=== PATIENT | male | born 1950 | race Caucasian/White ===

== ENCOUNTER 2017-02-19 07:27 | Inpatient (IN) | payer OTHER ==
[~2017-02-19] VITALS: Ht 175.3 cm; Wt 53.1 kg
[~2017-02-19 07:27] MED LIST: AMOX1TAB43 PO; ASPI-232 PO; CPR500 PO; NRV5 PO; THM100 PO
--- NOTE | 2017-02-19 07:41 | EMERGENCY ROOM VISIT NOTE ---
ED Visit Note First contact with patient: 07:35 I have seen and examined this patient with Gregory Fitch and generally agree with the treatment plan as discussed. Problem List Medical Problems: (1) HTN (hypertension) Status: Chronic (2) Hypertension Status: Chronic (3) Tobacco use disorder Status: Chronic Surgical Problems: (1) H/O colonoscopy Status: Chronic Current/Historical Medications Scheduled Amlodipine Besylate (Amlodipine Besylate), 5 MG PO DAILY Amoxicillin & Pot Clavulanate (Amoxicillin/Clavulanate P), 875 MG PO BIDM Aspirin (Aspir-81), 81 MG PO DAILY Ciprofloxacin (Ciprofloxacin HCl), 500 MG PO BID Thiamine HCl (Vitamin B-1), 100 MG PO DAILY Allergies Coded Allergies: No Known Allergies (Unverified , 07/26/16) Departure Information Referrals Noah Mayes MD (PCP) Patient Instructions My [facility]
[2017-02-19 08:34] LABS: BASO % 0.1 %; BASO ABS # 0.02 K/uL (0-0.2); COMPLETE YES; HEMATOCRIT 37.8 % (42-52); IG% 0.4 %; LYMPH % 8.6 %; LYMPH ABS # 1.34 K/uL (1.2-3.4); MEAN CELL VOLUME 96.2 fL (80-100); MEAN CORPUSCULAR HEMOGLOBIN 33.1 pg (25-34); MEAN CORPUSCULAR HGB CONC 34.4 g/dl (32-36); MEAN PLATELET VOLUME 9.3 fL (7.4-10.4); MONO % 8.8 %; NEUT % 82.1 %; PLATELET COUNT 202 K/uL (130-400); RED BLOOD COUNT 3.93 M/uL (4.7-6.1); WHITE BLOOD COUNT 15.59 K/uL (4.8-10.8)
[2017-02-19 08:51] LABS: BUN/CREATININE RATIO 24.8 (10-20); CREATININE 1.1 mg/dl (0.60-1.40); MAGNESIUM 2.1 mg/dl (1.8-2.4); POTASSIUM 4.2 mmol/L (3.5-5.1)
[2017-02-19 08:53] LABS: CALCIUM 9.3 mg/dl (8.5-10.1)
[2017-02-19 08:54] LABS: ALB/GLOB RATIO 0.9 (0.9-2)
--- NOTE | 2017-02-19 08:55 | DIAGNOSTIC IMAGING REPORT ---
CT HEAD WITHOUT CONTRAST (CT) CLINICAL HISTORY: Trauma. Patient found unconscious. COMPARISON STUDY: 02/06/2016 TECHNIQUE: Axial CT of the brain is performed from the vertex to the skull base. IV contrast was not administered for this examination. CT DOSE: 1191.40 mGy.cm FINDINGS: No intra or extra-axial mass lesions are visualized. There is no CT evidence of acute cortical infarction. There is no evidence of midline shift. There is no acute hemorrhage. No calvarial fractures are visualized. There are patchy white matter hypodensities likely on a small vessel basis. 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 There is an equivocal old infarct in the region the left pontomedullary junction. There is ventricular dilatation, unchanged the prior study and likely secondary to volume loss. There is a prominent cisterna magna. There is no evidence of acute sinusitis IMPRESSION: No acute intracranial findings Electronically signed by: Rohan Archuleta M.D. 02/19/2017 8:53 AM Dictated Date/Time: 02/19/2017 8:51 AM
--- NOTE | 2017-02-19 08:58 | DIAGNOSTIC IMAGING REPORT ---
CT LUMBAR SPINE WITHOUT CT DOSE: CLINICAL HISTORY: Back pain status post trauma. Patient is incontinent of urine and feces. TECHNIQUE: Helical images were acquired in transverse plane. Reformatted sagittal and coronal images were reviewed. CONTRAST: No contrast was administered COMPARISON STUDY: None. FINDINGS: L1-2 level: There is a minimal circumferential disc bulge. There is no evidence of significant spinal or foraminal stenosis. L2-3 level: There is a mild circumferential disc bulge. There is no significant spinal or foraminal stenosis. L3-4 level: There is a minor circumferential disc bulge. There is no significant spinal or foraminal stenosis. L4-5 level: There is a mild circumferential disc bulge. There is mild spinal stenosis. There is no significant foraminal narrowing L5-S1 level: There is a disc osteophyte complex. There is no significant spinal or foraminal stenosis. No acute fractures or traumatic subluxations are visualized. IMPRESSION: 1. No acute fractures or traumatic subluxations identified 2. Mild multilevel spondylitic change. Mild spinal stenosis at the L4-5 level. Electronically signed by: Rohan Archuleta M.D. 02/19/2017 8:56 AM Dictated Date/Time: 02/19/2017 8:54 AM
--- NOTE | 2017-02-19 09:24 | DIAGNOSTIC IMAGING REPORT ---
CHEST ONE VIEW PORTABLE CLINICAL HISTORY: Unconscious patient. Trauma. COMPARISON STUDY: 04/25/2016 FINDINGS: The cardiac and mediastinal contours are normal. There is no evidence of focal pulmonary consolidation. There is no evidence of failure. No pleural effusions are visualized.[ The patient appears mildly hyperinflated. There is a left midlung zone nodule, likely representing a nipple shadow. This remain similar to the prior study. IMPRESSION: No active disease in the chest. Electronically signed by: Rohan Archuleta M.D. 02/19/2017 9:23 AM Dictated Date/Time: 02/19/2017 9:22 AM
--- NOTE | 2017-02-19 10:00 | EMERGENCY ROOM VISIT NOTE ---
History First contact with patient: 07:35 Chief Complaint: FOOT PAIN Stated Complaint: LEFT FOOT PAIN History of Present Illness The patient is a 66 year old male who presents to the Emergency Room via ambulance with complaints of "left foot pain". The emergency personnel who brought the patient, states that he was found outside in the park, face down on the sidewalk. Police were notified, and EMS were called. The patient was slightly groggy when aroused, and notes that he was consuming alcohol. The patient also was noted to have a large amount of feces within his clothes. It was believed that he was lying on the sidewalk since 9:30 PM yesterday evening. In route his oral temperature was 98.3. Patient is believed to be homeless. He does have a history of trench foot. Upon questioning, the patient states that he did consume 8, 12 ounce beers yesterday. He also notes that his left foot appears to be developing trench foot again. He notes pain in the left foot that he rates as an 9/10, like pins and needles. He also notes that he must have fallen off of the park bench while sleeping, is not sure if he lost consciousness. There is associated chills. He denies any chest pain, shortness of breath, fever, back pain, abdominal pain, head pain. The patient at this time denies any other areas of pain. Review of Systems A complete 10-point Review of Systems was discussed with the patient, with pertinent positives and negatives listed in the History of Present Illness. All remaining Review of Systems questions can be considered negative unless otherwise specified. Past Medical/Surgical History Medical Problems: (1) Ambulatory dysfunction (2) Cellulitis of foot (3) HTN (hypertension) (4) Hypertension (5) Immersion (trench) foot (6) Tobacco use disorder (7) Trench foot Surgical Problems: (1) H/O colonoscopy Family History FH: CAD (coronary artery disease) FATHER ( of [place] age 56 ) Social History Smoking Status: Current Every Day Smoker Alcohol Use: heavy Drug Use: marijuana Marital Status: single Housing Status: other Occupation Status: retired Current/Historical Medications No Active Prescriptions or Reported Meds Allergies Coded Allergies: No Known Allergies (Unverified , 02/19/17) Physical Exam Vital Signs Date Time Temp Pulse Resp B/P Pulse Ox O2 Delivery O2 Flow Rate FiO2 02/19/17 10:03 79 18 154/70 100 Room Air 02/19/17 07:44 36.7 93 18 170/93 99 Room Air Physical Exam VITAL SIGNS - Vital signs and nursing notes were reviewed. GENERAL -66-year-old male appearing his stated age who is in no acute distress. Communicates well with provider and answers questions appropriately. The patient's overall skin, appears to be weathered is dry and red. SKIN - the left foot is erythematous, with a small black nonraised blotches. This is consistent with trench foot. HEAD - NC/AT. EYES - Palpebral conjunctiva pink and moist with no injection noted. PERRLA. EARS - No deformities of external structures noted on gross examination bilaterally. NOSE - Midline and without cyanosis. MOUTH/OROPHARYNX - Without perioral cyanosis. No dentition. NECK - Neck with FROM. Supple to palpation. No evidence of meningitis. LUNGS - Chest wall symmetric without accessory muscle use, intercostals retractions, or central cyanosis. Normal vesicular breath sounds CTA B/L. No wheezes, rales, or rhonchi appreciated. CARDIAC - RRR with S1/S2. No murmur, rubs, or gallops appreciated. ABDOMEN - Abdominal contour without pulsations or visible masses. BS normoactive all four quadrants. No tenderness, palpable masses, hepatosplenomegaly, or ascites noted. EXTREMITIES - No clubbing or peripheral cyanosis. No pretibial edema present. The left lower extremity from the knee down is erythematous, with findings of trench foot. Right foot unremarkable. There is tenderness to palpation overlying the left foot. +5/5 strength noted in UE/LE bilaterally. NEUROLOGIC - Cranial nerves II through XII grossly intact. PSYCH - A&Ox3 and cooperates fully with examiner. Pt is very pleasant and interacts well with examiner. Medical Decision & Procedures ER Provider Diagnostic Interpretation: CHEST ONE VIEW PORTABLE CLINICAL HISTORY: Unconscious patient. Trauma. COMPARISON STUDY: 04/25/2016 FINDINGS: The cardiac and mediastinal contours are normal. There is no evidence of focal pulmonary consolidation. There is no evidence of failure. No pleural effusions are visualized.[ The patient appears mildly hyperinflated. There is a left midlung zone nodule, likely representing a nipple shadow. This remain similar to the prior study. IMPRESSION: No active disease in the chest. Electronically signed by: Rohan Archuleta M.D. 02/19/2017 9:23 AM Dictated Date/Time: 02/19/2017 9:[address] HEAD WITHOUT CONTRAST (CT) CLINICAL HISTORY: Trauma. Patient found unconscious. COMPARISON STUDY: 02/06/2016 TECHNIQUE: Axial CT of the brain is performed from the vertex to the skull base. IV contrast was not administered for this examination. CT DOSE: 1191.40 mGy.cm FINDINGS: No intra or extra-axial mass lesions are visualized. There is no CT evidence of acute cortical infarction. There is no evidence of midline shift. There is no acute hemorrhage. No calvarial fractures are visualized. There are patchy white matter hypodensities likely on a small vessel basis. 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 There is an equivocal old infarct in the region the left pontomedullary junction. There is ventricular dilatation, unchanged the prior study and likely secondary to volume loss. There is a prominent cisterna magna. There is no evidence of acute sinusitis IMPRESSION: No acute intracranial findings Electronically signed by: Rohan Archuleta M.D. 02/19/2017 8:53 AM Dictated Date/Time: 02/19/2017 8:[address] LUMBAR SPINE WITHOUT CT DOSE: CLINICAL HISTORY: Back pain status post trauma. Patient is incontinent of urine and feces. TECHNIQUE: Helical images were acquired in transverse plane. Reformatted sagittal and coronal images were reviewed. CONTRAST: No contrast was administered COMPARISON STUDY: None. FINDINGS: L1-2 level: There is a minimal circumferential disc bulge. There is no evidence of significant spinal or foraminal stenosis. L2-3 level: There is a mild circumferential disc bulge. There is no significant spinal or foraminal stenosis. L3-4 level: There is a minor circumferential disc bulge. There is no significant spinal or foraminal stenosis. L4-5 level: There is a mild circumferential disc bulge. There is mild spinal stenosis. There is no significant foraminal narrowing L5-S1 level: There is a disc osteophyte complex. There is no significant spinal or foraminal stenosis. No acute fractures or traumatic subluxations are visualized. IMPRESSION: 1. No acute fractures or traumatic subluxations identified 2. Mild multilevel spondylitic change. Mild spinal stenosis at the L4-5 level. Electronically signed by: Rohan Archuleta M.D. 02/19/2017 8:56 AM Dictated Date/Time: 02/19/2017 8:54 AM Laboratory Results 02/19/17 08:14 Red Blood Count 3.93, Mean Corpuscular Volume 96.2, Mean Corpuscular Hemoglobin 33.1, Mean Corpuscular Hemoglobin Concent 34.4, Mean Platelet Volume 9.3, Neutrophils (%) (Auto) 82.1, Lymphocytes (%) (Auto) 8.6, Monocytes (%) (Auto) 8.8, Eosinophils (%) (Auto) 0.0, Basophils (%) (Auto) 0.1, Neutrophils # (Auto) 12.79, Lymphocytes # (Auto) 1.34, Monocytes # (Auto) 1.37, Eosinophils # (Auto) 0.00, Basophils # (Auto) 0.02 02/19/17 08:14 Test 02/19/17 08:14 02/19/17 08:33 White Blood Count 15.59 K/uL (4.8-10.8) Red Blood Count 3.93 M/uL (4.7-6.1) Hemoglobin 13.0 g/dL (14.0-18.0) Hematocrit 37.8 % (42-52) Mean Corpuscular Volume 96.2 fL (80-100) Mean Corpuscular Hemoglobin 33.1 pg (25-34) Mean Corpuscular Hemoglobin Concent 34.4 g/dl (32-36) Platelet Count 202 K/uL (130-400) Mean Platelet Volume 9.3 fL (7.4-10.4) Neutrophils (%) (Auto) 82.1 % Lymphocytes (%) (Auto) 8.6 % Monocytes (%) (Auto) 8.8 % Eosinophils (%) (Auto) 0.0 % Basophils (%) (Auto) 0.1 % Neutrophils # (Auto) 12.79 K/uL (1.4-6.5) Lymphocytes # (Auto) 1.34 K/uL (1.2-3.4) Monocytes # (Auto) 1.37 K/uL (0.11-0.59) Eosinophils # (Auto) 0.00 K/uL (0-0.5) Basophils # (Auto) 0.02 K/uL (0-0.2) RDW Standard Deviation 44.6 fL (36.4-46.3) RDW Coefficient of Variation 12.7 % (11.5-14.5) Immature Granulocyte % (Auto) 0.4 % Immature Granulocyte # (Auto) 0.07 K/uL (0.00-0.02) Prothrombin Time 10.0 SECONDS (9.0-12.0) Prothromb Time International Ratio 0.9 (0.9-1.1) Anion Gap 12.0 mmol/L (3-11) Est Creatinine Clear Calc Drug Dose 50.3 ml/min Estimated GFR () 81.2 Estimated GFR (Non- 70.1 BUN/Creatinine Ratio 24.8 (10-20) Calcium Level 9.3 mg/dl (8.5-10.1) Magnesium Level 2.1 mg/dl (1.8-2.4) Total Bilirubin 0.8 mg/dl (0.2-1) Aspartate Amino Transf (AST/SGOT) 39 U/L (15-37) Alanine Aminotransferase (ALT/SGPT) 25 U/L (12-78) Alkaline Phosphatase 79 U/L (45-117) Total Protein 7.5 gm/dl (6.4-8.2) Albumin 3.6 gm/dl (3.4-5.0) Globulin 3.9 gm/dl (2.5-4.0) Albumin/Globulin Ratio 0.9 (0.9-2) Ammonia < 10.0 umol/L (11-32) Ethyl Alcohol mg/dL < 3.0 mg/dl (0-3) Medical Decision Patient was seen and evaluated as above. He presents today via ambulance, as he was [place]. He is believed to be homeless. He has been admitted here numerous times in the past, most notably for trench foot. He does have findings concerning for trenchfoot and cellulitis of his left lower extremity today. He does not wear socks, and appears to have chronically wet feet. The patient denies any other complaints at this time. Before I was able to see the patient, he was taken to the decontamination room and was showered as there were large amounts of feces within his clothes. His clothes were laundered. There is concern for potential loss of consciousness status post fall from a park bench therefore CT of the head was obtained. The patient also stated that he was recently incontinent of urine and stool, which was visibly noted upon his entrance into the emergency department today. CT scan was obtained of the lumbar spine without evidence of acute process and head which revealed old infarcts of which he was educated upon. There is no weakness in the legs, or genital numbness. I do not suspect cauda equina. The patient does have elevated leukocytosis at about 15-1/2, with erythematous findings of the left lower foot, and black small little blotches concerning for decay of skin. The patient's vital signs here are relatively stable, he is not hypothermic. The case was discussed with my attending, and subsequently the hospitalist as I do believe that the patient would benefit from potential inpatient management to aid in slight workup of his feet, as well as for potential further investigation of his incontinence. Please refer to further documentation regarding the patient's stay. In evaluation treatment this patient the following differential diagnoses were entertained: encephalopathy, alcohol withdrawal, homelessness, trench foot, sialitis, sepsis, among others. Impression Primary Impression: Immersion (trench) foot Additional Impressions: Alcohol abuse Anemia Cellulitis of foot Departure Information Prescriptions No Active Prescriptions or Reported Meds Referrals Noah Mayes MD (PCP) Patient Instructions [facility] Problem Qualifiers
[2017-02-19] MEDS ORDERED: POLYETHYLENE (MIRALAX) 17 GM PACK PO PRN (10:15)
[2017-02-19] MEDS ORDERED: ACETAMINOPHEN 325 MG TAB PO PRN (10:15)
[2017-02-19] MEDS ORDERED: ONDANSETRON INJ 2 MG/ML 2 ML VIAL IV PRN (10:15)
[2017-02-19] MEDS ORDERED: HEPARIN SOD 5000 UNIT/0.5 ML CARP SQ SCH (10:15)
--- NOTE | 2017-02-19 10:26 | History and Physical ---
History & Physical Date & Time of Service: February 19, 2017 at 10:17 Chief Complaint: Left Foot Pain Primary Care Physician: Noah Mayes MD History of Present Illness Source: patient HISTORY OF PRESENT ILLNESS: This is a 66-year-old male with past medical history significant for hypertension, trench foot, alcohol ingestion, tobacco disorder, homeless man, bowel and bladder incontinence, comes with trench foot. Emergency personnel who brought the patient, states that he was found outside in the park, face down on the sidewalk. Police was notified, and EMS were called. The patient was slightly groggy when aroused, and notes that he was consuming alcohol. The patient also was noted to have a large amount of feces within his close. It was believed that he was lying on the sidewalk since 9:30 PM yesterday evening. Patient's last admission was in July,April 2016 for trench foot. Since than his living condition has not changed- Unhygienic living conditions +, homeless. He continues to have bladder, bowel incontinence which has been a chronic issue. Today he c/o painful feet, difficulty ambulating due to pain. There is redness in red foot which is new. He states that he did consume 8, 12 ounce beers yesterday. Denies any fever, chills, nausea, vomiting, diarrhea, abdominal pain , diarrhea, cough, SOB, chest pain. On and off does c/o falls. Had work up in ED - CT head, CT cervical spine. He says he does fall on and off when he gets drunk. BP high in 170s. Labs show WBC of 15k. We will admit him for cellulitis of left foot with no signs of sepsis Past Medical/Surgical History Medical Problems: (1) HTN (hypertension) Status: Chronic (2) Hypertension Status: Chronic (3) Tobacco use disorder Status: Chronic Surgical Problems: (1) H/O colonoscopy Status: Chronic Family History FH: CAD (coronary artery disease) FATHER ( of [place] age 56 ) Social History Smoking Status: Current Every Day Smoker Drug Use: marijuana Marital Status: single Occupational Status: retired Immunizations History of Influenza Vaccine: No History of Tetanus Vaccine?: No Multi-Drug Resistant Organisms History of MDRO: No Allergies Coded Allergies: No Known Allergies (Unverified , 02/19/17) Home Medications No Active Prescriptions or Reported Meds Review of Systems Constitutional: No chills, No fever Eyes: No eye pain, No worsening of vision ENT: No hearing loss, No nasal symptoms Respiratory: No cough, No hemoptysis, No shortness of breath, No sputum, No wheezing Cardiovascular: No chest pain, No palpitations Abdomen: No GI bleeding, No constipation, No diarrhea, No nausea, No pain, No vomiting Musculoskeletal: + problem reported (bilateral feet pain) Genitourinary - Male: + urinary incontinence, No hematuria Neurologic: No memory loss, No numbness/tingling, No paralysis, No weakness Psychiatric: + substance abuse (alcohol) Hematologic / Lymphatic: No abnormal bleeding/bruising Integumentary: + problem reported (Redness, pain in bilateral feet.) Physical Exam Vital Signs Date Time Temp Pulse Resp B/P Pulse Ox O2 Delivery O2 Flow Rate FiO2 02/19/17 10:03 79 18 154/70 100 Room Air 02/19/17 07:44 36.7 93 18 170/93 99 Room Air General Appearance: no apparent distress, + pertinent finding (Disheveled) Head: normocephalic, atraumatic Eyes: PERRL ENT: hearing grossly normal Neck: supple, no JVD Respiratory/Chest: chest non-tender, lungs clear, normal breath sounds, no respiratory distress, no accessory muscle use Cardiovascular: regular rate, rhythm, no murmur Abdomen/GI: normal bowel sounds, non tender, soft Back: no CVA tenderness Extremities/Musculoskelatal: no calf tenderness Neurologic/Psych: no motor/sensory deficits, alert, oriented x 3 Skin: + pertinent finding (Left foot- Erythema/Tenderness extending upto 3-4 inches above ankle and involving the foot. Multiple scabs on dorsum of feet. Trench Feet +) Diagnostics Laboratory Results Results Past 24 Hours Test 02/19/17 08:14 02/19/17 08:33 Range/Units White Blood Count 15.59 4.8-10.8 K/uL Red Blood Count 3.93 4.7-6.1 M/uL Hemoglobin 13.0 14.0-18.0 g/dL Hematocrit 37.8 42-52 % Mean Corpuscular Volume 96.2 80-100 fL Mean Corpuscular Hemoglobin 33.1 25-34 pg Mean Corpuscular Hemoglobin Concent 34.4 32-36 g/dl Platelet Count 202 130-400 K/uL Mean Platelet Volume 9.3 7.4-10.4 fL Neutrophils (%) (Auto) 82.1 % Lymphocytes (%) (Auto) 8.6 % Monocytes (%) (Auto) 8.8 % Eosinophils (%) (Auto) 0.0 % Basophils (%) (Auto) 0.1 % Neutrophils # (Auto) 12.79 1.4-6.5 K/uL Lymphocytes # (Auto) 1.34 1.2-3.4 K/uL Monocytes # (Auto) 1.37 0.11-0.59 K/uL Eosinophils # (Auto) 0.00 0-0.5 K/uL Basophils # (Auto) 0.02 0-0.2 K/uL RDW Standard Deviation 44.6 36.4-46.3 fL RDW Coefficient of Variation 12.7 11.5-14.5 % Immature Granulocyte % (Auto) 0.4 % Immature Granulocyte # (Auto) 0.07 0.00-0.02 K/uL Sodium Level 134 136-145 mmol/L Potassium Level 4.2 3.5-5.1 mmol/L Chloride Level 98 98-107 mmol/L Carbon Dioxide Level 24 21-32 mmol/L Anion Gap 12.0 3-11 mmol/L Blood Urea Nitrogen 27 7-18 mg/dl Creatinine 1.10 0.60-1.40 mg/dl Est Creatinine Clear Calc Drug Dose 50.3 ml/min Estimated GFR () 81.2 Estimated GFR (Non- 70.1 BUN/Creatinine Ratio 24.8 10-20 Random Glucose 74 70-99 mg/dl Calcium Level 9.3 8.5-10.1 mg/dl Magnesium Level 2.1 1.8-2.4 mg/dl Total Bilirubin 0.8 0.2-1 mg/dl Aspartate Amino Transf (AST/SGOT) 39 15-37 U/L Alanine Aminotransferase (ALT/SGPT) 25 12-78 U/L Alkaline Phosphatase 79 45-117 U/L Total Protein 7.5 6.4-8.2 gm/dl Albumin 3.6 3.4-5.0 gm/dl Globulin 3.9 2.5-4.0 gm/dl Albumin/Globulin Ratio 0.9 0.9-2 Ammonia < 10.0 11-32 umol/L Ethyl Alcohol mg/dL < 3.0 0-3 mg/dl Diagnostic Radiology CT LUMBAR SPINE IMPRESSION: 1. No acute fractures or traumatic subluxations identified 2. Mild multilevel spondylitic change. Mild spinal stenosis at the L4-5 level. CXR No acute abnormalities CT head No acute abnormalities Impression Assessment and Plan ASSESSMENT AND PLAN : This is a 65 year-old male who presents with the trench foot more on the left side with cellulitis CELLULITIS - LEFT FOOT /BILATERAL TRENCH FEET : Patient has had multiple admissions in past for trench feet due to poor hygienic conditions/poor living conditions- homelessness/chronic bladder/bowel incontinence. This time he comes for similar complaints, but being admitted for cellulitis of left foot due to increasing redness, swelling, pain. -Afebrile, leucocytosis of 15k -Will start him on IV Unasyn -Trench foot care: Keep feet clean, dry, socks . No socks while sleeping at night. -PT ordered HTN- Elevated BP due to non compliance Does not take any medications but supposed to be on amlodipine -Restart amlodipine ALCOHOL/TOBACCO ABUSE DISORDER -Patient did consume 8, 12 ounce beers yesterday. -Nicotine patch -Watch for withdrawal signs DVT PROPHYLAXIS SCDS/Heparin SQ DISPOSITION Admit to med surg SS consult placed FULL CODE per patient Level of Care Med/Surg Resuscitation Status FULL RESUSCITATION VTE Prophylaxis VTE Risk Assessment Done? Y/N: Yes Risk Level: Moderate Given or contraindicated: Unfractionated heparin SQ Social Service Consult Homeless
[2017-02-19] MEDS ORDERED: LORAZEPAM 1 MG TAB PO PRN (11:00)
[2017-02-19 11:32] VITALS: BP 148/80; PULSE 84; TEMP 36.5; O2SAT 99
[2017-02-19 12:20] LABS: INR 0.9 (0.9-1.1)
[2017-02-19 12:24] VITALS: Ht 175.3 cm; Wt 53.1 kg
[2017-02-19 12:55] VITALS: BP 107/64; PULSE 83
[2017-02-19] MEDS: AMLODIPINE BESYLATE 5 MG TAB PO SCH (12:56)
[2017-02-19] MEDS: AMPICILLIN/SULBACTAM SOD INJ 3,000 MG in SODIUM CHLORIDE 0.9% 100ML 100 ML IV SCH ×2 (12:56→18:17)
[2017-02-19] MEDS: HEPARIN SOD 5000 UNIT/0.5 ML CARP SQ SCH ×2 (13:41→21:55)
[2017-02-19 14:40] VITALS: BP 123/72; PULSE 84; TEMP 36.7; O2SAT 98
[2017-02-19 23:10] VITALS: BP 126/70; PULSE 78; TEMP 36.8; O2SAT 97
[2017-02-20] MEDS: AMPICILLIN/SULBACTAM SOD INJ 3,000 MG in SODIUM CHLORIDE 0.9% 100ML 100 ML IV SCH ×5 (00:23→23:34)
[2017-02-20] MEDS: HEPARIN SOD 5000 UNIT/0.5 ML CARP SQ SCH ×3 (06:11→21:33)
[2017-02-20 06:49] VITALS: BP 127/70; PULSE 97; TEMP 36.6; O2SAT 90
[2017-02-20] MEDS: AMLODIPINE BESYLATE 5 MG TAB PO SCH (07:31)
[2017-02-20 08:11] LABS: MEAN CELL VOLUME 97.6 fL (80-100); MEAN CORPUSCULAR HEMOGLOBIN 32.2 pg (25-34); MEAN PLATELET VOLUME 9.3 fL (7.4-10.4); PLATELET COUNT 181 K/uL (130-400); RED BLOOD COUNT 3.79 M/uL (4.7-6.1); WHITE BLOOD COUNT 8.97 K/uL (4.8-10.8)
[2017-02-20 08:37] LABS: BUN/CREATININE RATIO 23.7 (10-20); CREATININE 0.91 mg/dl (0.60-1.40); POTASSIUM 3.6 mmol/L (3.5-5.1)
[2017-02-20 08:50] LABS: CALCIUM 9.5 mg/dl (8.5-10.1)
--- NOTE | 2017-02-20 14:35 | Progress Note ---
Internal Med Progress Note Date of Service: February 20, 2017. Provider Documentation: SUBJECTIVE: The patient was see\n and examined Left foot pain and swelling are better Redness is improved OBJECTIVE: Vital Signs-as noted below Exam: General-No distress at rest Eyes-Normal ENT-normal Neck-supple Lungs-Clear to auscultate bilaterally Heart-Regular,no murmur Abdomen-benign,no masses,bowel sound present Extremities-left foot swollen,with redness and tenderness and multiple wound with black eschar on those A few wounds on the right Neuro-AAOx3 Lab data as noted below. ASSESSMENT & PLAN: CELLULITIS - LEFT FOOT /BILATERAL TRENCH FEET : Patient has had multiple admissions in past for trench feet due to poor hygienic conditions/poor living conditions- homelessness/chronic bladder/bowel incontinence. Admitted with increasing swelling,redness and pain in left foot Afebrile, leucocytosis of 15k Has been started on IV Unasyn Wound care consult HTN- Elevated BP due to non compliance Does not take any medications but supposed to be on amlodipine Amlodipine restarted ALCOHOL And TOBACCO ABUSE DISORDER -Consumes beers -Nicotine patch to prevent craving for cigarettes -Watch for withdrawal signs -Ativan PRN DVT PROPHYLAXIS SCDS/Heparin SQ DISPOSITION SS consult placed PT/OT evaluation Likely discharge tomorrow FULL CODE per patient Vital Signs: Date Time Temp Pulse Resp B/P Pulse Ox O2 Delivery O2 Flow Rate FiO2 02/20/17 08:00 Room Air 02/20/17 06:49 36.6 97 20 127/70 90 Room Air 02/20/17 00:00 Room Air 02/19/17 23:10 36.8 78 18 126/70 97 Room Air 02/19/17 20:00 Room Air 02/19/17 16:00 Room Air 02/19/17 14:40 36.7 84 20 123/72 98 Room Air Lab Results: Results Past 24 Hours Test 02/20/17 07:30 Range/Units White Blood Count 8.97 4.8-10.8 K/uL Red Blood Count 3.79 4.7-6.1 M/uL Hemoglobin 12.2 14.0-18.0 g/dL Hematocrit 37.0 42-52 % Mean Corpuscular Volume 97.6 80-100 fL Mean Corpuscular Hemoglobin 32.2 25-34 pg Mean Corpuscular Hemoglobin Concent 33.0 32-36 g/dl RDW Standard Deviation 46.0 36.4-46.3 fL RDW Coefficient of Variation 12.9 11.5-14.5 % Platelet Count 181 130-400 K/uL Mean Platelet Volume 9.3 7.4-10.4 fL Sodium Level 137 136-145 mmol/L Potassium Level 3.6 3.5-5.1 mmol/L Chloride Level 100 98-107 mmol/L Carbon Dioxide Level 27 21-32 mmol/L Anion Gap 10.0 3-11 mmol/L Blood Urea Nitrogen 22 7-18 mg/dl Creatinine 0.91 0.60-1.40 mg/dl Est Creatinine Clear Calc Drug Dose 60.8 ml/min Estimated GFR () 102.1 Estimated GFR (Non- 88.1 BUN/Creatinine Ratio 23.7 10-20 Random Glucose 84 70-99 mg/dl Calcium Level 9.5 8.5-10.1 mg/dl
[2017-02-20 16:19] VITALS: BP 126/75; PULSE 84; TEMP 36.9; O2SAT 94
[2017-02-20 17:22] LABS: URINE APPEARANCE CLEAR (CLEAR); URINE BILIRUBIN NEG (NEG); URINE COLOR YELLOW; URINE NITRITE NEG (NEG); URINE SPECIFIC GRAVITY 1.025 (1.000-1.030); UROBILINOGEN NEG (NEG); ZZUR CULT IF INDIC CLEAN CATCH NO
[2017-02-20 17:32] LABS: MANUAL MICROSCOPIC REQUIRED? NO; REVIEW REQ? NO
[2017-02-20 18:07] LABS: BENZODIAZEPINE, URINE NEG (NEG); COCAINE,URINE NEG (NEG); PHENCYCLIDINE, URINE NEG (NEG)
[2017-02-21 00:03] VITALS: BP 149/80; PULSE 74; TEMP 36.8; O2SAT 95
[2017-02-21] MEDS: AMPICILLIN/SULBACTAM SOD INJ 3,000 MG in SODIUM CHLORIDE 0.9% 100ML 100 ML IV SCH ×2 (05:44→12:45)
[2017-02-21] MEDS: HEPARIN SOD 5000 UNIT/0.5 ML CARP SQ SCH (06:27)
[2017-02-21 07:27] VITALS: BP 158/81; PULSE 61; TEMP 36.6; O2SAT 97
[2017-02-21] MEDS: AMLODIPINE BESYLATE 5 MG TAB PO SCH (08:34)
--- NOTE | 2017-02-21 13:44 | Progress Note ---
Medicine Progress Note Date & Time of Visit: February 21, 2017 at 13:37. Subjective patient seen resting in bed expressing to the staff that he would like to be discharged as soon as possible on exam, resting comfortably in bed denies leg pain, has usual pain on his feet with minimal touching no fever/chills denies chest pain, dyspnea, dizziness, palpitations no problems with ambulation states he is back to his usual baseline and would like to be discharged today Objective Last 8 Hrs Date Time Temp Pulse Resp B/P Pulse Ox O2 Delivery O2 Flow Rate FiO2 02/21/17 08:00 Room Air 02/21/17 07:27 36.6 61 18 158/81 97 Room Air Physical Exam: General- oriented x 3, not in distress, speaks in sentences with no effort Head- atraumatic Eyes- EOMI, anicteric ENT- oropharynx clear Neck- supple, no JVD, no adenopathy Lungs- clear breath sounds bilaterally, no rales/wheezes Heart- regular rhythm; no murmur, normal rate Abdomen- normal bowel sounds, soft, nontender Extremities- right foot: 2 scabbed small wounds on the dorsal aspect, no erythema/warmth/swelling, tenderness left foot: miultiple small scabbed wounds on the dorsal aspect, highly sensitive to touch, mild erythema, no warmth/swelling no pretibial edema, no calf tenderness; peripheral pulses intact Neuro- alert, oriented x 3; no gross focal deficits Skin- warm & dry Laboratory Results: Last 24 Hours Test 02/20/17 16:45 Urine Color YELLOW Urine Appearance CLEAR Urine pH 7.0 Urine Specific [place] 1.025 Urine Protein NEG Urine Glucose (UA) 1+ Urine Ketones TRACE Urine Occult Blood NEG Urine Nitrite NEG Urine Bilirubin NEG Urine Urobilinogen NEG Urine Leukocyte Esterase NEG Urine Opiates Screen NEG Urine Methadone, Qualitative NEG Urine Barbiturates NEG Urine Phencyclidine (PCP) Level NEG Ur Amphetamine/Methamphetamine NEG MDMA (Ecstasy) Screen NEG Urine Benzodiazepines Screen NEG Urine Cocaine Metabolite NEG Urine Marijuana (THC) POS Assessment & Plan CELLULITIS - LEFT FOOT /BILATERAL TRENCH FEET : Patient has had multiple admissions in past for trench feet due to poor hygienic conditions/poor living conditions- homelessness/chronic bladder/bowel incontinence. Admitted with increasing swelling,redness and pain in left foot Afebrile, leucocytosis of 15k Has been started on IV Unasyn -- clinically improved leukocytosis resolved - discharge plan: Augmentin 875mg BID x 7 days patient advised to continue daily foot care/wound check advised to call PCP or return to ER if with worsening of symptoms, fever, etc. emphasized importance of compliance with medications to avoid Osteomyelitis, Sepsis, etc. Patient verbalized understanding. HYPERTENSION - initially, Elevated BP due to non compliance Amlodipine restarted - Amlodipine improving - continue Amlodipine - PCP ff up ALCOHOL And TOBACCO ABUSE DISORDER - no signs of withdrawal - advised cessation NORMOCYTIC ANEMIA, MILD Hg 12.2 monitor and further work up as outpatient DVT PROPHYLAXIS SCDS/Heparin SQ DISPOSITION d/c today ff up with PCP in 1 week Current Inpatient Medications: Current Inpatient Medications Medications (Trade) Dose Ordered Sig/Arron Route Start Time Stop Time Status Last Admin Dose Admin Acetaminophen (Tylenol Tab) 650 mg Q4H PRN PO 02/19/17 10:15 03/21/17 10:14 Polyethylene (Miralax Powder Packet) 17 gm DAILY PRN PO 02/19/17 10:15 03/21/17 10:14 Ondansetron HCl (Zofran Inj) 4 mg Q6H PRN IV 02/19/17 10:15 03/21/17 10:14 Heparin Sodium (Porcine) 5000 unit 5,000 unit Q8H SQ 02/19/17 14:00 03/21/17 13:59 02/21/17 06:27 5,000 UNIT Ampicillin Sodium/ Sulbactam Sodium/ Sodium Chloride (Unasyn Inj/Nss 100ml) 108 ml @ 200 mls/hr Q6 IV 02/19/17 12:00 03/01/17 11:59 02/21/17 12:45 200 MLS/HR Amlodipine Besylate (Norvasc Tab) 5 mg DAILY PO 02/19/17 10:45 03/21/17 10:44 02/21/17 08:34 5 MG Lorazepam (Ativan Tab) 1 mg Q4H PRN PO 02/19/17 11:00 03/21/17 10:59
[2017-02-21] MEDS ORDERED: NRV5 PO (13:45)
[2017-02-21] MEDS ORDERED: AMOX875T PO (13:45)
--- NOTE | 2017-02-21 13:54 | Discharge Instructions ---
Discharge Instructions Date of Service February 21, 2017. Admission Reason for Admission: Cellulitis Of Foot, Trench Foot Discharge Discharge Diagnosis / Problem: LEFT FOOT CELLULITIS Discharge Goals Goal(s): Diagnostic testing, Therapeutic intervention Activity Recommendations Activity Limitations: as noted below (NO HEAVY EXERTION UNTIL RE-EVALUATED BY PRIMARY CARE PHYSICIAN) . Instructions / Follow-Up Instructions / Follow-Up OBSERVE PROPER CARE OF YOUR FEET DAILY. CALL PRIMARY CARE PHYSICIAN OR RETURN TO ER IMMEDIATELY IF WITH INCREASING SWELLING, REDNESS, PAIN OF YOUR FEET OR LEGS, OR IF YOU HAVE FEVER/CHILLS. FOLLOW UP WITH YOUR PRIMARY CARE PHYSICIAN ADVISED. AVOID ALCOHOL AND SMOKING. FOLLOW UP WITH DR. WILSON (ASSOCIATE OF DR. CARTAGENA) ON FRIDAY FEBRUARY 24, 2017 AT 9 :45 AM. Current Hospital Diet Patient's current hospital diet: Low Sodium Diet (2gm Na) Discharge Diet Recommended Diet: AHA Diet (Heart Healthy) Pending Studies Studies pending at discharge: no Medical Emergencies . Who to Call and When: Medical Emergencies: If at any time you feel your situation is an emergency, please call 911 immediately. . Non-Emergent Contact Non-Emergency issues call your: Primary Care Provider Call Non-Emergent contact if: you have a fever, your pain is not controlled, wound has increased drainage, wound has increased redness, wound has increased pain, you have any medication questions . . "Provider Documentation" section prepared by Chacorta Benson. . VTE Core Measure Inpt VTE Proph given/why not?: Unfractionated heparin SQ
[2017-02-21 13:56] VITALS: BP 158/81; PULSE 61; TEMP 36.6; O2SAT 97
--- NOTE | 2017-02-21 13:57 | Discharge Summary ---
Discharge Summary Date of Service February 21, 2017. Discharge Summary Admission Date: February 19, 2017 at 10:17 Discharge Date: February 21, 2017 Discharge Disposition: Home Principal Diagnosis: CELLULITIS - LEFT FOOT; BILATERAL TRENCH FEET Secondary Diagnoses/Problems: PLEASE REFER TO HOSPITAL COURSE BELOW. Procedures: CT HEAD WITHOUT CONTRAST (CT) CLINICAL HISTORY: Trauma. Patient found unconscious. COMPARISON STUDY: 02/06/2016 TECHNIQUE: Axial CT of the brain is performed from the vertex to the skull base. IV contrast was not administered for this examination. CT DOSE: 1191.40 mGy.cm FINDINGS: No intra or extra-axial mass lesions are visualized. There is no CT evidence of acute cortical infarction. There is no evidence of midline shift. There is no acute hemorrhage. No calvarial fractures are visualized. There are patchy white matter hypodensities likely on a small vessel basis. 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 There is an equivocal old infarct in the region the left pontomedullary junction. There is ventricular dilatation, unchanged the prior study and likely secondary to volume loss. There is a prominent cisterna magna. There is no evidence of acute sinusitis IMPRESSION: No acute intracranial findings CHEST ONE VIEW PORTABLE CLINICAL HISTORY: Unconscious patient. Trauma. COMPARISON STUDY: 04/25/2016 FINDINGS: The cardiac and mediastinal contours are normal. There is no evidence of focal pulmonary consolidation. There is no evidence of failure. No pleural effusions are visualized.[ The patient appears mildly hyperinflated. There is a left midlung zone nodule, likely representing a nipple shadow. This remain similar to the prior study. IMPRESSION: No active disease in the chest. Pending Studies/Follow-Up: PLEASE REFER TO HOSPITAL COURSE BELOW. Medication Reconciliation New Medications: Amoxicillin & Pot Clavulanate (Augmentin 875-125 mg) 1 Tab Tab 875 MG PO BID for 7 Days, #14 TAB Amlodipine Besylate (Amlodipine Besylate) 5 Mg Tab 5 MG PO DAILY for 30 Days, #30 TAB 0 Refills Admission Information HPI (per Admitting provider): HISTORY OF PRESENT ILLNESS: This is a 66-year-old male with past medical history significant for hypertension, trench foot, alcohol ingestion, tobacco disorder, homeless man, bowel and bladder incontinence, comes with trench foot. Emergency personnel who brought the patient, states that he was [place] outside in the park, face down on the sidewalk. Police was notified, and EMS were called. The patient was slightly groggy when aroused, and notes that he was consuming alcohol. The patient also was noted to have a large amount of feces within his close. It was believed that he was lying on the sidewalk since 9:30 PM yesterday evening. Patient's last admission was in July,April 2016 for trench foot. Since than his living condition has not changed- Unhygienic living conditions +, homeless. He continues to have bladder, bowel incontinence which has been a chronic issue. Today he c/o painful feet, difficulty ambulating due to pain. There is redness in red foot which is new. He states that he did consume 8, 12 ounce beers yesterday. Denies any fever, chills, nausea, vomiting, diarrhea, abdominal pain , diarrhea, cough, SOB, chest pain. On and off does c/o falls. Had work up in ED - CT head, CT cervical spine. He says he does fall on and off when he gets drunk. BP high in 170s. Labs show WBC of 15k. We will admit him for cellulitis of left foot with no signs of sepsis Physical Exam (per Admitting): General Appearance: no apparent distress, + pertinent finding (Disheveled) Head: normocephalic, atraumatic Eyes: PERRL ENT: hearing grossly normal Neck: supple, no JVD Respiratory/Chest: chest non-tender, lungs clear, normal breath sounds, no respiratory distress, no accessory muscle use Cardiovascular: regular rate, rhythm, no murmur Abdomen/GI: normal bowel sounds, non tender, soft Back: no CVA tenderness Extremities/Musculoskelatal: no calf tenderness Neurologic/Psych: no motor/sensory deficits, alert, oriented x 3 Skin: + pertinent finding (Left foot- Erythema/Tenderness extending upto 3- 4 inches above ankle and involving the foot. Multiple scabs on dorsum of feet. Trench Feet +) Hospital Course CELLULITIS - LEFT FOOT; BILATERAL TRENCH FEET Patient has had multiple admissions in past for trench feet due to poor hygienic conditions/poor living conditions- homelessness/chronic bladder/bowel incontinence. Admitted with increasing swelling,redness and pain in left foot Afebrile, leucocytosis of 15k -- placed on IV Unasyn x 3 days -- clinically improved leukocytosis resolved - discharge plan: Augmentin 875mg BID x 7 days patient advised to continue daily foot care/wound check advised to call PCP or return to ER if with worsening of symptoms, fever, etc. emphasized importance of compliance with medications to avoid Osteomyelitis, Sepsis, etc. Patient verbalized understanding. HTN - initially, Elevated BP due to non compliance Amlodipine restarted - BP improving - continue Amlodipine 5mg po daily - PCP ff up CHRONIC BASAL GANGLIA INFARCTS - seen on CT head (full report noted above in the Procedures Section) - CT head: " There are old bilateral basal ganglia infarcts. There is an equivocal old infarct in the region the left pontomedullary junction." - patient states he already takes ASA 81mg po daily advised to continue Aspirin daily will also need Statin and further work up as outpatient ALCOHOL And TOBACCO ABUSE DISORDER - no signs of withdrawal - advised cessation NORMOCYTIC ANEMIA, MILD Hg 12.2 monitor and further work up as outpatient DISPOSITION d/c today ff up with PCP in 1 week Total time spent on discharge = 40 minutes This includes examination of the patient, discharge planning, medication reconciliation, and communication with other providers. Discharge Instructions Discharge Instructions Date of Service February 21, 2017. Admission Reason for Admission: Cellulitis Of Foot, Trench Foot Discharge Discharge Diagnosis / Problem: LEFT FOOT CELLULITIS Discharge Goals Goal(s): Diagnostic testing, Therapeutic intervention Activity Recommendations Activity Limitations: as noted below (NO HEAVY EXERTION UNTIL RE-EVALUATED BY PRIMARY CARE PHYSICIAN) . Instructions / Follow-Up Instructions / Follow-Up OBSERVE PROPER CARE OF YOUR FEET DAILY. CALL PRIMARY CARE PHYSICIAN OR RETURN TO ER IMMEDIATELY IF WITH INCREASING SWELLING, REDNESS, PAIN OF YOUR FEET OR LEGS, OR IF YOU HAVE FEVER/CHILLS. FOLLOW UP WITH YOUR PRIMARY CARE PHYSICIAN ADVISED. AVOID ALCOHOL AND SMOKING. FOLLOW UP WITH DR. WILSON (ASSOCIATE OF DR. CARTAGENA) ON FRIDAY FEBRUARY 24, 2017 AT 9 :45 AM. Current Hospital Diet Patient's current hospital diet: Low Sodium Diet (2gm Na) Discharge Diet Recommended Diet: AHA Diet (Heart Healthy) Pending Studies Studies pending at discharge: no Medical Emergencies . Who to Call and When: Medical Emergencies: If at any time you feel your situation is an emergency, please call 911 immediately. . Non-Emergent Contact Non-Emergency issues call your: Primary Care Provider Call Non-Emergent contact if: you have a fever, your pain is not controlled, wound has increased drainage, wound has increased redness, wound has increased pain, you have any medication questions . . "Provider Documentation" section prepared by Chacorta Benson. . VTE Core Measure Inpt VTE Proph given/why not?: Unfractionated heparin SQ
== END 2017-02-21 14:09 | disposition home or self-care (01) | DRG 603 ==
LOC: ENRESERVTM → ENRESERVDT → EDBD 07:27 → C.EDA 07:30 → C.MS4W 10:17
PROVIDERS: ADMIT Internal Medicine; ATTEND Internal Medicine
DX: L03.116 Cellulitis of left lower limb (principal); T69.022A Immersion foot, left foot, initial encounter; T69.021A Immersion foot, right foot, initial encounter; R26.9 Unspecified abnormalities of gait and mobility; I10 Essential (primary) hypertension; D72.829 Elevated white blood cell count, unspecified; D64.9 Anemia, unspecified; F10.10 Alcohol abuse, uncomplicated; F17.210 Nicotine dependence, cigarettes, uncomplicated; Z59.0 Homelessness; Z91.14 Patient's other noncompliance with medication regimen; Z86.73 Personal history of transient ischemic attack (TIA), and cerebral infarction without residual deficits; Y93.E8 Activity, other personal hygiene; X58.XXXA Exposure to other specified factors, initial encounter

== ENCOUNTER 2017-02-24 08:20 | Observation (INO) | payer OTHER ==
[~2017-02-24] VITALS: Ht 175.3 cm; Wt 55.1 kg
[~2017-02-24 08:20] MED LIST changes: -AMOX1TAB43 PO; +AMOX875T PO; -ASPI-232 PO; -CPR500 PO; -THM100 PO
[2017-02-24] MEDS ORDERED: SODIUM CHLORIDE 0.9% 1000ML 1,000 ML IV ONE (09:17)
[2017-02-24] MEDS ORDERED: PIPERACILLIN/TAZOBACTAM 4.5 GM/100ML D5W IV STA (09:17)
[2017-02-24 09:28] LABS: BASO % 0.2 %; BASO ABS # 0.02 K/uL (0-0.2); COMPLETE YES; EOS % 1.1 %; HEMATOCRIT 37.7 % (42-52); IG% 0.5 %; LYMPH % 15.8 %; MEAN CELL VOLUME 95.2 fL (80-100); MEAN CORPUSCULAR HEMOGLOBIN 33.1 pg (25-34); MEAN CORPUSCULAR HGB CONC 34.7 g/dl (32-36); MONO % 11.6 %; NEUT % 70.8 %; PLATELET COUNT 239 K/uL (130-400); RED BLOOD COUNT 3.96 M/uL (4.7-6.1); WHITE BLOOD COUNT 10.15 K/uL (4.8-10.8)
[2017-02-24 09:34] LABS: INR 0.9 (0.9-1.1); PROTHROMBIN TIME (PATIENT) 9.8 SECONDS (9.0-12.0)
[2017-02-24 09:36] LABS: CALCIUM 8.9 mg/dl (8.5-10.1)
[2017-02-24 09:37] LABS: CREATININE 0.62 mg/dl (0.60-1.40); POTASSIUM 3.9 mmol/L (3.5-5.1)
[2017-02-24 09:40] LABS: ALB/GLOB RATIO 0.9 (0.9-2)
--- NOTE | 2017-02-24 10:25 | EMERGENCY ROOM VISIT NOTE ---
History Report prepared by Sukhi: Randolph Benjamin Under the Supervision of: Dr. Ramu Sultana M.D. First contact with patient: 09:14 Chief Complaint: INFECTION Stated Complaint: FOOT/HIP PAIN Nursing Triage Summary: Pain and infection to left foot. Pt was seen 3 weeks ago and admitted for infection in same foot, and it has not gotten better since then. Pt reports severe pain to touch, foot is red and edematous. History of Present Illness The patient is a 66 year old male who presents to the Emergency Room with complaints of a persistent left foot infection since being discharged from the hospital three days ago. The patient came to the ED five days ago with "trench foot." He states that his feet were wet from walking in the rain. He is homeless. He was started on Augmentin which he states he has been compliant with. The infection has not worsened or improved. He denies fevers or chills. The patient has been eating and keeping up with fluids. He denies history of diabetes. He does have previous history of trench foot. Per nursing staff, the patient arrived to the ED covered in his own stool and urine. Source of History: patient, nursing staff Onset: since being discharged from the hospital three days ago Position: foot (left) Quality: other (infection) Timing: other (persistent) Associated Symptoms: No chills, No fevers Review of Systems See HPI for pertinent positives & negatives. A total of 10 systems reviewed and were otherwise negative. Past Medical & Surgical Medical Problems: (1) Ambulatory dysfunction (2) Cellulitis of foot (3) HTN (hypertension) (4) Hypertension (5) Immersion (trench) foot (6) Tobacco use disorder (7) Trench foot Surgical Problems: (1) H/O colonoscopy Family History FH: CAD (coronary artery disease) FATHER ( of [place] age 56 ) Social History Smoking Status: Current Every Day Smoker Alcohol Use: heavy Drug Use: marijuana Marital Status: single Housing Status: other Occupation Status: retired Current/Historical Medications Scheduled Amlodipine Besylate (Amlodipine Besylate), 5 MG PO DAILY Amoxicillin & Pot Clavulanate (Augmentin 875-125 mg), 875 MG PO BID Allergies Coded Allergies: No Known Allergies (Unverified , 02/24/17) Physical Exam Vital Signs Date Time Temp Pulse Resp B/P Pulse Ox O2 Delivery O2 Flow Rate FiO2 02/24/17 11:00 147/72 02/24/17 10:50 86 15 02/24/17 10:35 91 21 02/24/17 10:30 136/87 02/24/17 10:20 90 22 02/24/17 10:00 147/82 02/24/17 09:50 89 24 98 02/24/17 09:44 141/74 02/24/17 09:20 96 Room Air 02/24/17 09:20 89 17 96 02/24/17 09:00 125/70 02/24/17 08:50 85 26 96 02/24/17 08:38 36.4 84 15 118/99 95 Room Air 02/24/17 08:34 96 02/24/17 08:31 118/99 Physical Exam GENERAL: Patient is in no acute distress. HEENT: No acute trauma, normocephalic atraumatic, mucous membranes moist, no nasal congestion, no scleral icterus. NECK: No stridor, no adenopathy, no meningismus, trachea is midline. LUNGS: Clear to auscultation bilaterally, no wheeze, no rhonchi, breath sounds equal. HEART: Without murmurs gallops or rubs, regular rate and rhythm. ABDOMEN: Soft, nontender, bowel sounds positive, no hernias, no peritonitis. EXTREMITIES: Left foot cellulitis tracking up the leg with erythema and warmth, some open lesions noted, edema of the left leg compared to the right. NEUROLOGIC: Oriented x 3, no acute motor or sensory deficits, no focal weakness. SKIN: No jaundice, no diaphoresis. Medical Decision & Procedures Laboratory Results 02/24/17 08:50 Red Blood Count 3.96, Mean Corpuscular Volume 95.2, Mean Corpuscular Hemoglobin 33.1, Mean Corpuscular Hemoglobin Concent 34.7, Mean Platelet Volume 9.0, Neutrophils (%) (Auto) 70.8, Lymphocytes (%) (Auto) 15.8, Monocytes (%) (Auto) 11.6, Eosinophils (%) (Auto) 1.1, Basophils (%) (Auto) 0.2, Neutrophils # (Auto ) 7.19, Lymphocytes # (Auto) 1.60, Monocytes # (Auto) 1.18, Eosinophils # (Auto ) 0.11, Basophils # (Auto) 0.02 02/24/17 08:50 Test 02/24/17 08:50 02/24/17 09:38 White Blood Count 10.15 K/uL (4.8-10.8) Red Blood Count 3.96 M/uL (4.7-6.1) Hemoglobin 13.1 g/dL (14.0-18.0) Hematocrit 37.7 % (42-52) Mean Corpuscular Volume 95.2 fL (80-100) Mean Corpuscular Hemoglobin 33.1 pg (25-34) Mean Corpuscular Hemoglobin Concent 34.7 g/dl (32-36) Platelet Count 239 K/uL (130-400) Mean Platelet Volume 9.0 fL (7.4-10.4) Neutrophils (%) (Auto) 70.8 % Lymphocytes (%) (Auto) 15.8 % Monocytes (%) (Auto) 11.6 % Eosinophils (%) (Auto) 1.1 % Basophils (%) (Auto) 0.2 % Neutrophils # (Auto) 7.19 K/uL (1.4-6.5) Lymphocytes # (Auto) 1.60 K/uL (1.2-3.4) Monocytes # (Auto) 1.18 K/uL (0.11-0.59) Eosinophils # (Auto) 0.11 K/uL (0-0.5) Basophils # (Auto) 0.02 K/uL (0-0.2) RDW Standard Deviation 42.8 fL (36.4-46.3) RDW Coefficient of Variation 12.4 % (11.5-14.5) Immature Granulocyte % (Auto) 0.5 % Immature Granulocyte # (Auto) 0.05 K/uL (0.00-0.02) Prothrombin Time 9.8 SECONDS (9.0-12.0) Prothromb Time International Ratio 0.9 (0.9-1.1) Activated Partial Thromboplast Time 26.7 SECONDS (21.0-31.0) Partial Thromboplastin Ratio 1.0 Anion Gap 9.0 mmol/L (3-11) Est Creatinine Clear Calc Drug Dose 92.6 ml/min Estimated GFR () 120.7 Estimated GFR (Non- 104.1 BUN/Creatinine Ratio 20.0 (10-20) Calcium Level 8.9 mg/dl (8.5-10.1) Total Bilirubin 0.2 mg/dl (0.2-1) Aspartate Amino Transf (AST/SGOT) 34 U/L (15-37) Alanine Aminotransferase (ALT/SGPT) 37 U/L (12-78) Alkaline Phosphatase 128 U/L (45-117) Total Protein 7.3 gm/dl (6.4-8.2) Albumin 3.4 gm/dl (3.4-5.0) Globulin 3.9 gm/dl (2.5-4.0) Albumin/Globulin Ratio 0.9 (0.9-2) Bedside Lactic Acid Venous 1.69 mmol/L (0.90-1.70) Laboratory results reviewed by me. Medications Administered Medications (Trade) Dose Ordered Sig/Arron Route Start Time Stop Time Status Last Admin Dose Admin Piperacillin Sod/ Tazobactam Sod 4.5 gm 4.5 gm NOW STAT IV 02/24/17 09:17 02/24/17 09:20 DC 02/24/17 09:47 4.5 GM Sodium Chloride (Nss 1000ml) 1,000 ml @ 999 mls/hr Q1H1M ONCE IV 02/24/17 09:17 02/24/17 10:17 DC 02/24/17 09:47 999 MLS/HR ED Course 0916: The patient was evaluated in room B5. A complete history and physical exam was performed. 0917: NSS 1000 ml @ 999 mls/hr, Zosyn 4.5 gm IV. 0957: Discussed the case with Sandra Bullock PA-C, [facility] Hospitalist. The patient will be evaluated. Medical Decision Differential diagnosis includes failed outpatient treatment, medication noncompliance, cellulitis, sepsis, dehydration, anemia, electrolyte imbalance. The patient presents with lack of improvement and failed outpatient therapy for a left leg cellulitis that is secondary to trench foot. He is homeless. He was just in the hospital. There is no leukocytosis or concerning anemia. No significant electrolyte abnormality, kidney failure or hepatitis. Lactic acid level is not elevated making sepsis less likely. Blood cultures are pending. The patient received IV saline, IV Zosyn. I do think a stay in the hospital is warranted. I wonder if he truly is taking his Augmentin. The patient is agreeable to a hospital stay. I spoke to case management. The on-call hospitalist was consulted. Consults Time Called: [phone] Consulting Physician: Sandra Bullock PA-C, [facility] Hospitalist. Returned Call: [phone] The patient will be evaluated. Impression Primary Impression: Cellulitis of left foot Additional Impressions: Trench foot Failure of outpatient treatment Scribe Attestation The scribe's documentation has been prepared under my direction and personally reviewed by me in its entirety. I confirm that the note above accurately reflects all work, treatment, procedures, and medical decision making performed by me. Departure Information Dispostion Being Evaluated By Hospitalist Referrals Noah Mayes MD (PCP) Patient Instructions My [facility] Problem Qualifiers Additional Impressions:
[2017-02-24] MEDS ORDERED: ONDANSETRON INJ 2 MG/ML 2 ML VIAL IV PRN (11:15)
[2017-02-24] MEDS ORDERED: ACETAMINOPHEN 325 MG TAB PO PRN (11:15)
--- NOTE | 2017-02-24 11:50 | HISTORY & PHYSICAL EXAMINATION ---
DATE OF ADMISSION: 02/24/2017 PRIMARY CARE PHYSICIAN: Dr. Mayes. CHIEF COMPLAINT: Left foot pain with redness and swelling. HISTORY OF PRESENT COMPLAINT: He is a 66-year-old male, homeless, with a past medical history of hypertension, tobacco use disorder, and also trench feet. Apparently was discharged from the hospital on 02/21/2017 following an attack of cellulitis involving the left foot and leg. His condition improved and he was sent home on Augmentin. He is back in ER today with increasing pain in the left foot and leg and also increasing swelling and redness. No fever, chills or rigors. He denies any other symptoms, specifically no nausea or vomiting, no pain in the chest, no shortness of breath, and no numbness or tingling in the extremities. He continues to have multiple injuries in both feet, more on the left than the right, secondary to ongoing trench feet. PAST MEDICAL HISTORY: Significant for hypertension and tobacco use disorder. PAST SURGICAL HISTORY: Nothing significant except history of colonoscopy. FAMILY HISTORY: Father had CAD and from [place] at the age of 56. SOCIAL HISTORY: He is homeless. He smokes about 1 pack per day or more at times. He used marijuana before. He is single and he is retired. ALLERGIES: NKDA. MEDICATIONS: As an outpatient, he has been on amlodipine 5 mg daily and he was given Augmentin 875 b.i.d. REVIEW OF SYSTEMS: Other systemic review unremarkable except those mentioned in history of present complaint. PHYSICAL EXAMINATION: GENERAL: On examination in the Emergency Room, he was not having any acute distress. VITAL SIGNS: Temperature 36.4, pulse was 85, blood pressure 125/70, saturation 96% on room air. HEENT: Unremarkable. NECK: Supple. No JVD. No bruit. CHEST: Clear to auscultation bilaterally. HEART: S1, S2, regular, no murmur. ABDOMEN: Soft, benign, nontender. No organomegaly. Bowel sounds present. EXTREMITIES: He has bilateral trench feet. Left lower extremity has more redness involving the lower part of the leg and also the foot with some swelling and redness. Locally increased temperature. Few superficial ulcerations noted on the left foot as well. CENTRAL NERVOUS SYSTEM: Alert, awake, oriented x3. LABORATORY DATA: Noted today white count was 10.15, H\T\H 13.1/37.7, platelet 239, neutrophil count was 7.19. Sodium 135, potassium 3.9, chloride 99, carbon dioxide 27, BUN 12, creatinine 0.62, random glucose 91, lactic acid 1.69. Liver function unremarkable. PT/INR unremarkable too. IMPRESSION AND PLAN: 1. Left leg and foot cellulitis. The patient will be started with intravenous Unasyn. He got a dose of Zosyn. He will get a wound care consult. Likely to discharge on Augmentin when the condition improves. 2. Bilateral trench feet. He was advised to take care of the feet. He has been using wet socks most of the time. Social service to continue that. 3. Tobacco use disorder. He was advised to quit smoking, tobacco cessation, and he will be given a nicotine patch. 4. Gastrointestinal prophylaxis, Maalox and Mylanta as needed. 5. Deep vein thrombosis prophylaxis, Lovenox. 6. Code status. He will be full code. In my clinical assessment, the beneficiary meets criteria as per CMS for 2-midnight stay in the hospital. KADEN
[2017-02-24] MEDS ORDERED: IV FLUIDS COMPLETED PRN (12:15)
[2017-02-24 13:45] VITALS: BP 154/77; PULSE 92; TEMP 36.8; O2SAT 96; Ht 175.3 cm; Wt 55.1 kg
[2017-02-24] MEDS: AMPICILLIN/SULBACTAM SOD INJ 3,000 MG in SODIUM CHLORIDE 0.9% 100ML 100 ML IV SCH ×2 (14:33→21:27)
[2017-02-24 15:32] VITALS: BP 170/79; PULSE 91; TEMP 36.7; O2SAT 98
[2017-02-24 16:30] VITALS: O2SAT 98
[2017-02-24] MEDS ORDERED: NURSING DECISION MEDICATION ORDER SCH (16:45)
[2017-02-24] MEDS: ENOXAPARIN 40 MG/0.4 ML SYR SQ SCH (17:24)
[2017-02-24 20:00] VITALS: O2SAT 98
[2017-02-24] MEDS: MICONAZOLE NITRATE POWDER 43 GM EXT SCH (21:47)
[2017-02-24 23:56] VITALS: BP 132/73; PULSE 83; TEMP 37; O2SAT 96
[2017-02-25] VITALS: O2SAT 98
[2017-02-25] MEDS: AMPICILLIN/SULBACTAM SOD INJ 3,000 MG in SODIUM CHLORIDE 0.9% 100ML 100 ML IV SCH ×4 (03:40→21:32)
[2017-02-25 08:03] VITALS: BP 169/84; PULSE 75; TEMP 36.9; O2SAT 93
[2017-02-25] MEDS: MICONAZOLE NITRATE POWDER 43 GM EXT SCH ×2 (08:49→21:33)
[2017-02-25] MEDS: AMLODIPINE BESYLATE 5 MG TAB PO SCH (08:50)
[2017-02-25] MEDS: NICOTINE 14 MG/24 HR TDSY TD SCH (08:52)
[2017-02-25 16:06] VITALS: BP 138/69; PULSE 91; TEMP 36.7; O2SAT 97
[2017-02-25] MEDS: ENOXAPARIN 40 MG/0.4 ML SYR SQ SCH (16:43)
[2017-02-25] MEDS: BOOST PLUS VANILLA PO SCH ×2 (19:00)
--- NOTE | 2017-02-25 21:00 | Progress Note ---
Progress Note Date of Service February 25, 2017. Progress Note checked to see patient not in his room staff thinks he may be taking a walk will check again Chacorta Benson MD
--- NOTE | 2017-02-25 22:08 | Progress Note ---
Medicine Progress Note Date & Time of Visit: February 25, 2017 at 22:03. Subjective seen resting in bed, comfortable states he feels fine except for left foot pain denies fever/chills no chest pain, dyspnea, headache no other symptoms Objective Last 8 Hrs Date Time Temp Pulse Resp B/P Pulse Ox O2 Delivery O2 Flow Rate FiO2 02/25/17 16:06 36.7 91 20 138/69 97 Room Air 02/25/17 16:00 Room Air Physical Exam: General- oriented x 3 not in distress Head- atraumatic Eyes- EOMI, anicteric ENT- oropharynx clear Neck- supple, no JVD, no adenopathy, no thyromegaly no bruits appreciated Lungs- clear to auscultation b/l Heart- regular rhythm; no murmur, no gallop, no rub appreciated Abdomen- normal bowel sounds, soft, nontender Extremities- left foot: (+) scabbed excoriations with mild-mod erythema, very sensitive to touch no pretibial edema, no calf tenderness; peripheral pulses intact Neuro- alert, oriented x 3; no gross focal deficits Skin- warm & dry Assessment & Plan CELLULITIS - LEFT FOOT BILATERAL TRENCH FEET - continue Unasyn IV wound care HTN - stable on Amlodipine CHRONIC BASAL GANGLIA INFARCTS will need aspirin and statin ALCOHOL And TOBACCO ABUSE DISORDER - no signs of withdrawal - advised cessation NORMOCYTIC ANEMIA, MILD monitor Current Inpatient Medications: Current Inpatient Medications Medications (Trade) Dose Ordered Sig/Arron Route Start Time Stop Time Status Last Admin Dose Admin Enoxaparin Sodium (Lovenox Inj) 40 mg Q24H SQ 02/24/17 16:00 03/26/17 15:59 02/24/17 17:24 40 MG Acetaminophen (Tylenol Tab) 650 mg Q4H PRN PO 02/24/17 11:15 03/26/17 11:14 02/24/17 21:48 650 MG Ondansetron HCl (Zofran Inj) 4 mg Q6H PRN IV 02/24/17 11:15 03/26/17 11:14 Amlodipine Besylate 5 mg 5 mg DAILY PO 02/25/17 08:00 03/27/17 08:59 02/25/17 08:50 5 MG Ampicillin Sodium/ Sulbactam Sodium/ Sodium Chloride (Unasyn Inj/Nss 100ml) 108 ml @ 200 mls/hr Q6H IV 02/24/17 14:00 03/06/17 13:59 02/25/17 21:32 200 MLS/HR Nicotine (Nicoderm Cq 14MG Patch) 1 patch QAM TD 02/25/17 08:00 03/27/17 08:59 02/25/17 08:52 1 PATCH Miscellaneous (Iv Fluids Completed) 1 ea PRN PRN N/A 02/24/17 12:15 02/24/18 12:14 Miscellaneous (Remove Nicoderm Patch) 1 ea HS N/A 02/25/17 21:00 03/27/17 20:59 Miconazole Nitrate (Desenex Powder) 1 appln BID EXT 02/24/17 20:00 03/26/17 19:59 02/25/17 21:33 1 APPLN Enteral Nutritional Formula (Boost Plus Vanilla) 1 can QDD PO 02/25/17 19:00 03/27/17 18:59 02/25/17 19:00 1 CAN
[2017-02-26 00:16] VITALS: BP 171/93; PULSE 76; TEMP 36.5; O2SAT 96
[2017-02-26] MEDS: AMPICILLIN/SULBACTAM SOD INJ 3,000 MG in SODIUM CHLORIDE 0.9% 100ML 100 ML IV SCH ×4 (02:05→20:50)
[2017-02-26] MEDS: MICONAZOLE NITRATE POWDER 43 GM EXT SCH ×2 (07:41→20:50)
--- NOTE | 2017-02-26 08:14 | Progress Note ---
Medicine Progress Note Date & Time of Visit: February 26, 2017 at 08:07. Subjective patient seen resting in bed expressing to staff he wants to leave today explained to patient the need to stay for at least another day of IV antibiotics he agreed states left foot pain is decreasing denies fever/chills denies leg pain no chest pain, dyspnea, dizziness no other symptoms Objective Last 8 Hrs Date Time Temp Pulse Resp B/P Pulse Ox O2 Delivery O2 Flow Rate FiO2 02/26/17 00:16 36.5 76 20 171/93 96 Room Air Physical Exam: General- oriented x 3 not in distress Eyes- anicteric Neck- supple, no JVD Lungs- clear breath sounds bilaterally Heart- regular rhythm; no murmur, normal rate Abdomen- normal bowel sounds, soft, nontender Extremities- left foot: (+) scabbed excoriations on the dorsal aspect with mild erythema, less tenderness no pretibial edema, no calf tenderness; peripheral pulses intact Neuro- alert, oriented x 3; no gross focal deficits Skin- warm & dry Assessment & Plan CELLULITIS - LEFT FOOT BILATERAL TRENCH FEET - improving - continue Unasyn IV Day 3 daily wound care HTN on Amlodipine monitor CHRONIC BASAL GANGLIA INFARCTS on Aspirin will need to be on a statin, but due to history of alcoholism and poor adherence to ff up, will nee close monitoring while on statin ALCOHOL And TOBACCO ABUSE DISORDER - no signs of withdrawal nicotine patch - advised cessation NORMOCYTIC ANEMIA, MILD monitor DVT prophylaxis Lovenox Code Status Full code Disposition anticipate d/c on oral antibiotics tomorrow Current Inpatient Medications: Current Inpatient Medications Medications (Trade) Dose Ordered Sig/Arron Route Start Time Stop Time Status Last Admin Dose Admin Enoxaparin Sodium (Lovenox Inj) 40 mg Q24H SQ 02/24/17 16:00 03/26/17 15:59 02/24/17 17:24 40 MG Acetaminophen (Tylenol Tab) 650 mg Q4H PRN PO 02/24/17 11:15 03/26/17 11:14 02/24/17 21:48 650 MG Ondansetron HCl (Zofran Inj) 4 mg Q6H PRN IV 02/24/17 11:15 03/26/17 11:14 Amlodipine Besylate 5 mg 5 mg DAILY PO 02/25/17 08:00 03/27/17 08:59 02/25/17 08:50 5 MG Ampicillin Sodium/ Sulbactam Sodium/ Sodium Chloride (Unasyn Inj/Nss 100ml) 108 ml @ 200 mls/hr Q6H IV 02/24/17 14:00 03/06/17 13:59 02/26/17 07:54 200 MLS/HR Nicotine (Nicoderm Cq 14MG Patch) 1 patch QAM TD 02/25/17 08:00 03/27/17 08:59 02/25/17 08:52 1 PATCH Miscellaneous (Iv Fluids Completed) 1 ea PRN PRN N/A 02/24/17 12:15 02/24/18 12:14 Miscellaneous (Remove Nicoderm Patch) 1 ea HS N/A 02/25/17 21:00 03/27/17 20:59 Miconazole Nitrate (Desenex Powder) 1 appln BID EXT 02/24/17 20:00 03/26/17 19:59 02/26/17 07:41 1 APPLN Enteral Nutritional Formula (Boost Plus Vanilla) 1 can QDD PO 02/25/17 19:00 03/27/17 18:59 02/25/17 19:00 1 CAN
[2017-02-26 08:35] VITALS: BP 160/62; PULSE 74; TEMP 36.6; O2SAT 98
[2017-02-26 08:44] LABS: BASO % 0.6 %; BASO ABS # 0.05 K/uL (0-0.2); COMPLETE YES; EOS % 1.7 %; HEMATOCRIT 36.7 % (42-52); IG% 0.3 %; LYMPH ABS # 1.84 K/uL (1.2-3.4); MEAN CELL VOLUME 97.1 fL (80-100); MEAN CORPUSCULAR HEMOGLOBIN 32.5 pg (25-34); MEAN CORPUSCULAR HGB CONC 33.5 g/dl (32-36); MEAN PLATELET VOLUME 8.7 fL (7.4-10.4); MONO % 12.8 %; NEUT % 63.6 %; PLATELET COUNT 239 K/uL (130-400); RED BLOOD COUNT 3.78 M/uL (4.7-6.1); WHITE BLOOD COUNT 8.78 K/uL (4.8-10.8)
[2017-02-26] MEDS ORDERED: ASPIRIN 81 MG ECTAB PO ONE (08:45)
[2017-02-26] MEDS: AMLODIPINE BESYLATE 5 MG TAB PO SCH (08:53)
[2017-02-26] MEDS: NICOTINE 14 MG/24 HR TDSY TD SCH (08:54)
[2017-02-26 09:14] LABS: CALCIUM 8.8 mg/dl (8.5-10.1)
[2017-02-26 09:16] LABS: ALT/SGPT 29 U/L (12-78); BLOOD UREA NITROGEN 8 mg/dl (7-18); BUN/CREATININE RATIO 11.1 (10-20); CARBON DIOXIDE 31 mmol/L (21-32); CHLORIDE 98 mmol/L (98-107); GLUCOSE 94 mg/dl (70-99); POTASSIUM 3.4 mmol/L (3.5-5.1); SODIUM 135 mmol/L (136-145)
[2017-02-26 09:19] LABS: ALKALINE PHOSPHATASE 92 U/L (45-117); AST/SGOT 29 U/L (15-37)
[2017-02-26 15:06] VITALS: BP 117/68; PULSE 85; TEMP 36.6; O2SAT 96
[2017-02-26] MEDS: ENOXAPARIN 40 MG/0.4 ML SYR SQ SCH (15:31)
[2017-02-26] MEDS: BOOST PLUS VANILLA PO SCH ×2 (17:23)
--- NOTE | 2017-02-26 17:55 | Progress Note ---
Progress Note Date of Service February 26, 2017. Progress Note informed by staff that patient would like to leave AMA assessed patient, comfortable, sitting in bed when inquired why he would like to leave, patient said "i am just sick of this place" explained risks of leaving AMA including worsening of medical condition, sepsis , and patient verbalized understanding he is oriented x 3 advised to complete antibiotics as prescribed, and call PCP office this week for ff up appointment while writing this noted, informed by staff that patient will be staying Chacorta Benson MD
[2017-02-27] MEDS: AMPICILLIN/SULBACTAM SOD INJ 3,000 MG in SODIUM CHLORIDE 0.9% 100ML 100 ML IV SCH ×2 (02:27→08:00)
--- NOTE | 2017-02-27 07:43 | Progress Note ---
Medicine Progress Note Date & Time of Visit: February 27, 2017 at 07:36. Subjective called by RN as patient would like to be discharged as soon as possible patient seen siting up in bed, comfortable smiling states he feels much better overall denies foot pain, leg pain, fever/chills no diarrhea no other symptoms states he is ready and would like to be discharged now Objective Last 8 Hrs Date Time Temp Pulse Resp B/P Pulse Ox O2 Delivery O2 Flow Rate FiO2 02/26/17 23:59 Room Air Physical Exam: General- oriented x 3 not in distress Eyes- anicteric Neck- no JVD Lungs- clear breath sounds bilaterally, no wheeze/rales Heart- regular rhythm; no murmur, normal rate Abdomen- normal bowel sounds, soft, nontender Extremities- left foot: (+) healing excoriations on the dorsal aspect with no erythema, no tenderness no pretibial edema, no calf tenderness; peripheral pulses intact Neuro- alert, oriented x 3; no gross focal deficits Skin- warm & dry Laboratory Results: Last 24 Hours Test 02/26/17 08:30 White Blood Count 8.78 K/uL Red Blood Count 3.78 M/uL Hemoglobin 12.3 g/dL Hematocrit 36.7 % Mean Corpuscular Volume 97.1 fL Mean Corpuscular Hemoglobin 32.5 pg Mean Corpuscular Hemoglobin Concent 33.5 g/dl Platelet Count 239 K/uL Mean Platelet Volume 8.7 fL Neutrophils (%) (Auto) 63.6 % Lymphocytes (%) (Auto) 21.0 % Monocytes (%) (Auto) 12.8 % Eosinophils (%) (Auto) 1.7 % Basophils (%) (Auto) 0.6 % Neutrophils # (Auto) 5.59 K/uL Lymphocytes # (Auto) 1.84 K/uL Monocytes # (Auto) 1.12 K/uL Eosinophils # (Auto) 0.15 K/uL Basophils # (Auto) 0.05 K/uL RDW Standard Deviation 45.5 fL RDW Coefficient of Variation 12.8 % Immature Granulocyte % (Auto) 0.3 % Immature Granulocyte # (Auto) 0.03 K/uL Sodium Level 135 mmol/L Potassium Level 3.4 mmol/L Chloride Level 98 mmol/L Carbon Dioxide Level 31 mmol/L Anion Gap 6.0 mmol/L Blood Urea Nitrogen 8 mg/dl Creatinine 0.70 mg/dl Est Creatinine Clear Calc Drug Dose 82.0 ml/min Estimated GFR () 114.8 Estimated GFR (Non- 99.0 BUN/Creatinine Ratio 11.1 Random Glucose 94 mg/dl Calcium Level 8.8 mg/dl Total Bilirubin 0.3 mg/dl Direct Bilirubin < 0.1 mg/dl Aspartate Amino Transf (AST/SGOT) 29 U/L Alanine Aminotransferase (ALT/SGPT) 29 U/L Alkaline Phosphatase 92 U/L Total Protein 6.9 gm/dl Albumin 3.1 gm/dl Assessment & Plan CELLULITIS - LEFT FOOT BILATERAL TRENCH FEET - clinically much improved - received Unasyn IV x 3 days daily wound care - discharge on Augmentin x 4 more days advised to observe good daily hygiene with attention to his feet ff up with PCP in 1 week - patient verbalized understanding HTN - on Amlodipine advised to take medication daily CHRONIC BASAL GANGLIA INFARCTS on Aspirin will need to be on a statin, but due to history of alcoholism and poor adherence to ff up, will need close monitoring while on statin ALCOHOL And TOBACCO ABUSE DISORDER - no signs of withdrawal nicotine patch given - advised cessation NORMOCYTIC ANEMIA, MILD monitor as outpatient DVT prophylaxis Lovenox Code Status Full code Disposition d/c home today ff up with PCP this week Current Inpatient Medications: Current Inpatient Medications Medications (Trade) Dose Ordered Sig/Arron Route Start Time Stop Time Status Last Admin Dose Admin Enoxaparin Sodium (Lovenox Inj) 40 mg Q24H SQ 02/24/17 16:00 03/26/17 15:59 02/24/17 17:24 40 MG Acetaminophen (Tylenol Tab) 650 mg Q4H PRN PO 02/24/17 11:15 03/26/17 11:14 02/24/17 21:48 650 MG Ondansetron HCl (Zofran Inj) 4 mg Q6H PRN IV 02/24/17 11:15 03/26/17 11:14 Amlodipine Besylate 5 mg 5 mg DAILY PO 02/25/17 08:00 03/27/17 08:59 02/26/17 08:53 5 MG Ampicillin Sodium/ Sulbactam Sodium/ Sodium Chloride (Unasyn Inj/Nss 100ml) 108 ml @ 200 mls/hr Q6H IV 02/24/17 14:00 03/06/17 13:59 02/27/17 02:27 200 MLS/HR Nicotine (Nicoderm Cq 14MG Patch) 1 patch QAM TD 02/25/17 08:00 03/27/17 08:59 02/26/17 08:54 1 PATCH Miscellaneous (Iv Fluids Completed) 1 ea PRN PRN N/A 02/24/17 12:15 02/24/18 12:14 Miscellaneous (Remove Nicoderm Patch) 1 ea HS N/A 02/25/17 21:00 03/27/17 20:59 Miconazole Nitrate (Desenex Powder) 1 appln BID EXT 02/24/17 20:00 03/26/17 19:59 02/26/17 20:50 1 APPLN Enteral Nutritional Formula (Boost Plus Vanilla) 1 can QDD PO 02/25/17 19:00 03/27/17 18:59 02/26/17 17:23 1 CAN Aspirin (Ecotrin Tab) 81 mg QAM PO 02/27/17 08:00 03/29/17 07:59
[2017-02-27] MEDS ORDERED: POTASSIUM CHLORIDE 20 MEQ TABCR PO ONE (07:45)
[2017-02-27 07:46] VITALS: BP 117/68; PULSE 85; TEMP 36.6; O2SAT 96
[2017-02-27] MEDS ORDERED: MCTP EXT (07:49)
[2017-02-27] MEDS ORDERED: ASPEC81 PO (07:49)
[2017-02-27] MEDS ORDERED: AMOX875T PO (07:49)
--- NOTE | 2017-02-27 07:53 | Discharge Instructions ---
Discharge Instructions Date of Service February 27, 2017. Admission Reason for Admission: Cellulitis Of Left Foot, Trench Foot Discharge Discharge Diagnosis / Problem: Left Foot Cellulitis Discharge Goals Goal(s): Diagnostic testing, Therapeutic intervention Activity Recommendations Activity Limitations: as noted below (resume activities gradually, always ambulate with caution) . Instructions / Follow-Up Instructions / Follow-Up OBSERVE PROPER CARE OF YOUR FEET DAILY. EAT POTASSIUM RICH FOODS LIKE BANANAS, ORANGES, TOMATOES. CALL PRIMARY CARE PHYSICIAN OR RETURN TO ER IMMEDIATELY IF WITH INCREASING SWELLING, REDNESS, PAIN OF YOUR FEET OR LEGS, OR IF YOU HAVE FEVER/CHILLS. FOLLOW UP WITH YOUR PRIMARY CARE PHYSICIAN ADVISED. AVOID ALCOHOL AND SMOKING. FOLLOW UP WITH DR. CARTAGENA ON FRIDAY MARCH 03, 2017 11: 05 AM. Current Hospital Diet Patient's current hospital diet: Regular Diet Discharge Diet Recommended Diet: AHA Diet (Heart Healthy) Pending Studies Studies pending at discharge: yes List of pending studies: REPEAT POTASSIUM LEVEL ON FOLLOW UP WITH PRIMARY CARE PHYSICIAN Medical Emergencies . Who to Call and When: Medical Emergencies: If at any time you feel your situation is an emergency, please call 911 immediately. . Non-Emergent Contact Non-Emergency issues call your: Primary Care Provider Call Non-Emergent contact if: you have a fever, your pain is not controlled, your pain is worsening, wound has increased drainage, wound has increased redness, wound has increased pain, you have any medication questions . . "Provider Documentation" section prepared by Chacorta Benson. . VTE Core Measure Inpt VTE Proph given/why not?: Enoxaparin (Lovenox)SQ
--- NOTE | 2017-02-27 07:57 | Discharge Summary ---
Discharge Summary Date of Service February 27, 2017. Discharge Summary Admission Date: February 24, 2017 at 11:04 Discharge Date: February 27, 2017 Discharge Disposition: Home Principal Diagnosis: CELLULITIS - LEFT FOOT BILATERAL TRENCH FEET Secondary Diagnoses/Problems: Please refer to hospital course below. Pending Studies/Follow-Up: Repeat Potassium Level (mild hypo K); Please refer to hospital course below. Medication Reconciliation New Medications: Aspirin (Aspirin EC Low Dose) 81 Mg Ectab 81 MG PO QAM for 30 Days, #30 TAB 1 Refill Miconazole Nitrate (Desenex Shake Powder) 43 Appln/43 Gm Powd 1 APPLN EXT BID for 10 Days, #1 BTL 1 Refill Continued Medications: Amlodipine Besylate (Amlodipine Besylate) 5 Mg Tab 5 MG PO DAILY for 30 Days, #30 TAB 0 Refills Amoxicillin & Pot Clavulanate (Augmentin 875-125 mg) 1 Tab Tab 875 MG PO BID for 4 Days, #8 TAB 0 Refills (This prescription has been renewed) Admission Information HPI (per Admitting provider): per ER Physician: The patient is a 66 year old male who presents to the Emergency Room with complaints of a persistent left foot infection since being discharged from the hospital three days ago. The patient came to the ED five days ago with "trench foot." He states that his feet were wet from walking in the rain. He is homeless. He was started on Augmentin which he states he has been compliant with. The infection has not worsened or improved. He denies fevers or chills. The patient has been eating and keeping up with fluids. He denies history of diabetes. He does have previous history of trench foot. Per nursing staff, the patient arrived to the ED covered in his own stool and urine. Physical Exam (per Admitting): GENERAL: Patient is in no acute distress. HEENT: No acute trauma, normocephalic atraumatic, mucous membranes moist, no nasal congestion, no scleral icterus. NECK: No stridor, no adenopathy, no meningismus, trachea is midline. LUNGS: Clear to auscultation bilaterally, no wheeze, no rhonchi, breath sounds equal. HEART: Without murmurs gallops or rubs, regular rate and rhythm. ABDOMEN: Soft, nontender, bowel sounds positive, no hernias, no peritonitis. EXTREMITIES: Left foot cellulitis tracking up the leg with erythema and warmth, some open lesions noted, edema of the left leg compared to the right. NEUROLOGIC: Oriented x 3, no acute motor or sensory deficits, no focal weakness. SKIN: No jaundice, no diaphoresis. Hospital Course CELLULITIS - LEFT FOOT BILATERAL TRENCH FEET - presented 3 days after being discharged for left foot cellulitis patient states he has been taking Augmentin as prescribed physical exam reveals patient does not observe good hygiene- feet noted to be very dirty - received Unasyn IV x 3 days daily wound care - clinically much improved - discharge on Augmentin x 4 more days advised to observe good daily hygiene with attention to his feet ff up with PCP in 1 week - patient verbalized understanding HTN - on Amlodipine advised to take medication daily CHRONIC BASAL GANGLIA INFARCTS on Aspirin will need to be on a statin, but due to history of alcoholism and poor adherence to ff up, will need close monitoring while on statin ALCOHOL And TOBACCO ABUSE DISORDER - no signs of withdrawal nicotine patch given - advised cessation MILD HYPOKALEMIA 3.4 given oral potassium repeat K as outpatient NORMOCYTIC ANEMIA, MILD monitor as outpatient DVT prophylaxis Lovenox Code Status Full code Disposition d/c home today ff up with PCP this week Total time spent on discharge = 30 minutes This includes examination of the patient, discharge planning, medication reconciliation, and communication with other providers. Discharge Instructions Discharge Instructions Date of Service February 27, 2017. Admission Reason for Admission: Cellulitis Of Left Foot, Trench Foot Discharge Discharge Diagnosis / Problem: Left Foot Cellulitis Discharge Goals Goal(s): Diagnostic testing, Therapeutic intervention Activity Recommendations Activity Limitations: as noted below (resume activities gradually, always ambulate with caution) . Instructions / Follow-Up Instructions / Follow-Up OBSERVE PROPER CARE OF YOUR FEET DAILY. EAT POTASSIUM RICH FOODS LIKE BANANAS, ORANGES, TOMATOES. CALL PRIMARY CARE PHYSICIAN OR RETURN TO ER IMMEDIATELY IF WITH INCREASING SWELLING, REDNESS, PAIN OF YOUR FEET OR LEGS, OR IF YOU HAVE FEVER/CHILLS. FOLLOW UP WITH YOUR PRIMARY CARE PHYSICIAN ADVISED. AVOID ALCOHOL AND SMOKING. FOLLOW UP WITH DR. CARTAGENA ON FRIDAY MARCH 03, 2017 11: 05 AM. Current Hospital Diet Patient's current hospital diet: Regular Diet Discharge Diet Recommended Diet: AHA Diet (Heart Healthy) Pending Studies Studies pending at discharge: yes List of pending studies: REPEAT POTASSIUM LEVEL ON FOLLOW UP WITH PRIMARY CARE PHYSICIAN Medical Emergencies . Who to Call and When: Medical Emergencies: If at any time you feel your situation is an emergency, please call 911 immediately. . Non-Emergent Contact Non-Emergency issues call your: Primary Care Provider Call Non-Emergent contact if: you have a fever, your pain is not controlled, your pain is worsening, wound has increased drainage, wound has increased redness, wound has increased pain, you have any medication questions . . "Provider Documentation" section prepared by Chacorta Benson. . VTE Core Measure Inpt VTE Proph given/why not?: Enoxaparin (Lovenox)SQ
[2017-02-27] MEDS ORDERED: ASPIRIN 81 MG ECTAB PO SCH (08:00)
[2017-02-27] MEDS: MICONAZOLE NITRATE POWDER 43 GM EXT SCH (08:00)
[2017-02-27] MEDS: AMLODIPINE BESYLATE 5 MG TAB PO SCH (08:00)
[2017-02-27] MEDS: NICOTINE 14 MG/24 HR TDSY TD SCH (08:30)
== END 2017-02-27 08:45 | disposition left against medical advice (07) ==
LOC: ENRESERVTM → CANRESERV → ENRESERVDT → EDBD 08:20 → C.EDB 08:22 → C.4E 11:04
PROVIDERS: ADMIT Internal Medicine; ATTEND Internal Medicine
DX: L03.116 Cellulitis of left lower limb (principal); T69.021A Immersion foot, right foot, initial encounter; T69.022A Immersion foot, left foot, initial encounter; Z59.0 Homelessness; I10 Essential (primary) hypertension; F17.200 Nicotine dependence, unspecified, uncomplicated; F12.90 Cannabis use, unspecified, uncomplicated; Z82.49 Family history of ischemic heart disease and other diseases of the circulatory system

== ENCOUNTER 2017-02-27 21:28 | Observation (INO) | payer OTHER ==
[~2017-02-27] VITALS: Ht 175.3 cm; Wt 52.3 kg
[~2017-02-27 21:28] MED LIST changes: +ASPEC81 PO; +MCTP EXT
--- NOTE | 2017-02-27 21:51 | EMERGENCY ROOM VISIT NOTE ---
History Report prepared by Sukhi: Juliano Laws Under the Supervision of: Dr. Urbano Ibanez D.O. First contact with patient: 21:40 Chief Complaint: MENTAL HEALTH EVALUATION Stated Complaint: MENTAL HEATLH History of Present Illness The patient is a 66 year old male who presents to the Emergency Room for a mental health evaluation. The patient was admitted to the hospital on February 24 for cellulitis. He was supposed to be discharged today but left against medical advice before he could be discharged. He has been prescribed antibiotics on an outpatient basis but has not filled his prescription. After leaving the hospital , the patient arrived at [facility] thinking it was a hotel. [facility] staff reported turning him down 3 times today. [facility] staff referred the patient to the Emergency Room today for a mental health evaluation. The patient denies any confusion and reports that he knew [facility] was a care home. He reports being homeless. He admits to having 2 beers today. He denies any suicidal or homicidal ideation. The patient denies fevers, chills, or any other complaints. Source of History: patient Onset: today Position: other (global) Quality: other (mental health evaluation) Associated Symptoms: No chills, No fevers Review of Systems See HPI for pertinent positives and negatives. A total of ten systems were reviewed and were otherwise negative. Past Medical & Surgical Medical Problems: (1) Ambulatory dysfunction (2) Cellulitis of foot (3) HTN (hypertension) (4) Hypertension (5) Immersion (trench) foot (6) Tobacco use disorder (7) Trench foot Surgical Problems: (1) H/O colonoscopy Family History FH: CAD (coronary artery disease) FATHER ( of [place] age 56 ) Social History Smoking Status: Current Every Day Smoker Alcohol Use: heavy Drug Use: marijuana Marital Status: single Housing Status: other Occupation Status: retired Current/Historical Medications Scheduled Amlodipine Besylate (Amlodipine Besylate), 5 MG PO DAILY Amoxicillin & Pot Clavulanate (Augmentin 875-125 mg), 875 MG PO BID Aspirin (Aspirin EC Low Dose), 81 MG PO QAM Miconazole Nitrate (Desenex Shake Powder), 1 APPLN EXT BID Allergies Coded Allergies: No Known Allergies (Unverified , 02/27/17) Physical Exam Vital Signs Date Time Temp Pulse Resp B/P Pulse Ox O2 Delivery O2 Flow Rate FiO2 02/27/17 22:19 84 178/94 96 Room Air 02/27/17 21:45 36.7 18 Room Air Physical Exam GENERAL: Awake, alert, disheveled, in no distress HENT: Normocephalic, atraumatic. Oropharynx unremarkable. EYES: Normal conjunctiva. Sclera non-icteric. NECK: Supple. No nuchal rigidity. FROM. No JVD. RESPIRATORY: Clear to auscultation. CARDIAC: Regular rate, normal rhythm. Extremities warm and well perfused. Pulses equal. ABDOMEN: Soft, non-distended. No tenderness to palpation. No rebound or guarding. No masses. RECTAL: Deferred. MUSCULOSKELETAL: Chest examination reveals no tenderness. The back is symmetrical on inspection without obvious abnormality. There is no CVA tenderness to palpation. No joint edema. LOWER EXTREMITIES: Calves are equal size bilaterally and non-tender. No edema. No discoloration. NEURO: Normal sensorium. No sensory or motor deficits noted. SKIN: No rash or jaundice noted. Has stool on hands. Clearly weeping wound to the left foot dorsum. Medical Decision & Procedures Laboratory Results 02/27/17 22:08 Red Blood Count 3.61, Mean Corpuscular Volume 97.2, Mean Corpuscular Hemoglobin 33.8, Mean Corpuscular Hemoglobin Concent 34.8, Mean Platelet Volume 8.7, Neutrophils (%) (Auto) 68.7, Lymphocytes (%) (Auto) 22.3, Monocytes (%) (Auto) 6.8, Eosinophils (%) (Auto) 1.5, Basophils (%) (Auto) 0.3, Neutrophils # (Auto) 6.26, Lymphocytes # (Auto) 2.04, Monocytes # (Auto) 0.62, Eosinophils # (Auto) 0.14, Basophils # (Auto) 0.03 02/27/17 22:08 Test 02/27/17 22:08 02/27/17 22:16 White Blood Count 9.13 K/uL (4.8-10.8) Red Blood Count 3.61 M/uL (4.7-6.1) Hemoglobin 12.2 g/dL (14.0-18.0) Hematocrit 35.1 % (42-52) Mean Corpuscular Volume 97.2 fL (80-100) Mean Corpuscular Hemoglobin 33.8 pg (25-34) Mean Corpuscular Hemoglobin Concent 34.8 g/dl (32-36) Platelet Count 262 K/uL (130-400) Mean Platelet Volume 8.7 fL (7.4-10.4) Neutrophils (%) (Auto) 68.7 % Lymphocytes (%) (Auto) 22.3 % Monocytes (%) (Auto) 6.8 % Eosinophils (%) (Auto) 1.5 % Basophils (%) (Auto) 0.3 % Neutrophils # (Auto) 6.26 K/uL (1.4-6.5) Lymphocytes # (Auto) 2.04 K/uL (1.2-3.4) Monocytes # (Auto) 0.62 K/uL (0.11-0.59) Eosinophils # (Auto) 0.14 K/uL (0-0.5) Basophils # (Auto) 0.03 K/uL (0-0.2) RDW Standard Deviation 45.9 fL (36.4-46.3) RDW Coefficient of Variation 12.8 % (11.5-14.5) Immature Granulocyte % (Auto) 0.4 % Immature Granulocyte # (Auto) 0.04 K/uL (0.00-0.02) Anion Gap 9.0 mmol/L (3-11) Est Creatinine Clear Calc Drug Dose 66.4 ml/min Estimated GFR () 102.1 Estimated GFR (Non- 88.1 BUN/Creatinine Ratio 14.0 (10-20) Calcium Level 8.9 mg/dl (8.5-10.1) Total Bilirubin 0.3 mg/dl (0.2-1) Direct Bilirubin < 0.1 mg/dl (0-0.2) Aspartate Amino Transf (AST/SGOT) 41 U/L (15-37) Alanine Aminotransferase (ALT/SGPT) 43 U/L (12-78) Alkaline Phosphatase 85 U/L (45-117) Total Protein 7.1 gm/dl (6.4-8.2) Albumin 3.3 gm/dl (3.4-5.0) Thyroid Stimulating Hormone (TSH) 1.240 uIu/ml (0.300-4.500) Ethyl Alcohol mg/dL 13.0 mg/dl (0-3) Bedside Glucose 86 mg/dl (70-99) Laboratory results reviewed by me Medications Administered Medications (Trade) Dose Ordered Sig/Arron Route Start Time Stop Time Status Last Admin Dose Admin Ceftriaxone Sodium (Rocephin Inj) 1 gm NOW STAT IV 02/27/17 23:02 02/27/17 23:04 DC 02/27/17 23:23 1 GM ED Course 2139: The patient was evaluated in room A07. A complete history and physical exam was performed. 2301: Rocephin Inj 1 gm IV 2314: Upon reexamination, the patient was resting comfortably. I discussed the test results and treatment plan with him. I discussed the patient's case with Dr. Castellanos from [facility]. The patient will be evaluated for further management. Medical Decision Differential diagnosis includes but is not limited to homeless, cellulitis, alcohol abuse, social service issues. I spoke with Dr. Castellanos with [facility]. I spoke with the crisis counselor. He will be medically admitted because the 302 will not be upheld. He will be admitted for cellulitis with social contact worker disposition. Consults Time Called: 2314 Consulting Physician: Dr. Castellanos from [facility] Returned Call: [phone] I discussed the patient's case with Dr. Castellanos from [facility]. Impression Primary Impression: Lower extremity cellulitis Additional Impression: Homelessness Scribe Attestation The scribe's documentation has been prepared under my direction and personally reviewed by me in its entirety. I confirm that the note above accurately reflects all work, treatment, procedures, and medical decision making performed by me. Departure Information Dispostion Being Evaluated By Hospitalist Referrals Noah Mayes MD (PCP) Patient Instructions My [facility] Problem Qualifiers
[2017-02-27 22:18] LABS: BASO % 0.3 %; BASO ABS # 0.03 K/uL (0-0.2); COMPLETE YES; EOS % 1.5 %; HEMATOCRIT 35.1 % (42-52); IG% 0.4 %; LYMPH % 22.3 %; LYMPH ABS # 2.04 K/uL (1.2-3.4); MEAN CELL VOLUME 97.2 fL (80-100); MEAN CORPUSCULAR HEMOGLOBIN 33.8 pg (25-34); MEAN CORPUSCULAR HGB CONC 34.8 g/dl (32-36); MEAN PLATELET VOLUME 8.7 fL (7.4-10.4); MONO % 6.8 %; NEUT % 68.7 %; PLATELET COUNT 262 K/uL (130-400); RED BLOOD COUNT 3.61 M/uL (4.7-6.1); WHITE BLOOD COUNT 9.13 K/uL (4.8-10.8)
[2017-02-27] MEDS ORDERED: CEFTRIAXONE SOD INJ 1 GM ADDVIAL IV STA (23:02)
[2017-02-27 23:36] LABS: ALKALINE PHOSPHATASE 85 U/L (45-117); ALT/SGPT 43 U/L (12-78); AST/SGOT 41 U/L (15-37); CALCIUM 8.9 mg/dl (8.5-10.1); CARBON DIOXIDE 25 mmol/L (21-32); CHLORIDE 99 mmol/L (98-107); CREATININE 0.91 mg/dl (0.60-1.40); GLUCOSE 81 mg/dl (70-99); POTASSIUM 4.1 mmol/L (3.5-5.1); SODIUM 133 mmol/L (136-145)
[2017-02-27 23:46] LABS: BLOOD UREA NITROGEN 13 mg/dl (7-18)
[2017-02-28] MEDS ORDERED: MAGNESIUM HYDROXIDE SUSP 30 ML UDC PO PRN
[2017-02-28] MEDS ORDERED: POLYETHYLENE (MIRALAX) 17 GM PACK PO PRN
[2017-02-28] MEDS ORDERED: ALUMINUM/MAGNESIUM/SIMETH (MAALOX MAX) 30 ML UDC PO PRN
[2017-02-28] MEDS ORDERED: ACETAMINOPHEN 325 MG TAB PO PRN
[2017-02-28] MEDS ORDERED: ONDANSETRON INJ 2 MG/ML 2 ML VIAL IV PRN
[2017-02-28] MEDS ORDERED: IV FLUIDS COMPLETED PRN (00:15)
[2017-02-28 00:51] VITALS: BP 185/101; PULSE 77; TEMP 36.5; O2SAT 98; Ht 175.3 cm; Wt 52.3 kg
[2017-02-28] MEDS ORDERED: CLONIDINE HCL 0.1 MG TAB PO PRN (01:30)
[2017-02-28 03:51] VITALS: BP 96/59; PULSE 70
--- NOTE | 2017-02-28 04:26 | HISTORY & PHYSICAL EXAMINATION ---
DATE OF ADMISSION: 02/27/2017 CHIEF COMPLAINT: Trench feet and lower extremity cellulitis. HISTORY OF PRESENT ILLNESS: This is a 66-year-old male with past medical history significant for hypertension, tobacco use disorder, some alcoholism, bilateral trench feet, homeless who was in the hospital for lower extremity cellulitis and trench feet and was on Augmentin, was improving and supposed to get discharged today, but patient signed out AMA and was brought in because he went to [facility] thinking it is a hotel. The patient says he just roams in the streets and is basically homeless and sometimes stays in the hotels and today by mistake he went to [facility] thinking it to be a hotel.Though he was turned down, he went there 3 times and [facility] sent him to the ER for evaluation for his mental status and for placement. Currently, the patient is resting comfortably. He is feeling better. Denies any pain, no shortness of breath, no cough, no chest pain, no fever, no chills, no nausea, no vomiting, no abdominal pain. ALLERGIES: No known drug allergies. PAST MEDICAL HISTORY: As mentioned above. PAST SURGICAL HISTORY: History of colonoscopy. FAMILY HISTORY: Father had CAD and of [place] at age of 56. SOCIAL HISTORY: Homeless, smokes about 1 pack a day and some times more . He used marijuana before. Alcohol sometimes. MEDICATIONS: Currently, the patient is on amlodipine 5 mg p.o. daily, Augmentin 875 mg p.o. b.i.d., aspirin 81 mg p.o. daily REVIEW OF SYMPTOMS: As per HPI. Rest of review of symptoms negative. PHYSICAL EXAMINATION: GENERAL: The patient is alert and oriented, not in distress. VITAL SIGNS: Temperature 36.7, pulse 84, respiratory rate 18, blood pressure 128/94, oxygen 96% room air. HEENT: No pallor, no icterus. Pupils equal, round, and reactive to light. NECK: No JVD, no neck masses, no carotid bruits. CARDIOVASCULAR: S1, S2 heard, regular rate and rhythm, no murmur, no gallop. RESPIRATORY SYSTEM: Clear to auscultation bilaterally. No wheezing, no crackles. ABDOMEN: Soft, bowel sounds present. Nontender. No distention. CENTRAL NERVOUS SYSTEM: Cranial nerves II-XII grossly intact. Nonfocal. EXTREMITIES: Bilateral lower tense feet. The cellulitis of the extremity is improving. LABS: WBC 9, hemoglobin 12.2, hematocrit 35.1, platelets 262. Sodium 133, potassium 4.1, chloride 99, CO2 of 25, BUN 13, creatinine 0.9, serum glucose 86, calcium 8.9, total bilirubin 0.3, direct bilirubin less than 0.1, AST 41, ALT 46, alkaline phosphatase 85. TSH 1.2. Ethyl alcohol 13. ASSESSMENT AND PLAN: This is a 66-year-old male who was in the hospital with trench feet and cellulitis, was supposed to be discharged and signed out AMA,and was brought in because he went to [facility] 3 times, though he was denied the entry, thinking it is a hotel and he was referred by [facility] for mental health evaluation. We are called of observation and also social service to help with the placement. 1. Trench feet and cellulitis, improving on Augmentin, which we will continue to complete 4 more days of course. 2. Mental health evaluation Consult psychiatry of any psychosis or any depression. 3. History of hypertension. Continue his amlodipine. 4. Deep venous thrombosis, SCDs and heparin subQ. 5. Disposition: Social service to help with discharge planning, possible placement. Level 1 full code. MTDD
[2017-02-28 05:55] LABS: BASO % 0.6 %; BASO ABS # 0.05 K/uL (0-0.2); COMPLETE YES; EOS % 3.1 %; HEMATOCRIT 35.9 % (42-52); IG% 0.6 %; LYMPH ABS # 2.16 K/uL (1.2-3.4); MEAN CELL VOLUME 98.1 fL (80-100); MEAN CORPUSCULAR HEMOGLOBIN 32.5 pg (25-34); MEAN CORPUSCULAR HGB CONC 33.1 g/dl (32-36); MEAN PLATELET VOLUME 8.8 fL (7.4-10.4); MONO % 11.3 %; NEUT % 56.4 %; PLATELET COUNT 272 K/uL (130-400); RED BLOOD COUNT 3.66 M/uL (4.7-6.1); WHITE BLOOD COUNT 7.72 K/uL (4.8-10.8)
[2017-02-28 06:35] LABS: BUN/CREATININE RATIO 16.2 (10-20); CALCIUM 8.9 mg/dl (8.5-10.1); CREATININE 0.87 mg/dl (0.60-1.40); MAGNESIUM 2.6 mg/dl (1.8-2.4); POTASSIUM 4.1 mmol/L (3.5-5.1)
[2017-02-28 07:51] VITALS: BP 139/82; PULSE 73; TEMP 37; O2SAT 98
[2017-02-28 08:00] VITALS: O2SAT 98
[2017-02-28] MEDS: HEPARIN SOD 5000 UNIT/0.5 ML CARP SQ SCH ×2 (09:00→21:58)
[2017-02-28] MEDS: ASPIRIN 81 MG ECTAB PO SCH (10:21)
[2017-02-28] MEDS: AMLODIPINE BESYLATE 5 MG TAB PO SCH (10:21)
[2017-02-28] MEDS: AMOXICILLIN/CLAVULANATE TAB 875 MG TAB PO SCH ×2 (10:21→17:02)
[2017-02-28] MEDS: MICONAZOLE NITRATE POWDER 43 GM EXT SCH ×2 (10:21→21:51)
[2017-02-28] MEDS ORDERED: NURSING DECISION MEDICATION ORDER SCH (12:00)
--- NOTE | 2017-02-28 13:37 | Psychiatric Consultation ---
Consultation Date of Consultation February 28, 2017. Identifying Data Jc Goncalves is a 66-year-old male who has no psychiatric history, is homeless, and has had 2 recent admissions for cellulitis of the foot. He was discharged AMA yesterday, and then re-presented with police after he went to [facility], thinking it was a hotel. Psychiatry was consulted for "mental health evaluation." Chief Complaint "I thought it was a hotel". History of Present Illness According to records, the patient has been hospitalized twice this month so far for foot cellulitis, is recently on 02/24/2017. He signed out AGAINST MEDICAL ADVICE yesterday, and then re-presented to the emergency room with a blood alcohol level of 13 after he went to [facility], thinking it was a hotel. In the emergency room, he had slurred speech, and did not know what day or month it is. He stated he had had 2 beers. The wildlife conservation officer had completed a 302 petition, stating it was the third time they had been called to [facility] to remove the patient. Since admission, he's been calm and cooperative. He is alert and oriented, and states that he was confused yesterday and thought that [facility] was a hotel. He denies symptoms of depression, anxiety, psychosis, and samara. He denies thoughts of harming himself or anyone else. He states his mood is "good," and that he is generally an optimistic person. He denies ever having any mental health issues, but admits that he is a drinker, and typically drinks 2 beers a day. He states that he is originally from [place], and came to this area 23 years ago to live with his brother in [place], but his brother 6 years ago, and he has been homeless since. He denies concerns about being homeless, stating he is aware of hearts for the homeless and other local resources, but typically opts to either stay in hotels or sleep outside. He denies having any friends locally, and says he has one friend and [place] whom he has not been in touch with in a while. He notes he has a car which is parked and pleasant, but says he doesn't drive "because I drink". Past Psychiatric History Current OP Treatment: no current treatment Prior OP Treatment: no prior treatment Prior Psych Hospitalizations: none Access to a Gun: No Suicide Attempts: No Past Medication Trials None Additional Notes The patient denies any mental health history. Past Medical/Surgical History (1) Cellulitis of foot (2) Hypertension (3) Tobacco use disorder (4) Alcohol abuse Allergies Allergies: Coded Allergies: No Known Allergies (Unverified , 02/27/17) Home Medications Scheduled Amlodipine Besylate (Amlodipine Besylate), 5 MG PO DAILY Amoxicillin & Pot Clavulanate (Augmentin 875-125 mg), 875 MG PO BID Aspirin (Aspirin EC Low Dose), 81 MG PO QAM Miconazole Nitrate (Desenex Shake Powder), 1 APPLN EXT BID Family History FH: CAD (coronary artery disease) FATHER ( of [place] age 56 ) History of Suicide: No History of Substance Abuse: No Psychiatric History: No Alcohol Use Alcohol Use In Past 12 Months: Yes (drinks 2 beers daily) Smoking Use Smoking Status: Current Every Day Smoker Substance History Denies Personal History Lives in: homeless in [facility] Childhood: Originally from [place]. Relationship History: never Children: denies Spiritual Affiliation: denies Legal History: none Psychological Trauma History: Other (denies) Review of Systems 10 systems reviewed; positive for foot pain; others negative except as stated above Examination Vital Signs Vital Signs Past 12 Hours Date Time Temp Pulse Resp B/P Pulse Ox O2 Delivery O2 Flow Rate FiO2 02/28/17 08:00 98 Room Air 02/28/17 07:51 37.0 73 16 139/82 98 Room Air 02/28/17 03:51 70 96/59 Laboratory Results Last 24 Hours Test 02/27/17 22:08 02/27/17 22:16 02/28/17 05:15 White Blood Count 9.13 K/uL 7.72 K/uL Red Blood Count 3.61 M/uL 3.66 M/uL Hemoglobin 12.2 g/dL 11.9 g/dL Hematocrit 35.1 % 35.9 % Mean Corpuscular Volume 97.2 fL 98.1 fL Mean Corpuscular Hemoglobin 33.8 pg 32.5 pg Mean Corpuscular Hemoglobin Concent 34.8 g/dl 33.1 g/dl Platelet Count 262 K/uL 272 K/uL Mean Platelet Volume 8.7 fL 8.8 fL Neutrophils (%) (Auto) 68.7 % 56.4 % Lymphocytes (%) (Auto) 22.3 % 28.0 % Monocytes (%) (Auto) 6.8 % 11.3 % Eosinophils (%) (Auto) 1.5 % 3.1 % Basophils (%) (Auto) 0.3 % 0.6 % Neutrophils # (Auto) 6.26 K/uL 4.35 K/uL Lymphocytes # (Auto) 2.04 K/uL 2.16 K/uL Monocytes # (Auto) 0.62 K/uL 0.87 K/uL Eosinophils # (Auto) 0.14 K/uL 0.24 K/uL Basophils # (Auto) 0.03 K/uL 0.05 K/uL RDW Standard Deviation 45.9 fL 46.4 fL RDW Coefficient of Variation 12.8 % 12.9 % Immature Granulocyte % (Auto) 0.4 % 0.6 % Immature Granulocyte # (Auto) 0.04 K/uL 0.05 K/uL Sodium Level 133 mmol/L 139 mmol/L Potassium Level 4.1 mmol/L 4.1 mmol/L Chloride Level 99 mmol/L 105 mmol/L Carbon Dioxide Level 25 mmol/L 28 mmol/L Anion Gap 9.0 mmol/L 6.0 mmol/L Blood Urea Nitrogen 13 mg/dl 14 mg/dl Creatinine 0.91 mg/dl 0.87 mg/dl Est Creatinine Clear Calc Drug Dose 66.4 ml/min 62.6 ml/min Estimated GFR () 102.1 105.0 Estimated GFR (Non- 88.1 90.6 BUN/Creatinine Ratio 14.0 16.2 Random Glucose 81 mg/dl 96 mg/dl Calcium Level 8.9 mg/dl 8.9 mg/dl Total Bilirubin 0.3 mg/dl Direct Bilirubin < 0.1 mg/dl Aspartate Amino Transf (AST/SGOT) 41 U/L Alanine Aminotransferase (ALT/SGPT) 43 U/L Alkaline Phosphatase 85 U/L Total Protein 7.1 gm/dl Albumin 3.3 gm/dl Thyroid Stimulating Hormone (TSH) 1.240 uIu/ml Ethyl Alcohol mg/dL 13.0 mg/dl Bedside Glucose 86 mg/dl Magnesium Level 2.6 mg/dl Mental Examination During interview pt is: alert and oriented, cooperative Appearance: appropriately dressed, disheveled, other (appears older than stated age) Eye contact is: good Motor behavior is: no abnormal motor movements Speech: normal in rate, rhythm & volume Affect: mood congruent, euthymic Mood is: other ("good") Thought process: goal directed Thought content: reality based without delusions Suicidal thought are: denied Homicidal thoughts are: denied Hallucinations: denies auditory, denies visual Cognition: memory grossly intact, attention grossly intact, language grossly intact Intelligence estimated to be: average Insight: fair Judgement: fair Impression / Recommendations Impression 66-year-old single white male with a history of alcoholism who was brought in by police after he repeatedly went to [facility], thinking it was a hotel. We were consulted to assess for mental illness. The patient denies any psychiatric history, denies all symptoms of mood, anxiety, and psychotic disorders, is alert and oriented, and does not appear to have a mental illness.
[2017-02-28 15:45] VITALS: BP 97/60; PULSE 80; TEMP 37; O2SAT 96
[2017-02-28 16:13] VITALS: O2SAT 98
[2017-02-28] MEDS ORDERED: EUCERIN CR 120 GM JAR EXT SCH (21:00)
--- NOTE | 2017-02-28 22:27 | Progress Note ---
Medicine Progress Note Date & Time of Visit: February 28, 2017 at 22:25. Subjective seen resting in bed, comfortable states he feels fine overall minimal left foot pain no chest pain, dyspnea, dizziness, nausea, fever/chills oriented x 3 admits to drinking beer after being discharged yesterday Objective Last 8 Hrs Date Time Temp Pulse Resp B/P Pulse Ox O2 Delivery O2 Flow Rate FiO2 02/28/17 16:13 98 Room Air 02/28/17 15:45 37.0 80 16 97/60 96 Room Air Physical Exam: General- oriented x 3 not in distress Eyes- anicteric Neck- no JVD Lungs- clear breath sounds bilaterally Heart- regular rhythm; no murmur, normal rate Abdomen- normal bowel sounds, soft, nontender Extremities- left foot: (+) healed excoriations on the dorsal aspect with no erythema, no tenderness no pretibial edema, no calf tenderness; peripheral pulses intact Neuro- alert, oriented x 3; no gross focal deficits Skin- warm & dry Laboratory Results: Last 24 Hours Test 02/28/17 05:15 White Blood Count 7.72 K/uL Red Blood Count 3.66 M/uL Hemoglobin 11.9 g/dL Hematocrit 35.9 % Mean Corpuscular Volume 98.1 fL Mean Corpuscular Hemoglobin 32.5 pg Mean Corpuscular Hemoglobin Concent 33.1 g/dl Platelet Count 272 K/uL Mean Platelet Volume 8.8 fL Neutrophils (%) (Auto) 56.4 % Lymphocytes (%) (Auto) 28.0 % Monocytes (%) (Auto) 11.3 % Eosinophils (%) (Auto) 3.1 % Basophils (%) (Auto) 0.6 % Neutrophils # (Auto) 4.35 K/uL Lymphocytes # (Auto) 2.16 K/uL Monocytes # (Auto) 0.87 K/uL Eosinophils # (Auto) 0.24 K/uL Basophils # (Auto) 0.05 K/uL RDW Standard Deviation 46.4 fL RDW Coefficient of Variation 12.9 % Immature Granulocyte % (Auto) 0.6 % Immature Granulocyte # (Auto) 0.05 K/uL Sodium Level 139 mmol/L Potassium Level 4.1 mmol/L Chloride Level 105 mmol/L Carbon Dioxide Level 28 mmol/L Anion Gap 6.0 mmol/L Blood Urea Nitrogen 14 mg/dl Creatinine 0.87 mg/dl Est Creatinine Clear Calc Drug Dose 62.6 ml/min Estimated GFR () 105.0 Estimated GFR (Non- 90.6 BUN/Creatinine Ratio 16.2 Random Glucose 96 mg/dl Calcium Level 8.9 mg/dl Magnesium Level 2.6 mg/dl Assessment & Plan ASSESSMENT AND PLAN: This is a 66-year-old male who was in the hospital with trench feet and cellulitis, was supposed to be discharged and signed out AMA,and was brought in because he went to [facility] 3 times, though he was denied the entry, thinking it is a hotel and he was referred by [facility] for mental health evaluation. We are called of observation and also social service to help with the placement. 1. Trench feet and cellulitis - improving continue Augmentin 2. Mental health evaluation - Psych evaluated patient - no underlying Psych disorder noted 3. History of hypertension. stable on Amlodipine 4. Deep venous thrombosis, SCDs and heparin subQ. 5. Disposition: anticipate d/c tomorrow Level 1 full code. Current Inpatient Medications: Current Inpatient Medications Medications (Trade) Dose Ordered Sig/Arron Route Start Time Stop Time Status Last Admin Dose Admin Acetaminophen (Tylenol Tab) 650 mg Q4H PRN PO 02/28/17 00:00 03/30/17 00:00 Al Hydrox/Mg Hydrox/Simethicone (Maalox Max Susp) 15 ml Q4H PRN PO 02/28/17 00:00 03/30/17 00:00 Magnesium Hydroxide (Milk Of Magnesia Susp) 30 ml Q6H PRN PO 02/28/17 00:00 03/30/17 00:00 Polyethylene (Miralax Powder Packet) 17 gm DAILY PRN PO 02/28/17 00:00 03/30/17 00:00 Ondansetron HCl (Zofran Inj) 4 mg Q6H PRN IV 02/28/17 00:00 03/30/17 00:00 Heparin Sodium (Porcine) (Heparin Sq 5000 Unit/0.5ml) 5,000 unit Q12H SQ 02/28/17 09:00 03/30/17 08:59 02/28/17 21:58 5,000 UNIT Amlodipine Besylate (Norvasc Tab) 5 mg DAILY PO 02/28/17 09:00 03/30/17 08:59 5/16/17 10:21 5 MG Amoxicillin/ Clavulanate Potassium (Augmentin Tab) 875 mg BIDM PO 02/28/17 08:00 03/10/17 07:59 02/28/17 17:02 875 MG Aspirin (Ecotrin Tab) 81 mg QAM PO 02/28/17 09:00 03/30/17 08:59 02/28/17 10:21 81 MG Miconazole Nitrate (Desenex Powder) 1 appln BID EXT 02/28/17 09:00 03/30/17 08:59 02/28/17 21:51 1 APPLN Miscellaneous (Iv Fluids Completed) 1 ea PRN PRN N/A 02/28/17 00:15 02/28/18 00:14 Clonidine HCl (Catapres Tab) 0.1 mg Q4 PRN PO 02/28/17 01:30 03/30/17 01:29 02/28/17 01:51 0.1 MG Multi-Ingredient Ointment (Eucerin Unscented Cr) 1 appln BID EXT 02/28/17 21:00 03/30/17 20:59
[2017-03-01 00:36] VITALS: BP 138/81; PULSE 71; TEMP 37.2; O2SAT 96
[2017-03-01 06:50] LABS: BASO % 0.6 %; BASO ABS # 0.05 K/uL (0-0.2); COMPLETE YES; EOS % 2.2 %; HEMATOCRIT 38.8 % (42-52); IG% 0.4 %; LYMPH ABS # 2.57 K/uL (1.2-3.4); MEAN CELL VOLUME 97.7 fL (80-100); MEAN CORPUSCULAR HEMOGLOBIN 32.2 pg (25-34); MONO % 8.8 %; PLATELET COUNT 290 K/uL (130-400); RED BLOOD COUNT 3.97 M/uL (4.7-6.1); WHITE BLOOD COUNT 8.04 K/uL (4.8-10.8)
[2017-03-01 07:27] LABS: BUN/CREATININE RATIO 23.1 (10-20); CALCIUM 8.7 mg/dl (8.5-10.1); CREATININE 0.84 mg/dl (0.60-1.40); MAGNESIUM 2.3 mg/dl (1.8-2.4)
[2017-03-01 08:05] VITALS: BP 163/81; PULSE 71; TEMP 36.8; O2SAT 99
[2017-03-01] MEDS: ASPIRIN 81 MG ECTAB PO SCH (08:27)
[2017-03-01] MEDS: AMOXICILLIN/CLAVULANATE TAB 875 MG TAB PO SCH (08:27)
[2017-03-01] MEDS: MICONAZOLE NITRATE POWDER 43 GM EXT SCH (08:27)
[2017-03-01] MEDS: AMLODIPINE BESYLATE 5 MG TAB PO SCH (08:28)
[2017-03-01] MEDS: HEPARIN SOD 5000 UNIT/0.5 ML CARP SQ SCH (08:30)
[2017-03-01 10:48] VITALS: BP 163/81; PULSE 71; TEMP 36.8; O2SAT 99
[2017-03-01] MEDS ORDERED: AMOX875T PO (11:11)
--- NOTE | 2017-03-01 11:13 | Discharge Instructions ---
Discharge Instructions Date of Service March 01, 2017. Admission Reason for Admission: Lower Extremity Cellulitis, Trench Foot Discharge Discharge Diagnosis / Problem: LOWER EXTREMITY CELLULITIS Discharge Goals Goal(s): Diagnostic testing, Therapeutic intervention Activity Recommendations Activity Limitations: resume your previous activity (GRADUALLY) Lifting Limitations: until after follow-up appointment Exercise/Sports Limitations: until after follow-up appointment . Instructions / Follow-Up Instructions / Follow-Up OBSERVE PROPER CARE OF YOUR FEET DAILY. CALL PRIMARY CARE PHYSICIAN OR RETURN TO ER IMMEDIATELY IF WITH INCREASING SWELLING, REDNESS, PAIN OF YOUR FEET OR LEGS, OR IF YOU HAVE FEVER/CHILLS. FOLLOW UP WITH YOUR PRIMARY CARE PHYSICIAN ADVISED. AVOID ALCOHOL AND SMOKING. FOLLOW UP WITH DR. CARTAGENA ON FRIDAY MARCH 03, 2017 11: 05 AM. Current Hospital Diet Patient's current hospital diet: AHA Diet (Heart Healthy) Discharge Diet Recommended Diet: AHA Diet (Heart Healthy) Pending Studies Studies pending at discharge: no Medical Emergencies . Who to Call and When: Medical Emergencies: If at any time you feel your situation is an emergency, please call 911 immediately. . Non-Emergent Contact Non-Emergency issues call your: Primary Care Provider Call Non-Emergent contact if: you have a fever, your pain is not controlled, your pain is worsening, wound has increased drainage, wound has increased redness, wound has increased pain, you have any medication questions . . "Provider Documentation" section prepared by Chacorta Benson. . VTE Core Measure Inpt VTE Proph given/why not?: Unfractionated heparin SQ
--- NOTE | 2017-03-01 11:14 | Progress Note ---
Medicine Progress Note Date & Time of Visit: March 01, 2017 at 11:10. Subjective patient seen resting in bedside chair comfortable states he feels fine overall oriented x 3 not in distress denies foot pain, fever/chills, headache, nausea, chest pain, dyspnea, abdominal pain denies other symptoms states he is ready and would like to be discharged today Objective Last 8 Hrs Date Time Temp Pulse Resp B/P Pulse Ox O2 Delivery O2 Flow Rate FiO2 03/01/17 10:48 36.8 71 18 99 Room Air 03/01/17 09:51 Room Air 03/01/17 08:05 36.8 71 18 163/81 99 Room Air Physical Exam: General- oriented x 3 not in distress Lungs- clear breath sounds bilaterally, no wheezing Heart- regular rhythm; no murmur, normal rate Abdomen- normal bowel sounds, soft, nontender Extremities- left foot: (+) healed excoriations on the dorsal aspect with no erythema, no tenderness/edema no pretibial edema, no calf tenderness; peripheral pulses intact Neuro- alert, oriented x 3; no gross focal deficits Skin- warm & dry Laboratory Results: Last 24 Hours Test 03/01/17 06:11 White Blood Count 8.04 K/uL Red Blood Count 3.97 M/uL Hemoglobin 12.8 g/dL Hematocrit 38.8 % Mean Corpuscular Volume 97.7 fL Mean Corpuscular Hemoglobin 32.2 pg Mean Corpuscular Hemoglobin Concent 33.0 g/dl Platelet Count 290 K/uL Mean Platelet Volume 9.0 fL Neutrophils (%) (Auto) 56.0 % Lymphocytes (%) (Auto) 32.0 % Monocytes (%) (Auto) 8.8 % Eosinophils (%) (Auto) 2.2 % Basophils (%) (Auto) 0.6 % Neutrophils # (Auto) 4.50 K/uL Lymphocytes # (Auto) 2.57 K/uL Monocytes # (Auto) 0.71 K/uL Eosinophils # (Auto) 0.18 K/uL Basophils # (Auto) 0.05 K/uL RDW Standard Deviation 45.8 fL RDW Coefficient of Variation 12.7 % Immature Granulocyte % (Auto) 0.4 % Immature Granulocyte # (Auto) 0.03 K/uL Sodium Level 137 mmol/L Potassium Level 4.0 mmol/L Chloride Level 103 mmol/L Carbon Dioxide Level 27 mmol/L Anion Gap 7.0 mmol/L Blood Urea Nitrogen 19 mg/dl Creatinine 0.84 mg/dl Est Creatinine Clear Calc Drug Dose 64.9 ml/min Estimated GFR () 106.5 Estimated GFR (Non- 91.9 BUN/Creatinine Ratio 23.1 Random Glucose 87 mg/dl Calcium Level 8.7 mg/dl Magnesium Level 2.3 mg/dl Assessment & Plan ASSESSMENT AND PLAN: This is a 66-year-old male who was in the hospital with trench feet and cellulitis, was supposed to be discharged and signed out AMA,and was brought in because he went to [facility] 3 times, though he was denied the entry, thinking it is a hotel and he was referred by [facility] for mental health evaluation. We are called of observation and also social service to help with the placement. CELLULITIS - LEFT FOOT BILATERAL TRENCH FEET - patient admitted February 19 for trench foot and cellulitis, discharged on PO antibiotics but seems to not observe proper hygiene re admitted February 24 for the same, discharged in the morning of the was brought in again in the evening as patient went to [facility] and was insisting it was a hotel, sent to the ER for mental health eval patient admitted to drinking beer though and alcohol level elevated Psych eval performed, no underlying mental illness - clinically improved advised to finish 3 more days of Augmentin PO, daily wound care and proper hygiene HTN - on Amlodipine advised to take medication daily CHRONIC BASAL GANGLIA INFARCTS on Aspirin will need to be on a statin, but due to history of alcoholism and poor adherence to ff up, will need close monitoring while on statin ALCOHOL And TOBACCO ABUSE DISORDER - no signs of withdrawal nicotine patch given - advised cessation NORMOCYTIC ANEMIA, MILD monitor as outpatient Disposition d/c home ff up with PCP in 1 week Current Inpatient Medications: Current Inpatient Medications Medications (Trade) Dose Ordered Sig/Arron Route Start Time Stop Time Status Last Admin Dose Admin Acetaminophen (Tylenol Tab) 650 mg Q4H PRN PO 02/28/17 00:00 03/30/17 00:00 Al Hydrox/Mg Hydrox/Simethicone (Maalox Max Susp) 15 ml Q4H PRN PO 02/28/17 00:00 03/30/17 00:00 Magnesium Hydroxide (Milk Of Magnesia Susp) 30 ml Q6H PRN PO 02/28/17 00:00 03/30/17 00:00 Polyethylene (Miralax Powder Packet) 17 gm DAILY PRN PO 02/28/17 00:00 03/30/17 00:00 Ondansetron HCl (Zofran Inj) 4 mg Q6H PRN IV 02/28/17 00:00 03/30/17 00:00 Heparin Sodium (Porcine) (Heparin Sq 5000 Unit/0.5ml) 5,000 unit Q12H SQ 02/28/17 09:00 03/30/17 08:59 03/01/17 08:30 5,000 UNIT Amlodipine Besylate (Norvasc Tab) 5 mg DAILY PO 02/28/17 09:00 03/30/17 08:59 03/01/17 08:28 5 MG Amoxicillin/ Clavulanate Potassium (Augmentin Tab) 875 mg BIDM PO 02/28/17 08:00 03/10/17 07:59 03/01/17 08:27 875 MG Aspirin (Ecotrin Tab) 81 mg QAM PO 02/28/17 09:00 03/30/17 08:59 03/01/17 08:27 81 MG Miconazole Nitrate (Desenex Powder) 1 appln BID EXT 02/28/17 09:00 03/30/17 08:59 03/01/17 08:27 1 APPLN Miscellaneous (Iv Fluids Completed) 1 ea PRN PRN N/A 02/28/17 00:15 02/28/18 00:14 Clonidine HCl (Catapres Tab) 0.1 mg Q4 PRN PO 02/28/17 01:30 03/30/17 01:29 02/28/17 01:51 0.1 MG Multi-Ingredient Ointment (Eucerin Unscented Cr) 1 appln BID EXT 02/28/17 21:00 03/30/17 20:59 02/28/17 22:44 1 APPLN
--- NOTE | 2017-03-01 11:27 | Discharge Summary ---
Discharge Summary Date of Service March 01, 2017. Discharge Summary Admission Date: February 27, 2017 at 23:52 Discharge Date: March 01, 2017 Discharge Disposition: Home Principal Diagnosis: CELLULITIS - LEFT FOOT BILATERAL TRENCH FEET Secondary Diagnoses/Problems: Please refer to hospital course below. Consultations: Psychiatry Dr. Villanueva Pending Studies/Follow-Up: Please refer to hospital course below. Medication Reconciliation Continued Medications: Amlodipine Besylate (Amlodipine Besylate) 5 Mg Tab 5 MG PO DAILY for 30 Days, #30 TAB 0 Refills Amoxicillin & Pot Clavulanate (Augmentin 875-125 mg) 1 Tab Tab 875 MG PO BID for 3 Days, 0 Refills (This prescription has been renewed) Aspirin (Aspirin EC Low Dose) 81 Mg Ectab 81 MG PO QAM for 30 Days, #30 TAB 1 Refill Miconazole Nitrate (Desenex Shake Powder) 43 Appln/43 Gm Powd 1 APPLN EXT BID for 10 Days, #1 BTL 1 Refill Admission Information HPI (per Admitting provider): DATE OF ADMISSION: 02/27/2017 CHIEF COMPLAINT: Trench feet and lower extremity cellulitis. HISTORY OF PRESENT ILLNESS: This is a 66-year-old male with past medical history significant for hypertension, tobacco use disorder, some alcoholism, bilateral trench feet, homeless who was in the hospital for lower extremity cellulitis and trench feet and was on Augmentin, was improving and supposed to get discharged today, but patient signed out AMA and was brought in because he went to [facility] thinking it is a hotel. The patient says he just roams in the streets and is basically homeless and sometimes stays in the hotels and today by mistake he went to [facility] thinking it to be a hotel.Though he was turned down, he went there 3 times and [facility] sent him to the ER for evaluation for his mental status and for placement. Currently, the patient is resting comfortably. He is feeling better. Denies any pain, no shortness of breath, no cough, no chest pain, no fever, no chills, no nausea, no vomiting, no abdominal pain. Physical Exam (per Admitting): GENERAL: The patient is alert and oriented, not in distress. VITAL SIGNS: Temperature 36.7, pulse 84, respiratory rate 18, blood pressure 128/94, oxygen 96% room air. HEENT: No pallor, no icterus. Pupils equal, round, and reactive to light. NECK: No JVD, no neck masses, no carotid bruits. CARDIOVASCULAR: S1, S2 heard, regular rate and rhythm, no murmur, no gallop. RESPIRATORY SYSTEM: Clear to auscultation bilaterally. No wheezing, no crackles. ABDOMEN: Soft, bowel sounds present. Nontender. No distention. CENTRAL NERVOUS SYSTEM: Cranial nerves II-XII grossly intact. Nonfocal. EXTREMITIES: Bilateral lower tense feet. The cellulitis of the extremity is improving. Hospital Course ASSESSMENT AND PLAN: This is a 66-year-old male who was in the hospital with trench feet and cellulitis, was supposed to be discharged and signed out AMA,and was brought in because he went to [facility] 3 times, though he was denied the entry, thinking it is a hotel and he was referred by [facility] for mental health evaluation. We are called of observation and also social service to help with the placement. CELLULITIS - LEFT FOOT BILATERAL TRENCH FEET - patient admitted February 19- for trench foot and cellulitis, discharged on PO antibiotics but seems to not observe proper hygiene re admitted February 24 for the same, discharged in the morning of the was brought in again in the evening as patient went to [facility] and was insisting it was a hotel, sent to the ER for mental health eval patient admitted to drinking beer though and alcohol level elevated Psych eval performed, no underlying mental illness - clinically improved advised to finish 3 more days of Augmentin PO, daily wound care and proper hygiene HTN - on Amlodipine advised to take medication daily CHRONIC BASAL GANGLIA INFARCTS on Aspirin will need to be on a statin, but due to history of alcoholism and poor adherence to ff up, will need close monitoring while on statin ALCOHOL And TOBACCO ABUSE DISORDER - no signs of withdrawal nicotine patch given - advised cessation NORMOCYTIC ANEMIA, MILD monitor as outpatient Disposition d/c home ff up with PCP in 1 week Total time spent on discharge = 30 minutes This includes examination of the patient, discharge planning, medication reconciliation, and communication with other providers. Discharge Instructions Discharge Instructions Date of Service March 01, 2017. Admission Reason for Admission: Lower Extremity Cellulitis, Trench Foot Discharge Discharge Diagnosis / Problem: LOWER EXTREMITY CELLULITIS Discharge Goals Goal(s): Diagnostic testing, Therapeutic intervention Activity Recommendations Activity Limitations: resume your previous activity (GRADUALLY) Lifting Limitations: until after follow-up appointment Exercise/Sports Limitations: until after follow-up appointment . Instructions / Follow-Up Instructions / Follow-Up OBSERVE PROPER CARE OF YOUR FEET DAILY. CALL PRIMARY CARE PHYSICIAN OR RETURN TO ER IMMEDIATELY IF WITH INCREASING SWELLING, REDNESS, PAIN OF YOUR FEET OR LEGS, OR IF YOU HAVE FEVER/CHILLS. FOLLOW UP WITH YOUR PRIMARY CARE PHYSICIAN ADVISED. AVOID ALCOHOL AND SMOKING. FOLLOW UP WITH DR. CARTAGENA ON FRIDAY MARCH 03, 2017 11: 05 AM. Current Hospital Diet Patient's current hospital diet: AHA Diet (Heart Healthy) Discharge Diet Recommended Diet: AHA Diet (Heart Healthy) Pending Studies Studies pending at discharge: no Medical Emergencies . Who to Call and When: Medical Emergencies: If at any time you feel your situation is an emergency, please call 911 immediately. . Non-Emergent Contact Non-Emergency issues call your: Primary Care Provider Call Non-Emergent contact if: you have a fever, your pain is not controlled, your pain is worsening, wound has increased drainage, wound has increased redness, wound has increased pain, you have any medication questions . . "Provider Documentation" section prepared by Chacorta Benson. . VTE Core Measure Inpt VTE Proph given/why not?: Unfractionated heparin SQ
--- NOTE | 2017-03-29 13:10 | EDITING REQUIRED CODING QUERY ---
CQSUPPORTING DIAGNOSIS NEEDED A supporting diagnosis is required for the test/procedure performed on this patient in order for us to be reimbursed by the patient's insurance. Please provide a supporting diagnosis for the following test/procedure listed below next to the test name along with your signature. *If there is no additional diagnosis for this patient that would support the following test/procedure please document that below next to the test/procedure. Test(s)/Procedure(s) that require a supporting diagnosis: Please forward this query to ordering Physician Dr. Berger. Thank you. Chacorta Benson MD DOS 02/27/17 BLOOD GLUCOSE TEST Provider Signature: Chacorta Benson MD Date: ___04/13/17____ Thank you Rachel Palmer [facility] Information Management Once completed, please kindly fax back to [phone] For questions please call [phone]
== END 2017-03-01 11:35 | disposition home or self-care (01) ==
LOC: ENRESERVDT → ENRESERVTM → EDBD 21:28 → C.EDA 21:32 → C.MS2W 23:52
PROVIDERS: ADMIT Internal Medicine; ATTEND Internal Medicine
DX: L03.116 Cellulitis of left lower limb (principal); T69.021A Immersion foot, right foot, initial encounter; T69.022A Immersion foot, left foot, initial encounter; D64.9 Anemia, unspecified; I10 Essential (primary) hypertension; Z72.0 Tobacco use; Z82.49 Family history of ischemic heart disease and other diseases of the circulatory system; F17.200 Nicotine dependence, unspecified, uncomplicated; Z79.82 Long term (current) use of aspirin; Z59.0 Homelessness; F12.90 Cannabis use, unspecified, uncomplicated

== ENCOUNTER 2017-03-04 00:33 | Emergency (ER) | payer OTHER ==
[~2017-03-04] VITALS: Ht 175.3 cm; Wt 51.8 kg
[2017-03-04 00:33] VITALS: TEMP 37.2; Ht 175.3 cm; Wt 51.8 kg
--- NOTE | 2017-03-04 00:45 | EMERGENCY ROOM VISIT NOTE ---
History Report prepared by Laytonibdorian: Randolph Benjamin Under the Supervision of: Dr. Urbano Ibanez D.O. First contact with patient: 00:34 Chief Complaint: FOOT PAIN Stated Complaint: DIFFICULTY WALKING/FOOT PAIN History of Present Illness The patient is a 66 year old male who presents to the Emergency Room with complaints of persistent bilateral feet pain for the past several weeks. The patient notes that the left foot pain is worse than the right and is sharp in nature. The patient was in the ED recently with trench foot. He is still having trouble walking secondary to pain. He recently through his sneakers away because they were wet. He is homeless and currently sleeps in a park. Source of History: patient Onset: several weeks ago Position: foot (bilateral) Quality: sharp Timing: other (persistent) Modifying Factors (Worsening): other (walking) Review of Systems See HPI for pertinent positives and negatives. A total of ten systems were reviewed and were otherwise negative. Past Medical & Surgical Medical Problems: (1) Ambulatory dysfunction (2) Cellulitis of foot (3) HTN (hypertension) (4) Hypertension (5) Immersion (trench) foot (6) Tobacco use disorder (7) Trench foot Surgical Problems: (1) H/O colonoscopy Family History FH: CAD (coronary artery disease) FATHER ( of [place] age 56 ) Social History Smoking Status: Current Every Day Smoker Alcohol Use: heavy Drug Use: marijuana Marital Status: single Housing Status: other Occupation Status: retired Current/Historical Medications Scheduled Amlodipine Besylate (Amlodipine Besylate), 5 MG PO DAILY Amoxicillin & Pot Clavulanate (Augmentin 875-125 mg), 875 MG PO BID Aspirin (Aspirin EC Low Dose), 81 MG PO QAM Miconazole Nitrate (Desenex Shake Powder), 1 APPLN EXT BID Allergies Coded Allergies: No Known Allergies (Unverified , 02/27/17) Physical Exam Vital Signs Date Time Temp Pulse Resp B/P Pulse Ox O2 Delivery O2 Flow Rate FiO2 03/04/17 00:33 37.2 84 18 160/85 97 Room Air Physical Exam GENERAL: Awake, alert, disheveled, malodorous. HENT: Normocephalic, atraumatic. Oropharynx unremarkable. EYES: Normal conjunctiva. Sclera non-icteric. NECK: Supple. No nuchal rigidity. FROM. No JVD. RESPIRATORY: Clear to auscultation. CARDIAC: Regular rate, normal rhythm. Extremities warm and well perfused. Pulses equal. ABDOMEN: Soft, non-distended. No tenderness to palpation. No rebound or guarding. No masses. RECTAL: Deferred. MUSCULOSKELETAL: Chest examination reveals no tenderness. The back is symmetrical on inspection without obvious abnormality. There is no CVA tenderness to palpation. No joint edema. LOWER EXTREMITIES: Calves are equal size bilaterally and non-tender. No edema. No discoloration. NEURO: Normal sensorium. No sensory or motor deficits noted. SKIN: Areas of sloughing to the bilateral plantar surfaces of feet. Poor turgor. Medical Decision & Procedures ED Course 0037: The patient was evaluated in room B7. A complete history and physical exam was performed. 0115: I reevaluated the patient. Discussed results and discharge instructions: He verbalized understanding and agreement. The patient is ready for discharge. Medical Decision Differential diagnosis includes trench foot, cellulitis, poor hygiene. Feet cleansed by nursing. Socks were placed on the patient. Advice was given to him to keep his feet dry Impression Primary Impression: Trench foot Scribe Attestation The scribe's documentation has been prepared under my direction and personally reviewed by me in its entirety. I confirm that the note above accurately reflects all work, treatment, procedures, and medical decision making performed by me. Departure Information Dispostion Home / Self-Care Referrals Noah Mayes MD (PCP) Forms HOME CARE DOCUMENTATION FORM, IMPORTANT VISIT INFORMATION Patient Instructions Foot Care , [facility] Problem Qualifiers Primary Impression: Trench foot Encounter type: initial encounter Laterality: unspecified laterality Qualified Codes: T69.029A - Immersion foot, unspecified foot, initial encounter
[2017-03-04 01:45] VITALS: BP 153/84; PULSE 85; O2SAT 96
== END 2017-03-04 01:57 | disposition home or self-care (01) ==
LOC: EDBD 00:33 → C.EDB 00:34
DX: T69.022A Immersion foot, left foot, initial encounter (principal); T69.021A Immersion foot, right foot, initial encounter; X58.XXXA Exposure to other specified factors, initial encounter; I10 Essential (primary) hypertension; F17.200 Nicotine dependence, unspecified, uncomplicated; Z86.19 Personal history of other infectious and parasitic diseases; Z79.82 Long term (current) use of aspirin; Z79.899 Other long term (current) drug therapy; Z82.49 Family history of ischemic heart disease and other diseases of the circulatory system

== ENCOUNTER 2017-03-08 17:09 | Emergency (ER) | payer OTHER ==
[~2017-03-08] VITALS: Ht 175.3 cm; Wt 57.7 kg
[2017-03-08 17:20] VITALS: TEMP 37; Ht 175.3 cm; Wt 57.7 kg
[2017-03-08] MEDS ORDERED: SODIUM CHLORIDE 0.9% 1000ML 1,000 ML IV STA (17:34)
[2017-03-08] MEDS ORDERED: AMLO-110 PO (17:42)
[2017-03-08] MEDS ORDERED: MCTP/85 TOP (17:42)
[2017-03-08] MEDS ORDERED: AMOX875T PO (17:42)
[2017-03-08] MEDS ORDERED: ASPI81TA28 PO (17:42)
[2017-03-08] MEDS ORDERED: AMPICILLIN/SULBACTAM SOD INJ 3,000 MG in SODIUM CHLORIDE 0.9% 100ML 100 ML IV ONE (17:45)
--- NOTE | 2017-03-08 17:45 | EMERGENCY ROOM VISIT NOTE ---
History Report prepared by Sukhi: Arnaud Khan Under the Supervision of: Dr. Ramu Sultana M.D. First contact with patient: 17:22 Chief Complaint: FOOT PAIN Stated Complaint: TRENCH FOOT History of Present Illness The patient is a 66 year old male who presents to the Emergency Room with complaints of constant foot pain for the past couple of weeks. The patient states that he cannot walk due to the pain in his feet, and the left is worse than the right. He states that he also gets sharp pains up both of his legs. He states that he is currently homeless, and he is not in a homeless [place] [facility] facility. The patient additionally states that he has no bowel control. The patient was admitted in mid February for the same symptoms, and he was discharged on Augmentin, and he was also seen four days ago in the ED because he had wet feet again. Source of History: patient Onset: a couple of weeks ago Position: foot (bilateral) Timing: constant Modifying Factors (Worsening): other (walking) Note: Associated symptoms: Leg pain Review of Systems See HPI for pertinent positives & negatives. A total of 10 systems reviewed and were otherwise negative. Past Medical & Surgical Medical Problems: (1) Ambulatory dysfunction (2) Cellulitis of foot (3) HTN (hypertension) (4) Hypertension (5) Immersion (trench) foot (6) Tobacco use disorder (7) Trench foot Surgical Problems: (1) H/O colonoscopy Family History FH: CAD (coronary artery disease) FATHER ( of [place] age 56 ) Social History Smoking Status: Current Every Day Smoker Alcohol Use: heavy Drug Use: marijuana Marital Status: single Housing Status: other Occupation Status: retired Current/Historical Medications Scheduled Amlodipine (Norvasc), 5 MG PO DAILY Amoxicillin & Pot Clavulanate (Augmentin 875-125 mg), 1 TAB PO BID Aspirin (Aspirin Ec), 81 MG PO DAILY Miconazole Nitrate (Desenex Shake Powder), 1 APPLN TOP BID Allergies Coded Allergies: No Known Allergies (Unverified , 03/08/17) Physical Exam Vital Signs Date Time Temp Pulse Resp B/P Pulse Ox O2 Delivery O2 Flow Rate FiO2 03/08/17 19:50 88 20 157/93 100 03/08/17 18:57 99 18 125/77 96 Room Air 03/08/17 17:20 37.0 95 18 167/86 97 Room Air Physical Exam GENERAL: Patient is in no acute distress. HEENT: No acute trauma, normocephalic atraumatic, mucous membranes moist, no nasal congestion, no scleral icterus. NECK: No stridor, no adenopathy, no meningismus, trachea is midline. LUNGS: Clear to auscultation bilaterally, no wheeze, no rhonchi, breath sounds equal. HEART: 2/6 systolic murmur with regular rate and rhythm. ABDOMEN: Soft, nontender, bowel sounds positive, no hernias, no peritonitis. EXTREMITIES: Irritation to both feet slightly worse on the left side. No cellulitis. Right foot appears to be healing from trench foot. No edema. Stool noted on the left leg inside his pants. NEUROLOGIC: Oriented x 3, no acute motor or sensory deficits, no focal weakness. SKIN: No rash, no jaundice, no diaphoresis. Medical Decision & Procedures Laboratory Results 03/08/17 18:48 Red Blood Count 3.85, Mean Corpuscular Volume 95.6, Mean Corpuscular Hemoglobin 32.7, Mean Corpuscular Hemoglobin Concent 34.2, Mean Platelet Volume 8.9, Neutrophils (%) (Auto) 59.9, Lymphocytes (%) (Auto) 29.0, Monocytes (%) (Auto) 8.5, Eosinophils (%) (Auto) 1.7, Basophils (%) (Auto) 0.6, Neutrophils # (Auto) 5.40, Lymphocytes # (Auto) 2.62, Monocytes # (Auto) 0.77, Eosinophils # (Auto) 0.15, Basophils # (Auto) 0.05 03/08/17 18:48 Test 03/08/17 18:48 White Blood Count 9.02 K/uL (4.8-10.8) Red Blood Count 3.85 M/uL (4.7-6.1) Hemoglobin 12.6 g/dL (14.0-18.0) Hematocrit 36.8 % (42-52) Mean Corpuscular Volume 95.6 fL (80-100) Mean Corpuscular Hemoglobin 32.7 pg (25-34) Mean Corpuscular Hemoglobin Concent 34.2 g/dl (32-36) Platelet Count 358 K/uL (130-400) Mean Platelet Volume 8.9 fL (7.4-10.4) Neutrophils (%) (Auto) 59.9 % Lymphocytes (%) (Auto) 29.0 % Monocytes (%) (Auto) 8.5 % Eosinophils (%) (Auto) 1.7 % Basophils (%) (Auto) 0.6 % Neutrophils # (Auto) 5.40 K/uL (1.4-6.5) Lymphocytes # (Auto) 2.62 K/uL (1.2-3.4) Monocytes # (Auto) 0.77 K/uL (0.11-0.59) Eosinophils # (Auto) 0.15 K/uL (0-0.5) Basophils # (Auto) 0.05 K/uL (0-0.2) RDW Standard Deviation 44.4 fL (36.4-46.3) RDW Coefficient of Variation 12.7 % (11.5-14.5) Immature Granulocyte % (Auto) 0.3 % Immature Granulocyte # (Auto) 0.03 K/uL (0.00-0.02) Anion Gap 10.0 mmol/L (3-11) Est Creatinine Clear Calc Drug Dose 76.1 ml/min Estimated GFR () 109.2 Estimated GFR (Non- 94.2 BUN/Creatinine Ratio 16.2 (10-20) Calcium Level 8.7 mg/dl (8.5-10.1) Laboratory results reviewed by me. Medications Administered Medications (Trade) Dose Ordered Sig/Arron Route Start Time Stop Time Status Last Admin Dose Admin Ampicillin Sodium/ Sulbactam Sodium 3000 mg/Sodium Chloride 108 ml @ 200 mls/hr ONE ONCE IV 03/08/17 17:45 03/08/17 18:17 DC 03/08/17 17:45 200 MLS/HR Sodium Chloride (Nss 1000ml) 1,000 ml @ 999 mls/hr Q1H1M STAT IV 03/08/17 17:34 03/08/17 18:34 DC 03/08/17 17:34 999 MLS/HR Amoxicillin/ Clavulanate Potassium (Augmentin Tab) 875 mg BID ONCE PO 03/08/17 21:00 03/08/17 21:00 DC 03/08/17 20:02 875 MG ED Course 1722: The patient was evaluated in room A2. A complete history and physical exam was performed. 1734: Sodium Chloride 1000 ml @ 999 mls/hr IV 1745: Ampicillin Sodium/ Sulbactam Sodium 3000mg/ Sodium Chloride 108ml @ 200mls /hr IV 1940: Reevaluated the patient. Discussed results and discharge instructions: He verbalized understanding and agreement. The patient is ready for discharge. 2100: Augmentin Tab 875mg PO Medical Decision The patient is a 66 year old male who presents to the ED with complaints of foot pain. Differential diagnoses considered include trench foot, cellulitis, homelessness, dehydration, and medical noncompliance. There is no leukocytosis or concerning anemia. No significant electrolyte abnormality or kidney failure. The patient was not febrile, he did not have cellulitis. I have seen his feet in the past and they were much worse earlier this year, right now, there is some skin irritation but there is no true infection. The patient had his clothes removed, he was showered and cleaned. He was given clothes to wear. He received IV saline, he was given a meal. He was given IV Unasyn. The patient is being discharged. Case management has been involved to try to help with a place for him to stay. The patient was discharged with an Augmentin home pack. One tablet tomorrow in the morning and then one pill in the afternoon. Hopefully, this small dose of antibiotic will help keep his feet healing and free of infection. He was encouraged to return for worsening symptoms. Impression Primary Impression: Trench foot Additional Impression: Homelessness Scribe Attestation The scribe's documentation has been prepared under my direction and personally reviewed by me in its entirety. I confirm that the note above accurately reflects all work, treatment, procedures, and medical decision making performed by me. Departure Information Dispostion Home / Self-Care Referrals Noah Mayes MD (PCP) Forms HOME CARE DOCUMENTATION FORM, IMPORTANT VISIT INFORMATION Patient Instructions [facility] Additional Instructions augmentin 1 tab in am and then in the pm tomorrow return for fever or if worsening lab testing was ok today, feet looked ok today Problem Qualifiers
[2017-03-08 19:00] LABS: BASO % 0.6 %; BASO ABS # 0.05 K/uL (0-0.2); COMPLETE YES; EOS % 1.7 %; HEMATOCRIT 36.8 % (42-52); IG% 0.3 %; LYMPH ABS # 2.62 K/uL (1.2-3.4); MEAN CELL VOLUME 95.6 fL (80-100); MEAN CORPUSCULAR HEMOGLOBIN 32.7 pg (25-34); MEAN CORPUSCULAR HGB CONC 34.2 g/dl (32-36); MEAN PLATELET VOLUME 8.9 fL (7.4-10.4); MONO % 8.5 %; NEUT % 59.9 %; PLATELET COUNT 358 K/uL (130-400); RED BLOOD COUNT 3.85 M/uL (4.7-6.1); WHITE BLOOD COUNT 9.02 K/uL (4.8-10.8)
[2017-03-08 19:21] LABS: BUN/CREATININE RATIO 16.2 (10-20); CALCIUM 8.7 mg/dl (8.5-10.1); CREATININE 0.79 mg/dl (0.60-1.40); POTASSIUM 3.6 mmol/L (3.5-5.1)
[2017-03-08 19:50] VITALS: BP 157/93; PULSE 88; O2SAT 100
[2017-03-08] MEDS ORDERED: EMPTY 8 DRAM VIAL ONE (20:01)
[2017-03-08] MEDS ORDERED: AMOXICILLIN/CLAVULANATE TAB 875 MG TAB PO ONE (21:00)
== END 2017-03-08 20:08 | disposition home or self-care (01) ==
LOC: EDBD 17:09 → C.EDA 17:10
DX: T69.021A Immersion foot, right foot, initial encounter (principal); T69.022A Immersion foot, left foot, initial encounter; Z59.0 Homelessness; R01.1 Cardiac murmur, unspecified; I10 Essential (primary) hypertension; E78.5 Hyperlipidemia, unspecified; Z79.82 Long term (current) use of aspirin; Z79.899 Other long term (current) drug therapy; Z82.49 Family history of ischemic heart disease and other diseases of the circulatory system; F17.200 Nicotine dependence, unspecified, uncomplicated; X58.XXXA Exposure to other specified factors, initial encounter

== ENCOUNTER 2017-03-12 18:44 | Inpatient (IN) | payer OTHER ==
[~2017-03-12] VITALS: Ht 175.3 cm; Wt 55.2 kg
[~2017-03-12 18:44] MED LIST changes: +AMLO-110 PO; -ASPEC81 PO; +ASPI81TA28 PO; -MCTP EXT; +MCTP/85 TOP; -NRV5 PO
[2017-03-12] MEDS ORDERED: FLUCONAZOLE 100 MG TAB PO STA (19:50)
[2017-03-12] MEDS ORDERED: CEFAZOLIN IV 1,000 MG in DEXTROSE 5% 50ML 50 ML IV STA (19:50)
[2017-03-12 20:31] LABS: BASO % 0.2 %; BASO ABS # 0.02 K/uL (0-0.2); COMPLETE YES; EOS % 0.6 %; HEMATOCRIT 37.1 % (42-52); IG% 0.3 %; LYMPH % 17.3 %; LYMPH ABS # 2.19 K/uL (1.2-3.4); MEAN CELL VOLUME 97.9 fL (80-100); MEAN CORPUSCULAR HGB CONC 33.7 g/dl (32-36); MEAN PLATELET VOLUME 8.9 fL (7.4-10.4); MONO % 13.5 %; NEUT % 68.1 %; PLATELET COUNT 279 K/uL (130-400); RED BLOOD COUNT 3.79 M/uL (4.7-6.1); WHITE BLOOD COUNT 12.68 K/uL (4.8-10.8)
[2017-03-12 20:42] LABS: INR 0.9 (0.9-1.1); PARTIAL THROMBOPLASTIN RATIO 1.1; PROTHROMBIN TIME (PATIENT) 9.9 SECONDS (9.0-12.0)
[2017-03-12 20:50] LABS: ALT/SGPT 25 U/L (12-78); AST/SGOT 26 U/L (15-37); BLOOD UREA NITROGEN 17 mg/dl (7-18); BUN/CREATININE RATIO 20.5 (10-20); CALCIUM 8.7 mg/dl (8.5-10.1); CARBON DIOXIDE 30 mmol/L (21-32); CHLORIDE 101 mmol/L (98-107); CREATININE 0.83 mg/dl (0.60-1.40); GLUCOSE 81 mg/dl (70-99); POTASSIUM 4.1 mmol/L (3.5-5.1); SODIUM 136 mmol/L (136-145)
[2017-03-12 20:53] LABS: ALKALINE PHOSPHATASE 107 U/L (45-117)
[2017-03-12 22:02] VITALS: BP 167/91; PULSE 88; TEMP 37.9; Ht 175.3 cm; Wt 55.2 kg
[2017-03-13] VITALS (7 sets, daily range): BP systolic 113–155; BP diastolic 58–87; PULSE 75–87; TEMP 36.7–36.9; O2SAT 95–98
--- NOTE | 2017-03-13 00:26 | EMERGENCY ROOM VISIT NOTE ---
History Report prepared by Sukhi: Ara Godinez Under the Supervision of: Dr. Gordon Amor M.D. First contact with patient: 19:48 Stated Complaint: FEET/ PAIN & INFECTION History of Present Illness The patient is a 66 year old male who presents to the Emergency Room with complaints of worsening bilateral trench foot that began several months prior to arrival. The patient has been seen in the ED multiple times for this ongoing problem. He notes that he was recently in the rain and that his feet got wet. He is experiencing pain and trouble with walking. The patient also has a rash on both of his legs. He denies recent fevers, vomiting or chest pain. The patient is currently living on the streets and is not in the fdc that case management set up for him during his last visit to the ED. He states that he will not live in shelters. 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 A total of 10 systems reviewed and were otherwise negative. Past Medical & Surgical Medical Problems: (1) Ambulatory dysfunction (2) Cellulitis of foot (3) HTN (hypertension) (4) Hypertension (5) Immersion (trench) foot (6) Tobacco use disorder (7) Trench foot Surgical Problems: (1) H/O colonoscopy Family History FH: CAD (coronary artery disease) FATHER ( of [place] age 56 ) Social History Smoking Status: Current Every Day Smoker Alcohol Use: heavy Drug Use: marijuana Marital Status: single Housing Status: other Occupation Status: retired Current/Historical Medications Scheduled Amlodipine (Norvasc), 5 MG PO DAILY Amoxicillin & Pot Clavulanate (Augmentin 875-125 mg), 1 TAB PO BID Aspirin (Aspirin Ec), 81 MG PO DAILY Miconazole Nitrate (Desenex Shake Powder), 1 APPLN TOP BID Allergies Coded Allergies: No Known Allergies (Unverified , 03/12/17) Physical Exam Vital Signs Date Time Temp Pulse Resp B/P Pulse Ox O2 Delivery O2 Flow Rate FiO2 03/12/17 23:45 92 18 159/87 99 03/12/17 22:02 37.9 88 20 167/91 5/28/17 21:06 37.9 88 20 167/91 99 Room Air 03/12/17 19:00 36.7 95 18 155/87 99 Room Air Physical Exam Constitutional: Vital signs reviewed. Eyes: Pupils are equal round reactive to light. Conjunctiva are noninjected. ENT: Pharynx is clear without erythema or exudate. Mucous membranes are moist. Neck supple without meningeal signs. Respiratory: Clear to auscultation bilaterally. Breath sounds are equal bilaterally. Cardiovascular: Regular rate and rhythm. No rubs or gallops. GI: Soft, nondistended and nontender. Bowel sounds are present. Musculoskeletal: Bilateral immersion foot. There are areas of patchy erythema to the dorsal foot and ankle bilaterally. There is erythema and erosion of the skin in the inner thighs extending into the perineum with multiple satellite lesions. There is no evidence of crepitus. There is an erythematous lesion with induration to the left trunk that appears to be a scab. No evidence of tick parts on magnification. No erythema migrans. Integumentary: As above. Neurological: The patient is awake and alert. No focal deficits. Psychiatric: Normal affect. Medical Decision & Procedures Laboratory Results 03/12/17 20:19 Red Blood Count 3.79, Mean Corpuscular Volume 97.9, Mean Corpuscular Hemoglobin 33.0, Mean Corpuscular Hemoglobin Concent 33.7, Mean Platelet Volume 8.9, Neutrophils (%) (Auto) 68.1, Lymphocytes (%) (Auto) 17.3, Monocytes (%) (Auto) 13.5, Eosinophils (%) (Auto) 0.6, Basophils (%) (Auto) 0.2, Neutrophils # (Auto ) 8.65, Lymphocytes # (Auto) 2.19, Monocytes # (Auto) 1.71, Eosinophils # (Auto ) 0.07, Basophils # (Auto) 0.02 03/12/17 20:19 Test 03/12/17 20:19 White Blood Count 12.68 K/uL (4.8-10.8) Red Blood Count 3.79 M/uL (4.7-6.1) Hemoglobin 12.5 g/dL (14.0-18.0) Hematocrit 37.1 % (42-52) Mean Corpuscular Volume 97.9 fL (80-100) Mean Corpuscular Hemoglobin 33.0 pg (25-34) Mean Corpuscular Hemoglobin Concent 33.7 g/dl (32-36) Platelet Count 279 K/uL (130-400) Mean Platelet Volume 8.9 fL (7.4-10.4) Neutrophils (%) (Auto) 68.1 % Lymphocytes (%) (Auto) 17.3 % Monocytes (%) (Auto) 13.5 % Eosinophils (%) (Auto) 0.6 % Basophils (%) (Auto) 0.2 % Neutrophils # (Auto) 8.65 K/uL (1.4-6.5) Lymphocytes # (Auto) 2.19 K/uL (1.2-3.4) Monocytes # (Auto) 1.71 K/uL (0.11-0.59) Eosinophils # (Auto) 0.07 K/uL (0-0.5) Basophils # (Auto) 0.02 K/uL (0-0.2) RDW Standard Deviation 47.2 fL (36.4-46.3) RDW Coefficient of Variation 13.2 % (11.5-14.5) Immature Granulocyte % (Auto) 0.3 % Immature Granulocyte # (Auto) 0.04 K/uL (0.00-0.02) Prothrombin Time 9.9 SECONDS (9.0-12.0) Prothromb Time International Ratio 0.9 (0.9-1.1) Activated Partial Thromboplast Time 28.2 SECONDS (21.0-31.0) Partial Thromboplastin Ratio 1.1 Anion Gap 5.0 mmol/L (3-11) Est Creatinine Clear Calc Drug Dose 71.5 ml/min Estimated GFR () 107.0 Estimated GFR (Non- 92.3 BUN/Creatinine Ratio 20.5 (10-20) Calcium Level 8.7 mg/dl (8.5-10.1) Total Bilirubin 0.4 mg/dl (0.2-1) Direct Bilirubin < 0.1 mg/dl (0-0.2) Aspartate Amino Transf (AST/SGOT) 26 U/L (15-37) Alanine Aminotransferase (ALT/SGPT) 25 U/L (12-78) Alkaline Phosphatase 107 U/L (45-117) Total Protein 7.7 gm/dl (6.4-8.2) Albumin 3.3 gm/dl (3.4-5.0) Date/Time Source Procedure Growth Status 03/12/17 21:10 Nasal MRSA DNA Surveillance Screen - Final Specimen Negative for MRSA by DNA Probe Complete Laboratory results as reviewed by me. Medications Administered Medications (Trade) Dose Ordered Sig/Arron Route Start Time Stop Time Status Last Admin Dose Admin Fluconazole 200 mg 200 mg ONE STAT PO 03/12/17 19:50 03/12/17 19:54 DC 03/12/17 21:04 200 MG Cefazolin Sodium/ Dextrose (Ancef Iv/D5 50ml) 55 ml @ 100 mls/hr ONE STAT IV 03/12/17 19:50 03/12/17 20:22 DC 03/12/17 21:23 100 MLS/HR ED Course 1853: The patient was evaluated in room C7. A complete history and physical exam was performed. 1854: Attempted to evaluate the patient but nurses are showering him. 1950: Cefazolin Sodium 1,000 mg/ Dextrose 55 ml @ 100 mls/hr IV, Diflucan Tab 200 mg PO. 2107: I spoke with Dr. Benson of [facility]. We discussed the patient and his results. The patient will be further evaluated by Dr. Marcelino Thornton morgan. Medical Decision This is a 56-year-old male who presents with foot pain and leg pain. Differential diagnoses considered include immersion foot, cellulitis, tinea corporis, Anton's gangrene, sepsis. I did perform a limited focused review of portions of the patient's old chart on the electronic medical record. The patient was seen March 08 for foot pain. He was given IV Unasyn and discharged with Augmentin homepack. He was admitted in February for same symptoms and discharged on Augmentin. During admission the patient was evaluated by a psychiatrist who does not feel the patient has any mental health issues. He had a normal head CT on February 19. The patient was also seen March 04 for foot pain. He is homeless and case management found a place for him to stay. Medication Reconciliation: I attest that I have personally reviewed the patient' s current medication list. Blood Pressure Screening: Patient was found to have an elevated blood pressure and was referred to their primary doctor for recheck and further treatment. I did evaluate the patient as noted above. The patient is presenting with immersion foot to both lower extremities. He also has a significant fungal infection to both his legs and his groin with multiple satellite lesions and superimposed cellulitis. He will need to be hospitalized. IV access was established. I did treat the patient with Diflucan. He was also given Ancef IV. Blood cultures were obtained. I did order and review the patient's blood work as noted in the electronic medical record. His white blood cell count is elevated. I did discuss the case with the hospitalist and shoe caser. Consults Time Called: 2105 Consulting Physician: Dr. Marcelino Oliver Returned Call: [address] Yañez. We discussed the patient and his results. The patient will be further evaluated by Dr. Marcelino Oliver. Impression Primary Impression: Immersion (trench) foot Additional Impressions: Tinea corporis Cellulitis Scribe Attestation The scribe's documentation has been prepared under my direct and personally reviewed by me in its entirety. I confirm that the note above accurately reflects all work, treatment, procedures, and medical decision making performed by me. Departure Information Dispostion Being Evaluated By Hospitalist Referrals Noah Mayes MD (PCP) Problem Qualifiers Primary Impression: Immersion (trench) foot Encounter type: subsequent encounter Laterality: unspecified laterality Qualified Codes: T69.029D - Immersion foot, unspecified foot, subsequent encounter Additional Impressions: Cellulitis Site of cellulitis: extremity Site of cellulitis of extremity: lower extremity Laterality: unspecified laterality Qualified Codes: L03.119 - Cellulitis of unspecified part of limb
[2017-03-13] MEDS ORDERED: ACETAMINOPHEN 325 MG TAB PO PRN (02:00)
[2017-03-13] MEDS ORDERED: SODIUM CHLORIDE 0.9% 1000ML 1,000 ML IV SCH (06:30)
[2017-03-13 06:45] LABS: BASO % 0.2 %; BASO ABS # 0.02 K/uL (0-0.2); COMPLETE YES; EOS % 1.2 %; HEMATOCRIT 33.3 % (42-52); IG% 0.4 %; LYMPH % 25.6 %; LYMPH ABS # 2.56 K/uL (1.2-3.4); MEAN CELL VOLUME 95.7 fL (80-100); MEAN CORPUSCULAR HEMOGLOBIN 32.5 pg (25-34); MEAN CORPUSCULAR HGB CONC 33.9 g/dl (32-36); MEAN PLATELET VOLUME 8.6 fL (7.4-10.4); NEUT % 60.6 %; PLATELET COUNT 241 K/uL (130-400); RED BLOOD COUNT 3.48 M/uL (4.7-6.1); WHITE BLOOD COUNT 10.01 K/uL (4.8-10.8)
[2017-03-13 07:21] LABS: BUN/CREATININE RATIO 13.5 (10-20); CALCIUM 8.3 mg/dl (8.5-10.1); CREATININE 0.74 mg/dl (0.60-1.40); POTASSIUM 3.8 mmol/L (3.5-5.1)
--- NOTE | 2017-03-13 07:28 | History and Physical ---
History & Physical Date & Time of Service: March 13, 2017 at 07:28 Chief Complaint: Immersion (Trench) Foot Primary Care Physician: Noah Mayes MD History of Present Illness Source: patient, family, clinic records, hospital records This is a 66-year-old male with history of trench foot and cellulitis presenting with feet pain. Has been admitted to [facility] multiple times for the past month for cellulitis of the feet. Patient has no permanent home and walks in the rain, with poor hygiene. States he finished the last antibiotic course but has been walking in the rain again. (+) feet pain for the past few day Denies fever/chills. No other symptoms. On exam, resting in bed, comfortable. States he still has significant pain on his feet but feels improve overall. no other symptoms. Past Medical/Surgical History Medical Problems: (1) HTN (hypertension) Status: Chronic (2) Hypertension Status: Chronic (3) Tobacco use disorder Status: Chronic Surgical Problems: (1) H/O colonoscopy Status: Chronic Family History FH: CAD (coronary artery disease) FATHER ( of [place] age 56 ) Social History Smoking Status: Current Every Day Smoker Drug Use: marijuana Marital Status: single Occupational Status: retired Immunizations History of Influenza Vaccine: No History of Tetanus Vaccine?: No Multi-Drug Resistant Organisms History of MDRO: No Allergies Coded Allergies: No Known Allergies (Unverified , 03/12/17) Home Medications Scheduled Amlodipine (Norvasc), 5 MG PO DAILY Amoxicillin & Pot Clavulanate (Augmentin 875-125 mg), 1 TAB PO BID Aspirin (Aspirin Ec), 81 MG PO DAILY Miconazole Nitrate (Desenex Shake Powder), 1 APPLN TOP BID Review of Systems Constitutional- no fever; no weight loss Eyes- no acute visual changes ENT- no sinus drainage; no pharyngitis Pulmonary- no cough, no wheezing, no shortness of breath Cardiac- no chest pain, no palpitations, no orthopnea, no dependent edema GI- no nausea, no vomiting, no diarrhea, no melena, no hematochezia - no dysuria, no hematuria Musculoskeletal- (+) as noted above Derm- (+) noted to have bilateral leg wounds, also on the groin Hematologic- no unusual bruising, no unusual bleeding Lymphatics- no adenopathy Endocrine- no polyuria or polydipsia; no heat or cold intolerance Neuro- no headaches, no focal neurologic symptoms Psych- no anxiety, no depression Physical Exam Vital Signs Date Time Temp Pulse Resp B/P Pulse Ox O2 Delivery O2 Flow Rate FiO2 03/13/17 07:12 36.7 75 18 135/69 95 Room Air 03/13/17 02:45 36.7 87 20 153/87 96 Room Air 03/13/17 01:43 89 16 129/83 97 Room Air 03/12/17 23:45 92 18 159/87 99 03/12/17 22:02 37.9 88 20 167/91 03/12/17 21:06 37.9 88 20 167/91 99 Room Air 03/12/17 19:00 36.7 95 18 155/87 99 Room Air General Appearance: WD/WN, no apparent distress Head: normocephalic, atraumatic Eyes: normal inspection, EOMI, sclerae normal ENT: normal ENT inspection, TMs normal, pharynx normal Neck: supple, no adenopathy, thyroid normal, no JVD, trachea midline Respiratory/Chest: chest non-tender, lungs clear, normal breath sounds, no respiratory distress, no accessory muscle use Cardiovascular: regular rate, rhythm, no edema, no JVD, no murmur Abdomen/GI: normal bowel sounds, non tender, soft Back: normal inspection, no CVA tenderness Extremities/Musculoskelatal: no calf tenderness, + pertinent finding ( bilateral feet: mild edema, (+) tenderness, excoriations, mild erythema) Neurologic/Psych: group home manager II-XII nml as tested, no motor/sensory deficits, alert, normal mood/affect, oriented x 3 Skin: + pertinent finding ((+) wounds on bilateral groin, inner legs with erythema/tenderness) Diagnostics Laboratory Results Results Past 24 Hours Test 03/12/17 20:19 03/13/17 06:33 Range/Units White Blood Count 12.68 10.01 4.8-10.8 K/uL Red Blood Count 3.79 3.48 4.7-6.1 M/uL Hemoglobin 12.5 11.3 14.0-18.0 g/dL Hematocrit 37.1 33.3 42-52 % Mean Corpuscular Volume 97.9 95.7 80-100 fL Mean Corpuscular Hemoglobin 33.0 32.5 25-34 pg Mean Corpuscular Hemoglobin Concent 33.7 33.9 32-36 g/dl Platelet Count 279 241 130-400 K/uL Mean Platelet Volume 8.9 8.6 7.4-10.4 fL Neutrophils (%) (Auto) 68.1 60.6 % Lymphocytes (%) (Auto) 17.3 25.6 % Monocytes (%) (Auto) 13.5 12.0 % Eosinophils (%) (Auto) 0.6 1.2 % Basophils (%) (Auto) 0.2 0.2 % Neutrophils # (Auto) 8.65 6.07 1.4-6.5 K/uL Lymphocytes # (Auto) 2.19 2.56 1.2-3.4 K/uL Monocytes # (Auto) 1.71 1.20 0.11-0.59 K/uL Eosinophils # (Auto) 0.07 0.12 0-0.5 K/uL Basophils # (Auto) 0.02 0.02 0-0.2 K/uL RDW Standard Deviation 47.2 45.0 36.4-46.3 fL RDW Coefficient of Variation 13.2 13.0 11.5-14.5 % Immature Granulocyte % (Auto) 0.3 0.4 % Immature Granulocyte # (Auto) 0.04 0.04 0.00-0.02 K/uL Prothrombin Time 9.9 9.0-12.0 SECONDS Prothromb Time International Ratio 0.9 0.9-1.1 Activated Partial Thromboplast Time 28.2 21.0-31.0 SECONDS Partial Thromboplastin Ratio 1.1 Sodium Level 136 138 136-145 mmol/L Potassium Level 4.1 3.8 3.5-5.1 mmol/L Chloride Level 101 103 98-107 mmol/L Carbon Dioxide Level 30 30 21-32 mmol/L Anion Gap 5.0 5.0 3-11 mmol/L Blood Urea Nitrogen 17 10 7-18 mg/dl Creatinine 0.83 0.74 0.60-1.40 mg/dl Est Creatinine Clear Calc Drug Dose 71.5 77.7 ml/min Estimated GFR () 107.0 112.2 Estimated GFR (Non- 92.3 96.8 BUN/Creatinine Ratio 20.5 13.5 10-20 Random Glucose 81 91 70-99 mg/dl Calcium Level 8.7 8.3 8.5-10.1 mg/dl Total Bilirubin 0.4 0.2-1 mg/dl Direct Bilirubin < 0.1 0-0.2 mg/dl Aspartate Amino Transf (AST/SGOT) 26 15-37 U/L Alanine Aminotransferase (ALT/SGPT) 25 12-78 U/L Alkaline Phosphatase 107 45-117 U/L Total Protein 7.7 6.4-8.2 gm/dl Albumin 3.3 3.4-5.0 gm/dl Microbiology Results 03/12/17 Blood Culture, Received Pending 03/12/17 Blood Culture, Received Pending 03/12/17 MRSA DNA Surveillance Screen - Final, Complete Specimen Negative for MRSA by DNA Probe Impression Assessment and Plan This is a 66-year-old male with history of trench foot and cellulitis presenting with feet pain. BILATERAL FEET CELLULITIS, INFECTED WOUNDS, TRENCH FEET BILATERAL LEG WOUNDS, INFECTED, POSSIBLE TINEA - patient has very poor hygiene leading to above - no signs of sepsis - ff up cultures - Unasyn IV Nystatin - wound care consult HTN - on Amlodipine CHRONIC BASAL GANGLIA INFARCTS on Aspirin will need to be on a statin, but due to history of alcoholism and poor adherence to ff up, will need close monitoring while on statin ALCOHOL And TOBACCO ABUSE DISORDER - no signs of withdrawal - drink alcohol 3x a week will start Gabapentin protocol - monitor NORMOCYTIC ANEMIA, MILD monitor Disposition pending no permanent home ff up with Dr. Mayes Advanced Directives Existing Living Will: No Existing Power of [place] Layer: No VTE Prophylaxis VTE Risk Assessment Done? Y/N: Yes Risk Level: Moderate Given or contraindicated: SCD's
[2017-03-13] MEDS ORDERED: PIPERACILL/TAZOBAC CONSULT ACTIVE PRN (07:45)
[2017-03-13] MEDS ORDERED: PIPERACILL/TAZOBAC IV 3.375 GM in DEXTROSE 5% 100ML IV ONE (08:00)
[2017-03-13] MEDS: NYSTATIN POWDER 15GM BTL EXT SCH ×2 (08:20→19:58)
[2017-03-13] MEDS: AMLODIPINE BESYLATE 5 MG TAB PO SCH (08:21)
[2017-03-13] MEDS: ASPIRIN 81 MG ECTAB PO SCH (08:21)
[2017-03-13] MEDS ORDERED: LORAZEPAM 1 MG TAB PO PRN (11:45)
[2017-03-13] MEDS ORDERED: GABAPENTIN 600 MG TAB PO SCH (11:45)
[2017-03-13] MEDS ORDERED: GABAPENTIN 1200MG LOADING DOSE PO SCH (12:00)
[2017-03-13] MEDS: THIAMINE HCL 100 MG TAB PO SCH (12:24)
--- NOTE | 2017-03-13 13:48 | Progress Note ---
Internal Med Progress Note Date of Service: March 13, 2017. Provider Documentation: SUBJECTIVE: Seen and examined. States his feet pain resolved. Denies chest pain, SOB. Offers no complaints. OBJECTIVE: Vital Signs-as noted below Physical Exam: General Appearance:Moderately built and nourished, no apparent distress Head: normocephalic, Atraumatic Eyes: normal inspection, EOMI, PERRL Neck: supple, Trachea midline Respiratory/Chest: Normal breath sounds, CTA Cardiovascular: S1, S2, No murmur Abdomen/GI:Soft, Non tender, Bowel sounds present Extremities/Musculoskelatal:Trace edema, excoriations,erythema Neurologic/Psych:AAOX3, grossly no focal neurological deficits Skin: wounds on bilateral groin, inner legs with erythema Lab data as noted below. ASSESSMENT & PLAN: Patient is a 66 yr old male with history of trench foot and cellulitis presented with feet pain. BILATERAL FEET CELLULITIS, INFECTED WOUNDS, TRENCH FEET BILATERAL LEG WOUNDS, INFECTED, POSSIBLE TINEA Continue Zosyn Follow up cultures No signs of sepsis Continue Nystatin wound care consulted HTN Continue Amlodipine CHRONIC BASAL GANGLIA INFARCTS Continue Aspirin Ideally needs statin, H/O alcoholism ? Compliance, may need be an ideal candidate (secondary to need for monitoring) ALCOHOL And TOBACCO ABUSE DISORDER No signs of withdrawal Continue Gabapentin per protocol Monitor ANEMIA OF CHRONIC DISEASE monitor CODE STATUS: Full code Disposition Monitor for now No permanent home Follows with Dr. Maeys executive services administrator consulted Vital Signs: Date Time Temp Pulse Resp B/P Pulse Ox O2 Delivery O2 Flow Rate FiO2 03/13/17 12:00 36.8 83 18 113/58 97 Room Air 03/13/17 08:00 Room Air 03/13/17 07:12 36.7 75 18 135/69 95 Room Air 03/13/17 02:45 36.7 87 20 153/87 96 Room Air 03/13/17 01:43 89 16 129/83 97 Room Air 03/12/17 23:45 92 18 159/87 99 03/12/17 22:02 37.9 88 20 167/91 03/12/17 21:06 37.9 88 20 167/91 99 Room Air 03/12/17 19:00 36.7 95 18 155/87 99 Room Air Lab Results: Results Past 24 Hours Test 03/12/17 20:19 03/13/17 06:33 Range/Units White Blood Count 12.68 10.01 4.8-10.8 K/uL Red Blood Count 3.79 3.48 4.7-6.1 M/uL Hemoglobin 12.5 11.3 14.0-18.0 g/dL Hematocrit 37.1 33.3 42-52 % Mean Corpuscular Volume 97.9 95.7 80-100 fL Mean Corpuscular Hemoglobin 33.0 32.5 25-34 pg Mean Corpuscular Hemoglobin Concent 33.7 33.9 32-36 g/dl Platelet Count 279 241 130-400 K/uL Mean Platelet Volume 8.9 8.6 7.4-10.4 fL Neutrophils (%) (Auto) 68.1 60.6 % Lymphocytes (%) (Auto) 17.3 25.6 % Monocytes (%) (Auto) 13.5 12.0 % Eosinophils (%) (Auto) 0.6 1.2 % Basophils (%) (Auto) 0.2 0.2 % Neutrophils # (Auto) 8.65 6.07 1.4-6.5 K/uL Lymphocytes # (Auto) 2.19 2.56 1.2-3.4 K/uL Monocytes # (Auto) 1.71 1.20 0.11-0.59 K/uL Eosinophils # (Auto) 0.07 0.12 0-0.5 K/uL Basophils # (Auto) 0.02 0.02 0-0.2 K/uL RDW Standard Deviation 47.2 45.0 36.4-46.3 fL RDW Coefficient of Variation 13.2 13.0 11.5-14.5 % Immature Granulocyte % (Auto) 0.3 0.4 % Immature Granulocyte # (Auto) 0.04 0.04 0.00-0.02 K/uL Prothrombin Time 9.9 9.0-12.0 SECONDS Prothromb Time International Ratio 0.9 0.9-1.1 Activated Partial Thromboplast Time 28.2 21.0-31.0 SECONDS Partial Thromboplastin Ratio 1.1 Sodium Level 136 138 136-145 mmol/L Potassium Level 4.1 3.8 3.5-5.1 mmol/L Chloride Level 101 103 98-107 mmol/L Carbon Dioxide Level 30 30 21-32 mmol/L Anion Gap 5.0 5.0 3-11 mmol/L Blood Urea Nitrogen 17 10 7-18 mg/dl Creatinine 0.83 0.74 0.60-1.40 mg/dl Est Creatinine Clear Calc Drug Dose 71.5 77.7 ml/min Estimated GFR () 107.0 112.2 Estimated GFR (Non- 92.3 96.8 BUN/Creatinine Ratio 20.5 13.5 10-20 Random Glucose 81 91 70-99 mg/dl Calcium Level 8.7 8.3 8.5-10.1 mg/dl Total Bilirubin 0.4 0.2-1 mg/dl Direct Bilirubin < 0.1 0-0.2 mg/dl Aspartate Amino Transf (AST/SGOT) 26 15-37 U/L Alanine Aminotransferase (ALT/SGPT) 25 12-78 U/L Alkaline Phosphatase 107 45-117 U/L Total Protein 7.7 6.4-8.2 gm/dl Albumin 3.3 3.4-5.0 gm/dl Hepatitis C Antibody Screen NEG NEG Microbiology Results 03/12/17 Blood Culture, Received Pending 03/12/17 Blood Culture, Received Pending 03/12/17 MRSA DNA Surveillance Screen - Final, Complete Specimen Negative for MRSA by DNA Probe
[2017-03-13] MEDS: PIPERACILL/TAZOBAC IV 3.375 GM in DEXTROSE 5% 100ML IV SCH ×2 (13:52→21:33)
[2017-03-13] MEDS: GABAPENTIN 600MG Q6H DOSE PO SCH ×2 (17:40→23:43)
[2017-03-14] MEDS: PIPERACILL/TAZOBAC IV 3.375 GM in DEXTROSE 5% 100ML IV SCH ×3 (05:47→21:38)
[2017-03-14 07:02] LABS: BASO % 0.4 %; BASO ABS # 0.03 K/uL (0-0.2); COMPLETE YES; EOS % 2.1 %; HEMATOCRIT 37.1 % (42-52); IG% 0.3 %; LYMPH % 26.6 %; LYMPH ABS # 2.03 K/uL (1.2-3.4); MEAN CELL VOLUME 97.4 fL (80-100); MEAN CORPUSCULAR HEMOGLOBIN 31.8 pg (25-34); MEAN CORPUSCULAR HGB CONC 32.6 g/dl (32-36); MEAN PLATELET VOLUME 8.8 fL (7.4-10.4); NEUT % 56.6 %; PLATELET COUNT 254 K/uL (130-400); RED BLOOD COUNT 3.81 M/uL (4.7-6.1); WHITE BLOOD COUNT 7.63 K/uL (4.8-10.8)
--- NOTE | 2017-03-14 07:36 | Clinical Documentation Query ---
Dr. [facility] : CLINICAL DOCUMENTATION QUERY Patient is a 66 year old homeless male admitted for evaluation and treatment of trench foot and bilateral lower extremity cellulitis. BMI noted to be 18 kg/m*m. He is 5'9" and only 121 pounds. There is no reported weight loss. BMI and associated severity can be captured from the medical record only if the provider explicitly documents an associated condition. As appropriate, consider documentation as suggested below. Thank you. In your clinical opinion is this patient being managed for: (x ) Underweight secondary to mild malnutrition, BMI 18.0 kg/m*m ( ) Other explanation of clinical findings (Please Explain) ( ) Unable to determine (Please Define) ( ) Need to Discuss ( ) Not Agree The medical record reflects the following clinical findings, treatment, and risk factors. Clinical Indicators: As above Treatment: AHA diet, WOCN consultation Risk Factors: Age, socioeconomic class/homelessness Please clarify and document your clinical opinion in the progress notes and discharge summary. Terms such as "probable", "suspected", "likely", "questionable", "possible", or "still to be ruled out" are acceptable. IF IN AGREEMENT, YOU MUST DOCUMENT ABOVE DIAGNOSTIC STATEMENT IN DAILY PROGRESS NOTES AND DISCHARGE SUMMARY. This document is not part of the patient's record. Thank You, Wilfredo Mendes RN [phone]
[2017-03-14 07:37] LABS: BUN/CREATININE RATIO 17.8 (10-20); CALCIUM 8.7 mg/dl (8.5-10.1); CREATININE 0.77 mg/dl (0.60-1.40); POTASSIUM 3.8 mmol/L (3.5-5.1)
[2017-03-14 07:38] VITALS: BP 144/75; PULSE 77; TEMP 36.5; O2SAT 93
[2017-03-14] MEDS: NYSTATIN POWDER 15GM BTL EXT SCH ×2 (09:13→19:53)
[2017-03-14] MEDS: GABAPENTIN 600MG Q8H DOSE PO SCH ×3 (09:13→23:29)
[2017-03-14] MEDS: ASPIRIN 81 MG ECTAB PO SCH (09:14)
[2017-03-14] MEDS: AMLODIPINE BESYLATE 5 MG TAB PO SCH (09:14)
[2017-03-14] MEDS: THIAMINE HCL 100 MG TAB PO SCH (09:14)
[2017-03-14 11:54] VITALS: BP 155/85; PULSE 77; TEMP 36.8; O2SAT 98
--- NOTE | 2017-03-14 14:51 | Progress Note ---
Internal Med Progress Note Date of Service: March 14, 2017. Provider Documentation: SUBJECTIVE: Seen and examined. States his feet pain is better. resolved. Denies chest pain, SOB. No new complaints. OBJECTIVE: Vital Signs-as noted below Physical Exam: General Appearance:Moderately built and nourished, no apparent distress Head: normocephalic, Atraumatic Eyes: normal inspection, EOMI, PERRL Neck: supple, Trachea midline Respiratory/Chest: Normal breath sounds, CTA Cardiovascular: S1, S2, No murmur Abdomen/GI:Soft, Non tender, Bowel sounds present Extremities/Musculoskelatal:Trace edema, excoriations,erythema Neurologic/Psych:AAOX3, grossly no focal neurological deficits Skin: wounds on bilateral groin, inner legs with erythema Lab data as noted below. ASSESSMENT & PLAN: Patient is a 66 yr old male with history of trench foot and cellulitis presented with feet pain. BILATERAL FEET CELLULITIS, INFECTED WOUNDS, TRENCH FEET BILATERAL LEG WOUNDS, INFECTED, POSSIBLE TINEA Continue Zosyn day#2 Follow up cultures: No growth to date No signs of sepsis Continue Nystatin wound care consulted HTN Continue Amlodipine CHRONIC BASAL GANGLIA INFARCTS Continue Aspirin Ideally needs statin, H/O alcoholism ? Compliance, may need be an ideal candidate (secondary to need for monitoring) ALCOHOL And TOBACCO ABUSE DISORDER No signs of withdrawal Continue Gabapentin per protocol Monitor ANEMIA OF CHRONIC DISEASE monitor MILD MALNUTRITION: BMI 18.0 CODE STATUS: Full code Disposition Monitor for now No permanent home Follows with Dr. Mayes legal services manager consulted Vital Signs: Date Time Temp Pulse Resp B/P Pulse Ox O2 Delivery O2 Flow Rate FiO2 03/14/17 11:54 36.8 77 16 155/85 98 Room Air 03/14/17 08:00 Room Air 03/14/17 07:38 36.5 77 18 144/75 93 Room Air 03/13/17 23:59 Room Air 03/13/17 23:08 36.8 79 18 155/81 96 Room Air 03/13/17 18:59 36.8 78 16 147/72 98 Room Air 03/13/17 17:10 Room Air Lab Results: Results Past 24 Hours Test 03/14/17 06:51 Range/Units White Blood Count 7.63 4.8-10.8 K/uL Red Blood Count 3.81 4.7-6.1 M/uL Hemoglobin 12.1 14.0-18.0 g/dL Hematocrit 37.1 42-52 % Mean Corpuscular Volume 97.4 80-100 fL Mean Corpuscular Hemoglobin 31.8 25-34 pg Mean Corpuscular Hemoglobin Concent 32.6 32-36 g/dl Platelet Count 254 130-400 K/uL Mean Platelet Volume 8.8 7.4-10.4 fL Neutrophils (%) (Auto) 56.6 % Lymphocytes (%) (Auto) 26.6 % Monocytes (%) (Auto) 14.0 % Eosinophils (%) (Auto) 2.1 % Basophils (%) (Auto) 0.4 % Neutrophils # (Auto) 4.32 1.4-6.5 K/uL Lymphocytes # (Auto) 2.03 1.2-3.4 K/uL Monocytes # (Auto) 1.07 0.11-0.59 K/uL Eosinophils # (Auto) 0.16 0-0.5 K/uL Basophils # (Auto) 0.03 0-0.2 K/uL RDW Standard Deviation 46.2 36.4-46.3 fL RDW Coefficient of Variation 12.9 11.5-14.5 % Immature Granulocyte % (Auto) 0.3 % Immature Granulocyte # (Auto) 0.02 0.00-0.02 K/uL Sodium Level 141 136-145 mmol/L Potassium Level 3.8 3.5-5.1 mmol/L Chloride Level 106 98-107 mmol/L Carbon Dioxide Level 29 21-32 mmol/L Anion Gap 6.0 3-11 mmol/L Blood Urea Nitrogen 14 7-18 mg/dl Creatinine 0.77 0.60-1.40 mg/dl Est Creatinine Clear Calc Drug Dose 74.7 ml/min Estimated GFR () 110.4 Estimated GFR (Non- 95.2 BUN/Creatinine Ratio 17.8 10-20 Random Glucose 91 70-99 mg/dl Calcium Level 8.7 8.5-10.1 mg/dl
[2017-03-14 15:36] VITALS: BP 150/84; PULSE 83; TEMP 36.7; O2SAT 96
[2017-03-14 19:49] VITALS: BP 146/80; PULSE 80; TEMP 37.1; O2SAT 95
[2017-03-15] VITALS (7 sets, daily range): BP systolic 118–163; BP diastolic 65–93; PULSE 62–86; TEMP 36.3–36.9; O2SAT 97–98
[2017-03-15] MEDS: PIPERACILL/TAZOBAC IV 3.375 GM in DEXTROSE 5% 100ML IV SCH ×2 (05:57→13:02)
[2017-03-15 08:11] LABS: BASO % 0.2 %; BASO ABS # 0.02 K/uL (0-0.2); COMPLETE YES; EOS % 2.9 %; HEMATOCRIT 39.7 % (42-52); IG% 0.3 %; LYMPH % 27.4 %; LYMPH ABS # 2.45 K/uL (1.2-3.4); MEAN CELL VOLUME 97.3 fL (80-100); MEAN CORPUSCULAR HEMOGLOBIN 32.4 pg (25-34); MEAN CORPUSCULAR HGB CONC 33.2 g/dl (32-36); MEAN PLATELET VOLUME 8.9 fL (7.4-10.4); MONO % 11.4 %; NEUT % 57.8 %; PLATELET COUNT 286 K/uL (130-400); RED BLOOD COUNT 4.08 M/uL (4.7-6.1); WHITE BLOOD COUNT 8.94 K/uL (4.8-10.8)
[2017-03-15] MEDS: NYSTATIN POWDER 15GM BTL EXT SCH ×2 (08:41→20:00)
[2017-03-15] MEDS: AMLODIPINE BESYLATE 5 MG TAB PO SCH (08:42)
[2017-03-15] MEDS: ASPIRIN 81 MG ECTAB PO SCH (08:42)
[2017-03-15] MEDS: THIAMINE HCL 100 MG TAB PO SCH (08:42)
[2017-03-15 08:47] LABS: BUN/CREATININE RATIO 20.1 (10-20); CREATININE 0.84 mg/dl (0.60-1.40); POTASSIUM 3.6 mmol/L (3.5-5.1)
[2017-03-15 08:50] LABS: CALCIUM 8.8 mg/dl (8.5-10.1)
[2017-03-15] MEDS ORDERED: GABAPENTIN 600MG Q12H DOSE PO SCH (12:00)
--- NOTE | 2017-03-15 15:34 | Progress Note ---
Internal Med Progress Note Date of Service: March 15, 2017. Provider Documentation: SUBJECTIVE: Patient is doing well. Pain in bilateral feet. Able to ambulate. No fever, chills Tolerating PO and ambulation OBJECTIVE: Vital Signs-as noted below Exam: General Appearance:Moderately built and nourished, no apparent distress Head: normocephalic, Atraumatic Eyes: normal inspection, EOMI, PERRL Neck: supple Respiratory/Chest: Normal breath sounds, CTA Cardiovascular: S1, S2, No murmur Abdomen/GI:Soft, Non tender, Bowel sounds present Extremities/Musculoskelatal:Trace edema, excoriations,erythema Skin: wounds on bilateral groin, dry flaky skin in medial aspect of thighs, Dorsum of feet- scabs + multiple Lab data as noted below. ASSESSMENT & PLAN: ASSESSMENT & PLAN: Patient is a 66 yr old male with history of trench foot and cellulitis presented with feet pain. BILATERAL FEET CELLULITIS, INFECTED WOUNDS, TRENCH FEET POSSIBLE TINEA- B/l dorsum of feet and dry flaky skin in medical aspect of thigh -Afebrile, no leucocytosis. No signs of sepsis. -On IV Zosyn Day # 3--> Change to Doxycycline to finish course of 7 days of antibiotics -Continue with fluconazole -Follow up cultures: No growth to date -Wound care consulted HTN -Continue Amlodipine CHRONIC BASAL GANGLIA INFARCTS -Continue Aspirin -Ideally needs statin, H/O alcoholism ? Compliance, so not an ideal candidate ( secondary to need for monitoring) ALCOHOL TOBACCO ABUSE DISORDER -No signs of withdrawal -Continue Gabapentin per protocol -Monitor ANEMIA OF CHRONIC DISEASE -Stable MILD MALNUTRITION: BMI 18.0 CODE STATUS: Full code DISPOSITION Home less. Prefers to go back to [facility]. Likely discharge in AM SS on board. Vital Signs: Date Time Temp Pulse Resp B/P Pulse Ox O2 Delivery O2 Flow Rate FiO2 03/15/17 15:24 36.3 66 20 135/79 97 Room Air 03/15/17 13:13 36.3 74 20 133/74 97 Room Air 03/15/17 10:56 62 118/65 03/15/17 08:40 Room Air 03/15/17 07:35 36.6 79 18 163/93 97 Room Air 03/15/17 04:10 36.6 72 16 161/79 98 Room Air 03/15/17 00:16 36.8 79 16 160/89 97 Room Air 03/15/17 00:00 Room Air 03/14/17 19:49 37.1 80 18 146/80 95 Room Air 03/14/17 16:22 Room Air Lab Results: Results Past 24 Hours Test 03/15/17 07:35 Range/Units White Blood Count 8.94 4.8-10.8 K/uL Red Blood Count 4.08 4.7-6.1 M/uL Hemoglobin 13.2 14.0-18.0 g/dL Hematocrit 39.7 42-52 % Mean Corpuscular Volume 97.3 80-100 fL Mean Corpuscular Hemoglobin 32.4 25-34 pg Mean Corpuscular Hemoglobin Concent 33.2 32-36 g/dl Platelet Count 286 130-400 K/uL Mean Platelet Volume 8.9 7.4-10.4 fL Neutrophils (%) (Auto) 57.8 % Lymphocytes (%) (Auto) 27.4 % Monocytes (%) (Auto) 11.4 % Eosinophils (%) (Auto) 2.9 % Basophils (%) (Auto) 0.2 % Neutrophils # (Auto) 5.16 1.4-6.5 K/uL Lymphocytes # (Auto) 2.45 1.2-3.4 K/uL Monocytes # (Auto) 1.02 0.11-0.59 K/uL Eosinophils # (Auto) 0.26 0-0.5 K/uL Basophils # (Auto) 0.02 0-0.2 K/uL RDW Standard Deviation 44.9 36.4-46.3 fL RDW Coefficient of Variation 12.6 11.5-14.5 % Immature Granulocyte % (Auto) 0.3 % Immature Granulocyte # (Auto) 0.03 0.00-0.02 K/uL Sodium Level 138 136-145 mmol/L Potassium Level 3.6 3.5-5.1 mmol/L Chloride Level 103 98-107 mmol/L Carbon Dioxide Level 27 21-32 mmol/L Anion Gap 8.0 3-11 mmol/L Blood Urea Nitrogen 17 7-18 mg/dl Creatinine 0.84 0.60-1.40 mg/dl Est Creatinine Clear Calc Drug Dose 68.5 ml/min Estimated GFR () 106.5 Estimated GFR (Non- 91.9 BUN/Creatinine Ratio 20.1 10-20 Random Glucose 91 70-99 mg/dl Calcium Level 8.8 8.5-10.1 mg/dl
[2017-03-15] MEDS ORDERED: DOXYCYCLINE HYCLATE 100 MG CAP PO SCH (20:00)
--- NOTE | 2017-03-16 08:06 | Discharge Summary ---
Discharge Summary Date of Service Mar 16, 2017. Discharge Summary Admission Date: March 13, 2017 at 01:46 Discharge Date: Mar 16, 2017 Discharge Disposition: Home (LEFT AGAINST MEDICAL ADVICE) Principal Diagnosis: 1. Trench feet, possible cellulitis bilaterally Secondary Diagnoses/Problems: 1. Chronic basal ganglia infarcts 2. Alcoholism 3. Tobacco abuse disorder 4. Malnutrition, mild 5. Anemia of chronic disease 6. Hypertension Procedures: IV antibiotics Wound care Consultations: Wound care Pending Studies/Follow-Up: Left against medical advice Admission Information HPI (per Admitting provider): This is a 66-year-old male with history of trench foot and cellulitis presenting with feet pain. Has been admitted to [facility] multiple times for the past month for cellulitis of the feet. Patient has no permanent home and walks in the rain, with poor hygiene. States he finished the last antibiotic course but has been walking in the rain again. (+) feet pain for the past few day Denies fever/chills. No other symptoms. On exam, resting in bed, comfortable. States he still has significant pain on his feet but feels improve overall. no other symptoms. Physical Exam (per Admitting): General Appearance: WD/WN, no apparent distress Head: normocephalic, atraumatic Eyes: normal inspection, EOMI, sclerae normal ENT: normal ENT inspection, TMs normal, pharynx normal Neck: supple, no adenopathy, thyroid normal, no JVD, trachea midline Respiratory/Chest: chest non-tender, lungs clear, normal breath sounds, no respiratory distress, no accessory muscle use Cardiovascular: regular rate, rhythm, no edema, no JVD, no murmur Abdomen/GI: normal bowel sounds, non tender, soft Back: normal inspection, no CVA tenderness Extremities/Musculoskelatal: no calf tenderness, + pertinent finding ( bilateral feet: mild edema, (+) tenderness, excoriations, mild erythema) 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 Before night physician could go to see the patient, he left. ASSESSMENT & PLAN: Patient is a 66 yr old male with history of trench foot and cellulitis presented with feet pain. BILATERAL FEET CELLULITIS, INFECTED WOUNDS, TRENCH FEET POSSIBLE TINEA- B/l dorsum of feet and dry flaky skin in medical aspect of thigh -Afebrile, no leucocytosis. No signs of sepsis. -On IV Zosyn Day # 3--> Change to Doxycycline to finish course of 7 days of antibiotics -Continue with fluconazole -Follow up cultures: No growth to date -Wound care consulted HTN -Continue Amlodipine CHRONIC BASAL GANGLIA INFARCTS -Continue Aspirin -Ideally needs statin, H/O alcoholism ? Compliance, so not an ideal candidate ( secondary to need for monitoring) ALCOHOL TOBACCO ABUSE DISORDER -No signs of withdrawal -Continue Gabapentin per protocol -Monitor ANEMIA OF CHRONIC DISEASE -Stable MILD MALNUTRITION: BMI 18.0 CODE STATUS: Full code DISPOSITION Home less Left against medical advice Total time spent on discharge = 20 minutes This includes examination of the patient, discharge planning, medication reconciliation, and communication with other providers. Discharge Instructions Left Against Medical Advice
[2017-03-17] MEDS ORDERED: GABAPENTIN 600MG X1 DOSE PO SCH
== END 2017-03-16 05:16 | disposition left against medical advice (07) | DRG 923 ==
LOC: ENRESERVDT → ENRESERVTM → EDBD 18:44 → C.EDC 18:45 → C.MS4W 03-13 01:46
PROVIDERS: ADMIT Internal Medicine; ATTEND Internal Medicine
DX: T69.022A Immersion foot, left foot, initial encounter (principal); L03.116 Cellulitis of left lower limb; Z68.1 Body mass index [BMI] 19.9 or less, adult; E44.1 Mild protein-calorie malnutrition; L03.115 Cellulitis of right lower limb; I10 Essential (primary) hypertension; T69.021A Immersion foot, right foot, initial encounter; F17.210 Nicotine dependence, cigarettes, uncomplicated; D63.8 Anemia in other chronic diseases classified elsewhere; F10.20 Alcohol dependence, uncomplicated; Z79.82 Long term (current) use of aspirin; Z79.899 Other long term (current) drug therapy; Z82.49 Family history of ischemic heart disease and other diseases of the circulatory system; X58.XXXA Exposure to other specified factors, initial encounter

== ENCOUNTER 2017-03-31 04:36 | Emergency (ER) | payer OTHER ==
[~2017-03-31] VITALS: Ht 175.3 cm; Wt 56.6 kg
[2017-03-31 04:50] VITALS: BP 151/75; PULSE 72; TEMP 36.6; O2SAT 98; Ht 175.3 cm; Wt 56.6 kg
--- NOTE | 2017-03-31 04:59 | EMERGENCY ROOM VISIT NOTE ---
History Report prepared by Sukhi: Aden Mejia Under the Supervision of: Dr. Marci Robert D.O. 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 He wants dry clothing. He denies any other complaints. He drinks 3 beers everyday. He has a history of Trench Foot. He notes that he ate food today. 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 Review of Systems See HPI for pertinent positives & negatives. A total of 10 systems reviewed and were otherwise negative. Past Medical & Surgical Medical Problems: (1) Ambulatory dysfunction (2) Cellulitis of foot (3) HTN (hypertension) (4) Hypertension (5) Immersion (trench) foot (6) Tobacco use disorder (7) Trench foot Surgical Problems: (1) H/O colonoscopy Family History FH: CAD (coronary artery disease) FATHER ( of [place] age 56 ) Social History Smoking Status: Current Every Day Smoker Alcohol Use: heavy Drug Use: marijuana Marital Status: single Housing Status: other Occupation Status: retired Current/Historical Medications Unable to Obtain Active Prescriptions or Reported Meds Allergies Coded Allergies: No Known Allergies (Unverified , 03/12/17) Physical Exam Vital Signs Date Time Temp Pulse Resp B/P (MAP) Pulse Ox O2 Delivery O2 Flow Rate FiO2 03/31/17 04:50 36.6 72 18 151/75 98 Room Air Physical Exam General: Unkempt male. Quite malodorous. Smells of alcohol. HEENT: Head - normocephalic and atraumatic Pupils are equal, round, and reactive to light. Extraocular eye muscles are intact, and moderate scleral injection. Nose - moist nasal mucosa without discharge. Mouth - moist buccal mucosa. Oropharynx is nonerythematous and there is no tonsillar exudate or edema noted. Neck: Supple; no JVD, nuchal rigidity, cervical lymphadenopathy. Heart: Regular rate and rhythm. There is a normal S1 and S2 with no murmurs, clicks, or gallops appreciated. Lungs: Clear to auscultation bilaterally with no wheezes, rales, or rhonchi. Abdomen: Soft, completely nontender, nondistended, with good bowel sounds. There are no palpable pulsatile masses or hepatosplenomegaly. There is no guarding, rigidity, or rebound noted. Extremities: No evidence of cyanosis, clubbing, or edema. There are easily palpable peripheral pulses. Skin: wet and cold and no rashes. Medical Decision & Procedures ED Course 0442: Past medical records reviewed. The patient was evaluated in room B12B. A complete history and physical exam was performed. 0518: Upon reevaluation, the patient is resting at this time. He was given some dry clothes. The patient told me that he has $100,000 in the bank but he chooses to live on the streets. I suggested that he take some of his money to get a taxi to a hotel. Medical Decision The patient is a 66 year old male who presents to the ED with an alcohol overdose. Differential diagnosis includes homelessness, wet clothing, and alcohol overdose. I attest that I have personally reviewed the patient's current medication list. Patient was found to have normal blood pressure on screening and does not require follow-up. The patient is homeless and presented here because his clothes and blanket had become wet. He was given some cleaning closer able to dry off and then discharged. He had no medical issues on presentation to the ER today. Impression Primary Impression: Homelessness Scribe Attestation The scribe's documentation has been prepared under my direction and personally reviewed by me in its entirety. I confirm that the note above accurately reflects all work, treatment, procedures, and medical decision making performed by me. Departure Information Dispostion Home / Self-Care Prescriptions Unable to Obtain Active Prescriptions or Reported Meds Referrals Noah Mayes MD (PCP) Forms HOME CARE DOCUMENTATION FORM, IMPORTANT VISIT INFORMATION, WORK / SCHOOL INSTRUCTIONS Patient Instructions My [facility] Additional Instructions You should rent an apartment or stay in a hotel since you have $100,000 in a savings account. This would help you to stay healthy. I would not drink such excessive beer.
== END 2017-03-31 07:04 | disposition home or self-care (01) ==
LOC: EDBD 04:36 → C.EDB 04:37
DX: Z59.0 Homelessness (principal); I10 Essential (primary) hypertension; F17.210 Nicotine dependence, cigarettes, uncomplicated; Z82.49 Family history of ischemic heart disease and other diseases of the circulatory system

== ENCOUNTER 2017-04-05 21:42 | Emergency (ER) | payer OTHER ==
[~2017-04-05] VITALS: Ht 175.3 cm; Wt 50.8 kg
[2017-04-05 21:50] VITALS: Ht 175.3 cm; Wt 50.8 kg
--- NOTE | 2017-04-05 23:29 | EMERGENCY ROOM VISIT NOTE ---
History First contact with patient: 21:58 Chief Complaint: ALCOHOL OVERDOSE Stated Complaint: ETOH Nursing Triage Summary: patient to ed via ALS for conscious alcohol overdose, found in [facility], per medic patient "was just tossing and turning on the street, [address] Patient states "I had three PBR's at the [facility] than I was just walking." History of Present Illness The patient is a 66 year old male who presents to the Emergency Room for evaluation of an alcohol overdose. The patient was apparently downtown and received a citation for public drunkenness. He was apparently tossing and turning in the street. The patient states that he drank 3 beers tonight and was then walking around town. He states that he drinks beer every day. He denies any trauma. He denies any pain. Review of Systems A complete 10 point review of systems was reviewed with the patient with pertinent positives and negatives as per history of present illness. All else were negative. Past Medical/Surgical History Medical Problems: (1) Ambulatory dysfunction (2) Cellulitis of foot (3) HTN (hypertension) (4) Hypertension (5) Immersion (trench) foot (6) Tobacco use disorder (7) Trench foot Surgical Problems: (1) H/O colonoscopy Family History FH: CAD (coronary artery disease) FATHER ( of [place] age 56 ) Social History Smoking Status: Unknown if Ever Smoked Alcohol Use: heavy Drug Use: marijuana Marital Status: single Housing Status: other Occupation Status: retired Current/Historical Medications Unable to Obtain Active Prescriptions or Reported Meds Allergies Coded Allergies: No Known Allergies (Unverified , 03/12/17) Physical Exam Vital Signs Date Time Temp Pulse Resp B/P (MAP) Pulse Ox O2 Delivery O2 Flow Rate FiO2 04/05/17 23:41 36.5 74 18 102/52 98 04/05/17 22:06 71 04/05/17 21:50 36.5 72 18 145/89 99 Room Air Physical Exam VITALS: Vitals are noted on the nurse's note and reviewed by myself. Vital signs stable. GENERAL: This is a 66-year-old male, disheveled, smells of EtOH. SKIN: Capillary reflex less than 2 seconds. HEENT: Normocephalic. PERRLA. EOMI. Mucous membranes moist. Neck is supple without nuchal rigidity. No C-spine tenderness. HEART: Regular rate and rhythm without murmurs gallops or rubs. LUNGS: Clear to auscultation bilaterally without wheezes, rales or rhonchi. ABDOMEN: Positive bowel sounds x 4. Soft, nontender to palpation. MUSCULOSKELETAL: No evidence of trauma. No tenderness to palpation. NEURO: Patient is obviously intoxicated but is alert and oriented to person, place and time. Medical Decision & Procedures Medical Decision Differential diagnosis includes alcohol intoxication, drug intoxication, trauma , among others. The patient was evaluated as above. He was brought here by EMS for evaluation of an acute alcohol intoxication. The patient does admit to drinking beer tonight. He is mildly intoxicated but there is no evidence of trauma. He was given a turkey sandwich and discharged in good condition. The patient was independently evaluated by Dr. Sultana, ED attending physician, who agreed with my assessment and treatment plan. Impression Primary Impression: Alcohol use with intoxication Departure Information Dispostion Home / Self-Care Condition GOOD Prescriptions Unable to Obtain Active Prescriptions or Reported Meds Referrals No Doctor, Assigned (PCP) Patient Instructions My [facility] Additional Instructions Do not drink any more alcohol today. Rest and drink plenty of fluids. For pain control, you can use the following [id number] medicines (if >12 yo): - Regular strength (325mg/tab) Tylenol (acetaminophen) 2 tabs every 4-6 hours as needed. Do not exceed 12 tablets in a 24 hour period. Avoid taking more than 4 grams (4000 mg) of Tylenol per day. This includes any other sources of acetaminophen you may take on a regular basis. - Regular strength (200 mg/tab) Advil (ibuprofen) 1-2 tabs every 4-6 hours as needed. Do not exceed a dose of 3200 mg per day.
--- NOTE | 2017-04-05 23:39 | EMERGENCY ROOM VISIT NOTE ---
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 I was involved in the patient's care and did evaluate the patient myself. I was involved in the care throughout the ER stay. The patient presents with a mild alcohol overdose. He is nontoxic. He has a known history of alcohol use. He ate, he is in no danger of losing his airway. He is being discharged.
[2017-04-05 23:41] VITALS: BP 102/52; PULSE 74; TEMP 36.5; O2SAT 98
== END 2017-04-05 23:41 | disposition home or self-care (01) ==
LOC: EDBD 21:42 → C.EDB 21:44
DX: F10.920 Alcohol use, unspecified with intoxication, uncomplicated (principal); I10 Essential (primary) hypertension; Z82.49 Family history of ischemic heart disease and other diseases of the circulatory system; F12.10 Cannabis abuse, uncomplicated

== ENCOUNTER 2017-07-20 18:03 | Emergency (ER) | payer OTHER ==
[~2017-07-20] VITALS: Ht 175.3 cm; Wt 56.8 kg
[2017-07-20 18:28] VITALS: TEMP 36.8; Ht 175.3 cm; Wt 56.8 kg
--- NOTE | 2017-07-20 18:33 | EMERGENCY ROOM VISIT NOTE ---
History First contact with patient: 18:10 Chief Complaint: ALCOHOL OVERDOSE Stated Complaint: ALCOHOL EVAL./ HOMELESS History of Present Illness The patient is a 66 year old male who presents to the Emergency Room via ambulance with complaints of "alcohol overdose/homeless". It was identified that the patient was outside the [employer] at the football statium and has been drinking on the benches. Apparently he then went to urinate and did so infront of bystanders/kids. Police were notified and the ambulance was called. He is brought here today suspected to be intoxicated. Patient notes he has had 3 beers today. He denies any pain. His tetanus is up- to-date. Review of Systems A complete 6-point Review of Systems was discussed with the patient, with pertinent positives and negatives listed in the History of Present Illness. All remaining Review of Systems questions can be considered negative unless otherwise specified. Past Medical/Surgical History Medical Problems: (1) Ambulatory dysfunction (2) Cellulitis of foot (3) HTN (hypertension) (4) Hypertension (5) Immersion (trench) foot (6) Tobacco use disorder (7) Trench foot Surgical Problems: (1) H/O colonoscopy Family History FH: CAD (coronary artery disease) FATHER ( of [place] age 56 ) Social History Smoking Status: Unknown if Ever Smoked Alcohol Use: heavy Drug Use: marijuana Marital Status: single Housing Status: other Occupation Status: retired Current/Historical Medications Unable to Obtain Active Prescriptions or Reported Meds Physical Exam Vital Signs Date Time Temp Pulse Resp B/P (MAP) Pulse Ox O2 Delivery O2 Flow Rate FiO2 07/20/17 20:55 83 20 121/60 98 Room Air 07/20/17 20:04 69 20 125/62 96 Room Air 07/20/17 18:55 70 18 118/64 98 Room Air 07/20/17 18:28 36.8 80 18 117/63 93 Room Air Physical Exam VITAL SIGNS - Vital signs and nursing notes were reviewed. Stable. GENERAL - 66-year-old male appearing his stated age who is in no acute distress and smells of alcohol. Communicates well with provider and answers questions appropriately. SKIN - Abrasions to left hip and feet/shins have blisters. HEAD - NC/AT. EYES - PERRL with EOMI bilaterally. Sclera anicteric. EARS - No deformities of external structures noted on gross examination bilaterally. No pain elicited with palpation of the tragus bilaterally. External auditory canals without discharge or otorrhea. Tympanic membranes pearly daniel without retraction or bulging. No fluid or purulent material visualized behind the TM. Handle of malleus, umbo, cone of light, pars tensa/ flaccid all easily visualized. NOSE - Midline and without cyanosis. No epistaxis or purulent drainage noted. Septum midline without deviation or septal hematoma noted. MOUTH/OROPHARYNX - Without perioral cyanosis. LUNGS - Chest wall symmetric without accessory muscle use, intercostals retractions, or central cyanosis. Normal vesicular breath sounds CTA B/L. No wheezes, rales, or rhonchi appreciated. CARDIAC - RRR with S1/S2. No murmur, rubs, or gallops appreciated. EXTREMITIES - No clubbing or peripheral cyanosis. No pretibial edema present. + 5/5 strength noted in UE/LE bilaterally. NEUROLOGIC - Cranial nerves II through XII grossly intact. Sensory intact to light touch throughout. PSYCH - A&Ox3 and cooperates fully with examiner. Pt is very pleasant and interacts well with examiner. Medical Decision & Procedures Laboratory Results 07/20/17 19:22 Red Blood Count 4.19, Mean Corpuscular Volume 93.3, Mean Corpuscular Hemoglobin 31.0, Mean Corpuscular Hemoglobin Concent 33.2, Mean Platelet Volume 9.2, Neutrophils (%) (Auto) 56.9, Lymphocytes (%) (Auto) 31.1, Monocytes (%) (Auto) 10.1, Eosinophils (%) (Auto) 1.4, Basophils (%) (Auto) 0.4, Neutrophils # (Auto ) 3.99, Lymphocytes # (Auto) 2.18, Monocytes # (Auto) 0.71, Eosinophils # (Auto ) 0.10, Basophils # (Auto) 0.03 07/20/17 19:22 Test 07/20/17 19:22 White Blood Count 7.02 K/uL (4.8-10.8) Red Blood Count 4.19 M/uL (4.7-6.1) Hemoglobin 13.0 g/dL (14.0-18.0) Hematocrit 39.1 % (42-52) Mean Corpuscular Volume 93.3 fL (80-100) Mean Corpuscular Hemoglobin 31.0 pg (25-34) Mean Corpuscular Hemoglobin Concent 33.2 g/dl (32-36) Platelet Count 200 K/uL (130-400) Mean Platelet Volume 9.2 fL (7.4-10.4) Neutrophils (%) (Auto) 56.9 % Lymphocytes (%) (Auto) 31.1 % Monocytes (%) (Auto) 10.1 % Eosinophils (%) (Auto) 1.4 % Basophils (%) (Auto) 0.4 % Neutrophils # (Auto) 3.99 K/uL (1.4-6.5) Lymphocytes # (Auto) 2.18 K/uL (1.2-3.4) Monocytes # (Auto) 0.71 K/uL (0.11-0.59) Eosinophils # (Auto) 0.10 K/uL (0-0.5) Basophils # (Auto) 0.03 K/uL (0-0.2) RDW Standard Deviation 44.1 fL (36.4-46.3) RDW Coefficient of Variation 12.9 % (11.5-14.5) Immature Granulocyte % (Auto) 0.1 % Immature Granulocyte # (Auto) 0.01 K/uL (0.00-0.02) Anion Gap 8.0 mmol/L (3-11) Est Creatinine Clear Calc Drug Dose 74.9 ml/min Estimated GFR () 109.2 Estimated GFR (Non- 94.2 BUN/Creatinine Ratio 12.8 (10-20) Calcium Level 9.2 mg/dl (8.5-10.1) Ethyl Alcohol mg/dL 223.3 mg/dl (0-3) Medical Decision Patient was seen and evaluated as above. He presents to us today via ambulance after police were called as he was found to be urinating in public. CBC and PRP as well as alcohol level were initiated. He is alert and oriented on my exam. He is managing secretions in his airway well. No evidence of overt intoxication. CBC reveals hemoglobin low at 13. This is only slightly changed compared to back in February. No evidence of leukocytosis. Sodium slightly low at 134. No evidence of kidney failure. Potassium is okay. Alcohol is 223.3. I suspect the patient probably at baseline is somewhere in this region secondary to his chronic alcoholic state and homelessness. The patient has been helped many times in the past by our human services case manager. At this time the patient appears stable for outpatient management as he was observed here for a few hours. Case was discussed with the attending physician. The patient was given clean socks. He is to return with any problems. He will be discharged via the bus. He was discharged in good condition. In evaluation treatment this patient following differential diagnoses were entertained: Alcoholic intoxication, among others. Impression Primary Impression: Alcoholic intoxication Additional Impression: Anemia Departure Information Dispostion Home / Self-Care Condition GOOD Prescriptions Unable to Obtain Active Prescriptions or Reported Meds Referrals No Doctor, Assigned (PCP) Patient Instructions My [facility] Additional Instructions You have been treated in the Emergency Department your alcohol intoxication. I recommend slowly decreasing your alcohol use. Please follow-up with your family doctor. Please return with any new/concerning symptoms. Problem Qualifiers
[2017-07-20 19:43] LABS: BASO % 0.4 %; BASO ABS # 0.03 K/uL (0-0.2); COMPLETE YES; EOS % 1.4 %; HEMATOCRIT 39.1 % (42-52); IG% 0.1 %; LYMPH % 31.1 %; LYMPH ABS # 2.18 K/uL (1.2-3.4); MEAN CELL VOLUME 93.3 fL (80-100); MEAN CORPUSCULAR HGB CONC 33.2 g/dl (32-36); MEAN PLATELET VOLUME 9.2 fL (7.4-10.4); MONO % 10.1 %; NEUT % 56.9 %; PLATELET COUNT 200 K/uL (130-400); RED BLOOD COUNT 4.19 M/uL (4.7-6.1); WHITE BLOOD COUNT 7.02 K/uL (4.8-10.8)
[2017-07-20 20:08] LABS: BUN/CREATININE RATIO 12.8 (10-20); CALCIUM 9.2 mg/dl (8.5-10.1); CREATININE 0.79 mg/dl (0.60-1.40); POTASSIUM 3.5 mmol/L (3.5-5.1)
[2017-07-20 20:55] VITALS: BP 121/60; PULSE 83; O2SAT 98
== END 2017-07-20 21:12 | disposition home or self-care (01) ==
LOC: EDBD 18:03 → C.EDB 18:04
DX: F10.129 Alcohol abuse with intoxication, unspecified (principal); Y90.7 Blood alcohol level of 200-239 mg/100 ml; D64.9 Anemia, unspecified; I10 Essential (primary) hypertension; F17.200 Nicotine dependence, unspecified, uncomplicated; F12.90 Cannabis use, unspecified, uncomplicated

== ENCOUNTER 2017-07-28 23:55 | Emergency (ER) | payer OTHER ==
[~2017-07-28] VITALS: Ht 175.3 cm; Wt 53.5 kg
[2017-07-29 00:16] VITALS: TEMP 36.6; Ht 175.3 cm; Wt 53.5 kg
[2017-07-29 03:55] VITALS: BP 120/68; PULSE 88; O2SAT 99
--- NOTE | 2017-07-29 04:09 | EMERGENCY ROOM VISIT NOTE ---
History Report prepared by Laytonibdorian: Sunita Davenport Under the Supervision of: Dr. Marci Robert D.O. First contact with patient: 00:19 Chief Complaint: FOOT PAIN Stated Complaint: BILATERAL FOOT PAIN (TRENCH FOOT) History of Present Illness The patient is a 66 year old male who presents to the Emergency Room with complaints of worsening foot pain starting this evening. The patient states that [place] He reports that he prefers to sleep outside. The patient complains that he can barely walk. He reports that he had two egg salad sandwiches today and two beers. He notes that he sometimes has issues controlling his urine. The patient currently rates his pain as 5/10 in severity. Source of History: patient Onset: this evening Position: foot (bilateral) Symptom Intensity: 5/10 Timing: worsening Modifying Factors (Worsening): other (walking) Note: The patient complains of urine incontinence. Review of Systems See HPI for pertinent positives & negatives. A total of 10 systems reviewed and were otherwise negative. Past Medical & Surgical Medical Problems: (1) Ambulatory dysfunction (2) Cellulitis of foot (3) HTN (hypertension) (4) Hypertension (5) Immersion (trench) foot (6) Tobacco use disorder (7) Trench foot Surgical Problems: (1) H/O colonoscopy Family History FH: CAD (coronary artery disease) FATHER ( of [place] age 56 ) Social History Smoking Status: Current Every Day Smoker Alcohol Use: heavy Drug Use: marijuana Marital Status: single Housing Status: other Occupation Status: retired Current/Historical Medications No Active Prescriptions or Reported Meds Allergies Coded Allergies: No Known Allergies (Unverified , 03/12/17) Physical Exam Vital Signs Date Time Temp Pulse Resp B/P (MAP) Pulse Ox O2 Delivery O2 Flow Rate FiO2 07/29/17 03:55 88 20 120/68 99 Room Air 07/29/17 01:53 77 18 126/60 96 Room Air 07/29/17 00:16 36.6 76 18 158/89 97 Room Air Physical Exam General: Disheveled appearing. Smells of urine. Obviously had urinated himself, his gown and sheets were soaking wet. HEENT: Head - normocephalic and atraumatic Pupils are equal, round, and reactive to light. Extraocular eye muscles are intact, and sclera are anicteric. Nose - moist nasal mucosa without discharge. Mouth - moist buccal mucosa. Oropharynx is nonerythematous and there is no tonsillar exudate or edema noted. Neck: Supple; no JVD, nuchal rigidity, cervical lymphadenopathy. Heart: Regular rate and rhythm. There is a normal S1 and S2 with no murmurs, clicks, or gallops appreciated. Lungs: Clear to auscultation bilaterally with no wheezes, rales, or rhonchi. Abdomen: Soft, completely nontender, nondistended, with good bowel sounds. There are no palpable pulsatile masses or hepatosplenomegaly. There is no guarding, rigidity, or rebound noted. Extremities: No evidence of cyanosis, clubbing, or edema. There are easily palpable peripheral pulses. Both feet had some excoriated skin on the dorsal surface. Pallor to soles of both feet consistent with trench foot. Skin: warm and dry with good turgor and no rashes. Medical Decision & Procedures ED Course 0038: Past medical records reviewed. The patient was evaluated in room B2. A complete history and physical exam was performed. The patient's gown and bedsheets were cleaned up after he urinated himself. He does admit that he has some difficulty controlling his urine. We offered to give the patient a shower but he declined. His clothes were taken to housekeeping and washed twice and then dried. He was given some food here in the emergency department. 0336: Upon reevaluation, he is resting comfortably. I discussed findings and results with him. He verbalized agreement of the treatment plan. The patient was discharged home. I strongly encouraged the patient to purchase some new socks and change them every day or every other day to keep his feet dry. Medical Decision The patient is a 66 year old male who presents to the Emergency Room with complaints of worsening foot pain starting this evening. Medication Reconcilliation Current Medication List: was personally reviewed by me Blood Pressure Screening Patient's blood pressure: Normal blood pressure Blood pressure disposition: Did not require urgent referral Impression Primary Impression: Trench foot Additional Impression: Alcohol intoxication Scribe Attestation The scribe's documentation has been prepared under my direction and personally reviewed by me in its entirety. I confirm that the note above accurately reflects all work, treatment, procedures, and medical decision making performed by me. Departure Information Dispostion Home / Self-Care Prescriptions No Active Prescriptions or Reported Meds Referrals No Doctor, Assigned (PCP) Forms HOME CARE DOCUMENTATION FORM, IMPORTANT VISIT INFORMATION Patient Instructions My [facility] Additional Instructions Buy 10 pairs of new socks and store them in a ziplock bag. Change your socks to clean socks every day or every other day to avoid further trench foot. Problem Qualifiers Primary Impression: Trench foot Encounter type: subsequent encounter Laterality: unspecified laterality Qualified Codes: T69.029D - Immersion foot, unspecified foot, subsequent encounter Additional Impression: Alcohol intoxication Complication of substance-induced condition: uncomplicated Qualified Codes: F10.920 - Alcohol use, unspecified with intoxication, uncomplicated
== END 2017-07-29 04:04 | disposition home or self-care (01) ==
LOC: EDBD 23:55 → C.EDB 23:56
DX: T69.021D Immersion foot, right foot, subsequent encounter (principal); T69.022D Immersion foot, left foot, subsequent encounter; F10.920 Alcohol use, unspecified with intoxication, uncomplicated; I10 Essential (primary) hypertension; Z82.49 Family history of ischemic heart disease and other diseases of the circulatory system; F17.200 Nicotine dependence, unspecified, uncomplicated; F12.90 Cannabis use, unspecified, uncomplicated

== ENCOUNTER 2017-07-29 07:25 | Emergency (ER) | payer OTHER ==
[~2017-07-29] VITALS: Ht 175.3 cm; Wt 54.4 kg
[2017-07-29 07:37] VITALS: TEMP 36.7; Ht 175.3 cm; Wt 54.4 kg
--- NOTE | 2017-07-29 07:57 | EMERGENCY ROOM VISIT NOTE ---
History First contact with patient: 07:32 Chief Complaint: FOOT PAIN Stated Complaint: L-FOOT PAIN History of Present Illness The patient is a 66 year old male who presents to the Emergency Room with complaints of bilateral toe pain. The patient was discharged 3 hours ago from the ED for same. He was diagnosed with trenchfoot and discharged home with instructions on foot care. He presents because he states the pain is getting worse and he had difficulty ambulating after leaving the hospital. He reports a sharp pain bilaterally in his feet L > R. The pain does not radiate to the heels or ankle. He is able to walk on his heels. He denies chest pain, shortness of breath, palpitations, wheezing, orthopnea. He has not had lower extremity edema. He denies fevers, chills or sweats. His appetite and intake are at baseline. He was apparently incontinent of urine of urine this morning in the ED. The patient states that he is unable to stay at home and would like to stay in the hospital. Review of Systems A 10 point review of systems was negative unless stated above. Past Medical/Surgical History Medical Problems: (1) Ambulatory dysfunction (2) Cellulitis of foot (3) HTN (hypertension) (4) Hypertension (5) Immersion (trench) foot (6) Tobacco use disorder (7) Trench foot Surgical Problems: (1) H/O colonoscopy Family History FH: CAD (coronary artery disease) FATHER ( of [place] age 56 ) Social History Smoking Status: Current Every Day Smoker Alcohol Use: heavy Drug Use: marijuana Marital Status: single Housing Status: other Occupation Status: retired Current/Historical Medications No Active Prescriptions or Reported Meds Allergies None Physical Exam Vital Signs Date Time Temp Pulse Resp B/P (MAP) Pulse Ox O2 Delivery O2 Flow Rate FiO2 07/29/17 10:10 74 20 149/79 97 07/29/17 09:25 76 20 151/86 96 Room Air 07/29/17 07:37 36.7 88 18 168/109 99 Room Air Pain Rating (0-10): 8 Physical Exam Constitutional: Vital signs as above were reviewed. Eyes: Pupils equal, round, and reactive to light. Extraocular muscles are intact. No proptosis. No photophobia. ENT: Mucous membranes are moist. Oropharynx is clear. No sinus tenderness. Cardiovascular: Heart with a regular rate and rhythm. No pedal edema appreciated. Respiratory: Lungs clear to auscultation bilaterally. No wheezes, rales, or rhonchi appreciated. No accessory muscle use. No retractions. No increased work of breathing. GI: Abdomen soft, nontender, nondistended. Normal active bowel sounds. No abdominal hernias appreciated. No rebound. No guarding. : No CVA tenderness appreciated. Musculoskeletal: No midline cervical or vertebral tenderness. No gross deformities. No bony tenderness. No calf swelling or tenderness. Black toenails bilaterally; no erythema, swelling or deformity of the feet Extremely tender to palpation in all 10 toes Pulses: 2+ posterior tibialis and dorsalis pedis pulses Integumentary: Warm, dry, no rashes appreciated. Neurological: Patient awake, alert, and oriented x 3. Lymph: No cervical lymphadenopathy appreciated. Medical Decision & Procedures ER Provider Diagnostic Interpretation: LEFT FOOT 3 VIEWS CLINICAL HISTORY: Left foot pain. FINDINGS: 3 views of left foot are compared to study dated 07/18/2016. The skeletal structures are osteopenic. No fracture is seen. There is minimal arthritic change at the first metatarsophalangeal joint. The joint spaces are otherwise preserved. An os trigonum is incidentally noted. The overlying soft tissues are within normal limits. IMPRESSION: Osteopenia and minimal degenerative change as above. No acute bony abnormality is seen in the left foot. Electronically signed by: Ramu Good M.D. 07/29/2017 8:21 AM Dictated Date/Time: 07/29/2017 8:20 AM The status of this report is Signed. Draft = Not yet reviewed or approved by Radiologist. Signed = Reviewed and approved by Radiologist. RIGHT FOOT 3 VIEWS CLINICAL HISTORY: Right foot pain. FINDINGS: 3 views of the right foot are obtained. No prior studies are available for comparison at the time of dictation. The skeletal structures are osteopenic. No fracture is seen. There is mild hallux valgus, with arthritic change at the first metatarsophalangeal joint where there is bony overgrowth, joint space narrowing, and sclerosis. The joint spaces of the foot are otherwise well-maintained. The overlying soft tissues are normal in appearance. IMPRESSION: 1. No acute bony abnormality is seen in the right foot. 2. Osteopenia, mild hallux valgus, and arthritic change at the first metatarsophalangeal joint as above. Electronically signed by: Ramu Good M.D. 07/29/2017 8:20 AM Dictated Date/Time: 07/29/2017 8:19 AM Laboratory Results 07/29/17 08:25 Red Blood Count 4.21, Mean Corpuscular Volume 93.6, Mean Corpuscular Hemoglobin 30.6, Mean Corpuscular Hemoglobin Concent 32.7, Mean Platelet Volume 9.4, Neutrophils (%) (Auto) 68.5, Lymphocytes (%) (Auto) 19.7, Monocytes (%) (Auto) 10.1, Eosinophils (%) (Auto) 1.3, Basophils (%) (Auto) 0.2, Neutrophils # (Auto ) 5.75, Lymphocytes # (Auto) 1.66, Monocytes # (Auto) 0.85, Eosinophils # (Auto ) 0.11, Basophils # (Auto) 0.02 07/29/17 08:25 Test 07/29/17 08:25 White Blood Count 8.41 K/uL (4.8-10.8) Red Blood Count 4.21 M/uL (4.7-6.1) Hemoglobin 12.9 g/dL (14.0-18.0) Hematocrit 39.4 % (42-52) Mean Corpuscular Volume 93.6 fL (80-100) Mean Corpuscular Hemoglobin 30.6 pg (25-34) Mean Corpuscular Hemoglobin Concent 32.7 g/dl (32-36) Platelet Count 178 K/uL (130-400) Mean Platelet Volume 9.4 fL (7.4-10.4) Neutrophils (%) (Auto) 68.5 % Lymphocytes (%) (Auto) 19.7 % Monocytes (%) (Auto) 10.1 % Eosinophils (%) (Auto) 1.3 % Basophils (%) (Auto) 0.2 % Neutrophils # (Auto) 5.75 K/uL (1.4-6.5) Lymphocytes # (Auto) 1.66 K/uL (1.2-3.4) Monocytes # (Auto) 0.85 K/uL (0.11-0.59) Eosinophils # (Auto) 0.11 K/uL (0-0.5) Basophils # (Auto) 0.02 K/uL (0-0.2) RDW Standard Deviation 44.7 fL (36.4-46.3) RDW Coefficient of Variation 13.1 % (11.5-14.5) Immature Granulocyte % (Auto) 0.2 % Immature Granulocyte # (Auto) 0.02 K/uL (0.00-0.02) Erythrocyte Sedimentation Rate 24 mm/hr (0-14) Anion Gap 7.0 mmol/L (3-11) Est Creatinine Clear Calc Drug Dose 71.7 ml/min Estimated GFR () 109.2 Estimated GFR (Non- 94.2 BUN/Creatinine Ratio 14.7 (10-20) Calcium Level 9.2 mg/dl (8.5-10.1) C-Reactive Protein < 0.29 mg/dl (0-0.29) Chemistry Specimen Hemolysis ED Course 07:35 - The patient was seen and evaluated by Dr. Fidencio Lin MD [facility] 07:45 - Bilateral foot x-rays are negative 07:50 - Discussed case with Dr. Nelson 08:00 - Labs ordered 08:55 - X-rays reviewed; no fractures in the feet 09:30 - Labs reviewed; no abnormalities indicating further work-u 10:00- Results discussed with patient; decision to discharge home, patient agrees Discharge paperwork completed; crutches to be offered to patient on departure Medical Decision The patient presents with bilateral foot pain. He was in the emergency room 3 hours prior to his current visit, and was diagnosed with trench foot. Apart from poor nail bed care, there was no evidence of an acute cellulitis, swollen joints, or soft tissue infection. Lab work made infection unlikely. X-rays of both feet were negative for any acute process or injury. The patient is known to the [facility] emergency room, and services have been offered to him on multiple occasions which has declined. At this point he does not wish to go into a custodial. He was agreeable to discharge home. Patient was discharged in stable condition, and given instructions on signs and symptoms which would warrant return to his PCP or back to the emergency room. Head Trauma GCS Score: 15 Blood Pressure Screening Patient's blood pressure: Normal blood pressure Blood pressure disposition: Elevated BP felt to be situational Impression Primary Impression: Trench foot Departure Information Dispostion Home / Self-Care Condition GOOD Prescriptions No Active Prescriptions or Reported Meds Referrals Noah Mayes MD (PCP) Patient Instructions My [facility] Additional Instructions You came to the emergency room for pain in your feet. Your foot x-rays are normal. Your blood work is normal and does not suggest an infection. We can discharge her back home at this point. We will give you a crutch in case her having difficulty walking when you go home. If your symptoms fail to improve, acutely worsen, please seek medical attention immediately by either calling your primary care provider or going to your nearest emergency department. Otherwise, please see your primary care provider within 1 week to ensure that your symptoms continue to improve. It was a pleasure to be involved in your care and we wish you all the best.
--- NOTE | 2017-07-29 08:21 | DIAGNOSTIC IMAGING REPORT ---
RIGHT FOOT 3 VIEWS CLINICAL HISTORY: Right foot pain. FINDINGS: 3 views of the right foot are obtained. No prior studies are available for comparison at the time of dictation. The skeletal structures are osteopenic. No fracture is seen. There is mild hallux valgus, with arthritic change at the first metatarsophalangeal joint where there is bony overgrowth, joint space narrowing, and sclerosis. The joint spaces of the foot are otherwise well-maintained. The overlying soft tissues are normal in appearance. IMPRESSION: 1. No acute bony abnormality is seen in the right foot. 2. Osteopenia, mild hallux valgus, and arthritic change at the first metatarsophalangeal joint as above. Electronically signed by: Ramu Good M.D. 07/29/2017 8:20 AM Dictated Date/Time: 07/29/2017 8:19 AM
--- NOTE | 2017-07-29 08:23 | DIAGNOSTIC IMAGING REPORT ---
LEFT FOOT 3 VIEWS CLINICAL HISTORY: Left foot pain. FINDINGS: 3 views of left foot are compared to study dated 07/18/2016. The skeletal structures are osteopenic. No fracture is seen. There is minimal arthritic change at the first metatarsophalangeal joint. The joint spaces are otherwise preserved. An os trigonum is incidentally noted. The overlying soft tissues are within normal limits. IMPRESSION: Osteopenia and minimal degenerative change as above. No acute bony abnormality is seen in the left foot. Electronically signed by: Ramu Good M.D. 07/29/2017 8:21 AM Dictated Date/Time: 07/29/2017 8:20 AM
[2017-07-29 08:54] LABS: BASO % 0.2 %; BASO ABS # 0.02 K/uL (0-0.2); COMPLETE YES; EOS % 1.3 %; HEMATOCRIT 39.4 % (42-52); IG% 0.2 %; LYMPH % 19.7 %; LYMPH ABS # 1.66 K/uL (1.2-3.4); MEAN CELL VOLUME 93.6 fL (80-100); MEAN CORPUSCULAR HEMOGLOBIN 30.6 pg (25-34); MEAN CORPUSCULAR HGB CONC 32.7 g/dl (32-36); MEAN PLATELET VOLUME 9.4 fL (7.4-10.4); MONO % 10.1 %; NEUT % 68.5 %; PLATELET COUNT 178 K/uL (130-400); RED BLOOD COUNT 4.21 M/uL (4.7-6.1); WHITE BLOOD COUNT 8.41 K/uL (4.8-10.8)
[2017-07-29 09:14] LABS: BLOOD UREA NITROGEN 12 mg/dl (7-18); BUN/CREATININE RATIO 14.7 (10-20); C-REACTIVE PROTEIN < 0.29 mg/dl (0-0.29); CALCIUM 9.2 mg/dl (8.5-10.1); CARBON DIOXIDE 27 mmol/L (21-32); CHLORIDE 103 mmol/L (98-107); CREATININE 0.79 mg/dl (0.60-1.40); GLUCOSE 84 mg/dl (70-99); POTASSIUM 4.3 mmol/L (3.5-5.1); SODIUM 137 mmol/L (136-145)
[2017-07-29 10:10] VITALS: BP 149/79; PULSE 74; O2SAT 97
--- NOTE | 2017-07-29 14:52 | EMERGENCY ROOM VISIT NOTE ---
ED Visit Note First contact with patient: 07:32 Resident Physician Supervision Note: I interviewed and examined the patient. Discussed with Dr. Lin and agree with findings and plan as documented in the note. Any exceptions or clarifications are listed here: [None]. Patient has no evidence of osteomyelitis on x-ray. He is mildly elevated sedimentation rate and negative CRP. White blood cell count is normal. The patient had previously been given detailed instructions on foot hygiene. He does not meet criteria for admission today. He will follow-up with his PCP. According case management Wilfredo, who knows the patient well, he does have financial means. He will return to the ER for worsening of symptoms or any medical concerns. Documented By: Skye Nelson
== END 2017-07-29 10:10 | disposition home or self-care (01) ==
LOC: EDBD 07:25 → C.EDB 07:27
DX: T69.021D Immersion foot, right foot, subsequent encounter (principal); T69.022D Immersion foot, left foot, subsequent encounter; X58.XXXD Exposure to other specified factors, subsequent encounter; I10 Essential (primary) hypertension; F17.210 Nicotine dependence, cigarettes, uncomplicated; Z82.49 Family history of ischemic heart disease and other diseases of the circulatory system; F12.90 Cannabis use, unspecified, uncomplicated

== ENCOUNTER 2017-08-30 09:33 | Emergency (ER) | payer OTHER ==
[~2017-08-30] VITALS: Ht 175.3 cm; Wt 54.8 kg
[2017-08-30 09:38] VITALS: TEMP 36.5; Ht 175.3 cm; Wt 54.8 kg
--- NOTE | 2017-08-30 10:39 | DIAGNOSTIC IMAGING REPORT ---
CHEST ONE VIEW PORTABLE HISTORY: Overdose COMPARISON: Chest 08/24/2017. FINDINGS: No pneumothorax. No pleural effusions. The heart is normal in size. Emphysema. No focal lung consolidations to suggest pneumonia. No evidence for pulmonary edema. IMPRESSION: Emphysema. No acute process within the chest. Electronically signed by: Luciano Cortés M.D. 08/30/2017 10:38 AM Dictated Date/Time: 08/30/2017 10:37 AM
[2017-08-30 10:47] LABS: BASO % 0.4 %; BASO ABS # 0.03 K/uL (0-0.2); COMPLETE YES; EOS % 2.9 %; HEMATOCRIT 38.3 % (42-52); IG% 0.5 %; LYMPH % 33.6 %; LYMPH ABS # 2.52 K/uL (1.2-3.4); MEAN CORPUSCULAR HEMOGLOBIN 32.5 pg (25-34); MEAN CORPUSCULAR HGB CONC 34.2 g/dl (32-36); MEAN PLATELET VOLUME 8.9 fL (7.4-10.4); MONO % 9.6 %; PLATELET COUNT 235 K/uL (130-400); RED BLOOD COUNT 4.03 M/uL (4.7-6.1)
--- NOTE | 2017-08-30 10:52 | EMERGENCY ROOM VISIT NOTE ---
History Report prepared by Sukhi: Jennifer Mcclendon Under the Supervision of: Dr. Raymond Martinez D.O. First contact with patient: 09:46 Chief Complaint: MENTAL HEALTH EVALUATION Stated Complaint: CAN'T TAKE CARE OF HIMSELF History of Present Illness The patient is a 66 year old male who presents to the Emergency Room for a mental health evaluation. The patient was found sleeping by police in a stairwell. He was incontinent of urine. Police brought him to the ED for an evaluation because they feel the patient is unable to take care of himself. The patient is unsure who called the police. He reports chronic problems with his feet and a history of trench foot. He has been trying to keep his feet dry but reports pain that is worse in the left foot. Walking exacerbates his pain. The patient denies any alcohol use today. He denies chest pain or shortness of breath. He is not feeling depressed. He denies any thoughts of hurting himself or others. 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 Pt denies depression, SI, HI. Review of Systems See HPI for pertinent positives & negatives. A total of 10 systems reviewed and were otherwise negative. Past Medical & Surgical Medical Problems: (1) Ambulatory dysfunction (2) Cellulitis of foot (3) HTN (hypertension) (4) Hypertension (5) Immersion (trench) foot (6) Tobacco use disorder (7) Trench foot Surgical Problems: (1) H/O colonoscopy Family History FH: CAD (coronary artery disease) FATHER ( of [place] age 56 ) Social History Smoking Status: Current Every Day Smoker Alcohol Use: heavy Drug Use: marijuana Marital Status: single Housing Status: other Occupation Status: retired Current/Historical Medications No Active Prescriptions or Reported Meds Allergies Coded Allergies: No Known Allergies (Unverified , 08/30/17) Physical Exam Vital Signs Date Time Temp Pulse Resp B/P (MAP) Pulse Ox O2 Delivery O2 Flow Rate FiO2 08/30/17 17:15 81 15 151/80 94 Room Air 08/30/17 11:25 62 18 162/93 100 Room Air 08/30/17 09:38 36.5 77 20 167/98 98 Room Air Physical Exam GENERAL: Patient is awake, alert, and in no acute distress. Patient is resting comfortably and showing no signs of anxiety EYES: The conjunctivae are clear. The pupils are round and reactive. EARS, NOSE, MOUTH AND THROAT: The nose is without any evidence of any deformity. Mucous membranes are moist tongue is midline NECK: The neck is nontender and supple. RESPIRATORY: Normal respiratory effort is noted there is no evidence of wheezing rhonchi or rales CARDIOVASCULAR: Regular rate and rhythm noted there no murmurs rubs or gallops normal S1 normal S2 GASTROINTESTINAL: The abdomen is soft. Bowel sounds are present in all quadrants. Abdomen is nontender MUSCULOSKELETAL/EXTREMITIES: There is no evidence of gross deformity full range of motion is noted in the hips and shoulders SKIN: Pulses were symmetric in both feet, capillary refill was delayed in both feet. There was thickening and pallor noted to both feet, exam consistent with his chronic underlying trench foot. There were no signs of cellulitis. NEUROLOGIC: Patient is awake alert and oriented x3 PSYCH: Denies SI or HI. Medical Decision & Procedures ER Provider Diagnostic Interpretation: Radiology results as stated below per my review and radiologist interpretation: CHEST ONE VIEW PORTABLE HISTORY: Overdose COMPARISON: Chest 08/24/2017. FINDINGS: No pneumothorax. No pleural effusions. The heart is normal in size. Emphysema. No focal lung consolidations to suggest pneumonia. No evidence for pulmonary edema. IMPRESSION: Emphysema. No acute process within the chest. Electronically signed by: Luciano Cortés M.D. 08/30/2017 10:38 AM Dictated Date/Time: 08/30/2017 10:37 AM Laboratory Results 08/30/17 10:33 Red Blood Count 4.03, Mean Corpuscular Volume 95.0, Mean Corpuscular Hemoglobin 32.5, Mean Corpuscular Hemoglobin Concent 34.2, Mean Platelet Volume 8.9, Neutrophils (%) (Auto) 53.0, Lymphocytes (%) (Auto) 33.6, Monocytes (%) (Auto) 9.6, Eosinophils (%) (Auto) 2.9, Basophils (%) (Auto) 0.4, Neutrophils # (Auto) 3.97, Lymphocytes # (Auto) 2.52, Monocytes # (Auto) 0.72, Eosinophils # (Auto) 0.22, Basophils # (Auto) 0.03 08/30/17 10:33 Test 08/30/17 10:33 08/30/17 11:02 White Blood Count 7.50 K/uL (4.8-10.8) Red Blood Count 4.03 M/uL (4.7-6.1) Hemoglobin 13.1 g/dL (14.0-18.0) Hematocrit 38.3 % (42-52) Mean Corpuscular Volume 95.0 fL (80-100) Mean Corpuscular Hemoglobin 32.5 pg (25-34) Mean Corpuscular Hemoglobin Concent 34.2 g/dl (32-36) Platelet Count 235 K/uL (130-400) Mean Platelet Volume 8.9 fL (7.4-10.4) Neutrophils (%) (Auto) 53.0 % Lymphocytes (%) (Auto) 33.6 % Monocytes (%) (Auto) 9.6 % Eosinophils (%) (Auto) 2.9 % Basophils (%) (Auto) 0.4 % Neutrophils # (Auto) 3.97 K/uL (1.4-6.5) Lymphocytes # (Auto) 2.52 K/uL (1.2-3.4) Monocytes # (Auto) 0.72 K/uL (0.11-0.59) Eosinophils # (Auto) 0.22 K/uL (0-0.5) Basophils # (Auto) 0.03 K/uL (0-0.2) RDW Standard Deviation 46.8 fL (36.4-46.3) RDW Coefficient of Variation 13.4 % (11.5-14.5) Immature Granulocyte % (Auto) 0.5 % Immature Granulocyte # (Auto) 0.04 K/uL (0.00-0.02) Prothrombin Time 9.7 SECONDS (9.0-12.0) Prothromb Time International Ratio 0.9 (0.9-1.1) Activated Partial Thromboplast Time 28.5 SECONDS (21.0-31.0) Partial Thromboplastin Ratio 1.1 Anion Gap 7.0 mmol/L (3-11) Est Creatinine Clear Calc Drug Dose 78.2 ml/min Estimated GFR () 112.8 Estimated GFR (Non- 97.3 BUN/Creatinine Ratio 13.7 (10-20) Calcium Level 8.2 mg/dl (8.5-10.1) Total Bilirubin 0.2 mg/dl (0.2-1) Direct Bilirubin < 0.1 mg/dl (0-0.2) Aspartate Amino Transf (AST/SGOT) 19 U/L (15-37) Alanine Aminotransferase (ALT/SGPT) 22 U/L (12-78) Alkaline Phosphatase 119 U/L (45-117) Total Creatine Kinase 87 U/L (39-308) Creatine Kinase MB 4.0 ng/ml (0.5-3.6) Creatine Kinase MB Ratio 4.6 (0-3.0) Troponin I 0.029 ng/ml (0-0.045) Total Protein 7.5 gm/dl (6.4-8.2) Albumin 3.4 gm/dl (3.4-5.0) Lipase 176 U/L (73-393) Salicylates Level 2.9 mg/dl (2.8-20) Acetaminophen Level < 2 ug/ml (10-30) Ethyl Alcohol mg/dL 50.0 mg/dl (0-3) Bedside Glucose 84 mg/dl (70-99) Laboratory results per my review. ECG Indication: other Rate (beats per minute): 67 Rhythm: normal sinus Findings: ST depression (low lateral), T-wave inversion (high lateral), no ectopy, other (LVH by voltage criteria) Comparison ECG Date: 08/24/17 Change: no significant change ED Course 1000: The patient was taken to the decontamination shower prior to being placed in a room. He was then evaluated in room A6. A complete history and physical examination were performed. 1410: I reassessed the patient at this time. He is feeling better and resting comfortably. I discussed the results and treatment plan with the patient. I answered all pertaining questions that he had. He expressed understanding and verbalized agreement. The patient will be discharged to [address] once his clothes have been cleaned. 1509: The patient is sleeping and we are waiting on his clothes from [facility]. Medical Decision Differential diagnosis: Etiologies such as cellulitis, abscess, MRSA infection, DVT, necrotizing fasciitis, dermatitis, drug eruption, as well as others were entertained.. Nursing notes reviewed. The patient is a 66-year-old male who presented to emergency department with police. The patient has a history of alcoholism and is homeless. He's had problems with trench foot in the past. At this time his left foot appears to be significantly involved but his right foot appears to be healing well. There is no signs of cellulitis at this time. The patient was medically cleared in the emergency department. His clothes were washed. He does not wish to have any inpatient medical or psychiatric help at this time. The patient does not meet criteria for involuntary admission. He was reevaluated multiple times. He was evaluated by the mental health case making machine operator. He was felt to be a good candidate for outpatient follow-up but I am not sure he will follow-up at all. He was [facility]. He was encouraged to keep his feet dry and warm as much as possible. He was also encouraged return to the emergency department immediately if symptoms change worsen or the need arises. Medication Reconcilliation Current Medication List: was personally reviewed by me Blood Pressure Screening Patient's blood pressure: Elevated blood pressure Blood pressure disposition: Elevated BP felt to be situational Impression Primary Impression: Homelessness Additional Impression: Trench feet Scribe Attestation The scribe's documentation has been prepared under my direction and personally reviewed by me in its entirety. I confirm that the note above accurately reflects all work, treatment, procedures, and medical decision making performed by me. Departure Information Dispostion Home / Self-Care Prescriptions No Active Prescriptions or Reported Meds Referrals Noah Mayes MD (PCP) Forms HOME CARE DOCUMENTATION FORM, IMPORTANT VISIT INFORMATION Patient Instructions First Aid Cold Exp, My [facility] Additional Instructions Call your family to schedule follow-up appointment. Call crisis or emergency department immediately if symptoms change worsen or the need arises. Be sure to keep your feet dry. Change your socks frequently. Try not to stay out of the cold. Avoid any further alcoholic beverages. Problem Qualifiers Additional Impression: Trench feet Encounter type: subsequent encounter Laterality: unspecified laterality Qualified Codes: T69.029D - Immersion foot, unspecified foot, subsequent encounter
[2017-08-30 10:58] LABS: INR 0.9 (0.9-1.1); PARTIAL THROMBOPLASTIN RATIO 1.1; PROTHROMBIN TIME (PATIENT) 9.7 SECONDS (9.0-12.0)
[2017-08-30 11:08] LABS: ALT/SGPT 22 U/L (12-78); AST/SGOT 19 U/L (15-37); BLOOD UREA NITROGEN 10 mg/dl (7-18); BUN/CREATININE RATIO 13.7 (10-20); CALCIUM 8.2 mg/dl (8.5-10.1); CARBON DIOXIDE 28 mmol/L (21-32); CHLORIDE 101 mmol/L (98-107); CREATININE 0.73 mg/dl (0.60-1.40); GLUCOSE 81 mg/dl (70-99); POTASSIUM 3.8 mmol/L (3.5-5.1); SODIUM 136 mmol/L (136-145)
[2017-08-30 11:13] LABS: ACETAMINOPHEN < 2 ug/ml (10-30); ALKALINE PHOSPHATASE 119 U/L (45-117); CKMB/CK RATIO 4.6 (0-3.0)
[2017-08-30 18:13] VITALS: BP 151/80; PULSE 81; O2SAT 94
== END 2017-08-30 18:13 | disposition home or self-care (01) ==
LOC: C.EDB 09:34 → C.EDA 18:13
DX: Z59.0 Homelessness (principal); T69.029D Immersion foot, unspecified foot, subsequent encounter; X58.XXXD Exposure to other specified factors, subsequent encounter; I10 Essential (primary) hypertension; F17.200 Nicotine dependence, unspecified, uncomplicated; Z98.890 Other specified postprocedural states; Z82.49 Family history of ischemic heart disease and other diseases of the circulatory system

== ENCOUNTER 2017-09-21 00:13 | Emergency (ER) | payer OTHER ==
[~2017-09-21] VITALS: Ht 175.3 cm; Wt 62.0 kg
[2017-09-21 00:21] VITALS: TEMP 36.8; Ht 175.3 cm; Wt 62.0 kg
[2017-09-21 00:25] VITALS: O2SAT 99
[2017-09-21 01:11] LABS: CALCIUM 8.8 mg/dl (8.5-10.1); CREATININE 0.73 mg/dl (0.60-1.40); POTASSIUM 3.3 mmol/L (3.5-5.1)
--- NOTE | 2017-09-21 02:01 | EMERGENCY ROOM VISIT NOTE ---
History Report prepared by Sukhi: Stephanie Almanzar Under the Supervision of: Dr. Marci Robert D.O. First contact with patient: 01:00 Chief Complaint: ALCOHOL OVERDOSE Stated Complaint: ALCOHOL OVERDOSE Nursing Triage Summary: Patient arrived via EMS. Patient states he was released from senior living earlier today and started drinking. Patient was [place] to get [place], he thought he was trying to get back into the senior living. 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 The patient presents to the ED by EMS. He was released from senior living earlier today. He reports he was in senior living for alcohol. He drank alcohol all day today in his friend's work truck. He reports that he fell out of the truck onto his face. He denies any other injury from the fall. He was found trying to get into the [place] [employer] tonight. He thought he was going back into the senior living. 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 Pt denies any other injury. Review of Systems See HPI for pertinent positives & negatives. A total of 10 systems reviewed and were otherwise negative. Past Medical & Surgical Medical Problems: (1) Ambulatory dysfunction (2) Cellulitis of foot (3) HTN (hypertension) (4) Hypertension (5) Immersion (trench) foot (6) Tobacco use disorder (7) Trench foot Surgical Problems: (1) H/O colonoscopy Family History FH: CAD (coronary artery disease) FATHER ( of [place] age 56 ) Social History Smoking Status: Current Every Day Smoker Alcohol Use: heavy Drug Use: marijuana Marital Status: single Occupation Status: retired Current/Historical Medications No Active Prescriptions or Reported Meds Allergies Coded Allergies: No Known Allergies (Unverified , 09/21/17) Physical Exam Vital Signs Date Time Temp Pulse Resp B/P (MAP) Pulse Ox O2 Delivery O2 Flow Rate FiO2 09/21/17 06:15 70 16 137/75 98 09/21/17 05:01 88 16 133/83 94 Room Air 09/21/17 04:14 83 09/21/17 03:18 73 18 132/75 97 Room Air 09/21/17 01:53 83 18 145/85 99 Room Air 09/21/17 00:27 94 09/21/17 00:25 99 Room Air 09/21/17 00:21 36.8 105 16 142/102 99 Room Air Physical Exam General: Appears intoxicated, smells of alcohol. HEENT: Head - normocephalic, abrasions to the forehead. Pupils are equal, round, and reactive to light. Extraocular eye muscles are intact, moderate scleral injection. Nose - 5 cm jagged, but superficial laceration to the nose , moist nasal mucosa without discharge. Mouth - moist buccal mucosa. Oropharynx is nonerythematous and there is no tonsillar exudate or edema noted. Neck: Supple; no JVD, nuchal rigidity, cervical lymphadenopathy. Heart: Regular rate and rhythm. There is a normal S1 and S2 with no murmurs, clicks, or gallops appreciated. Lungs: Clear to auscultation bilaterally with no wheezes, rales, or rhonchi. Abdomen: Soft, completely nontender, nondistended, with good bowel sounds. There are no palpable pulsatile masses or hepatosplenomegaly. There is no guarding, rigidity, or rebound noted. Extremities: Abrasion to the right knee. No evidence of cyanosis, clubbing, or edema. There are easily palpable peripheral pulses. Skin: warm and dry with good turgor and no rashes. Medical Decision & Procedures ER Provider Diagnostic Interpretation: Radiology results as stated below per my review and the [employer] radiologist's interpretation: CT Head: Comparison is made to prior CT head on 08/24/2017. No acute intracranial abnormality identified. Stable chronic small vessel ischemic disease and cerebral volume loss. Stable remote lacunar infarct in the right basal ganglia and left caudate head. Atherosclerotic calcifications of the intracranial vasculature. CT C spine: No acute amount abnormality identified. Degenerative changes of the cervical spine, most prominent at C1-2 and C6-7. Scarring of the lung apices. Atherosclerotic calcifications of the carotid arteries. CT Facial: No acute abnormality identified. Mild mucosal thickening in a posterior right ethmoid air cell. Minimal mucosal thickening in the left maxillary sinus. Small scattered lymph nodes are likely reactive. Atherosclerotic calcifications in the carotid arteries and intracranial vasculature. Laboratory Results 09/21/17 00:38 Test 09/21/17 00:38 Anion Gap 7.0 mmol/L (3-11) Est Creatinine Clear Calc Drug Dose 88.5 ml/min Estimated GFR () 112.8 Estimated GFR (Non- 97.3 BUN/Creatinine Ratio 22.0 (10-20) Calcium Level 8.8 mg/dl (8.5-10.1) Ethyl Alcohol mg/dL 178.0 mg/dl (0-3) Laboratory results per my review. ED Course 0116: The patient was evaluated in room A11B. A complete history and physical examination were performed. Nursing notes and previous electronic medical records were reviewed. Labs were drawn as above. The patient rested comfortably with normal vital signs. He went for CT scan of his brain, facial bones and C-spine because of the trauma to his face. 0250: CT scans were negative. I went back to the room to discuss the results of the CAT scan and laboratory testing that the patient was sound asleep. His vitals remained hemodynamically stable. We will watch him until he is sober. 0551: I reevaluated the patient. He is asleep. The hospice case manager is making arrangements for discharge. He will be discharged. Medical Decision The patient is a 66 year old male who presents to the ED with alcohol intoxication. Differential diagnosis includes nasal bone fracture, open fracture to face, skull fracture, intracranial trauma, alcohol overdose, fall. Labs: alcohol 178, potassium 3.3, normal renal function and glucose. This is a 66-year-old male patient has a history of alcoholism. Apparently he was released from senior living earlier today and drank the entire day with a friend. Unfortunately, he fell out of the friend's work truck and struck his face on the ground. He denies any loss of consciousness. He was then found by police trying to get into the [place]. The patient was observed here in the emergency department until he was more sober. The wounds on his face were cleansed and dressed with antibiotic ointment. They did not require suture repair. I've encouraged the patient to avoid such excessive alcohol use in the future but he made it clear to me that he would not stop drinking. Head Trauma GCS Score: 15 Medication Reconcilliation Current Medication List: was personally reviewed by me Blood Pressure Screening Patient's blood pressure: Normal blood pressure Blood pressure disposition: Did not require urgent referral Impression Primary Impression: Alcohol intoxication Additional Impressions: Facial trauma Fall Scribe Attestation The scribe's documentation has been prepared under my direction and personally reviewed by me in its entirety. I confirm that the note above accurately reflects all work, treatment, procedures, and medical decision making performed by me. Departure Information Dispostion Home / Self-Care Prescriptions No Active Prescriptions or Reported Meds Referrals Noah Mayes MD (PCP) Forms HOME CARE DOCUMENTATION FORM, IMPORTANT VISIT INFORMATION Patient Instructions ED Alcohol Intoxication, My [facility] Additional Instructions Rest. Avoid such excessive alcohol use in the future. Keep the wounds on your nose clean and covered with antibiotic ointment. Problem Qualifiers Primary Impression: Alcohol intoxication Complication of substance-induced condition: uncomplicated Qualified Codes: F10.920 - Alcohol use, unspecified with intoxication, uncomplicated Additional Impressions: Facial trauma Encounter type: initial encounter Qualified Codes: S09.93XA - Unspecified injury of face, initial encounter Fall Encounter type: initial encounter Qualified Codes: W19.XXXA - Unspecified fall, initial encounter
[2017-09-21 06:15] VITALS: BP 137/75; PULSE 70; O2SAT 98
--- NOTE | 2017-09-21 06:32 | DIAGNOSTIC IMAGING REPORT ---
CT HEAD WITHOUT CONTRAST (CT) CLINICAL HISTORY: Head pain status post trauma. COMPARISON STUDY: 08/24/2017 TECHNIQUE: Axial CT of the brain is performed from the vertex to the skull base. IV contrast was not administered for this examination. A dose lowering technique was utilized adhering to the principles of ALARA. CT DOSE: FINDINGS: No intra or extra-axial mass lesions are visualized. There is no CT evidence of acute cortical infarction. There is no evidence of midline shift. There is no acute hemorrhage. No calvarial fractures are visualized. There are patchy white matter hypodensities likely on a small vessel basis. There are old basal ganglia lacunar infarcts. There is a child cisterna magna. There is persistent ventricular dilatation, likely secondary to volume loss. There is no evidence of acute sinusitis IMPRESSION: No acute intracranial findings Electronically signed by: Rohan Archuleta M.D. 09/21/2017 6:30 AM Dictated Date/Time: 09/21/2017 6:29 AM
--- NOTE | 2017-09-21 06:35 | DIAGNOSTIC IMAGING REPORT ---
CERVICAL SPINE W/O CT DOSE: 1011.29 mGy.cm HISTORY: Trauma fall TECHNIQUE: Multiaxial CT images of the cervical spine were performed and reformatted in the sagittal and coronal plane without the use of contrast. A dose lowering technique was utilized adhering to the principles of ALARA. COMPARISON: None. FINDINGS: No fractures. No subluxation. Prevertebral soft tissues and the C1-C2 interval are intact. No pneumothorax. Moderate degenerative change C5-C7. Moderate degenerative changes C1-C2 complex. IMPRESSION: Moderate degenerative change as discussed. No acute process. The above report was generated using voice recognition software. It may contain grammatical, syntax or spelling errors. Electronically signed by: Virgilio Lao M.D. 09/21/2017 6:34 AM Dictated Date/Time: 09/21/2017 6:33 AM
--- NOTE | 2017-09-21 06:46 | DIAGNOSTIC IMAGING REPORT ---
FACIAL BONES-MXILLOFAC WITHOUT CLINICAL HISTORY: 66 years-old Male presenting with fall. Acute facial injury status post fall COMPARISON STUDY: CT head and cervical spine of same day TECHNIQUE: High-resolution CT scan of the facial bones is performed. Images are reviewed in the axial, sagittal, and coronal planes. IV contrast was not administered for this examination. A dose lowering technique was utilized adhering to the principles of ALARA. FINDINGS: There is no evidence of facial bone fracture. The bony orbits are intact and the orbital contents are within normal limits. The zygomatic arches, nasal bones, and pterygoid plates are preserved. The maxilla and mandible are intact. The mastoid air cells are clear. Mild mucosal thickening of the ethmoid air cells with minimal mucosal thickening of the inferior left maxillary sinus. Patient has edentulous. The imaged calvarium and upper cervical spine are within normal limits with facet arthropathy and uncovertebral spurring of the imaged cervical spine. Partially imaged brain parenchyma appears mildly atrophic. Atherosclerotic plaquing of the carotid bulbs. Scattered nonenlarged cervical lymph nodes are likely reactive. IMPRESSION: 1. No acute facial bone fracture or dislocation. 2. No significant facial soft tissue swelling. 3. Mild paranasal sinus disease. The above report was generated using voice recognition software. It may contain grammatical, syntax or spelling errors. Electronically signed by: Jarad Alvarez M.D. 09/21/2017 6:44 AM Dictated Date/Time: 09/21/2017 6:41 AM
== END 2017-09-21 06:16 | disposition home or self-care (01) ==
LOC: EDBD 00:13 → C.EDA 00:14
DX: T51.91XA Toxic effect of unspecified alcohol, accidental (unintentional), initial encounter (principal); S09.93XA Unspecified injury of face, initial encounter; W19.XXXA Unspecified fall, initial encounter; I10 Essential (primary) hypertension; Z82.49 Family history of ischemic heart disease and other diseases of the circulatory system; F17.200 Nicotine dependence, unspecified, uncomplicated; F12.90 Cannabis use, unspecified, uncomplicated; Y90.6 Blood alcohol level of 120-199 mg/100 ml

== ENCOUNTER 2017-09-28 08:27 | Observation (INO) | payer OTHER ==
[~2017-09-28] VITALS: Ht 175.3 cm; Wt 47.6 kg
--- NOTE | 2017-09-28 09:01 | EMERGENCY ROOM VISIT NOTE ---
History First contact with patient: 08:28 Chief Complaint: FOOT PAIN Stated Complaint: foot pain History of Present Illness The patient is a 66 year old male who presents to the Emergency Room with complaints of "foot pain". Pt. states that he has L foot. He has a history of trench foot and notes that it is cold outside and is feeling pain in the feet. He has been wearing flip-flop like shoes. He notes his last drink of alcohol was 1-2 days ago. He slept in a warm environment last night but his feet are very painful. He denies any fevers, chills, chest pain or shortness of breath. He denies any fall or trauma. EMS report that he was at [facility] and a friend called the meals. Review of Systems A complete 10-point Review of Systems was discussed with the patient, with pertinent positives and negatives listed in the History of Present Illness. All remaining Review of Systems questions can be considered negative unless otherwise specified. Past Medical/Surgical History Medical Problems: (1) Alcohol abuse (2) HTN (hypertension) (3) Hypertension (4) Tobacco use disorder Surgical Problems: (1) H/O colonoscopy Family History FH: CAD (coronary artery disease) FATHER ( of [place] age 56 ) Social History Smoking Status: Current Every Day Smoker Alcohol Use: heavy Drug Use: marijuana Marital Status: single Occupation Status: retired Current/Historical Medications Scheduled Amlodipine (Norvasc), 5 MG PO DAILY Physical Exam Vital Signs Date Time Temp Pulse Resp B/P (MAP) Pulse Ox O2 Delivery O2 Flow Rate FiO2 09/28/17 10:54 88 18 146/79 98 Room Air 09/28/17 09:52 94 18 150/76 100 Room Air 09/28/17 08:40 36.6 102 18 167/99 100 Room Air Physical Exam VITAL SIGNS - Vital signs and nursing notes were reviewed. Stable. GENERAL - 66-year-old female appearing her stated age who is in no acute distress. Communicates well with provider and answers questions appropriately. SKIN - Bilateral feet with macerated/ severely wet feet with erythema. HEAD - NC/AT. EYES - Sclera anicteric. EXTREMITIES - Feet as above. NEUROLOGIC - Cranial nerves II through XII grossly intact. PSYCH - A&O, and cooperates fully with examiner. Pt is very pleasant and interacts well with examiner. Medical Decision & Procedures Laboratory Results 09/28/17 09:55 Red Blood Count 4.03, Mean Corpuscular Volume 94.0, Mean Corpuscular Hemoglobin 32.8, Mean Corpuscular Hemoglobin Concent 34.8, Mean Platelet Volume 9.3, Neutrophils (%) (Auto) 71.2, Lymphocytes (%) (Auto) 18.4, Monocytes (%) (Auto) 9.5, Eosinophils (%) (Auto) 0.6, Basophils (%) (Auto) 0.2, Neutrophils # (Auto) 6.80, Lymphocytes # (Auto) 1.76, Monocytes # (Auto) 0.91, Eosinophils # (Auto) 0.06, Basophils # (Auto) 0.02 09/28/17 09:55 Test 09/28/17 09:55 White Blood Count 9.56 K/uL (4.8-10.8) Red Blood Count 4.03 M/uL (4.7-6.1) Hemoglobin 13.2 g/dL (14.0-18.0) Hematocrit 37.9 % (42-52) Mean Corpuscular Volume 94.0 fL (80-100) Mean Corpuscular Hemoglobin 32.8 pg (25-34) Mean Corpuscular Hemoglobin Concent 34.8 g/dl (32-36) Platelet Count 241 K/uL (130-400) Mean Platelet Volume 9.3 fL (7.4-10.4) Neutrophils (%) (Auto) 71.2 % Lymphocytes (%) (Auto) 18.4 % Monocytes (%) (Auto) 9.5 % Eosinophils (%) (Auto) 0.6 % Basophils (%) (Auto) 0.2 % Neutrophils # (Auto) 6.80 K/uL (1.4-6.5) Lymphocytes # (Auto) 1.76 K/uL (1.2-3.4) Monocytes # (Auto) 0.91 K/uL (0.11-0.59) Eosinophils # (Auto) 0.06 K/uL (0-0.5) Basophils # (Auto) 0.02 K/uL (0-0.2) RDW Standard Deviation 44.3 fL (36.4-46.3) RDW Coefficient of Variation 12.8 % (11.5-14.5) Immature Granulocyte % (Auto) 0.1 % Immature Granulocyte # (Auto) 0.01 K/uL (0.00-0.02) Anion Gap 4.0 mmol/L (3-11) Est Creatinine Clear Calc Drug Dose 58.3 ml/min Estimated GFR () 106.0 Estimated GFR (Non- 91.4 BUN/Creatinine Ratio 15.6 (10-20) Calcium Level 8.6 mg/dl (8.5-10.1) Medical Decision Patient was seen and evaluated as above. He presents to us today with concern over trench foot. I've cared for him in the past and he has been diagnosed with trench foot in the past as well. He presents with today via ambulance. He appears well, not intoxicated and converses well. He does not appear to be febrile. Baseline labs were obtained and reveals no acute process. I believe that he does need to stay in the hospital for further evaluation and management of his foot wounds but at this time do not suspect infection. Please refer to further documentation regarding his stay as I did discuss the case with the the attending physician and subsequently the hospitalist. In evaluation treatment this patient following differential diagnoses were entertained: Trenchfoot, cellulitis, fracture, dislocation, among others. Impression Primary Impression: Foot pain Additional Impressions: Anemia Immersion (trench) foot Departure Information Dispostion Admitted as an inpatient Condition POOR Referrals Noah Mayes MD (PCP) Patient Instructions My [facility] Problem Qualifiers
[2017-09-28] MEDS ORDERED: BLOOD PRESSURE MED PO (09:06)
[2017-09-28] MEDS ORDERED: AMLO-110 PO (09:20)
[2017-09-28 10:03] LABS: BASO % 0.2 %; BASO ABS # 0.02 K/uL (0-0.2); COMPLETE YES; EOS % 0.6 %; HEMATOCRIT 37.9 % (42-52); IG% 0.1 %; LYMPH % 18.4 %; LYMPH ABS # 1.76 K/uL (1.2-3.4); MEAN CORPUSCULAR HEMOGLOBIN 32.8 pg (25-34); MEAN CORPUSCULAR HGB CONC 34.8 g/dl (32-36); MEAN PLATELET VOLUME 9.3 fL (7.4-10.4); MONO % 9.5 %; NEUT % 71.2 %; PLATELET COUNT 241 K/uL (130-400); RED BLOOD COUNT 4.03 M/uL (4.7-6.1); WHITE BLOOD COUNT 9.56 K/uL (4.8-10.8)
[2017-09-28 10:20] LABS: BUN/CREATININE RATIO 15.6 (10-20); CALCIUM 8.6 mg/dl (8.5-10.1); CREATININE 0.85 mg/dl (0.60-1.40); POTASSIUM 3.6 mmol/L (3.5-5.1)
[2017-09-28] MEDS ORDERED: ACETAMINOPHEN 325 MG TAB PO PRN (11:15)
[2017-09-28] MEDS ORDERED: ONDANSETRON INJ 2 MG/ML 2 ML VIAL IV PRN (11:15)
[2017-09-28 11:25] VITALS: O2SAT 99; Ht 175.3 cm; Wt 47.6 kg
[2017-09-28 12:00] VITALS: BP 160/78; PULSE 92; TEMP 36.6; O2SAT 96
--- NOTE | 2017-09-28 12:17 | History and Physical ---
History & Physical Date & Time of Service: Sep 28, 2017 ~ 10:30 Chief Complaint: Left Foot Pain Primary Care Physician: Noah Mayes MD History of Present Illness 66 year old male who presents to the ED with left foot pain. Patient is homeless and has had several admissions / ER visits in the past for trench foot. Patient presented to the ED with open shoes, wet socks, and soiled clothes. Patient reports he has been sleeping in a parking garage bathroom. He has declined halfway placement in the past. Patient reports the left foot pain started about 2 days ago with some mild redness on the dorsal aspect of the foot. Patient denies fever and chills. No chest pain or shortness of breath. Denies lightheadedness, dizziness, diaphoresis, or syncopal events. No abdominal pain, nausea, vomiting, or diarrhea. He has chronic urinary urgency and incontinence at times. In the ED, labs are unremarkable. Vitals are stable. Past Medical/Surgical History Medical Problems: (1) Alcohol abuse Status: Chronic (2) HTN (hypertension) Status: Chronic (3) Hypertension Status: Chronic (4) Tobacco use disorder Status: Chronic Surgical Problems: (1) H/O colonoscopy Status: Chronic Family History FH: CAD (coronary artery disease) FATHER ( of [place] age 56 ) Social History Smoking Status: Current Every Day Smoker Alcohol Use: 2 beers/day - heavier use in the past Drug Use: marijuana Housing status: other (homeless) Multi-Drug Resistant Organisms History of MDRO: No Allergies Coded Allergies: No Known Allergies (Unverified , 09/28/17) Home Medications Scheduled Amlodipine (Norvasc), 5 MG PO DAILY Review of Systems ROS per HPI, all other systems reviewed and negative Physical Exam Vital Signs Date Time Temp Pulse Resp B/P (MAP) Pulse Ox O2 Delivery O2 Flow Rate FiO2 09/28/17 11:36 87 16 127/61 99 09/28/17 11:25 99 Room Air 09/28/17 10:54 88 18 146/79 98 Room Air 09/28/17 09:52 94 18 150/76 100 Room Air 09/28/17 08:40 36.6 102 18 167/99 100 Room Air General Appearance: WD/WN, no apparent distress Head: normocephalic, atraumatic Eyes: normal inspection, EOMI, sclerae normal ENT: hearing grossly normal, + pertinent finding (mucous membranes moist) Neck: supple, no JVD, trachea midline Respiratory/Chest: lungs clear, normal breath sounds, no respiratory distress Cardiovascular: regular rate, rhythm, no edema, normal peripheral pulses Abdomen/GI: normal bowel sounds, non tender, soft, no organomegaly Extremities/Musculoskelatal: normal inspection, no calf tenderness, normal capillary refill Neurologic/Psych: no motor/sensory deficits, alert, normal mood/affect, oriented x 3 Skin: + pertinent finding (left foot plantar surface macerated; scattered red, blotchy areas on the dorsal aspect of the left foot) Diagnostics Laboratory Results Results Past 24 Hours Test 09/28/17 09:55 Range/Units White Blood Count 9.56 4.8-10.8 K/uL Red Blood Count 4.03 4.7-6.1 M/uL Hemoglobin 13.2 14.0-18.0 g/dL Hematocrit 37.9 42-52 % Mean Corpuscular Volume 94.0 80-100 fL Mean Corpuscular Hemoglobin 32.8 25-34 pg Mean Corpuscular Hemoglobin Concent 34.8 32-36 g/dl Platelet Count 241 130-400 K/uL Mean Platelet Volume 9.3 7.4-10.4 fL Neutrophils (%) (Auto) 71.2 % Lymphocytes (%) (Auto) 18.4 % Monocytes (%) (Auto) 9.5 % Eosinophils (%) (Auto) 0.6 % Basophils (%) (Auto) 0.2 % Neutrophils # (Auto) 6.80 1.4-6.5 K/uL Lymphocytes # (Auto) 1.76 1.2-3.4 K/uL Monocytes # (Auto) 0.91 0.11-0.59 K/uL Eosinophils # (Auto) 0.06 0-0.5 K/uL Basophils # (Auto) 0.02 0-0.2 K/uL RDW Standard Deviation 44.3 36.4-46.3 fL RDW Coefficient of Variation 12.8 11.5-14.5 % Immature Granulocyte % (Auto) 0.1 % Immature Granulocyte # (Auto) 0.01 0.00-0.02 K/uL Sodium Level 135 136-145 mmol/L Potassium Level 3.6 3.5-5.1 mmol/L Chloride Level 102 98-107 mmol/L Carbon Dioxide Level 29 21-32 mmol/L Anion Gap 4.0 3-11 mmol/L Blood Urea Nitrogen 13 7-18 mg/dl Creatinine 0.85 0.60-1.40 mg/dl Est Creatinine Clear Calc Drug Dose 58.3 ml/min Estimated GFR () 106.0 Estimated GFR (Non- 91.4 BUN/Creatinine Ratio 15.6 10-20 Random Glucose 91 70-99 mg/dl Calcium Level 8.6 8.5-10.1 mg/dl Impression Assessment and Plan TRENCH FOOT, LEFT - admit to med/surg - patient presenting with increasing left foot pain x 2 days; patient is homeless and has been unable to keep his feet dry - has had several ED visits/admissions for trench foot - currently afebrile, no leukocytosis; will hold on antibiotics for now - wound care consult HTN - BPs elevated on arrival however improving without intervention - has been on amlodipine in the past however prescription has not been filled for several months - monitor BP, resume amlodipine if necessary HX ETOH ABUSE - reports 2 beers/ day - has had several ED visits for ETOH intoxication - monitor for signs of withdrawal DVT PROPHYLAXIS - SQ Lovenox DISPO - The patient will be placed as observation status for now until further work up is complete. - Case management consults; noted that patient has declined halfway placement and office of aging aide in the past ADDENDUM: This is a 66 year old male with a PMH of HTN, who is homeless - presents to the ER with b/l foot pain. He has been admitted to the hospital with immersion foot/ trench foot in the past. States that last evening, he was staying in a bathroom in a [employer] garage. It snowed last night and he states he possibly had it immersed in the snow. The foot is red/erythematous, painful to touch without warmth, skin macerated on the plantar surface Plan is to keep the feet dry/clean wound care nursing for further input no role for antibiotics at this time has refused placement in the past, though discharge planning can talk to the patient again about this Advanced Directives Existing Living Will: No Existing Power of Customer Service Representative: No VTE Prophylaxis VTE Risk Assessment Done? Y/N: Yes Risk Level: Moderate
[2017-09-28] MEDS ORDERED: IV FLUIDS COMPLETED PRN (13:00)
[2017-09-28] MEDS: ENOXAPARIN 40 MG/0.4 ML SYR SQ SCH (13:22)
[2017-09-28 15:35] VITALS: BP 120/68; PULSE 88; TEMP 37.1; O2SAT 97
[2017-09-28 16:02] VITALS: O2SAT 97
[2017-09-28 22:03] VITALS: BP 118/72; PULSE 83; TEMP 37.1; O2SAT 95
[2017-09-29 07:52] VITALS: BP 121/62; PULSE 77; TEMP 36.8; O2SAT 95
--- NOTE | 2017-09-29 11:09 | Progress Note ---
Internal Med Progress Note Date of Service: Sep 29, 2017. Provider Documentation: SUBJECTIVE: The patient was seen and examined Foot pain is much better Denies any other symptoms Wants to be discharged OBJECTIVE: Vital Signs-as noted below Exam: General-No distress at rest Eyes-normal ENT-normal Neck-supple Lungs-clear to auscultate bilaterally Heart-Regular,no murmur appreciated Abdomen-Benign,no masses,bowel sound present Extremities-No edema No swelling and or redness A few small dry ulceration on dorsum of toes No cellulitis Neuro-AAOx3 Lab data as noted below. ASSESSMENT & PLAN: TRENCH FOOT, LEFT - admit to med/surg - patient presenting with increasing left foot pain x 2 days; patient is homeless and has been unable to keep his feet dry - has had several ED visits/admissions for trench foot - currently afebrile, no leukocytosis; will hold on antibiotics for now - wound care consult -appreciate input -No cellulitis and or arthritis of the foot HTN - BPs elevated on arrival however improving without intervention - has been on amlodipine in the past however prescription has not been filled for several months - monitor BP, resume amlodipine if necessary -BP is controlled and will put on any medication now HX ETOH ABUSE - reports 2 beers/ day - has had several ED visits for ETOH intoxication - no signs of withdrawal DVT PROPHYLAXIS - SQ Lovenox DISPO - The patient will be placed as observation status for now until further work up is complete. - Case management consults; noted that patient has declined penitentiary placement and office of aging aide in the past -medically stable to be discharged Vital Signs: Date Time Temp Pulse Resp B/P (MAP) Pulse Ox O2 Delivery O2 Flow Rate FiO2 09/29/17 08:00 Room Air 09/29/17 07:52 36.8 77 18 121/62 (81) 95 Room Air 09/29/17 00:00 Room Air 09/28/17 22:03 37.1 83 20 118/72 (87) 95 Room Air 09/28/17 16:02 97 Room Air 09/28/17 15:35 37.1 88 18 120/68 (85) 97 Room Air 09/28/17 12:00 36.6 92 18 160/78 (105) 96 Room Air 09/28/17 11:36 87 16 127/61 99 09/28/17 11:25 99 Room Air
[2017-09-29] MEDS: ENOXAPARIN 40 MG/0.4 ML SYR SQ SCH (13:18)
[2017-09-29 14:56] VITALS: BP 142/77; PULSE 68; TEMP 36.8; O2SAT 96
[2017-09-29] MEDS ORDERED: NICOTINE 14 MG/24 HR TDSY TD ONE (22:27)
[2017-09-29 22:35] VITALS: BP 121/62; PULSE 77; TEMP 36.8; O2SAT 95
[2017-09-30 07:14] VITALS: BP 157/85; PULSE 70; TEMP 36.7; O2SAT 97
[2017-09-30] MEDS ORDERED: NICOTINE 14 MG/24 HR TDSY TD SCH (09:00)
--- NOTE | 2017-09-30 10:05 | Progress Note ---
Internal Med Progress Note Date of Service: Sep 30, 2017. Provider Documentation: SUBJECTIVE: The patient was seen and examined Foot pain is much better No symptoms reported Wants ti leave before Lunch today OBJECTIVE: Vital Signs-as noted below Exam: General-No distress at rest Eyes-normal ENT-normal Neck-supple Lungs-clear to auscultate bilaterally Heart-Regular,no murmur appreciated Abdomen-Benign,no masses,bowel sound present Extremities-No edema No swelling and or redness A few small dry ulceration on dorsum of toes-much better today No cellulitis ,no sensory and or motor deficit Neuro-AAOx3 Lab data as noted below. ASSESSMENT & PLAN: TRENCH FOOT, LEFT - admit to med/surg - presented with increasing left foot pain x 2 days; patient is homeless and has been unable to keep his feet dry - has had several ED visits/admissions for trench foot -afebrile on admission , no leukocytosis; will hold on antibiotics for now - wound care consult -No cellulitis and or arthritis of the foot -Clinically stable to be discharged HTN - BPs elevated on arrival however improving without intervention - has been on amlodipine in the past however prescription has not been filled for several months - monitor BP, resume amlodipine if necessary -BP is at uper side -admits that he has BP medication at home and plans to take it HX ETOH ABUSE - reports 2 beers/ day - has had several ED visits for ETOH intoxication - no signs of withdrawal DVT PROPHYLAXIS - SQ Lovenox DISPO - The patient will be placed as observation status for now until further work up is complete. - Case management consults; noted that patient has declined group home placement and office of aging aide in the past -medically stable to be discharged Vital Signs: Date Time Temp Pulse Resp B/P (MAP) Pulse Ox O2 Delivery O2 Flow Rate FiO2 09/30/17 08:00 Room Air 09/30/17 07:14 36.7 70 18 157/85 (109) 97 Room Air 09/30/17 00:00 Room Air 09/29/17 22:35 36.8 77 18 121/62 (81) 95 Room Air 09/29/17 15:30 Room Air 09/29/17 14:56 36.8 68 20 142/77 (98) 96 Room Air
[2017-09-30] MEDS ORDERED: NICO14DI5 TD (10:07)
--- NOTE | 2017-09-30 10:09 | Discharge Instructions ---
Discharge Instructions Date of Service Sep 30, 2017. Admission Reason for Admission: Trench Foot Discharge Discharge Diagnosis / Problem: Left foot pain,HTN Discharge Goals Goal(s): Prevent Disease Progression Activity Recommendations Activity Limitations: resume your previous activity . Instructions / Follow-Up Instructions / Follow-Up Dr Mayes on 10/02/17 1:00PM Current Hospital Diet Patient's current hospital diet: AHA Diet (Heart Healthy) Discharge Diet Recommended Diet: Regular Diet, AHA Diet (Heart Healthy) Pending Studies Studies pending at discharge: no Medical Emergencies . Who to Call and When: Medical Emergencies: If at any time you feel your situation is an emergency, please call 911 immediately. . Non-Emergent Contact Non-Emergency issues call your: Primary Care Provider . Past History Medical & Surgical History: (1) Foot pain (2) Hypertension (3) Tobacco use disorder (4) Alcohol abuse (5) H/O colonoscopy . "Provider Documentation" section prepared by Rebeca Morales. . VTE Core Measure Inpt VTE Proph given/why not?: Enoxaparin (Lovenox)SQ
[2017-09-30 10:17] VITALS: BP 157/85; PULSE 70; TEMP 36.7; O2SAT 97
--- NOTE | 2017-10-01 07:45 | Discharge Summary ---
Discharge Summary Date of Service Oct 01, 2017. Discharge Summary Admission Date: Sep 28, 2017 at 11:07 Discharge Date: Sep 30, 2017 Discharge Disposition: Home Principal Diagnosis: Left foot pain,HTN Secondary Diagnoses/Problems: Please see H&P and Hospital Progress note Medication Reconciliation New Medications: Nicotine (Nicoderm Cq 14MG Patch) 14 Mg/24 Hr Dis 1 PATCH TD QAM for 30 Days, #30 Continued Medications: Amlodipine (Norvasc) 5 Mg Tab 5 MG PO DAILY, TAB HAS NOT FILLED SINCE FEBRUARY 2017 Admission Information HPI (per Admitting provider): 66 year old male who presents to the ED with left foot pain. Patient is homeless and has had several admissions / ER visits in the past for trench foot. Patient presented to the ED with open shoes, wet socks, and soiled clothes. Patient reports he has been sleeping in a parking garage bathroom. He has declined intermediate placement in the past. Patient reports the left foot pain started about 2 days ago with some mild redness on the dorsal aspect of the foot. Patient denies fever and chills. No chest pain or shortness of breath. Denies lightheadedness, dizziness, diaphoresis, or syncopal events. No abdominal pain, nausea, vomiting, or diarrhea. He has chronic urinary urgency and incontinence at times. In the ED, labs are unremarkable. Vitals are stable. Past Medical/Surgical History Medical Problems: (1) Alcohol abuse Status: Chronic (2) HTN (hypertension) Status: Chronic (3) Hypertension Status: Chronic (4) Tobacco use disorder Status: Chronic Surgical Problems: (1) H/O colonoscopy Status: Chronic Family History FH: CAD (coronary artery disease) FATHER ( of [place] age 56 ) Social History Smoking Status: Current Every Day Smoker Alcohol Use: 2 beers/day - heavier use in the past Drug Use: marijuana Housing status: other (homeless) Multi-Drug Resistant Organisms History of MDRO: No Allergies Coded Allergies: No Known Allergies (Unverified , 09/28/17) Home Medications Scheduled Amlodipine (Norvasc), 5 MG PO DAILY Review of Systems ROS per HPI, all other systems reviewed and negative Physical Ex - H&P Physical Exam Vital Signs Date Time Temp Pulse Resp B/P (MAP) Pulse Ox O2 Delivery O2 Flow Rate FiO2 09/28/17 11:36 87 16 127/61 99 09/28/17 11:25 99 Room Air 09/28/17 10:54 88 18 146/79 98 Room Air 09/28/17 09:52 94 18 150/76 100 Room Air 09/28/17 08:40 36.6 102 18 167/99 100 Room Air General Appearance: WD/WN, no apparent distress Head: normocephalic, atraumatic Eyes: normal inspection, EOMI, sclerae normal ENT: hearing grossly normal, + pertinent finding (mucous membranes moist) Neck: supple, no JVD, trachea midline Respiratory/Chest: lungs clear, normal breath sounds, no respiratory distress Cardiovascular: regular rate, rhythm, no edema, normal peripheral pulses Abdomen/GI: normal bowel sounds, non tender, soft, no organomegaly Extremities/Musculoskelatal: normal inspection, no calf tenderness, normal capillary refill Neurologic/Psych: no motor/sensory deficits, alert, normal mood/affect, oriented x 3 Skin: + pertinent finding (left foot plantar surface macerated; scattered red, blotchy areas on the dorsal aspect of the left foot) Diagnostics - H&P Diagnostics Laboratory Results Results Past 24 Hours Test 09/28/17 09:55 Range/Units White Blood Count 9.56 4.8-10.8 K/uL Red Blood Count 4.03 4.7-6.1 M/uL Hemoglobin 13.2 14.0-18.0 g/dL Hematocrit 37.9 42-52 % Mean Corpuscular Volume 94.0 80-100 fL Mean Corpuscular Hemoglobin 32.8 25-34 pg Mean Corpuscular Hemoglobin Concent 34.8 32-36 g/dl Platelet Count 241 130-400 K/uL Mean Platelet Volume 9.3 7.4-10.4 fL Neutrophils (%) (Auto) 71.2 % Lymphocytes (%) (Auto) 18.4 % Monocytes (%) (Auto) 9.5 % Eosinophils (%) (Auto) 0.6 % Basophils (%) (Auto) 0.2 % Neutrophils # (Auto) 6.80 1.4-6.5 K/uL Lymphocytes # (Auto) 1.76 1.2-3.4 K/uL Monocytes # (Auto) 0.91 0.11-0.59 K/uL Eosinophils # (Auto) 0.06 0-0.5 K/uL Basophils # (Auto) 0.02 0-0.2 K/uL RDW Standard Deviation 44.3 36.4-46.3 fL RDW Coefficient of Variation 12.8 11.5-14.5 % Immature Granulocyte % (Auto) 0.1 % Immature Granulocyte # (Auto) 0.01 0.00-0.02 K/uL Sodium Level 135 136-145 mmol/L Potassium Level 3.6 3.5-5.1 mmol/L Chloride Level 102 98-107 mmol/L Carbon Dioxide Level 29 21-32 mmol/L Anion Gap 4.0 3-11 mmol/L Blood Urea Nitrogen 13 7-18 mg/dl Creatinine 0.85 0.60-1.40 mg/dl Est Creatinine Clear Calc Drug Dose 58.3 ml/min Estimated GFR () 106.0 Estimated GFR (Non- 91.4 BUN/Creatinine Ratio 15.6 10-20 Random Glucose 91 70-99 mg/dl Calcium Level 8.6 8.5-10.1 mg/dl Impression - H&P Impression Assessment and Plan TRENCH FOOT, LEFT - admit to med/surg - patient presenting with increasing left foot pain x 2 days; patient is homeless and has been unable to keep his feet dry - has had several ED visits/admissions for trench foot - currently afebrile, no leukocytosis; will hold on antibiotics for now - wound care consult HTN - BPs elevated on arrival however improving without intervention - has been on amlodipine in the past however prescription has not been filled for several months - monitor BP, resume amlodipine if necessary HX ETOH ABUSE - reports 2 beers/ day - has had several ED visits for ETOH intoxication - monitor for signs of withdrawal DVT PROPHYLAXIS - SQ Lovenox DISPO - The patient will be placed as observation status for now until further work up is complete. - Case management consults; noted that patient has declined intermediate placement and office of aging aide in the past ADDENDUM: This is a 66 year old male with a PMH of HTN, who is homeless - presents to the ER with b/l foot pain. He has been admitted to the hospital with immersion foot/ trench foot in the past. States that last evening, he was staying in a bathroom in a [employer] parking garage. It snowed last night and he states he possibly had it immersed in the snow. The foot is red/erythematous, painful to touch without warmth, skin macerated on the plantar surface Plan is to keep the feet dry/clean wound care nursing for further input no role for antibiotics at this time has refused placement in the past, though discharge planning can talk to the patient again about this Advanced Directives Existing Living Will: No Existing Power of Supervisor Beet End: No VTE Prophylaxis VTE Risk Assessment Done? Y/N: Yes Risk Level: Moderate Physical Exam (per Admitting): General Appearance: WD/WN, no apparent distress Head: normocephalic, atraumatic Eyes: normal inspection, EOMI, sclerae normal ENT: hearing grossly normal, + pertinent finding (mucous membranes moist) Neck: supple, no JVD, trachea midline Respiratory/Chest: lungs clear, normal breath sounds, no respiratory distress Cardiovascular: regular rate, rhythm, no edema, normal peripheral pulses Abdomen/GI: normal bowel sounds, non tender, soft, no organomegaly Extremities/Musculoskelatal: normal inspection, no calf tenderness, normal capillary refill Neurologic/Psych: no motor/sensory deficits, alert, normal mood/affect, oriented x 3 Skin: + pertinent finding (left foot plantar surface macerated; scattered red, blotchy areas on the dorsal aspect of the left foot) Hospital Course TRENCH FOOT, LEFT - admit to med/surg - presented with increasing left foot pain x 2 days; patient is homeless and has been unable to keep his feet dry - has had several ED visits/admissions for trench foot -afebrile on admission , no leukocytosis; will hold on antibiotics for now - wound care consult -No cellulitis and or arthritis of the foot -Clinically stable to be discharged HTN - BPs elevated on arrival however improving without intervention - has been on amlodipine in the past however prescription has not been filled for several months - monitor BP, resume amlodipine if necessary -BP is at uper side -admits that he has BP medication at home and plans to take it HX ETOH ABUSE - reports 2 beers/ day - has had several ED visits for ETOH intoxication - no signs of withdrawal DVT PROPHYLAXIS - SQ Lovenox DISPO - The patient will be placed as observation status for now until further work up is complete. - Case management consults; noted that patient has declined intermediate placement and office of aging aide in the past -medically stable to be discharged Total time spent on discharge = 35 minutes This includes examination of the patient, discharge planning, medication reconciliation, and communication with other providers. Discharge Instructions Date of Service Sep 30, 2017. Admission Reason for Admission: Trench Foot Discharge Discharge Diagnosis / Problem: Left foot pain,HTN Discharge Goals Goal(s): Prevent Disease Progression Activity Recommendations Activity Limitations: resume your previous activity . Instructions / Follow-Up Instructions / Follow-Up Dr Mayes on 10/02/17 1:00PM Current Hospital Diet Patient's current hospital diet: AHA Diet (Heart Healthy) Discharge Diet Recommended Diet: Regular Diet, AHA Diet (Heart Healthy) Pending Studies Studies pending at discharge: no Medical Emergencies . Who to Call and When: Medical Emergencies: If at any time you feel your situation is an emergency, please call 911 immediately. . Non-Emergent Contact Non-Emergency issues call your: Primary Care Provider . Past History Medical & Surgical History: (1) Foot pain (2) Hypertension (3) Tobacco use disorder (4) Alcohol abuse (5) H/O colonoscopy . "Provider Documentation" section prepared by Rebeca Morales. . VTE Core Measure Inpt VTE Proph given/why not?: Enoxaparin (Lovenox)SQ <Electronically signed by Rebeca Morales M.D.> Signed: 09/30/17 1009 Additional Copies To Noah Mayes MD
== END 2017-09-30 10:29 | disposition home or self-care (01) ==
LOC: EDBD 08:27 → C.EDA 08:29 → C.MS2W 11:07 → ENRESERV 11:24
PROVIDERS: ADMIT Family Medicine; ATTEND Internal Medicine
DX: T69.022A Immersion foot, left foot, initial encounter (principal); I10 Essential (primary) hypertension; D64.9 Anemia, unspecified; F17.200 Nicotine dependence, unspecified, uncomplicated; Z82.49 Family history of ischemic heart disease and other diseases of the circulatory system; X31.XXXA Exposure to excessive natural cold, initial encounter

== ENCOUNTER 2017-10-02 08:11 | Emergency (ER) | payer OTHER ==
[~2017-10-02] VITALS: Ht 175.3 cm; Wt 44.7 kg
[~2017-10-02 08:11] MED LIST changes: -AMOX875T PO; -ASPI81TA28 PO; -MCTP/85 TOP; +NICO14DI5 TD
[2017-10-02 08:20] VITALS: Ht 175.3 cm; Wt 44.7 kg
[2017-10-02] MEDS ORDERED: IBUPROFEN 200 MG TAB PO ONE (09:00)
[2017-10-02 09:02] LABS: BASO % 0.1 %; BASO ABS # 0.02 K/uL (0-0.2); COMPLETE YES; EOS % 0.4 %; HEMATOCRIT 38.1 % (42-52); IG% 0.4 %; LYMPH % 16.3 %; LYMPH ABS # 2.21 K/uL (1.2-3.4); MEAN CELL VOLUME 94.3 fL (80-100); MEAN CORPUSCULAR HEMOGLOBIN 32.9 pg (25-34); MEAN CORPUSCULAR HGB CONC 34.9 g/dl (32-36); MEAN PLATELET VOLUME 9.1 fL (7.4-10.4); MONO % 4.9 %; NEUT % 77.9 %; PLATELET COUNT 247 K/uL (130-400); RED BLOOD COUNT 4.04 M/uL (4.7-6.1); WHITE BLOOD COUNT 13.54 K/uL (4.8-10.8)
[2017-10-02 09:20] LABS: BUN/CREATININE RATIO 16.8 (10-20); CALCIUM 8.8 mg/dl (8.5-10.1); CREATININE 0.95 mg/dl (0.60-1.40); POTASSIUM 3.9 mmol/L (3.5-5.1)
--- NOTE | 2017-10-02 10:18 | EMERGENCY ROOM VISIT NOTE ---
History First contact with patient: 08:14 Chief Complaint: FOOT PAIN Stated Complaint: FOOT PAIN History of Present Illness The patient is a 66 year old male with PMH of HTN and EtOH abuse, and is currently homeless who presents to the Emergency Room via EMS with complaints of left foot pain, which he states has been getting worse over the past 2 days, although he notes this is a chronic issue. He does report a history of trench foot, and was recently admitted to this hospital for the same, discharged two days ago. He reports that he has been unable to keep his feet dry due to being outside, and the pain has gotten worse due to the colder weather. He states he only has pain in the foot with walking, no pain at rest. He describes the pain as burning, on the bottom of his foot. He has not taken any medications for the pain. He denies any rashes or open wounds to the foot, denies fevers or chills, chest pain, SOB, abdominal pain, nausea or vomiting, urinary symptoms. He reports he has been cutting back on his drinking of alcohol, states usually 2 beers a day, last drink was yesterday. He is also a smoker. Review of Systems A complete 10 point review of systems was reviewed with the patient with pertinent positives and negatives as per history of present illness. All else were negative. Past Medical/Surgical History Medical Problems: (1) Alcohol abuse (2) HTN (hypertension) (3) Hypertension (4) Tobacco use disorder Surgical Problems: (1) H/O colonoscopy Family History FH: CAD (coronary artery disease) FATHER ( of [place] age 56 ) Social History Smoking Status: Current Every Day Smoker Alcohol Use: heavy Drug Use: marijuana Current/Historical Medications No Active Prescriptions or Reported Meds Physical Exam Vital Signs Date Time Temp Pulse Resp B/P (MAP) Pulse Ox O2 Delivery O2 Flow Rate FiO2 10/02/17 14:32 36.7 72 18 120/71 98 10/02/17 13:15 84 18 128/74 96 Room Air 10/02/17 11:15 90 18 130/77 96 Room Air 10/02/17 09:08 84 17 153/82 96 Room Air 10/02/17 08:20 36.7 93 18 134/76 99 Room Air Physical Exam CONSTITUTIONAL: No acute distress. Disheveled, soiled and damp clothing, open croc shoes with soaked socks on both feet. HEENT: Normocephalic, atraumatic. Pupils equal, round and reactive to light, EOMI. TMs normal. Pharynx normal. NECK: Supple, full active range of motion without discomfort. RESPIRATORY: Clear to auscultation bilaterally with no wheezing, crackles, rhonchi or stridor. Equal expansion bilaterally. CARDIOVASCULAR: Regular rate and rhythm with no murmurs, rubs or gallops. Normal peripheral perfusion. No edema. GASTROINTESTINAL: Soft, nontender, nondistended. Bowel sounds present in all quadrants. MUSCULOSKELETAL: Full range of motion of all joints without discomfort. Bilateral feet are cool to touch with delayed cap refill, 2+ DP and PT pulses, sensation intact. Tenderness to palpation of the left toes. Skin on both feet are moist and shriveled, small abrasion noted to left medial ankle, no other open wounds or drainage noted. INTEGUMENTARY: No rash or other significant dermatologic conditions noted. NEUROLOGIC: Alert and oriented X 4. Cranial nerves II-XII grossly intact. No focal neurologic deficits noted. Medical Decision & Procedures ER Provider Diagnostic Interpretation: L FOOT MIN 3 VIEWS ROUTINE CLINICAL HISTORY: Left foot pain COMPARISON: 07/29/2017 DISCUSSION: No acute fractures or dislocations are visualized. There are no bony erosive changes. IMPRESSION: No acute fractures. No evidence of erosive disease. Laboratory Results 10/02/17 08:50 Red Blood Count 4.04, Mean Corpuscular Volume 94.3, Mean Corpuscular Hemoglobin 32.9, Mean Corpuscular Hemoglobin Concent 34.9, Mean Platelet Volume 9.1, Neutrophils (%) (Auto) 77.9, Lymphocytes (%) (Auto) 16.3, Monocytes (%) (Auto) 4.9, Eosinophils (%) (Auto) 0.4, Basophils (%) (Auto) 0.1, Neutrophils # (Auto) 10.54, Lymphocytes # (Auto) 2.21, Monocytes # (Auto) 0.66, Eosinophils # (Auto) 0.06, Basophils # (Auto) 0.02 10/02/17 08:50 Test 10/02/17 08:50 10/02/17 13:30 White Blood Count 13.54 K/uL (4.8-10.8) Red Blood Count 4.04 M/uL (4.7-6.1) Hemoglobin 13.3 g/dL (14.0-18.0) Hematocrit 38.1 % (42-52) Mean Corpuscular Volume 94.3 fL (80-100) Mean Corpuscular Hemoglobin 32.9 pg (25-34) Mean Corpuscular Hemoglobin Concent 34.9 g/dl (32-36) Platelet Count 247 K/uL (130-400) Mean Platelet Volume 9.1 fL (7.4-10.4) Neutrophils (%) (Auto) 77.9 % Lymphocytes (%) (Auto) 16.3 % Monocytes (%) (Auto) 4.9 % Eosinophils (%) (Auto) 0.4 % Basophils (%) (Auto) 0.1 % Neutrophils # (Auto) 10.54 K/uL (1.4-6.5) Lymphocytes # (Auto) 2.21 K/uL (1.2-3.4) Monocytes # (Auto) 0.66 K/uL (0.11-0.59) Eosinophils # (Auto) 0.06 K/uL (0-0.5) Basophils # (Auto) 0.02 K/uL (0-0.2) RDW Standard Deviation 43.8 fL (36.4-46.3) RDW Coefficient of Variation 12.7 % (11.5-14.5) Immature Granulocyte % (Auto) 0.4 % Immature Granulocyte # (Auto) 0.05 K/uL (0.00-0.02) Anion Gap 9.0 mmol/L (3-11) Est Creatinine Clear Calc Drug Dose 49.0 ml/min Estimated GFR () 97.0 Estimated GFR (Non- 83.7 BUN/Creatinine Ratio 16.8 (10-20) Calcium Level 8.8 mg/dl (8.5-10.1) Urine Color YELLOW Urine Appearance CLEAR (CLEAR) Urine pH 6.0 (4.5-7.5) Urine Specific [place] 1.010 (1.000-1.030) Urine Protein NEG (NEG) Urine Glucose (UA) NEG (NEG) Urine Ketones NEG (NEG) Urine Occult Blood NEG (NEG) Urine Nitrite NEG (NEG) Urine Bilirubin NEG (NEG) Urine Urobilinogen NEG (NEG) Urine Leukocyte Esterase NEG (NEG) Medications Administered Medications (Trade) Dose Ordered Sig/Arron Route Start Time Stop Time Status Last Admin Dose Admin Ibuprofen (Advil Tab) 400 mg NOW ONCE PO 10/02/17 09:00 10/02/17 09:01 DC 10/02/17 08:46 400 MG Medical Decision CC: Patient presenting with complaint of a left foot pain Interpretation of Labs: Mild leukocytosis, no anemia, no significant electrolyte abnormalities, normal renal function. UA negative Differential Diagnosis: Includes, but not limited to trench foot, frostbite, fracture, osteomyelitis, cellulitis, among others. Medication Reconciliation: I attest that I have personally reviewed the patient' s current medication list. Vital signs review: I reviewed the patient's vital signs and interpret them as follows: T: Afebrile; BP: Normotensive; HR: WNL; RR: WNL; Pulse Ox: WNL on RA. Blood pressure screening: The patient was found to have normal blood pressure on screening and does not require follow-up for repeat blood pressure check. Summary: Patient was evaluated at bedside, history and physical exam performed. Patient is alert and oriented, in no acute distress. He is disheveled with poor hygiene, socks, shoes, and clothing are wet. Patient's feet are cool to the touch bilaterally with delayed cap refill, however DP and PT pulses are intact and strong. There is tenderness to palpation of the left toes. There are no significant open wounds or drainage to the feet noted. Orders were placed at bedside for labs, x-ray of the left foot to evaluate for fractures and osteomyelitis. Motrin for pain. Patient discussed with Dr. Phillips, who agrees with my assessment and plan. Labs reviewed as above, mild leukocytosis, no other acute abnormalities. X-ray reviewed, no evidence of fracture or osteomyelitis. Nursing notified me that the patient had an episode of urinary incontinence in bed, reporting his urine smelled strong. UA was done, no evidence for UTI. Patient was provided with dry clothing, dry socks and a pair of new boots by case management. Patient was provided with coffee and a meal as well. Patient reassessed multiple times throughout ED stay, he reports that his foot pain is improved. Reassessment of his feet performed, they are not warm to touch with brisk cap refill, and no longer tender to palpation. I discussed all results with the patient and plan for discharge, he was encouraged to follow up with his PCP. He was also strongly urged to keep his feet warm and dry, and to stay out of the cold as much as possible. She was given strict return precautions should his symptoms worsen, he verbalized understanding. Patient was discharged in stable condition and ambulatory. Head Trauma GCS Score: 15 Medication Reconcilliation Current Medication List: was personally reviewed by me Blood Pressure Screening Patient's blood pressure: Normal blood pressure Impression Primary Impression: Trench foot Departure Information Dispostion Home / Self-Care Condition GOOD Prescriptions No Active Prescriptions or Reported Meds Referrals Noah Mayes MD (PCP) Patient Instructions ED Frostbite Cold Injury, ED Hypothermia Prevention, [facility] Additional Instructions Keep your feet warm and dry to avoid worsening of your foot condition. Avoid spending prolonged periods of time outside in the cold. Follow-up with your primary care provider in the next 1-2 days for recheck of your feet. Please return to the emergency department for worsening symptoms, including severe worsening pain, redness or swelling of the feet or legs, loss of feeling in your feet, discoloration of the skin on your legs or feet, fevers or chills, or any other concerns. Problem Qualifiers Primary Impression: Trench foot Encounter type: subsequent encounter Laterality: left Qualified Codes: T69.022D - Immersion foot, left foot, subsequent encounter
--- NOTE | 2017-10-02 10:31 | DIAGNOSTIC IMAGING REPORT ---
L FOOT MIN 3 VIEWS ROUTINE CLINICAL HISTORY: Left foot pain COMPARISON: 07/29/2017 DISCUSSION: No acute fractures or dislocations are visualized. There are no bony erosive changes. IMPRESSION: No acute fractures. No evidence of erosive disease. Electronically signed by: Rohan Archuleta M.D. 10/02/2017 10:29 AM Dictated Date/Time: 10/02/2017 10:28 AM
[2017-10-02 13:58] LABS: URINE APPEARANCE CLEAR (CLEAR); URINE BILIRUBIN NEG (NEG); URINE COLOR YELLOW; URINE NITRITE NEG (NEG); UROBILINOGEN NEG (NEG); ZZURINE CULT IF INDIC CATH NO
[2017-10-02 13:59] LABS: MANUAL MICROSCOPIC REQUIRED? NO; REVIEW REQ? NO
[2017-10-02 14:32] VITALS: BP 120/71; PULSE 72; TEMP 36.7; O2SAT 98
== END 2017-10-02 14:34 | disposition home or self-care (01) ==
LOC: EDBD 08:11 → C.EDA 08:14
DX: T69.022D Immersion foot, left foot, subsequent encounter (principal); X39 Exposure to other forces of nature; S90.512A Abrasion, left ankle, initial encounter; X58.XXXA Exposure to other specified factors, initial encounter; F10.10 Alcohol abuse, uncomplicated; F17.200 Nicotine dependence, unspecified, uncomplicated; I10 Essential (primary) hypertension; Z82.49 Family history of ischemic heart disease and other diseases of the circulatory system

== ENCOUNTER 2017-10-04 04:00 | Emergency (ER) | payer OTHER ==
[~2017-10-04] VITALS: Ht 162.6 cm; Wt 54.0 kg
[2017-10-04 04:13] VITALS: TEMP 37; Ht 162.6 cm; Wt 54.0 kg
--- NOTE | 2017-10-04 05:30 | EMERGENCY ROOM VISIT NOTE ---
History First contact with patient: 04:09 Chief Complaint: FOOT PAIN Stated Complaint: FOOT PAIN History of Present Illness The patient is a 66 year old male who presents to the Emergency Room with complaints of bilateral feet pain for quite some time as a history of trench foot. Patient states he's had 4 alcoholic beverages today. Patient states his clothes and socks are wet. He describes the pain as burning, ranging in severity 5 out of 10 worse with ambulation and better with rest. The pain does not radiate to his ankle or calf. Patient denies chest pain, dyspnea, abdominal pain, fevers, numbness, tingling, cold symptoms. Patient states he is requesting drive close symptoms. He states he does not want to go the homeless detention. He has no other concerns. He feels as if his feet are baseline. Review of Systems See HPI for pertinent positives & negatives. A total of 10 systems reviewed and were otherwise negative. Past Medical/Surgical History Medical Problems: (1) Alcohol abuse (2) HTN (hypertension) (3) Hypertension (4) Tobacco use disorder Surgical Problems: (1) H/O colonoscopy Family History FH: CAD (coronary artery disease) FATHER ( of [place] age 56 ) Social History Smoking Status: Current Every Day Smoker Alcohol Use: heavy Drug Use: marijuana Marital Status: single Housing Status: lives alone Occupation Status: other (homeless) Current/Historical Medications No Active Prescriptions or Reported Meds Physical Exam Vital Signs Date Time Temp Pulse Resp B/P (MAP) Pulse Ox O2 Delivery O2 Flow Rate FiO2 10/04/17 04:13 37.0 93 18 154/107 98 Room Air Physical Exam VITALS: Vitals are noted on the nurse's note and reviewed by myself. Vital signs stable. GENERAL: Pleasant male, in no acute distress, nondiaphoretic, well-developed well-nourished. SKIN: Capillary reflex less than 2 seconds. Bilateral feet macerated, warm, wet and slightly erythematous with abrasions present with no lymphangitis or palpable abscess. Pedal pulses +2 equal present bilaterally. HEENT: Normocephalic. PERRLA. EOMI. Nares patent. Mucous membranes moist. Neck is supple without nuchal rigidity. HEART: Regular rate and rhythm without murmurs gallops or rubs. LUNGS: Clear to auscultation bilaterally without wheezes, rales or rhonchi. No retractions or accessory muscle use. ABDOMEN: Positive bowel sounds x 4. Normal tympanic percussion. Soft, nontender, without masses or organomegaly. Hammer sign negative. No guarding or rebound tenderness. MUSCULOSKELETAL: No gross musculoskeletal defects. No pedal edema. No calf tenderness. Bilateral feet nontender to palpation, macerated, warm, wet and slightly erythematous with abrasions present with no lymphangitis or palpable abscess. Pedal pulses +2 equal present bilaterally. Wound care picture from a few days ago is similar in appearance per chart review NEURO: Patient was alert and oriented to person place and time. Normal sensation to light and sharp touch. No focal neurological deficits. Medical Decision & Procedures ED Course Prior records reviewed and summarized as above. Triage Nursing notes reviewed. The patient's history was concerning for pain and redness of the feet. Differential diagnosis: Etiologies such as trench foot, cellulitis, abscess, MRSA infection, DVT, necrotizing fasciitis, dermatitis, drug eruption, as well as others were entertained.. Physical examination: The physical examination was consistent with trench foot ER treatment provided: The patient was given dry clothes. He was given a full meal. Patient declined any further workup. Patient refused to take a shower. On reassessment the patient felt better. Diagnostics interpreted by me: Prior lab work from a day and half ago was reviewed. Imaging studies: [~ rep ct add3]] L FOOT MIN 3 VIEWS ROUTINE CLINICAL HISTORY: Left foot pain COMPARISON: 07/29/2017 DISCUSSION: No acute fractures or dislocations are visualized. There are no bony erosive changes. IMPRESSION: No acute fractures. No evidence of erosive disease. Electronically signed by: Rohan Archuleta M.D. This appears to be ongoing trench foot. Patient no signs of cellulitis or abscess. Patient was offered information and help with the local detention and declined. Patient was given a full meal and dry clothes. He was pleased with this. He declined any further workup and I felt this is reasonable. Patient's been seen here multiple times for his ongoing trench foot. He was strongly encouraged to keep his feet dry and clean. He is advised follow-up family care in a few days or here in the ER sooner for fevers, severe pain, worsening signs or symptoms or as needed. Patient was neurovascularly and neurologically intact. By the evaluation outlined above emergent etiologies such as abscess, necrotizing fasciitis, DVT, as well as others were deemed relatively unlikely. The pt informed about the findings as listed above. All questions were answered and pleased with the treatment. Return instructions were outlined and the patient was discharged in stable condition. Referral: The patient was referred back to primary care physician for follow-up in 2 to 3 days for a recheck of the current condition. Medical Decision as above Medication Reconcilliation Current Medication List: was personally reviewed by me Blood Pressure Screening Patient's blood pressure: Elevated blood pressure Blood pressure disposition: Referred to PCP Impression Primary Impression: Trench foot Departure Information Dispostion Home / Self-Care Condition GOOD Prescriptions No Active Prescriptions or Reported Meds Referrals Noah Mayes MD (PCP) Patient Instructions My [facility] Additional Instructions Keep your feet dry and clean. Recommend avoid alcohol at all cost. Ibuprofen(Motrin, Advil) may be used for fever or pain. Use 600mg every six hours as needed. Take with food. Avoid using more than 2400mg in a 24 hour period. Do not use 2400mg per day for more than three consecutive days without physician direction. Prolonged inappropriate use can lead to stomach upset or ulcers. (AND/OR) Acetaminophen(Tylenol) may be used for fever or pain. Use 1000mg every six hours as needed. Avoid using more than 3000mg in a 24 hour period. Rest and drink plenty of fluids as tolerated. Continue current medications. Avoid strenuous activities and anything that worsens your pain. Resume normal activities once your symptoms resolve. Return to the ER immediately for worsening or persistent foot pain, abdominal pain, vomiting, fevers, chest pains, difficulty breathing, worsening of your condition, or as needed. Follow up with your primary physician in 2-3 days for a recheck of your current condition. Problem Qualifiers Primary Impression: Trench foot Encounter type: subsequent encounter Laterality: left Qualified Codes: T69.022D - Immersion foot, left foot, subsequent encounter
--- NOTE | 2017-10-04 05:40 | EMERGENCY ROOM VISIT NOTE ---
ED Visit Note First contact with patient: 04:09 I saw this patient in conjunction with Yaneth Mendes PA-C. I agree with her decision making and treatment plan.
[2017-10-04 05:58] VITALS: BP 147/98; PULSE 86; O2SAT 99
== END 2017-10-04 05:59 | disposition home or self-care (01) ==
LOC: EDBD 04:00 → C.EDA 04:01
DX: T69.021D Immersion foot, right foot, subsequent encounter (principal); T69.022D Immersion foot, left foot, subsequent encounter; X39 Exposure to other forces of nature; I10 Essential (primary) hypertension; F10.10 Alcohol abuse, uncomplicated; F17.200 Nicotine dependence, unspecified, uncomplicated; F12.90 Cannabis use, unspecified, uncomplicated; Z82.49 Family history of ischemic heart disease and other diseases of the circulatory system

== ENCOUNTER 2017-10-10 15:49 | Emergency (ER) | payer OTHER ==
[~2017-10-10] VITALS: Ht 175.3 cm; Wt 56.0 kg
[~2017-10-10 15:49] MED LIST changes: +BLOOD PRESSURE MED PO
[2017-10-10 15:52] VITALS: BP 115/64; PULSE 84; TEMP 36.7; O2SAT 100; Ht 175.3 cm; Wt 56.0 kg
--- NOTE | 2017-10-10 18:11 | EMERGENCY ROOM VISIT NOTE ---
History First contact with patient: 17:12 Chief Complaint: FOOT PAIN Stated Complaint: FOOT PAIN History of Present Illness The patient is a 66 year old male who presents to the Emergency Room via ambulance with complaints of "foot pain". The patient states that he is here again because he can barely walk secondary to his foot pain. He believes the trench foot his back. He rates the overall foot pain as a 9/10. He states he has been trying to keep the feet warm and dry with the boots he now has. He has been trying to sleep and warm areas. He is homeless. There is no chest pain, shortness of breath, fevers or chills. Review of Systems A complete 6-point Review of Systems was discussed with the patient, with pertinent positives and negatives listed in the History of Present Illness. All remaining Review of Systems questions can be considered negative unless otherwise specified. Past Medical/Surgical History Medical Problems: (1) Alcohol abuse (2) HTN (hypertension) (3) Hypertension (4) Tobacco use disorder Surgical Problems: (1) H/O colonoscopy Family History FH: CAD (coronary artery disease) FATHER ( of [place] age 56 ) Social History Smoking Status: Current Every Day Smoker Alcohol Use: heavy Drug Use: marijuana Marital Status: single Housing Status: lives alone Occupation Status: other Current/Historical Medications No Active Prescriptions or Reported Meds Physical Exam Vital Signs Date Time Temp Pulse Resp B/P (MAP) Pulse Ox O2 Delivery O2 Flow Rate FiO2 10/10/17 15:52 36.7 84 20 115/64 100 Room Air Physical Exam VITAL SIGNS - Vital signs and nursing notes were reviewed. Stable. GENERAL -66-year-old male appearing his stated age who is in no acute distress. Communicates well with provider and answers questions appropriately. SKIN - the right foot is only slightly macerated and appears to be healing, the left foot does reveal some maceration of the distal aspect but minimal erythema. No red streaking. No open sores that are draining. HEAD - NC/AT. EXTREMITIES - No clubbing or peripheral cyanosis. No pretibial edema present. Full range of motion of the feet. Tenderness to palpation overlying the plantar aspect of both feet. He is neurovascularly intact in this region. Medical Decision & Procedures Medical Decision Patient was seen a evaluated as above. He is wanted to the emergency Department and myself. I had a privilege of caring for him on previous visits. All of the previous visits I am unable to assess his feet, and this visit is perhaps the best his feet have looked a long time. There is no evidence of severe right foot. The right foot looks nearly healed. Left foot has some maceration but otherwise is excellent looking. 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 No evidence of infection. He is neurovascularly intact in this region. Per his request he was given coffee, warm blankets, and a turkey sandwich. He appears stable for outpatient management and was happy with this. He will take a cab to the local custodial [facility] as this was to be very cold. He was offered help for his current homeless situation however declined. He was educated upon management, educated upon worrisome symptoms which to return, had questions about discharge, and was discharged home with admission. I suspect is likely just experiencing foot pain secondary to having cold and wet feet and the temperature outside. Vital signs reviewed. Normotensive. Medications reviewed. Case was discussed with the attending physician. In evaluation treatment this patient the following differential diagnoses were entertained: Cellulitis, transferred, gangrene, nephrosis, among others. Impression Primary Impression: Foot pain Departure Information Dispostion Home / Self-Care Condition GOOD Prescriptions No Active Prescriptions or Reported Meds Referrals Noah Mayes MD (PCP) Patient Instructions My [facility] Additional Instructions You were seen in the emergency Department for footpain. Please keep your feet as dry and as warm as possible. Please use the dry socks that I have given you. I do recommend staying at the warm custodial. Please return with any new/concerning symptoms.
== END 2017-10-10 18:59 | disposition home or self-care (01) ==
LOC: C.EDB 15:50
DX: M79.671 Pain in right foot (principal); M79.672 Pain in left foot; I10 Essential (primary) hypertension; F17.200 Nicotine dependence, unspecified, uncomplicated; Z82.49 Family history of ischemic heart disease and other diseases of the circulatory system; Z59.0 Homelessness

== ENCOUNTER 2017-11-05 08:58 | Emergency (ER) | payer OTHER ==
[~2017-11-05] VITALS: Ht 175.3 cm; Wt 54.1 kg
[2017-11-05 09:15] VITALS: Ht 175.3 cm; Wt 54.1 kg
--- NOTE | 2017-11-05 09:37 | EMERGENCY ROOM VISIT NOTE ---
History Report prepared by Scribe: Yi Anna Under the Supervision of: Dr. Billy Mcrae M.D. First contact with patient: 09:29 Chief Complaint: OTHER COMPLAINT Stated Complaint: AMS, INCONTINENCE, TRENCH FOOT History of Present Illness The patient is a 66 year old male who presents to the Emergency Room with complaints of worsening left foot pain for the past few days. He has a history of trench foot and rates his discomfort as an 8/10 in severity. He complains of a cough for the past few days. He states he did experience abdominal pain after coughing a few days ago, but the pain went away after eating. The patient is currently homeless and this morning an individual who works for the [employer] found him to be "completely out of it" and states "he almost vomited", so she brought him to the ED. The patient states he currently feels well here in the ED. He reports having normal bowel movements and states he has been eating normally over the past few days. Source of History: patient, nursing staff Onset: past few days Position: foot (left) Symptom Intensity: 8/10 Timing: worsening Associated Symptoms: + cough, No abdominal pain Review of Systems See HPI for pertinent positives & negatives. A total of 10 systems reviewed and were otherwise negative. Past Medical & Surgical Medical Problems: (1) Alcohol abuse (2) HTN (hypertension) (3) Hypertension (4) Tobacco use disorder Surgical Problems: (1) H/O colonoscopy Family History FH: CAD (coronary artery disease) FATHER ( of [place] age 56 ) Social History Smoking Status: Current Every Day Smoker Alcohol Use: heavy Drug Use: marijuana Marital Status: single Housing Status: lives alone Occupation Status: other Current/Historical Medications No Active Prescriptions or Reported Meds Allergies Coded Allergies: No Known Allergies (Unverified , 11/05/17) Physical Exam Vital Signs Date Time Temp Pulse Resp B/P (MAP) Pulse Ox O2 Delivery O2 Flow Rate FiO2 11/05/17 13:30 37.0 82 20 147/81 92 11/05/17 13:29 82 20 147/81 92 Room Air 11/05/17 09:15 37.0 84 20 128/80 94 Room Air Physical Exam GENERAL: Patient is cachectic, at his baseline disheveled appearance, and in no acute distress. HEENT: No acute trauma, normocephalic atraumatic, mucous membranes moist, no nasal congestion, no scleral icterus. NECK: No stridor, no adenopathy, no meningismus, trachea is midline. LUNGS: No dyspnea. Clear to auscultation and equal bilaterally. No wheeze, no rhonchi. HEART: Regular rate and rhythm. No murmurs, rubs, gallops appreciated. ABDOMEN: Soft, nontender, bowel sounds positive, no masses appreciated, no peritonitis. BACK: No midline tenderness, no CVA tenderness EXTREMITIES: Mild erythema of bottom of bilateral feet, some discoloration of the toenails, some abrasions over the medial left ankle, slightly macerated bottom of left foot, full sensation, normal pulses. Normal motion all extremities, no cyanosis, no edema. NEUROLOGIC: Alert and oriented, no acute motor or sensory deficits, no focal weakness, cranial nerves grossly intact. SKIN: No rash, no jaundice, no diaphoresis. Medical Decision & Procedures ER Provider Diagnostic Interpretation: Radiology results and stated below per my review and radiologist interpretation: CHEST ONE VIEW PORTABLE HISTORY: 66 years-old Male reported cough, sleeping outdoors acute cough COMPARISON: Chest radiograph 08/30/2017 TECHNIQUE: Portable AP view of the chest FINDINGS: Cardiomediastinal and hilar silhouettes are within normal limits. Atherosclerosis of the aorta. Bilateral nipple shadows are noted without pneumothorax, pleural effusion, focal airspace consolidation or overt pulmonary edema. Emphysematous changes redemonstrated. Degenerative changes are seen within the shoulders and spine. IMPRESSION: Emphysema without acute process. The above report was generated using voice recognition software. It may contain grammatical, syntax or spelling errors. Electronically signed by: Jarad Alvarez M.D. 11/05/2017 10:19 AM Laboratory Results 11/05/17 10:06 Red Blood Count 4.04, Mean Corpuscular Volume 94.8, Mean Corpuscular Hemoglobin 32.2, Mean Corpuscular Hemoglobin Concent 33.9, Mean Platelet Volume 9.0, Neutrophils (%) (Auto) 53.8, Lymphocytes (%) (Auto) 25.3, Monocytes (%) (Auto) 20.5, Eosinophils (%) (Auto) 0.0, Basophils (%) (Auto) 0.2, Neutrophils # (Auto ) 2.35, Lymphocytes # (Auto) 1.11, Monocytes # (Auto) 0.90, Eosinophils # (Auto ) 0.00, Basophils # (Auto) 0.01 11/05/17 10:06 Test 11/05/17 10:06 White Blood Count 4.38 K/uL (4.8-10.8) Red Blood Count 4.04 M/uL (4.7-6.1) Hemoglobin 13.0 g/dL (14.0-18.0) Hematocrit 38.3 % (42-52) Mean Corpuscular Volume 94.8 fL (80-100) Mean Corpuscular Hemoglobin 32.2 pg (25-34) Mean Corpuscular Hemoglobin Concent 33.9 g/dl (32-36) Platelet Count 170 K/uL (130-400) Mean Platelet Volume 9.0 fL (7.4-10.4) Neutrophils (%) (Auto) 53.8 % Lymphocytes (%) (Auto) 25.3 % Monocytes (%) (Auto) 20.5 % Eosinophils (%) (Auto) 0.0 % Basophils (%) (Auto) 0.2 % Neutrophils # (Auto) 2.35 K/uL (1.4-6.5) Lymphocytes # (Auto) 1.11 K/uL (1.2-3.4) Monocytes # (Auto) 0.90 K/uL (0.11-0.59) Eosinophils # (Auto) 0.00 K/uL (0-0.5) Basophils # (Auto) 0.01 K/uL (0-0.2) RDW Standard Deviation 45.0 fL (36.4-46.3) RDW Coefficient of Variation 13.0 % (11.5-14.5) Immature Granulocyte % (Auto) 0.2 % Immature Granulocyte # (Auto) 0.01 K/uL (0.00-0.02) Anion Gap 9.0 mmol/L (3-11) Est Creatinine Clear Calc Drug Dose 62.6 ml/min Estimated GFR () 103.5 Estimated GFR (Non- 89.3 BUN/Creatinine Ratio 20.0 (10-20) Calcium Level 8.5 mg/dl (8.5-10.1) Magnesium Level 2.0 mg/dl (1.8-2.4) Total Bilirubin 0.4 mg/dl (0.2-1) Direct Bilirubin 0.1 mg/dl (0-0.2) Aspartate Amino Transf (AST/SGOT) 38 U/L (15-37) Alanine Aminotransferase (ALT/SGPT) 32 U/L (12-78) Alkaline Phosphatase 74 U/L (45-117) Total Protein 7.2 gm/dl (6.4-8.2) Albumin 3.3 gm/dl (3.4-5.0) Lipase 215 U/L (73-393) Laboratory results as reviewed by me. Medications Administered Medications (Trade) Dose Ordered Sig/Arron Route Start Time Stop Time Status Last Admin Dose Admin Multivitamins 10 ml/Thiamine HCl 100 mg/Folic Acid 1 mg/Sodium Chloride 1,011.2 ml @ 500 mls/ hr Q2H2M ONCE IV 11/05/17 10:15 11/05/17 12:16 DC 11/05/17 10:40 500 MLS/HR ED Course 0932: The patient was evaluated in room C8. A complete history and physical exam was performed. 1002: I reevaluated the patient. The caregiver at bedside states there must be something very wrong with him, he is having constant diarrhea, periodically acting altered and periodically foaming at the mouth. Jc denies all of this, but does admit to periodic diarrhea. The caregiver also notes she has been taking care of his feet and his feet look much better than normal. 1015: Multivitamin 1011.2 ml @ 500 mls/hr IV. 1105: I reevaluated the patient. He is feeling fine and would like to leave. I discussed his results and discharge instructions and he verbalized complete understanding and agreement. Medical Decision 66 yr old male arrives with caregiver for evaluation of his chronic trench foot as well as reported diarrhea, weakness, cough and abdominal pain. He has none of these symptoms currently and his feet look vastly improved from previous evaluations (which caregiver agrees with). Stable, breathing comfortably and happy. Did opt to give him Banana Bag based on his alcohol and homeless history. Large lab evaluation, cxr, and vitals unremarkable. 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 Discussed RTED if worsening or other concerns. Medication Reconcilliation Current Medication List: was personally reviewed by me Blood Pressure Screening Patient's blood pressure: Normal blood pressure Blood pressure disposition: Did not require urgent referral Impression Primary Impression: Trench foot Additional Impressions: Malnutrition Diarrhea Scribe Attestation The scribe's documentation has been prepared under my direction and personally reviewed by me in its entirety. I confirm that the note above accurately reflects all work, treatment, procedures, and medical decision making performed by me. Departure Information Dispostion Home / Self-Care Prescriptions No Active Prescriptions or Reported Meds Referrals Noah Mayes MD (PCP) Patient Instructions My [facility] Additional Instructions Keep feet warm and dry as much as possible. Return if return of cough, difficulty breathing, fevers, chest pain, abdominal pain or other concerns. We are always here to help. Please follow up with Primary Provider if diarrhea continues, or return here for repeat evaluation. Problem Qualifiers Primary Impression: Trench foot Encounter type: subsequent encounter Laterality: left Qualified Codes: T69.022D - Immersion foot, left foot, subsequent encounter
[2017-11-05] MEDS ORDERED: MULTI-VITAMIN INFUSION INJ 10 ML, THIAMINE HCL INJ 100 MG, FoLIC ACID INJ 1 MG in SODIU... IV ONE (10:15)
--- NOTE | 2017-11-05 10:21 | DIAGNOSTIC IMAGING REPORT ---
CHEST ONE VIEW PORTABLE HISTORY: 66 years-old Male reported cough, sleeping outdoors acute cough COMPARISON: Chest radiograph 08/30/2017 TECHNIQUE: Portable AP view of the chest FINDINGS: Cardiomediastinal and hilar silhouettes are within normal limits. Atherosclerosis of the aorta. Bilateral nipple shadows are noted without pneumothorax, pleural effusion, focal airspace consolidation or overt pulmonary edema. Emphysematous changes redemonstrated. Degenerative changes are seen within the shoulders and spine. IMPRESSION: Emphysema without acute process. The above report was generated using voice recognition software. It may contain grammatical, syntax or spelling errors. Electronically signed by: Jarad Alvarez M.D. 11/05/2017 10:19 AM Dictated Date/Time: 11/05/2017 10:18 AM
[2017-11-05 10:22] LABS: BASO % 0.2 %; BASO ABS # 0.01 K/uL (0-0.2); HEMATOCRIT 38.3 % (42-52); IG# 0.01 K/uL (0.00-0.02); LYMPH % 25.3 %; LYMPH ABS # 1.11 K/uL (1.2-3.4); MEAN CELL VOLUME 94.8 fL (80-100); MEAN CORPUSCULAR HEMOGLOBIN 32.2 pg (25-34); MEAN CORPUSCULAR HGB CONC 33.9 g/dl (32-36); MONO % 20.5 %; NEUT % 53.8 %; NEUT ABS # 2.35 K/uL (1.4-6.5); PLATELET COUNT 170 K/uL (130-400); WHITE BLOOD COUNT 4.38 K/uL (4.8-10.8)
[2017-11-05 10:38] LABS: ALBUMIN 3.3 gm/dl (3.4-5.0); CALCIUM 8.5 mg/dl (8.5-10.1); CREATININE 0.9 mg/dl (0.60-1.40); POTASSIUM 3.8 mmol/L (3.5-5.1)
[2017-11-05 10:41] LABS: TOTAL PROTEIN 7.2 gm/dl (6.4-8.2)
[2017-11-05 13:30] VITALS: BP 147/81; PULSE 82; TEMP 37; O2SAT 92
== END 2017-11-05 13:31 | disposition home or self-care (01) ==
LOC: C.EDB 09:00 → C.EDC 13:31
DX: T69.022A Immersion foot, left foot, initial encounter (principal); E46 Unspecified protein-calorie malnutrition; R19.7 Diarrhea, unspecified; X31.XXXA Exposure to excessive natural cold, initial encounter; Z59.0 Homelessness; F10.10 Alcohol abuse, uncomplicated; I10 Essential (primary) hypertension; F17.200 Nicotine dependence, unspecified, uncomplicated; F12.90 Cannabis use, unspecified, uncomplicated; Z82.49 Family history of ischemic heart disease and other diseases of the circulatory system

== ENCOUNTER 2017-11-16 23:41 | Emergency (ER) | payer OTHER ==
[~2017-11-16] VITALS: Ht 172.7 cm; Wt 58.3 kg
[2017-11-16 23:43] VITALS: TEMP 36.4; Ht 172.7 cm; Wt 58.3 kg
[2017-11-17] MEDS ORDERED: DIPHTHERIA/TETANUS/PERTUSSIS 0.5 ML SYR/VIAL IM. ONE (01:15)
--- NOTE | 2017-11-17 01:16 | EMERGENCY ROOM VISIT NOTE ---
History Report prepared by Sukhi: Arnaud Khan Under the Supervision of: Dr. Skye Nelson M.D. First contact with patient: 00:56 Chief Complaint: FALL Stated Complaint: FALL History of Present Illness The patient is a 66 year old male who presents to the Emergency Room with complaints of a sudden fall occurring prior to arrival. The patient states that he drank three beers, and he tripped and fell and hit the back of his head. Pt denies LOC/ SHAHID or neck pain. Source of History: patient Onset: prior to arrival Position: other (global) Quality: other (fall) Timing: other (sudden) Associated Symptoms: No neck pain Review of Systems See HPI for pertinent positives & negatives. A total of 10 systems reviewed and were otherwise negative. Past Medical & Surgical Medical Problems: (1) Alcohol abuse (2) HTN (hypertension) (3) Hypertension (4) Tobacco use disorder Surgical Problems: (1) H/O colonoscopy Family History FH: CAD (coronary artery disease) FATHER ( of [place] age 56 ) Social History Smoking Status: Current Every Day Smoker Alcohol Use: heavy Drug Use: marijuana Marital Status: single Housing Status: lives alone Occupation Status: other Current/Historical Medications Scheduled Cephalexin Monohydrate (Keflex), 500 MG PO QID Allergies Coded Allergies: No Known Allergies (Unverified , 11/19/17) Physical Exam Vital Signs Date Time Temp Pulse Resp B/P (MAP) Pulse Ox O2 Delivery O2 Flow Rate FiO2 11/17/17 04:00 82 18 132/89 96 11/17/17 02:01 75 19 132/102 96 Room Air 11/16/17 23:43 36.4 81 19 174/110 96 Room Air Physical Exam Vital signs reviewed. General: Intoxicated appearing male, in no significant distress. HEENT: Stellate laceration to the crown of the head with bleeding controlled. . No scleral icterus, PERRLA, neck supple. No tenderness to palpation of the C- spine. No step off or deformity. No other significant traumatic findings. Cardiovascular: Regular rate and rhythm, no extra sounds. Pulmonary: Clear to auscultation bilaterally, normal work of breathing. Abdomen: Soft, nontender, nondistended, positive bowel sounds. Musculoskeletal: Atraumatic, no peripheral edema. Neurologic: Patient awake alert and oriented x 3, full strength in all 4 extremities. Cranial nerves 2 through 12 grossly intact. GCS 15. Skin: Laceration as above. Medical Decision & Procedures ER Provider Diagnostic Interpretation: Radiology results as stated below per my review and radiologist interpretation: CT HEAD: Comparison 09/21 No ICH, mass effect or skull fracture . Scalp injury. Atrophy. Chronic appearing ischemic changes/lacunar infarcts. No evidence for acute large vessel infarct. Radiologist: Rashaun Mosley M.D. Laboratory Results Test 11/17/17 01:28 Ethyl Alcohol mg/dL 144.0 mg/dl (0-3) Laboratory results per my review. Medications Administered Medications (Trade) Dose Ordered Sig/Arron Route Start Time Stop Time Status Last Admin Dose Admin Diphtheria/ Pertussis/Tetanus Vacc (Adacel Inj) 0.5 ml ONCE ONCE IM. 11/17/17 01:15 11/17/17 01:16 DC 11/17/17 01:59 0.5 ML Procedure Wound approximated by Aryan Palacios PA-C. Please see his notes for further details. ED Course 0056: Past medical records reviewed. The patient was evaluated in room C10. A complete history and physical examination was performed. 0115: Adacel 0.5ml IM 0347: Upon reevaluation, the patient appeared to have improvement of his symptoms. I discussed findings with him. He verbalized agreement of the treatment plan. He was discharged home. Medical Decision Differential diagnosis include: Intracranial injury, cervical spine injury, intrathoracic injury, intra-abdominal injury, musculoskeletal injury. This pt was evaluated and appeared to be in no distress. Given ETOH and head injury, a head CT was performed. This study is negative for acute ICH. Wound was approximated by Aryan Palacios PA-C. Please see his notes for procedure details. Pt was d/c to a taxi. He was given wound care instructions. He will return to the ED for staple removal and/or any medical concerns. Head Trauma GCS Score: 15 Medication Reconcilliation Current Medication List: was personally reviewed by me Blood Pressure Screening Patient's blood pressure: Elevated blood pressure Blood pressure disposition: Elevated BP felt to be situational Impression Primary Impression: Closed head injury Additional Impressions: Alcohol intoxication Scalp laceration Scribe Attestation The scribe's documentation has been prepared under my direction and personally reviewed by me in its entirety. I confirm that the note above accurately reflects all work, treatment, procedures, and medical decision making performed by me. Departure Information Dispostion Home / Self-Care Referrals Noah Mayes MD (PCP) Forms HOME CARE DOCUMENTATION FORM, IMPORTANT VISIT INFORMATION Patient Instructions ED Head Injury Closed, My [facility] Additional Instructions Diagnosis: Closed head injury, alcohol intoxication, scalp laceration You were given a tetanus, diphtheria and pertussis vaccination today. Read head injury handout and return for any symptoms. Keep wound clean and dry. No water on the area for 12-24 hrs then no soaking until tarik removed. Do not allow any crusting or dried blood to accumulate on tarik. If this occurs, use a 1:1 solution of hydrogen peroxide/water on a Q-tip to clean the wound. Use an antibiotic ointment for 3-4 days, then let wound dry. Staple removal in 10 days. Return sooner for any signs of infection (increasing redness, swelling, drainage). Ice and elevate for swelling and pain. Tylenol 650 mg every 6 hrs for pain. Please follow-up with your primary care provider this week for reevaluation. Return to the ER for worsening of symptoms or any medical concerns. Problem Qualifiers
[2017-11-17] MEDS ORDERED: XYLOCAINE 1%/SOD BICARB 20 ML VIAL INFIL ONE (02:15)
--- NOTE | 2017-11-17 02:38 | EMERGENCY ROOM VISIT NOTE ---
ED Visit Note Patient was seen and evaluated at the request of my attending physician, Dr. Nelson, for a scalp laceration. Please see Dr. Nelson's dictation for full history of present illness and Emergency Department course outside of this repair. In short, the patient suffered a fall, and now has a 3.0 cm irregular M shaped laceration to the posterior occiput. This does gape and will require repair. Laceration repair. Patient elects to have their laceration repaired. Verbal consent was obtained to perform the procedure. There is an abundance of materials available for the procedure. Patient is not allergic to latex. Using sterile technique the wound was cleaned with Betadine. The area was sterilely draped. 6 ml of 1% buffered lidocaine was used to anesthetize the scalp laceration. Once the patient was anesthetized, the wound was copiously irrigated under pressure with sterile saline. The wound was explored and there were no deep structures injured such as tendons, bone, or significant blood vessels. The laceration was repaired using 8 tarik with the wound edges being well approximated. Hemostasis was achieved. The area was cleaned with sterile saline and dressed with bacitracin ointment and bandage. Patient tolerated the procedure well without complications. Blood loss was negligible. I refer you back to Dr. Nelson's dictation for further patient care. Problem List Medical Problems: (1) Alcohol abuse Status: Chronic (2) HTN (hypertension) Status: Chronic (3) Hypertension Status: Chronic (4) Tobacco use disorder Status: Chronic Surgical Problems: (1) H/O colonoscopy Status: Chronic Current/Historical Medications No Active Prescriptions or Reported Meds Allergies Coded Allergies: No Known Allergies (Unverified , 11/17/17) Vital Signs Date Time Temp Pulse Resp B/P (MAP) Pulse Ox O2 Delivery O2 Flow Rate FiO2 11/17/17 02:01 75 19 132/102 96 Room Air 11/16/17 23:43 36.4 81 19 174/110 96 Room Air Laboratory Results Test 11/17/17 01:28 Ethyl Alcohol mg/dL 144.0 mg/dl (0-3) Medications Administered Medications (Trade) Dose Ordered Sig/Arron Route Start Time Stop Time Status Last Admin Dose Admin Diphtheria/ Pertussis/Tetanus Vacc (Adacel Inj) 0.5 ml ONCE ONCE IM. 11/17/17 01:15 11/17/17 01:16 DC 11/17/17 01:59 0.5 ML Departure Information Prescriptions No Active Prescriptions or Reported Meds Referrals Noah Mayes MD (PCP) Patient Instructions [facility]
[2017-11-17 04:00] VITALS: BP 132/89; PULSE 82; O2SAT 96
--- NOTE | 2017-11-17 07:04 | DIAGNOSTIC IMAGING REPORT ---
CT SCAN OF THE BRAIN WITHOUT IV CONTRAST CLINICAL HISTORY: Fall. Intoxication. COMPARISON STUDY: CT of the brain dated 09/21/2017. TECHNIQUE: Unenhanced axial CT scan of the brain is performed from the vertex to the skull base. A dose lowering technique was utilized adhering to the principles of ALARA. CT DOSE: 614.27 mGy.cm FINDINGS: Brain parenchyma: There are age-advanced involutional changes noting moderate subcortical and periventricular microangiopathic change. Small chronic lacunar infarcts are present in both caudate heads and the right basal ganglia. There is no hemorrhage, mass effect, or evidence of acute territorial ischemia by CT criteria. Guardado-white matter is preserved. No extra-axial fluid collection is seen. Ventricles, sulci, cisterns: Prominent secondary to involutional change. Intracranial vasculature: There is atherosclerotic calcification of the cavernous carotid arteries. Calvarium: There is no depressed calvarial fracture. Soft tissues: There is a small right posterior parietal scalp contusion/laceration. Sinuses and mastoids: The visualized paranasal sinuses are clear. The mastoid air cells are well pneumatized. Orbits: The bony orbits are grossly intact. IMPRESSION: Senescent changes as above with no hemorrhage, mass effect, or evidence of acute territorial ischemia by CT criteria. Electronically signed by: Ramu Good M.D. 11/17/2017 7:02 AM Dictated Date/Time: 11/17/2017 7:00 AM
== END 2017-11-17 04:00 | disposition home or self-care (01) ==
LOC: EDBD 23:41 → C.EDC 23:42
DX: S01.01XA Laceration without foreign body of scalp, initial encounter (principal); W18.09XA Striking against other object with subsequent fall, initial encounter; F10.120 Alcohol abuse with intoxication, uncomplicated; Y90.6 Blood alcohol level of 120-199 mg/100 ml; I10 Essential (primary) hypertension; F17.210 Nicotine dependence, cigarettes, uncomplicated; F12.90 Cannabis use, unspecified, uncomplicated; Z82.49 Family history of ischemic heart disease and other diseases of the circulatory system; Z23 Encounter for immunization

== ENCOUNTER 2017-11-19 00:54 | Emergency (ER) | payer OTHER ==
[~2017-11-19] VITALS: Ht 175.3 cm; Wt 55.5 kg
[2017-11-19 00:58] VITALS: TEMP 36.7; Ht 175.3 cm; Wt 55.5 kg
[2017-11-19] MEDS ORDERED: LIDOCAINE/EPINEPHRINE 1% 20 ML VIAL INFIL STA (02:39)
[2017-11-19] MEDS ORDERED: CEPHALEXIN 500MG HOME PACK 1 EA BTL PO STA (03:07)
--- NOTE | 2017-11-19 03:10 | EMERGENCY ROOM VISIT NOTE ---
ED Visit Note First contact with patient: 01:27 CHIEF COMPLAINT: right knee pain with laceration, fall HISTORY OF PRESENT ILLNESS: This 66-year-old male patient presents to the emergency department approximately 3 hours after sustaining an injury to the right knee when he fell on the sidewalk, landing on the right knee. He states he also sustained a laceration to the knee at the time of the fall. The patient denies any other injuries besides their knee. The patient does report swelling, but no bruising. There is pain over the anterior aspect of the knee. There has been minimal bleeding from the laceration, but that the patient does describe oozing. They rate the pain as sharp and 10/10. The patient states they are able to walk on it. No numbness or tingling. No previous injuries to this knee. No ankle, foot or hip pain. Tetanus vaccination is UTD. REVIEW OF SYSTEMS: A 6 system review of systems was completed with positives and pertinent negatives listed in the HPI. ALLERGIES: None MEDICATIONS: None PMH: Hypertension SOCIAL HISTORY: The patient is homeless. He admits to drinking 2 beers per day. He denies drug or tobacco use. PHYSICAL EXAM: Vital Signs: Reviewed Nurse's notes, vital signs stable. GENERAL : This is a 66-year-old white male, no acute distress, but appears in pain, well -developed, well-nourished. MENTAL STATUS: Alert, oriented to person place and time, and cooperative. MUSCULOSKELETAL: The right knee is moderately swollen over the anterior aspect/bursa. There is no ecchymosis. There is joint effusion present. The patient is tender anteriorly. There is no joint line tenderness. The patella does appropriately subluxate. Range of motion is full, but painful. Strength of the quads and hamstrings is 5/5. Braulio's is negative. Aretha's and Anterior Drawer tests are negative. There is no discomfort or laxity with varus and valgus stressing. The foot and toes are warm and well-perfused. Dorsalis pedis pulse 2+. Sensation to pain and light touch is intact. Capillary refill less than 2 seconds. RADIOLOGY: X-Ray Right Knee: FINDINGS: No acute fracture or malalignment. Minimal osteophytosis in the patellofemoral compartment. Exuberant prepatellar and infrapatellar soft tissue swelling. A potential laceration may also be present in the prepatellar region. No patellar subluxation. Trace knee joint effusion. Atherosclerosis. IMPRESSION: 1. Extensive soft tissue injury in the prepatellar and infrapatellar region with possible laceration. 2. Trace knee joint effusion. 3. No acute osseous injury. 4. Degenerative changes in the patellofemoral compartment. EMERGENCY DEPARTMENT COURSE: I examined the patient. X-rays of the right knee were reviewed by myself and read by radiology and reveal soft tissue injury, trace joint effusion, but no acute osseous injury. Verbal consent was obtained to perform the procedure. Using sterile technique the wound was cleaned with Betadine. The area was sterilely draped. 4 ml of 1 % lidocaine with epinephrine was used to anesthetize the laceration on the right knee. Once the patient was anesthetized, the wound was copiously irrigated under pressure with sterile saline. The wound was explored and there were no deep structures injured such as tendons, bone, or significant blood vessels. The laceration was repaired using 6 simple interrupted 4-0 nylon sutures with the wound edges being well approximated. The patient tolerated the procedure well. Hemostasis was achieved. The area was cleaned with sterile saline and dressed with bacitracin ointment and bandage. I did offer the patient a knee immobilizer or crutches/walker. He declines and states "I would feel silly with that stuff." He will be started on Keflex to prevent infection, as I was not completely convinced the laceration on the knee was new from this fall, as there were scabbed portions around the laceration. The patient was discharged home in good condition. I attest that I have personally reviewed the patient's current medication list. Patient was found to have normal blood pressure on screening and does not require follow-up. Differential diagnosis includes contusion, sprain/strain, fracture, laceration, infection, bursitis, cellulitis, abscess, malignancy, and others DIAGNOSIS: Right knee contusion, right knee laceration Problem List Medical Problems: (1) Alcohol abuse Status: Chronic (2) HTN (hypertension) Status: Chronic (3) Hypertension Status: Chronic (4) Tobacco use disorder Status: Chronic Surgical Problems: (1) H/O colonoscopy Status: Chronic Current/Historical Medications Scheduled Cephalexin Monohydrate (Keflex), 500 MG PO QID Allergies Coded Allergies: No Known Allergies (Unverified , 11/19/17) Vital Signs Date Time Temp Pulse Resp B/P (MAP) Pulse Ox O2 Delivery O2 Flow Rate FiO2 11/19/17 03:27 96 16 153/92 96 Room Air 11/19/17 00:58 36.7 91 20 161/87 100 Room Air Medications Administered Medications (Trade) Dose Ordered Sig/Arron Route Start Time Stop Time Status Last Admin Dose Admin Cephalexin Monohydrate (Keflex 500MG Home Pack) 1 homepack NOW STAT PO 11/19/17 03:07 11/19/17 03:09 DC 11/19/17 03:33 1 HOMEPACK Departure Information Impression Primary Impression: Laceration of right knee Additional Impressions: Contusion of right knee, initial encounter Fall (on)(from) sidewalk curb, initial encounter Dispostion Home / Self-Care Condition GOOD Prescriptions Cephalexin Monohydrate (Keflex) 500 Mg Cap 500 MG PO QID for 6 Days, #24 CAP Prov: Kalina Gallego PA-C 11/19/17 Referrals Noah Mayes MD (PCP) Patient Instructions ED Contusion Lower Ext, ED Laceration Ext Sutr Stap Tape, [employer] [facility] [employer] Additional Instructions You have received 6 sutures on your right knee. These sutures are NOT dissolvable and WILL need to be removed by a health care provider in 10 days. You can return to the Emergency Department or contact your Primary Care Provider to have the sutures removed. Proper wound care is essential for adequate wound healing and infection prevention. You can shower and clean the wound with soap and water. Do not scour over the wound, pat dry with a towel. Do not submerse the wound (i.e. bathe or dish wash) until the sutures have been removed. You can use an antibiotic ointment with a dressing over the wound for the next 3-4 days. After this time you may leave the wound dry and open to the air. If crust develops over the wound you can use a Q-tip to apply a 1:1 peroxide:water solution to clean the wound. Cephalexin(Keflex) 500mg: Take one pill four times daily for 7 days to prevent skin infection. All antibiotics can cause diarrhea. If this occurs and you feel worse or it does not resolve in 1-2 days follow up with your doctor or return to the Emergency Department as this could be signs of serious underlying problems. Any medication can cause an allergic reaction, stop the pills immediately and return to the ER for rash, hives, breathing difficulties, or swelling. Look for signs of infection of the wound including: increased pain, swelling, foul discharge, streaking, or increased temperature. If any of these are noticed you should return to the Emergency Department for further assessment and treatment. As with any laceration you may have received nerve damage to the surrounding tissues. This damage may or may not be permanent. You should keep the area covered with sunscreen for the first 6 months to 1 year when at risk for exposure to help minimize scarring. You can also use scar reducing creams or Vitamin E oil to help minimize scarring. For pain control, you can use the following [id number] medicines (if >12 yo): Ibuprofen(Motrin, Advil) may be used for fever or pain. Use 600mg every six hours as needed. Take with food. Avoid using more than 2400mg in a 24 hour period. Do not use 2400mg per day for more than three consecutive days without physician direction. Prolonged inappropriate use can lead to stomach upset or ulcers. (AND/OR) Acetaminophen(Tylenol) may be used for fever or pain. Use 1000mg every six hours as needed. Avoid using more than 3000mg in a 24 hour period. Return to the emergency department if your symptoms worsen despite treatment course outlined above. Problem Qualifiers Primary Impression: Laceration of right knee Encounter type: initial encounter Qualified Codes: S81.011A - Laceration without foreign body, right knee, initial encounter
[2017-11-19 03:27] VITALS: BP 153/92; PULSE 96; O2SAT 96
--- NOTE | 2017-11-19 03:27 | EMERGENCY ROOM VISIT NOTE ---
ED Visit Note First contact with patient: 01:27 I saw this patient in conjunction with Kalina Gallego PA-C. I agree with her decision making and treatment plan.
[2017-11-19] MEDS ORDERED: CEPH500C PO (03:36)
--- NOTE | 2017-11-19 06:46 | DIAGNOSTIC IMAGING REPORT ---
R KNEE 3 VIEWS CLINICAL HISTORY: 66 years-old Male presenting with R knee pain, fall. TECHNIQUE: Frontal, lateral, and sunrise views of the right knee were obtained. COMPARISON: None. FINDINGS: No acute fracture or malalignment. Minimal osteophytosis in the patellofemoral compartment. Exuberant prepatellar and infrapatellar soft tissue swelling. A potential laceration may also be present in the prepatellar region. No patellar subluxation. Trace knee joint effusion. Atherosclerosis. IMPRESSION: 1. Extensive soft tissue injury in the prepatellar and infrapatellar region with possible laceration. 2. Trace knee joint effusion. 3. No acute osseous injury. 4. Degenerative changes in the patellofemoral compartment. Electronically signed by: Lenin Young M.D. 11/19/2017 6:45 AM Dictated Date/Time: 11/19/2017 6:43 AM
[2017-11-24] MEDS ORDERED: ASPEC81 PO (12:19)
[2017-11-24] MEDS ORDERED: AMLO-110 PO (12:19)
[2017-11-24] MEDS ORDERED: CEPH500C PO (12:19)
[2017-11-24] MEDS ORDERED: THIA1TAB PO (12:19)
--- NOTE | 2017-12-04 07:57 | EDITING REQUIRED CODING QUERY ---
WOUND CLARIFICATION To promote full compliance with coding requirements relating to patient care, physician participation is requested in all cases of icd 9 coder uncertainty. Please assist us with the question(s) below: Please place an "X" within the parenthesis (x). If other, please specify. Please provide further clarification on the type of (icd 9 coder insert). ( ) Ulcer ( X) Open wound due to trauma- LENGTH OF WOUND IS NOT DOCUMENTED IN ER NOTE - 2.5cm wound ( ) Blister ( ) Other: (Please specify) Thank you Stephania Mello
== END 2017-11-19 03:41 | disposition home or self-care (01) ==
LOC: C.EDA 00:54 → EDBD 00:54 → C.EDA 03:41
DX: S81.011A Laceration without foreign body, right knee, initial encounter (principal); W10.1XXA Fall (on)(from) sidewalk curb, initial encounter; I10 Essential (primary) hypertension; F10.99 Alcohol use, unspecified with unspecified alcohol-induced disorder

== ENCOUNTER 2017-11-20 21:29 | Emergency (ER) | payer OTHER ==
[~2017-11-20] VITALS: Ht 175.3 cm; Wt 51.8 kg
[~2017-11-20 21:29] MED LIST changes: -AMLO-110 PO; -BLOOD PRESSURE MED PO; +CEPH500C PO; -NICO14DI5 TD
[2017-11-20 21:44] VITALS: TEMP 37.3; Ht 175.3 cm; Wt 51.8 kg
--- NOTE | 2017-11-20 22:24 | DIAGNOSTIC IMAGING REPORT ---
RIGHT KNEE 3 VIEWS CLINICAL HISTORY: Right knee pain status post trauma COMPARISON: 11/19/2017 DISCUSSION: No fractures or dislocations are visualized. There is prominent prepatellar soft tissue swelling. Vascular calcifications are evident. IMPRESSION: Anterior soft tissue edema. No acute fractures are visualized Electronically signed by: Rohan Archuleta M.D. 11/20/2017 10:23 PM Dictated Date/Time: 11/20/2017 10:22 PM
[2017-11-20] MEDS ORDERED: CEFTRIAXONE SOD INJ 1 GM ADDVIAL IV STA (22:51)
[2017-11-20 23:21] LABS: BASO % 0.1 %; BASO ABS # 0.02 K/uL (0-0.2); HEMATOCRIT 38.7 % (42-52); HEMOGLOBIN 13.1 g/dL (14.0-18.0); IG# 0.08 K/uL (0.00-0.02); LYMPH % 9.5 %; MEAN CORPUSCULAR HEMOGLOBIN 31.5 pg (25-34); MEAN CORPUSCULAR HGB CONC 33.9 g/dl (32-36); MEAN PLATELET VOLUME 9.4 fL (7.4-10.4); MONO % 8.5 %; MONO ABS # 1.52 K/uL (0.11-0.59); NEUT % 81.5 %; NEUT ABS # 14.56 K/uL (1.4-6.5); PLATELET COUNT 412 K/uL (130-400); RED CELL DISTRIBUTION WIDTH CV 12.7 % (11.5-14.5); RED CELL DISTRIBUTION WIDTH SD 42.7 fL (36.4-46.3); WHITE BLOOD COUNT 17.88 K/uL (4.8-10.8)
[2017-11-20 23:44] LABS: CALCIUM 9.1 mg/dl (8.5-10.1); CREATININE 0.73 mg/dl (0.60-1.40); POTASSIUM 3.9 mmol/L (3.5-5.1)
--- NOTE | 2017-11-21 00:33 | EMERGENCY ROOM VISIT NOTE ---
ED Visit Note First contact with patient: 22:04 I have personally seen and evaluated the patient with the physician assistant store director. I agree with the diagnostic/management decisions and have personally been involved in these decisions and agree with the diagnosis.
[2017-11-21] MEDS ORDERED: SEPTRA DS HOME PACK 1 EA VIAL PO ONE (01:15)
[2017-11-21] MEDS ORDERED: SULF800T23 PO (01:17)
[2017-11-21] MEDS ORDERED: CEPH500C PO (01:17)
--- NOTE | 2017-11-21 01:18 | EMERGENCY ROOM VISIT NOTE ---
History First contact with patient: 22:04 Chief Complaint: KNEEPAIN Stated Complaint: R KNEE PAIN, SLIPPED ON ICE History of Present Illness The patient is a 66 year old male who presents to the Emergency Room with complaints of right knee pain. The patient reports he has had several injuries to the knee in the past week. He was seen here yesterday and had sutures placed in the knee. He states that his pain is increased today. Pain is worse with walking and movement. He rates his discomfort a 10/10. He denies any fevers/chills. Review of Systems A complete 10 point review of systems was reviewed with the patient with pertinent positives and negatives as per history of present illness. All else were negative. Past Medical/Surgical History Medical Problems: (1) Alcohol abuse (2) HTN (hypertension) (3) Hypertension (4) Tobacco use disorder Surgical Problems: (1) H/O colonoscopy Family History FH: CAD (coronary artery disease) FATHER ( of [place] age 56 ) Social History Smoking Status: Current Every Day Smoker Alcohol Use: heavy Drug Use: marijuana Marital Status: single Housing Status: lives alone Occupation Status: other Current/Historical Medications Scheduled Cephalexin Monohydrate (Keflex), 500 MG PO QID Cephalexin Monohydrate (Keflex), 500 MG PO QID Sulfa/Trimethoprim (Bactrim Ds 800MG/160MG), 1 TAB PO BID Physical Exam Vital Signs Date Time Temp Pulse Resp B/P (MAP) Pulse Ox O2 Delivery O2 Flow Rate FiO2 11/21/17 02:17 90 16 153/98 98 11/21/17 01:12 88 16 181/99 96 Room Air 11/20/17 21:44 37.3 94 20 15/85 97 Room Air Physical Exam VITALS: Vitals are noted on the nurse's note and reviewed by myself. Vital signs stable. GENERAL: This is a 66-year-old male, disheveled appearing, in no acute distress. SKIN: There is a sutured wound on the anterior right knee with surrounding erythema and tenderness to palpation. HEART: Regular rate and rhythm without murmurs gallops or rubs. LUNGS: Clear to auscultation bilaterally without wheezes, rales or rhonchi. MUSCULOSKELETAL: Full range of motion of the right knee. NEURO: Patient was alert and oriented to person place and time. Medical Decision & Procedures ER Provider Diagnostic Interpretation: RIGHT KNEE 3 VIEWS CLINICAL HISTORY: Right knee pain status post trauma COMPARISON: 11/19/2017 DISCUSSION: No fractures or dislocations are visualized. There is prominent prepatellar soft tissue swelling. Vascular calcifications are evident. IMPRESSION: Anterior soft tissue edema. No acute fractures are visualized Laboratory Results 11/20/17 23:04 Red Blood Count 4.16, Mean Corpuscular Volume 93.0, Mean Corpuscular Hemoglobin 31.5, Mean Corpuscular Hemoglobin Concent 33.9, Mean Platelet Volume 9.4, Neutrophils (%) (Auto) 81.5, Lymphocytes (%) (Auto) 9.5, Monocytes (%) (Auto) 8.5, Eosinophils (%) (Auto) 0.0, Basophils (%) (Auto) 0.1, Neutrophils # (Auto) 14.56, Lymphocytes # (Auto) 1.70, Monocytes # (Auto) 1.52, Eosinophils # (Auto) 0.00, Basophils # (Auto) 0.02 11/20/17 23:04 Test 11/20/17 23:04 White Blood Count 17.88 K/uL (4.8-10.8) Red Blood Count 4.16 M/uL (4.7-6.1) Hemoglobin 13.1 g/dL (14.0-18.0) Hematocrit 38.7 % (42-52) Mean Corpuscular Volume 93.0 fL (80-100) Mean Corpuscular Hemoglobin 31.5 pg (25-34) Mean Corpuscular Hemoglobin Concent 33.9 g/dl (32-36) Platelet Count 412 K/uL (130-400) Mean Platelet Volume 9.4 fL (7.4-10.4) Neutrophils (%) (Auto) 81.5 % Lymphocytes (%) (Auto) 9.5 % Monocytes (%) (Auto) 8.5 % Eosinophils (%) (Auto) 0.0 % Basophils (%) (Auto) 0.1 % Neutrophils # (Auto) 14.56 K/uL (1.4-6.5) Lymphocytes # (Auto) 1.70 K/uL (1.2-3.4) Monocytes # (Auto) 1.52 K/uL (0.11-0.59) Eosinophils # (Auto) 0.00 K/uL (0-0.5) Basophils # (Auto) 0.02 K/uL (0-0.2) RDW Standard Deviation 42.7 fL (36.4-46.3) RDW Coefficient of Variation 12.7 % (11.5-14.5) Immature Granulocyte % (Auto) 0.4 % Immature Granulocyte # (Auto) 0.08 K/uL (0.00-0.02) Anion Gap 9.0 mmol/L (3-11) Est Creatinine Clear Calc Drug Dose 73.9 ml/min Estimated GFR () 112.8 Estimated GFR (Non- 97.3 BUN/Creatinine Ratio 19.8 (10-20) Calcium Level 9.1 mg/dl (8.5-10.1) Medications Administered Medications (Trade) Dose Ordered Sig/Arron Route Start Time Stop Time Status Last Admin Dose Admin Ceftriaxone Sodium (Rocephin Inj) 1 gm NOW STAT IV 11/20/17 22:51 11/20/17 22:52 DC 11/20/17 22:51 1 GM Trimethoprim/ Sulfamethoxazole (Sulfameth/ Trimeth Ds 800/ 160MG Home Pack) 1 homepack UD ONCE PO 11/21/17 01:15 11/21/17 01:16 DC 11/21/17 02:06 1 HOMEPACK Medical Decision Differential diagnosis includes fracture, contusion, dislocation, cellulitis, abscess, among others. The patient was evaluated as above. Knee x-ray was performed and shows anterior soft tissue swelling with no acute fractures. On exam, the area surrounding the sutures is very erythematous and tender and appears to be infected. There is no evidence of a septic joint. For worsening redness/ swelling, Patient was prescribed Keflex and states he is taking this as prescribed. Labs were drawn and do show a leukocytosis of 17,000. Patient was given 1 g Rocephin. Bactrim will be added to the Keflex for further coverage. He was given an additional prescription for Keflex to extend this to a full ten- day course. Patient was educated that he will require very close follow-up to ensure that symptoms are improving. He was instructed to return here for worsening redness/swelling, fevers or other new/concerning symptoms. The patient was independently evaluated by Dr. Cervantes, ED attending physician, who agreed with my assessment and treatment plan. Medication Reconcilliation Current Medication List: was personally reviewed by me Blood Pressure Screening Patient's blood pressure: Elevated blood pressure Impression Primary Impression: Infected laceration Departure Information Dispostion Home / Self-Care Condition GOOD Prescriptions Cephalexin Monohydrate (Keflex) 500 Mg Cap 500 MG PO QID for 3 Days, #12 CAP Prov: Monserrat Yates PA-C 11/21/17 Sulfa/Trimethoprim (Bactrim Ds 800MG/160MG) Tab 1 TAB PO BID for 10 Days, #20 TAB Prov: Monserrat Yates PA-C 11/21/17 Referrals Noah Mayes MD (PCP) Patient Instructions My [facility] Additional Instructions You were prescribed Keflex to be taken 4 times daily for 10 days. This is an antibiotic. All antibiotics have the potential to cause diarrhea. Stop this medication and contact a medical provider if you were to develop any significant adverse side effects including: wheezing, shortness of breath, passing out, vomiting, or a diffuse rash. Always take antibiotics as directed and COMPLETE the ENTIRE course regardless of the improvement of your symptoms. You were prescribed Bactrim to be taken twice daily for 10 days. This is an antibiotic. All antibiotics have the potential to cause diarrhea. Stop this medication and contact a medical provider if you were to develop any significant adverse side effects including: wheezing, shortness of breath, passing out, vomiting, or a diffuse rash. Always take antibiotics as directed and COMPLETE the ENTIRE course regardless of the improvement of your symptoms. You will need to follow-up with orthopedics within 1 week. Return to the emergency department with worsening redness/swelling, fevers, or any other new/concerning symptoms.
[2017-11-21 02:17] VITALS: BP 153/98; PULSE 90; O2SAT 98
[2017-11-22] MEDS ORDERED: TOLT1TAB17 PO (12:29)
[2017-11-22] MEDS ORDERED: AMLO-110 PO (12:29)
[2017-11-22] MEDS ORDERED: ASPEC81 PO (12:29)
[2017-11-22] MEDS ORDERED: THIA1TAB PO (12:29)
== END 2017-11-21 02:19 | disposition home or self-care (01) ==
LOC: C.EDB 21:30 → C.EDC 11-21 02:19
DX: S81.011A Laceration without foreign body, right knee, initial encounter (principal); L08.9 Local infection of the skin and subcutaneous tissue, unspecified; W00.0XXA Fall on same level due to ice and snow, initial encounter; F10.10 Alcohol abuse, uncomplicated; I10 Essential (primary) hypertension; F17.200 Nicotine dependence, unspecified, uncomplicated; F12.90 Cannabis use, unspecified, uncomplicated; Z82.49 Family history of ischemic heart disease and other diseases of the circulatory system

== ENCOUNTER 2017-11-22 09:14 | Inpatient (IN) | payer OTHER ==
[~2017-11-22] VITALS: Ht 175.3 cm; Wt 62.0 kg
[~2017-11-22 09:14] MED LIST changes: +SULF800T23 PO
[2017-11-22] MEDS ORDERED: SODIUM CHLORIDE 0.9% 1000ML 1,000 ML IV STA (09:49)
--- NOTE | 2017-11-22 09:52 | EMERGENCY ROOM VISIT NOTE ---
History Report prepared by Sukhi: Roxanne Krishna Under the Supervision of: Dr. David Phillips M.D. First contact with patient: 09:34 Chief Complaint: HYPOTHERMIA Stated Complaint: FOUND OUTSIDE History of Present Illness The patient is a 66 year old white male with a past medical history of HTN who presents to the ED with a cc of an episode of possible hypothermia beginning just prior to arrival. Positive b/l hand and foot pain. Negative abdominal pain , urinary symptoms. The patient was found outside. Source of History: patient Onset: just prior to arrival Position: other (generalized) Quality: other (possible hypothermia) Timing: other (episode) Associated Symptoms: No abdominal pain, No urinary symptoms Review of Systems See HPI for pertinent positives and negatives. A total of ten systems were reviewed and were otherwise negative. Past Medical & Surgical Medical Problems: (1) Alcohol abuse (2) Fall (3) HTN (hypertension) (4) Hypertension (5) Hypothermia (6) Tobacco use disorder Surgical Problems: (1) H/O colonoscopy Family History FH: CAD (coronary artery disease) FATHER ( of [place] age 56 ) Social History Smoking Status: Current Every Day Smoker Alcohol Use: heavy Drug Use: marijuana Marital Status: single Housing Status: lives alone Occupation Status: other Current/Historical Medications Scheduled Cephalexin Monohydrate (Keflex), 500 MG PO QID Cephalexin Monohydrate (Keflex), 500 MG PO QID Sulfa/Trimethoprim (Bactrim Ds 800MG/160MG), 1 TAB PO BID Allergies Coded Allergies: No Known Allergies (Unverified , 11/22/17) Physical Exam Vital Signs Date Time Temp Pulse Resp B/P (MAP) Pulse Ox O2 Delivery O2 Flow Rate FiO2 11/22/17 12:08 84 11/22/17 11:41 88 14 153/79 99 Room Air 11/22/17 10:02 80 14 125/77 100 Room Air 11/22/17 10:01 100 Room Air 11/22/17 09:29 36.3 95 16 160/88 100 Room Air 11/22/17 09:28 83 Physical Exam GENERAL: Awake, alert, emaciated, NAD HENT: Normocephalic, atraumatic. EYES: Normal conjunctiva. Sclera non-icteric. NECK: Supple. No nuchal rigidity. FROM. RESPIRATORY: CTAB, no rhonchi, wheezing, crackles CARDIAC: RRR, no MRG ABDOMEN: Soft, NTND, BS+ MSK: No chest wall TTP, no LE edema NEURO: GCS 15, CN 2-12 intact, moves all 4s on command SKIN: No rash or jaundice noted. Cyanosis and bluish discoloration to b/l hands with open bleeding blisters, cool to touch and painful to touch. Left greater than right LE decreased skin turgor. Medical Decision & Procedures Laboratory Results 11/22/17 10:03 Red Blood Count 3.92, Mean Corpuscular Volume 92.3, Mean Corpuscular Hemoglobin 31.9, Mean Corpuscular Hemoglobin Concent 34.5, Mean Platelet Volume 9.7, Neutrophils (%) (Auto) 78.3, Lymphocytes (%) (Auto) 11.9, Monocytes (%) (Auto) 9.4, Eosinophils (%) (Auto) 0.0, Basophils (%) (Auto) 0.1, Neutrophils # (Auto) 9.21, Lymphocytes # (Auto) 1.40, Monocytes # (Auto) 1.11, Eosinophils # (Auto) 0.00, Basophils # (Auto) 0.01 11/22/17 10:03 Test 11/22/17 10:03 11/22/17 10:11 11/22/17 12:23 White Blood Count 11.77 K/uL (4.8-10.8) Red Blood Count 3.92 M/uL (4.7-6.1) Hemoglobin 12.5 g/dL (14.0-18.0) Hematocrit 36.2 % (42-52) Mean Corpuscular Volume 92.3 fL (80-100) Mean Corpuscular Hemoglobin 31.9 pg (25-34) Mean Corpuscular Hemoglobin Concent 34.5 g/dl (32-36) Platelet Count 398 K/uL (130-400) Mean Platelet Volume 9.7 fL (7.4-10.4) Neutrophils (%) (Auto) 78.3 % Lymphocytes (%) (Auto) 11.9 % Monocytes (%) (Auto) 9.4 % Eosinophils (%) (Auto) 0.0 % Basophils (%) (Auto) 0.1 % Neutrophils # (Auto) 9.21 K/uL (1.4-6.5) Lymphocytes # (Auto) 1.40 K/uL (1.2-3.4) Monocytes # (Auto) 1.11 K/uL (0.11-0.59) Eosinophils # (Auto) 0.00 K/uL (0-0.5) Basophils # (Auto) 0.01 K/uL (0-0.2) RDW Standard Deviation 42.9 fL (36.4-46.3) RDW Coefficient of Variation 12.7 % (11.5-14.5) Immature Granulocyte % (Auto) 0.3 % Immature Granulocyte # (Auto) 0.04 K/uL (0.00-0.02) Prothrombin Time 10.6 SECONDS (9.0-12.0) Prothromb Time International Ratio 1.0 (0.9-1.1) Activated Partial Thromboplast Time 28.9 SECONDS (21.0-31.0) Partial Thromboplastin Ratio 1.1 Est Creatinine Clear Calc Drug Dose 91.0 ml/min Estimated GFR () 114.1 Estimated GFR (Non- 98.5 BUN/Creatinine Ratio 32.6 (10-20) Calcium Level 8.9 mg/dl (8.5-10.1) Magnesium Level 2.2 mg/dl (1.8-2.4) Total Bilirubin 0.6 mg/dl (0.2-1) Direct Bilirubin mg/dl (0-0.2) Aspartate Amino Transf (AST/SGOT) 22 U/L (15-37) Alanine Aminotransferase (ALT/SGPT) 19 U/L (12-78) Alkaline Phosphatase 129 U/L (45-117) Troponin I 0.016 ng/ml (0-0.045) Total Protein 8.0 gm/dl (6.4-8.2) Albumin 2.9 gm/dl (3.4-5.0) Lipase 143 U/L (73-393) Thyroid Stimulating Hormone (TSH) 0.973 uIu/ml (0.300-4.500) Chemistry Specimen Hemolysis Bedside Hemoglobin 12.6 g/dl (14.0-18.0) Bedside Hematocrit 37 % (42-52) Bedside Sodium 136 mEq/L (135-144) Bedside Potassium 3.5 mEq/L (3.3-5.0) Bedside Chloride 94 mEq/L (101-112) Bedside Total CO2 25 mEq/l (24-31) Anion Gap 21.0 mmol/L (16-25) Bedside Blood Urea Nitrogen 29 mg/dl (7-18) Bedside Creatinine 0.7 mg/dl (0.6-1.3) Bedside Glucose (other) 99 mg/dl (70-99) Bedside Ionized Calcium (Kenia) 1.15 mmol/l (1.12-1.32) Laboratory results reviewed by me Medications Administered Medications (Trade) Dose Ordered Sig/Arron Route Start Time Stop Time Status Last Admin Dose Admin Sodium Chloride 1,000 ml @ 125 mls/hr Q8H STAT IV 11/22/17 09:49 11/22/17 17:48 11/22/17 10:28 125 MLS/HR Diphtheria/ Pertussis/Tetanus Vacc (Adacel Inj) 0.5 ml ONCE ONCE IM. 11/22/17 10:00 11/22/17 10:01 DC 11/22/17 10:27 0.5 ML ECG Indication: weakness Rate (beats per minute): 83 Rhythm: normal sinus Findings: other (normal intervals, right axis deviation, motion artifact present, no obvious STS changes or TWI ) Comparison ECG Date: 08/30/17 Change: REPEAT EKG: normal sinus 90 bpm, normal intervals, RAD, depression v4 and v5, unchanged compared to prior. Right axis is old from previous EKG on 08/30/17. ED Course 0938: The patient was evaluated in room B2. A complete history and physical exam was performed. 1125: Discussed the patient's case with Dr. Sanford. The patient will be evaluated for further treatment and disposition. Medical Decision The patient is a 66 year old white male with a past medical history of HTN who presents to the ED with a cc of possible hypothermia beginning just prior to arrival. Differential diagnoses: Hypothermia, delgado bite, delgado nip, limb ischemia Patient was seen and evaluated the bedside. Patient purportedly was recently discharged from the hospital. Patient was found outside undressed and in his own feces and urine. There is concerned that he did have some wounds to the bilateral hands. On exam the patient does have concern for early stage II versus stage III delgado bite. Gentle rewarming procedures were encouraged although the patient was difficult to comply with placing his hands in warm water bath. Patient's core temperature was normal. Patient's blood work is fairly unremarkable. Patient likely has an element of dehydration. Patient was given fluids. Patient's EKG did show acute [place] however I believe this is secondary to motion artifact. Repeat EKG did show some depressions in V3 and V4 however I believe this is fairly unchanged from priors. Patient denies any chest pain or shortness of breath however, troponin was added. Given the patient's social conditions as well as the current cold weather and the concern that his delgado bite could worsen I did discuss the patient's case with the hospitalist. Patient was admitted for further evaluation treatment. Patient's tetanus was updated. Antibiotics deferred at this time. Medication Reconcilliation Current Medication List: was personally reviewed by me Blood Pressure Screening Patient's blood pressure: Elevated blood pressure Blood pressure disposition: Referred to PCP Consults Time Called: 1119 Consulting Physician: Dr. Sanford Returned Call: 1125 Discussed the patient's case with Dr. Sanford. The patient will be evaluated for further treatment and disposition. Impression Primary Impression: Frostbite of both hands Additional Impressions: Exposure to environmental cold Homelessness Scribe Attestation The scribe's documentation has been prepared under my direction and personally reviewed by me in its entirety. I confirm that the note above accurately reflects all work, treatment, procedures, and medical decision making performed by me. Departure Information Dispostion Being Evaluated By Hospitalist Referrals Noah Mayes MD (PCP) Patient Instructions My [facility] Problem Qualifiers Additional Impressions: Exposure to environmental cold Encounter type: initial encounter Qualified Codes: T69.9XXA - Effect of reduced temperature, unspecified, initial encounter
[2017-11-22] MEDS ORDERED: DIPHTHERIA/TETANUS/PERTUSSIS 0.5 ML SYR/VIAL IM. ONE (10:00)
[2017-11-22 10:23] LABS: ISTAT CREATININE 0.7 mg/dl (0.6-1.3); ISTAT IONIZED CALCIUM 1.15 mmol/l (1.12-1.32); ISTAT POTASSIUM 3.5 mEq/L (3.3-5.0)
[2017-11-22 10:42] LABS: PTT PATIENT 28.9 SECONDS (21.0-31.0)
[2017-11-22 11:10] LABS: BASO % 0.1 %; BASO ABS # 0.01 K/uL (0-0.2); HEMATOCRIT 36.2 % (42-52); HEMOGLOBIN 12.5 g/dL (14.0-18.0); IG# 0.04 K/uL (0.00-0.02); LYMPH % 11.9 %; MEAN CELL VOLUME 92.3 fL (80-100); MEAN CORPUSCULAR HEMOGLOBIN 31.9 pg (25-34); MEAN CORPUSCULAR HGB CONC 34.5 g/dl (32-36); MEAN PLATELET VOLUME 9.7 fL (7.4-10.4); MONO % 9.4 %; MONO ABS # 1.11 K/uL (0.11-0.59); NEUT % 78.3 %; NEUT ABS # 9.21 K/uL (1.4-6.5); PLATELET COUNT 398 K/uL (130-400); RED CELL DISTRIBUTION WIDTH CV 12.7 % (11.5-14.5); RED CELL DISTRIBUTION WIDTH SD 42.9 fL (36.4-46.3); WHITE BLOOD COUNT 11.77 K/uL (4.8-10.8)
[2017-11-22 11:33] LABS: ALBUMIN 2.9 gm/dl (3.4-5.0); CALCIUM 8.9 mg/dl (8.5-10.1); CREATININE 0.71 mg/dl (0.60-1.40); POTASSIUM 3.6 mmol/L (3.5-5.1)
--- NOTE | 2017-11-22 12:05 | History and Physical ---
History & Physical Date & Time of Service: Nov 22, 2017 at 12:04 Chief Complaint: Found Outside-Hypothermia Primary Care Physician: Noah Mayes MD History of Present Illness Source: patient Patient is a 66 yr homeless male with PMH of HTN, Basal ganglia Infarct, Trench Foot, Alcohol and Tobacco use disorder who presents after a fall and was found outside of [place] in snow by police and was brought to ED for further evaluation. Patient had multiple ED visits and admissions for Trench foot and cellulitis. Patient is a poor historian. He states that he skid on Ice and fell today and hurt his fingers as a result. Denies any history of head trauma, LOC, change in vision. He was found to be hypothermic and was on Bare hugger while in ED. ED staff found patient to have cyanotic finger but currently resolved. He complains of B/L knee pain but denies any pain in feet or fingers. Denies any history of chest pain, SOB, cough, dizziness, fever, nausea, vomiting, abdominal pain, diarrhea, dysuria. He has not been taking his medications since about a month and states that he could not afford them. Reports last alcohol drink was 3 days ago and had 1 beer and denies any withdrawal symptoms in the past. Past Medical/Surgical History Medical Problems: (1) Alcohol abuse Status: Chronic (2) HTN (hypertension) Status: Chronic (3) Hypertension Status: Chronic (4) Tobacco use disorder Status: Chronic Surgical Problems: (1) H/O colonoscopy Status: Chronic Family History FH: CAD (coronary artery disease) FATHER ( of [place] age 56 ) Reviewed, Not relevant Social History Smoking Status: Current Every Day Smoker Alcohol Use: daily 1-2 beers per day Drug Use: marijuana Marital Status: single Housing status: other Occupational Status: other Multi-Drug Resistant Organisms History of MDRO: No Allergies Coded Allergies: No Known Allergies (Unverified , 11/22/17) Home Medications Scheduled Amlodipine (Norvasc), 5 MG PO DAILY Aspirin (Aspirin EC Low Dose), 81 MG PO DAILY Cephalexin Monohydrate (Keflex), 500 MG PO QID Cephalexin Monohydrate (Keflex), 500 MG PO QID Sulfa/Trimethoprim (Bactrim Ds 800MG/160MG), 1 TAB PO BID Thiamine Hcl (B-1), 100 MG PO DAILY Tolterodine Tartrate (Detrol), 1 MG PO BID Review of Systems See above for pertinent positives & negatives. A total of 10 systems reviewed and were otherwise negative. Physical Exam Vital Signs Date Time Temp Pulse Resp B/P (MAP) Pulse Ox O2 Delivery O2 Flow Rate FiO2 11/22/17 11:41 88 14 153/79 99 Room Air 11/22/17 10:02 80 14 125/77 100 Room Air 11/22/17 10:01 100 Room Air 11/22/17 09:29 36.3 95 16 160/88 100 Room Air 11/22/17 09:28 83 General Appearance: no apparent distress, + thin, + pertinent finding (Chronic ill appearing, frail ) Head: normocephalic, atraumatic Eyes: normal inspection, PERRL, EOMI ENT: normal ENT inspection, hearing grossly normal Neck: supple, trachea midline Respiratory/Chest: chest non-tender, lungs clear, no accessory muscle use, + decreased breath sounds Cardiovascular: regular rate, rhythm, no edema, + systolic murmur Abdomen/GI: normal bowel sounds, non tender, soft Back: normal inspection Extremities/Musculoskelatal: + pedal edema, + pertinent finding (Wounds on LUE Fingers, B/L knee erythematous, Sutures noted on Knee, non tender, Erythematous feet) Neurologic/Psych: alert, oriented x 3, + pertinent finding (Grossly no focal deficits, able to move all extremities ) Skin: normal color, + pertinent finding (Sutures on knee, changes as above) Diagnostics Laboratory Results Results Past 24 Hours Test 11/22/17 10:03 11/22/17 10:11 Range/Units White Blood Count 11.77 4.8-10.8 K/uL Red Blood Count 3.92 4.7-6.1 M/uL Hemoglobin 12.5 14.0-18.0 g/dL Hematocrit 36.2 42-52 % Mean Corpuscular Volume 92.3 80-100 fL Mean Corpuscular Hemoglobin 31.9 25-34 pg Mean Corpuscular Hemoglobin Concent 34.5 32-36 g/dl Platelet Count 398 130-400 K/uL Mean Platelet Volume 9.7 7.4-10.4 fL Neutrophils (%) (Auto) 78.3 % Lymphocytes (%) (Auto) 11.9 % Monocytes (%) (Auto) 9.4 % Eosinophils (%) (Auto) 0.0 % Basophils (%) (Auto) 0.1 % Neutrophils # (Auto) 9.21 1.4-6.5 K/uL Lymphocytes # (Auto) 1.40 1.2-3.4 K/uL Monocytes # (Auto) 1.11 0.11-0.59 K/uL Eosinophils # (Auto) 0.00 0-0.5 K/uL Basophils # (Auto) 0.01 0-0.2 K/uL RDW Standard Deviation 42.9 36.4-46.3 fL RDW Coefficient of Variation 12.7 11.5-14.5 % Immature Granulocyte % (Auto) 0.3 % Immature Granulocyte # (Auto) 0.04 0.00-0.02 K/uL Prothrombin Time 10.6 9.0-12.0 SECONDS Prothromb Time International Ratio 1.0 0.9-1.1 Activated Partial Thromboplast Time 28.9 21.0-31.0 SECONDS Partial Thromboplastin Ratio 1.1 Sodium Level 133 136-145 mmol/L Potassium Level 3.6 3.5-5.1 mmol/L Chloride Level 99 98-107 mmol/L Carbon Dioxide Level 26 21-32 mmol/L Anion Gap 8.0 21.0 16-25 mmol/L Blood Urea Nitrogen 23 7-18 mg/dl Creatinine 0.71 0.60-1.40 mg/dl Est Creatinine Clear Calc Drug Dose 91.0 ml/min Estimated GFR () 114.1 Estimated GFR (Non- 98.5 BUN/Creatinine Ratio 32.6 10-20 Random Glucose 91 70-99 mg/dl Calcium Level 8.9 8.5-10.1 mg/dl Magnesium Level 2.2 1.8-2.4 mg/dl Total Bilirubin 0.6 0.2-1 mg/dl Direct Bilirubin 0-0.2 mg/dl Aspartate Amino Transf (AST/SGOT) 22 15-37 U/L Alanine Aminotransferase (ALT/SGPT) 19 12-78 U/L Alkaline Phosphatase 129 45-117 U/L Total Protein 8.0 6.4-8.2 gm/dl Albumin 2.9 3.4-5.0 gm/dl Lipase 143 73-393 U/L Thyroid Stimulating Hormone (TSH) 0.973 0.300-4.500 uIu/ml Chemistry Specimen Hemolysis Bedside Hemoglobin 12.6 14.0-18.0 g/dl Bedside Hematocrit 37 42-52 % Bedside Sodium 136 135-144 mEq/L Bedside Potassium 3.5 3.3-5.0 mEq/L Bedside Chloride 94 101-112 mEq/L Bedside Total CO2 25 24-31 mEq/l Bedside Blood Urea Nitrogen 29 7-18 mg/dl Bedside Creatinine 0.7 0.6-1.3 mg/dl Bedside Glucose (other) 99 70-99 mg/dl Bedside Ionized Calcium (Kenia) 1.15 1.12-1.32 mmol/l Diagnostic Radiology Knee X ray: Pending EKG EKG; NSR, Non specific ST-T wave changes Impression Assessment and Plan Mechanical Fall: Extremity Wounds secondary to fall: Patient states he fell after skidding on Ice and complains of B/L Knee pain; denies Head trauma, LOC Knee and Hand X ray to r/o fractures Pain control Mild leukocytosis Got TDAP in ED Empirically start on IV Vancomycin Blood cultures Wound Care Consider Ortho eval if necessary Hypothermia: Secondary to Exposure to Cold Bare Hugger Monitor IV fluids Cyanosis of fingers resolved, denies pain in fingers Possible Cellulitis of Feet H/O Trench Foot: Very poor hygiene On IV Vancomycin empirically Wound care consulted HTN continue Amlodipine monitor H/O Basal ganglia Infarcts: Continue Aspirin Was not on Statin secondary to poor compliance and h/o alcoholism Alcohol Use disorder: no signs of withdrawal Continue thiamine Check Alcohol levels Consider gabapentin protocol if clinically shows signs monitor Tobacco use disorder: Nicotine Patch funeral pre arrangement counselor to quit smoking Homeless: Office of aging requested outpatient Psych eval to determine if patient can make own decision cash applications manager made aware Disposition To be determined PT/OT Spiral Winding Machine Helper consulted
[2017-11-22 12:12] VITALS: O2SAT 99; Ht 175.3 cm; Wt 62.0 kg
[2017-11-22] MEDS ORDERED: POLYETHYLENE (MIRALAX) 17 GM PACK PO PRN (12:15)
[2017-11-22] MEDS ORDERED: ACETAMINOPHEN 325 MG TAB PO PRN (12:15)
[2017-11-22] MEDS ORDERED: TOLT1TAB17 PO (12:29)
[2017-11-22] MEDS ORDERED: AMLO-110 PO (12:29)
[2017-11-22] MEDS ORDERED: THIA1TAB PO (12:29)
[2017-11-22] MEDS ORDERED: ASPEC81 PO (12:29)
[2017-11-22] MEDS ORDERED: ONDANSETRON INJ 2 MG/ML 2 ML VIAL IV PRN (12:30)
--- NOTE | 2017-11-22 12:54 | DIAGNOSTIC IMAGING REPORT ---
L KNEE 1 OR 2 VIEWS ROUTINE CLINICAL HISTORY: 66 years-old Male presenting with Knee pain. TECHNIQUE: Frontal and lateral views of the left knee were obtained. COMPARISON: Comparison made to plain radiographs of the right knee performed the same day. FINDINGS: Osteopenia may be present. No acute fracture or malalignment. Minimal osteophytosis in the medial compartment and mild osteophytosis in the patellofemoral compartment. Joint spaces preserved. Moderate joint effusion. Atherosclerosis. IMPRESSION: 1. No acute osseous injury. 2. Moderate joint effusion. 3. Mild degenerative change in the medial and patellofemoral compartments. Electronically signed by: Lenin Young M.D. 11/22/2017 12:52 PM Dictated Date/Time: 11/22/2017 12:51 PM
--- NOTE | 2017-11-22 12:54 | DIAGNOSTIC IMAGING REPORT ---
R KNEE 1 OR 2 VIEWS ROUTINE CLINICAL HISTORY: knee pain pain COMPARISON: None. DISCUSSION: The bones and joint spaces appear intact. There is no evidence of fracture, dislocation or bony disease. Prepatellar soft tissue edema IMPRESSION: Prepatellar soft tissue edema. Otherwise negative study. The above report was generated using voice recognition software. It may contain grammatical, syntax or spelling errors. Electronically signed by: Virgilio Lao M.D. 11/22/2017 12:52 PM Dictated Date/Time: 11/22/2017 12:51 PM
[2017-11-22] MEDS ORDERED: VANCOMYCIN CONSULT ACTIVE PRN (13:00)
[2017-11-22] MEDS ORDERED: KETOROLAC TROMETHAMINE 10 MG TAB PO PRN (13:00)
[2017-11-22] MEDS ORDERED: AMLODIPINE BESYLATE 5 MG TAB ONE (13:02)
[2017-11-22 14:00] VITALS: BP 143/72; PULSE 98; TEMP 36.8; O2SAT 98
[2017-11-22] MEDS ORDERED: VANCOMYCIN INJ 1,500 MG in SODIUM CHLORIDE 0.9% 500ML 500 ML IV ONE (14:00)
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
--- NOTE | 2017-11-22 14:14 | Psych Management Progress Note ---
Psychiatry Miscellaneous Date of Service: Nov 22, 2017. Received a consult for "determine competency," per notes at the request of the pediatric social worker/Office of Aging, as they have an outpatient competency evaluation scheduled with Dr. Funez, but did not want to wait for it. Discussed the case with the primary attending, Dr. Evans, and explained that we cannot do a competency assessment, as this is a legal determination which requires the neuropsychological evaluation and then a hearing in front of the supervisor general. We do not have neuropsychological testing available in the hospital. Advised that we can assist with a capacity evaluation to help determine if the patient has the ability to make a specific decision at this point in time, however this would require that the treatment recommendations have been formulated and reviewed with the patient, he has expressed unwillingness to follow them, and that there is a concern that he does not understand the implications of his decision. Of note, any physician can determine capacity. At this point, the patient has not declined treatment recommendations, so there is no indication for a capacity assessment. We cannot determine global competency.
--- NOTE | 2017-11-22 14:28 | DIAGNOSTIC IMAGING REPORT ---
R HAND MIN 3 VIEWS ROUTINE CLINICAL HISTORY: And pain. Hypothermia. Possible fracture. COMPARISON: None. DISCUSSION: No acute fractures are visualized. There are osteoarthritic changes most pronounced the level of the distal interphalangeal joint of the third digit. There is mild distal soft tissue swelling. There is no erosive disease. IMPRESSION: 1. Degenerative change 2. No acute fractures Electronically signed by: Rohan Archuleta M.D. 11/22/2017 2:27 PM Dictated Date/Time: 11/22/2017 2:26 PM
[2017-11-22] MEDS: NSS + 20MEQ KCL 1000ML 1,000 ML IV SCH (14:30)
--- NOTE | 2017-11-22 14:30 | DIAGNOSTIC IMAGING REPORT ---
L HAND MIN 3 VIEWS ROUTINE CLINICAL HISTORY: R/O FRACTURE trauma. Pain. COMPARISON: None. DISCUSSION: Moderate generalized degenerative change. Mild periventricular osteopenia. Mild nonspecific soft tissue edematous change. No evidence for fracture or dislocation. There is no evidence for soft tissue swelling. IMPRESSION: Moderate degenerative change. Mild soft tissue edema. No acute bony abnormality. The above report was generated using voice recognition software. It may contain grammatical, syntax or spelling errors. Electronically signed by: Virgilio Lao M.D. 11/22/2017 2:28 PM Dictated Date/Time: 11/22/2017 2:27 PM
[2017-11-22] MEDS: AMLODIPINE BESYLATE 5 MG TAB PO ONE ×2 (14:31→15:38)
[2017-11-22] MEDS: THIAMINE HCL 100 MG TAB PO ONE ×2 (14:31→15:38)
[2017-11-22 16:00] VITALS: O2SAT 98
[2017-11-22 16:02] VITALS: BP 113/59; PULSE 91; TEMP 37.2; O2SAT 94
[2017-11-22] MEDS: ENOXAPARIN 40 MG/0.4 ML SYR SQ SCH (16:10)
[2017-11-23] VITALS: O2SAT 98
[2017-11-23 00:29] VITALS: BP 132/68; PULSE 87; TEMP 37.3; O2SAT 96
[2017-11-23] MEDS: VANCOMYCIN INJ 1,000 MG in SODIUM CHLORIDE 0.9% 250ML 250 ML IV SCH ×2 (02:00→14:11)
[2017-11-23] MEDS: NSS + 20MEQ KCL 1000ML 1,000 ML IV SCH (06:12)
[2017-11-23 07:00] LABS: BASO % 0.2 %; BASO ABS # 0.02 K/uL (0-0.2); EOS % 0.4 %; EOS ABS # 0.04 K/uL (0-0.5); HEMATOCRIT 30.6 % (42-52); HEMOGLOBIN 10.1 g/dL (14.0-18.0); IG# 0.02 K/uL (0.00-0.02); LYMPH % 24.3 %; LYMPH ABS # 2.27 K/uL (1.2-3.4); MEAN CELL VOLUME 93.9 fL (80-100); MEAN PLATELET VOLUME 9.1 fL (7.4-10.4); MONO % 12.1 %; MONO ABS # 1.13 K/uL (0.11-0.59); NEUT % 62.8 %; NEUT ABS # 5.87 K/uL (1.4-6.5); PLATELET COUNT 365 K/uL (130-400); RED CELL DISTRIBUTION WIDTH CV 12.8 % (11.5-14.5); RED CELL DISTRIBUTION WIDTH SD 43.9 fL (36.4-46.3); WHITE BLOOD COUNT 9.35 K/uL (4.8-10.8)
[2017-11-23 07:24] VITALS: BP 129/67; PULSE 76; TEMP 36.9; O2SAT 96
[2017-11-23 07:37] LABS: CREATININE 0.56 mg/dl (0.60-1.40); POTASSIUM 3.5 mmol/L (3.5-5.1)
[2017-11-23 08:00] VITALS: O2SAT 96
[2017-11-23] MEDS: ASPIRIN 81 MG ECTAB PO SCH (08:28)
[2017-11-23] MEDS: NICOTINE 21 MG/24 HR TDSY TD SCH (08:28)
[2017-11-23] MEDS: THIAMINE HCL 100 MG TAB PO SCH (08:28)
[2017-11-23] MEDS: AMLODIPINE BESYLATE 5 MG TAB PO SCH (08:29)
[2017-11-23 09:24] LABS: PHOSPHORUS 2.3 mg/dl (2.5-4.9); URIC ACID 5.8 mg/dl (2.6-7.2)
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
--- NOTE | 2017-11-23 12:56 | ECHOCARDIOGRAM REPORT ---
*NOTICE TO RECEIVING REPUBLICAN AGENCY This information is strictly Confidential and protected under [place] law. [place] law prohibits you from making any further disclosure of this information unless further disclosure is expressly permitted by the written consent of the person to whom it pertains or is authorized by law. A general authorization for the release of medical or other information is not sufficient for this purpose. Hospital accepts no responsibility if the information is made available to any other person, INCLUDING THE PATIENT. Interpretation Summary * Name: JOSHUA ZAMAN Study Date: 11/23/2017 10:23 AM BP: 129/67 mmHg * Patient Location: [id number] HR: 76 * : 1950 (M/d/yyyy) Gender: Male Height: 69 in * Age: 66 yrs Ethnicity: [place] Weight: 136 lb * Ordering Physician: Syed Martines * Referring Physician: Self, Referred * Performed By: Pooja Bullock RDCS * * Reason For Study: EKG Changes * BSA: 1.8 m2 * The study was technically adequate. * -- Conclusions -- * There is mild concentric left ventricular hypertrophy. * The left ventricular wall motion is normal. * The LV Ejection Fraction = 55-60%. * The aortic valve is severely calcified. * The number of cusps cannot be determined however, the appearance favors bicuspid morphology. * There is no significant aortic regurgitation. * Severe valvular aortic stenosis is present with peak CW velocity of 4.4 m/s, mean gradient of 45 mm Hg, and KELECHI=0.8 cm 2. * There is mild mitral regurgitation. * The aortic root is normal size. * The proximal ascending aorta was not visualized adequately enough to allow measurement. * There are no prior studies available for comparison. Procedure Details * A complete two-dimensional transthoracic echocardiogram was performed (2D, M-mode, Doppler and color flow Doppler). Left Ventricle * The left ventricle is normal in size. * There is mild concentric left ventricular hypertrophy. * Left ventricular systolic function is normal. * Ejection Fraction = 55-60%. * The left ventricular wall motion is normal. Right Ventricle * The right ventricle is normal size. * The right ventricular systolic function is normal as assessed by tricuspid annular plane systolic excursion (TAPSE) (normal >1.5 cm). Atria * The left atrial size is normal. * Right atrial size is normal. * There is no evidence of atrial septal defect, but resolution does not allow assessment for a patent foramen ovale. Mitral Valve * The mitral valve is normal. * There is no mitral valve stenosis. * There is mild mitral regurgitation. Tricuspid Valve * The tricuspid valve is normal. * There is no tricuspid stenosis. * Significant tricuspid regurgitation is absent. * Right ventricular systolic pressure is normal. Aortic Valve * The aortic valve is severely calcified. The number of cusps cannot be determined however, the appearance favors bicuspid morphology. * Severe valvular aortic stenosis. * There is no significant aortic regurgitation. Pulmonic Valve * The pulmonary valve is not well seen, but the Doppler examination is normal without significant regurgitation or stenosis. Great Vessels * The aortic root is normal size. Pericardium/Pleural * There is no pericardial effusion. Great Vessels * Normal inferior vena cava diameter and respiratory variation suggests normal central venous pressure. * Normal inferior vena cava size and collapsability with sniff indicates a normal right atrial pressure of 3 mmHg Left Ventricular Diastolic Function * Grade I diastolic dysfunction, (abnormal relaxation pattern). MMode 2D Measurements and Calculations IVSd 1.3 cm IVSs 1.4 cm LVIDd 4.3 cm LVIDs 3.2 cm LVPWd 10 cm LVPWs 1.7 cm IVS/LVPW 1.3 FS 26.6 % EDV(Teich) 85.1 ml ESV(Teich) 40.6 ml EF(Teich) 52.3 % EDV(cubed) 81.9 ml ESV(cubed) 32.4 ml EF(cubed) 60.5 % % IVS thick 10.8 % % LVPW thick 72.5 % LV mass(C)d 171.1 grams LV mass(C)dI 97.6 grams/m\S\2 LV mass(C)s 181.5 grams LV mass(C)sI 103.5 grams/m\S\2 SV(Teich) 44.5 ml SI(Teich) 25.4 ml/m\S\2 SV(cubed) 49.6 ml SI(cubed) 28.3 ml/m\S\2 Ao root diam 3.0 cm Ao root area 7.0 cm\S\2 ACS 1.1 cm LA dimension 3.0 cm LA/Ao 1.0 LVOT diam 2.1 cm LVOT area 3.5 cm\S\2 LVAd ap4 28.8 cm\S\2 LVLd ap4 7.9 cm EDV(MOD-sp4) 89.8 ml EDV(sp4-el) 89.7 ml LVAs ap4 15.8 cm\S\2 LVLs ap4 6.4 cm ESV(MOD-sp4) 35.6 ml ESV(sp4-el) 32.9 ml EF(MOD-sp4) 60.4 % EF(sp4-el) 63.3 % LVAd ap2 28.7 cm\S\2 LVLd ap2 8.6 cm EDV(MOD-sp2) 83.5 ml EDV(sp2-el) 81.1 ml LVAs ap2 16.7 cm\S\2 LVLs ap2 7.1 cm ESV(MOD-sp2) 34.8 ml ESV(sp2-el) 33.3 ml EF(MOD-sp2) 58.3 % EF(sp2-el) 59.0 % LVLd %diff 9.0 % EDV(MOD-bp) 89.0 ml LVLs %diff 9.6 % ESV(MOD-bp) 36.9 ml EF(MOD-bp) 58.6 % SV(MOD-sp4) 54.2 ml SI(MOD-sp4) 30.9 ml/m\S\2 SV(MOD-sp2) 48.6 ml SI(MOD-sp2) 27.7 ml/m\S\2 SV(MOD-bp) 52.1 ml SI(MOD-bp) 29.7 ml/m\S\2 SV(sp4-el) 56.8 ml SI(sp4-el) 32.4 ml/m\S\2 SV(sp2-el) 47.8 ml SI(sp2-el) 27.3 ml/m\S\2 Doppler Measurements and Calculations MV E max any 75.5 cm/sec MV A max any 68.5 cm/sec MV E/A 1.1 MV dec time 0.25 sec Ao V2 max 422.4 cm/sec Ao max PG 71.5 mmHg Ao max PG (full) 67.8 mmHg Ao V2 mean 293.4 cm/sec Ao mean PG 38.7 mmHg Ao mean PG (full) 36.9 mmHg Ao V2 VTI 88.3 cm KELECHI(I,A) 0.80 cm\S\2 KELECHI(I,D) 0.80 cm\S\2 KELECHI(V,A) 0.80 cm\S\2 KELECHI(V,D) 0.80 cm\S\2 LV V1 max PG 3.7 mmHg LV V1 mean PG 1.8 mmHg LV V1 max 96.0 cm/sec LV V1 mean 63.4 cm/sec LV V1 VTI 19.9 cm SV(Ao) 617.0 ml SI(Ao) 351.9 ml/m\S\2 SV(LVOT) 70.4 ml SI(LVOT) 40.2 ml/m\S\2 PA V2 max 93.6 cm/sec PA max PG 3.5 mmHg TR max any 217.3 cm/sec
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
[2017-11-23] MEDS: ENOXAPARIN 40 MG/0.4 ML SYR SQ SCH (16:04)
[2017-11-23 16:45] VITALS: BP 129/73; PULSE 79; TEMP 36.8; O2SAT 96
--- NOTE | 2017-11-23 18:24 | Progress Note ---
Internal Med Progress Note Date of Service: Nov 23, 2017. Provider Documentation: SUBJECTIVE: Patient denies chest pain or shortness of breath. OBJECTIVE: Exam: General- no acute distress Eyes- EOMI Neck-trachea midline, no JVD Lungs- CTABL, no wheezing Heart- Reg rate and rhythm. 2/6 systolic murmur heard best at the right sternal border Abdomen- soft, nontender, + bowel sounds Extremities- right knee with open laceration and prior sutures have been addressed by general surgery and now with dressing Neuro- awake and alert ASSESSMENT & PLAN: 66 year old M who is homeless and picked up by law enforcement in the snow and presented to ED for evaluation for cold exposure for rule out hypothermia, and vascular compromise of extremities due to cold exposure. Patient had treatments for rewarming. At this time there does not appear to be evidence for limb compromise. Patient also seen and examined for injuries secondary to mechanical falls with skin injuries received TDAP in the ED Knee and Hand X rays without findings for fractures General surgery 11/23/17 was asked to assess right knee laceration with prior sutures placed and prior head tarik; Sutures removed from knee, clean gauze dressing applied- recommend daily dressing change; Tarik removed from head. 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: Continue Aspirin; Was not on Statin secondary to poor compliance and h/o alcoholism Alcohol Use disorder: no signs of withdrawal, Continue thiamine, Consider gabapentin protocol if clinically shows signs Tobacco use disorder: Nicotine Patch reimbursement counselor to quit smoking PT evaluation note 11/23/17: "pt initially agreeable to get OOB, but when attempting to perform transfers, pt changes mind and then refuses to participate " Psychiatry was asked to evaluate the patient on admission day 11/22/17 in regards to patient's ability to make medical decisions; have requested that psychiatry continue to follow the patient while patient is under hospitalist medical services Vital Signs: Date Time Temp Pulse Resp B/P (MAP) Pulse Ox O2 Delivery O2 Flow Rate FiO2 11/23/17 16:45 36.8 79 16 129/73 (91) 96 Room Air 11/23/17 08:00 96 Room Air 11/23/17 07:24 36.9 76 17 129/67 (87) 96 Room Air 11/23/17 00:29 37.3 87 18 132/68 (89) 96 Room Air 11/23/17 00:00 98 Room Air Lab Results: Results Past 24 Hours Test 11/23/17 06:36 Range/Units White Blood Count 9.35 4.8-10.8 K/uL Red Blood Count 3.26 4.7-6.1 M/uL Hemoglobin 10.1 14.0-18.0 g/dL Hematocrit 30.6 42-52 % Mean Corpuscular Volume 93.9 80-100 fL Mean Corpuscular Hemoglobin 31.0 25-34 pg Mean Corpuscular Hemoglobin Concent 33.0 32-36 g/dl Platelet Count 365 130-400 K/uL Mean Platelet Volume 9.1 7.4-10.4 fL Neutrophils (%) (Auto) 62.8 % Lymphocytes (%) (Auto) 24.3 % Monocytes (%) (Auto) 12.1 % Eosinophils (%) (Auto) 0.4 % Basophils (%) (Auto) 0.2 % Neutrophils # (Auto) 5.87 1.4-6.5 K/uL Lymphocytes # (Auto) 2.27 1.2-3.4 K/uL Monocytes # (Auto) 1.13 0.11-0.59 K/uL Eosinophils # (Auto) 0.04 0-0.5 K/uL Basophils # (Auto) 0.02 0-0.2 K/uL RDW Standard Deviation 43.9 36.4-46.3 fL RDW Coefficient of Variation 12.8 11.5-14.5 % Immature Granulocyte % (Auto) 0.2 % Immature Granulocyte # (Auto) 0.02 0.00-0.02 K/uL Sodium Level 141 136-145 mmol/L Potassium Level 3.5 3.5-5.1 mmol/L Chloride Level 111 98-107 mmol/L Carbon Dioxide Level 24 21-32 mmol/L Anion Gap 6.0 3-11 mmol/L Blood Urea Nitrogen 15 7-18 mg/dl Creatinine 0.56 0.60-1.40 mg/dl Est Creatinine Clear Calc Drug Dose 115.3 ml/min Estimated GFR () 125.8 Estimated GFR (Non- 108.5 BUN/Creatinine Ratio 27.0 10-20 Random Glucose 90 70-99 mg/dl Uric Acid 5.8 2.6-7.2 mg/dl Calcium Level 8.0 8.5-10.1 mg/dl Phosphorus Level 2.3 2.5-4.9 mg/dl Magnesium Level 2.0 1.8-2.4 mg/dl Troponin I 0.023 0-0.045 ng/ml
[2017-11-23 23:37] VITALS: BP 139/76; PULSE 80; TEMP 36.6; O2SAT 92
[2017-11-24] VITALS: O2SAT 96
[2017-11-24] MEDS: VANCOMYCIN INJ 1,000 MG in SODIUM CHLORIDE 0.9% 250ML 250 ML IV SCH (01:57)
[2017-11-24 07:06] VITALS: BP 148/76; PULSE 70; TEMP 36.6; O2SAT 96
[2017-11-24 07:10] LABS: BASO % 0.4 %; BASO ABS # 0.03 K/uL (0-0.2); EOS % 0.9 %; EOS ABS # 0.07 K/uL (0-0.5); HEMOGLOBIN 11.3 g/dL (14.0-18.0); IG# 0.02 K/uL (0.00-0.02); LYMPH % 26.8 %; LYMPH ABS # 2.12 K/uL (1.2-3.4); MEAN CELL VOLUME 92.4 fL (80-100); MEAN CORPUSCULAR HEMOGLOBIN 31.7 pg (25-34); MEAN CORPUSCULAR HGB CONC 34.2 g/dl (32-36); MEAN PLATELET VOLUME 8.8 fL (7.4-10.4); MONO % 13.1 %; MONO ABS # 1.04 K/uL (0.11-0.59); NEUT % 58.5 %; NEUT ABS # 4.64 K/uL (1.4-6.5); PLATELET COUNT 341 K/uL (130-400); RED CELL DISTRIBUTION WIDTH CV 12.6 % (11.5-14.5); RED CELL DISTRIBUTION WIDTH SD 42.8 fL (36.4-46.3); WHITE BLOOD COUNT 7.92 K/uL (4.8-10.8)
[2017-11-24 07:28] LABS: ALBUMIN 2.4 gm/dl (3.4-5.0); CALCIUM 8.1 mg/dl (8.5-10.1); CREATININE 0.65 mg/dl (0.60-1.40); POTASSIUM 3.7 mmol/L (3.5-5.1)
[2017-11-24 07:31] LABS: TOTAL PROTEIN 6.9 gm/dl (6.4-8.2)
[2017-11-24 08:00] VITALS: O2SAT 96
[2017-11-24] MEDS: NICOTINE 21 MG/24 HR TDSY TD SCH (08:00)
[2017-11-24] MEDS: ASPIRIN 81 MG ECTAB PO SCH (08:46)
[2017-11-24] MEDS: AMLODIPINE BESYLATE 5 MG TAB PO SCH (08:46)
[2017-11-24] MEDS: THIAMINE HCL 100 MG TAB PO SCH (08:46)
--- NOTE | 2017-11-24 10:44 | Surgery Progress Note ---
Surgery Progress Note Date of Service Nov 24, 2017. Subjective 66-year-old male status post mechanical fall a few weeks ago. Surgery was counselled for staple removal from his scalp and suture removal from his right knee. His right knee had some erythema, and he is currently on antibiotics. X- rays yesterday showed no evidence of fracture. Prepatellar soft tissue edema. Right knee hurts, otherwise no issues. Objective Vital Signs: Date Time Temp Pulse Resp B/P (MAP) Pulse Ox O2 Delivery O2 Flow Rate FiO2 11/24/17 08:00 96 Room Air 11/24/17 07:06 36.6 70 18 148/76 (100) 96 Room Air 11/24/17 00:00 96 Room Air 11/23/17 23:37 36.6 80 17 139/76 (97) 92 Room Air 11/23/17 16:45 36.8 79 16 129/73 (91) 96 Room Air 11/23/17 16:00 Room Air General Appearance: WD/WN, no apparent distress Incision(s): clean, dry, intact, no drainage, erythema (erythema to right knee incision, appears to be improved but still present.) Laboratory Results: Results Past 24 Hours Test 11/23/17 21:58 11/24/17 07:03 Range/Units Urine Color YELLOW Urine Appearance CLOUDY CLEAR Urine pH 7.5 4.5-7.5 Urine Specific [place] 1.012 1.000-1.030 Urine Protein NEG NEG Urine Glucose (UA) NEG NEG Urine Ketones NEG NEG Urine Occult Blood NEG NEG Urine Nitrite NEG NEG Urine Bilirubin NEG NEG Urine Urobilinogen NEG NEG Urine Leukocyte Esterase NEG NEG Urine WBC (Auto) 0 0-5 /hpf Urine RBC (Auto) 0-4 0-4 /hpf Urine Hyaline Casts (Auto) 0 0-5 /lpf Urine Epithelial Cells (Auto) 0-5 0-5 /lpf Urine Bacteria (Auto) NEG NEG White Blood Count 7.92 4.8-10.8 K/uL Red Blood Count 3.57 4.7-6.1 M/uL Hemoglobin 11.3 14.0-18.0 g/dL Hematocrit 33.0 42-52 % Mean Corpuscular Volume 92.4 80-100 fL Mean Corpuscular Hemoglobin 31.7 25-34 pg Mean Corpuscular Hemoglobin Concent 34.2 32-36 g/dl Platelet Count 341 130-400 K/uL Mean Platelet Volume 8.8 7.4-10.4 fL Neutrophils (%) (Auto) 58.5 % Lymphocytes (%) (Auto) 26.8 % Monocytes (%) (Auto) 13.1 % Eosinophils (%) (Auto) 0.9 % Basophils (%) (Auto) 0.4 % Neutrophils # (Auto) 4.64 1.4-6.5 K/uL Lymphocytes # (Auto) 2.12 1.2-3.4 K/uL Monocytes # (Auto) 1.04 0.11-0.59 K/uL Eosinophils # (Auto) 0.07 0-0.5 K/uL Basophils # (Auto) 0.03 0-0.2 K/uL RDW Standard Deviation 42.8 36.4-46.3 fL RDW Coefficient of Variation 12.6 11.5-14.5 % Immature Granulocyte % (Auto) 0.3 % Immature Granulocyte # (Auto) 0.02 0.00-0.02 K/uL Sodium Level 135 136-145 mmol/L Potassium Level 3.7 3.5-5.1 mmol/L Chloride Level 104 98-107 mmol/L Carbon Dioxide Level 27 21-32 mmol/L Anion Gap 4.0 3-11 mmol/L Blood Urea Nitrogen 10 7-18 mg/dl Creatinine 0.65 0.60-1.40 mg/dl Est Creatinine Clear Calc Drug Dose 99.4 ml/min Estimated GFR () 118.3 Estimated GFR (Non- 102.1 BUN/Creatinine Ratio 15.6 10-20 Random Glucose 93 70-99 mg/dl Calcium Level 8.1 8.5-10.1 mg/dl Total Bilirubin 0.5 0.2-1 mg/dl Aspartate Amino Transf (AST/SGOT) 20 15-37 U/L Alanine Aminotransferase (ALT/SGPT) 19 12-78 U/L Alkaline Phosphatase 104 45-117 U/L Total Protein 6.9 6.4-8.2 gm/dl Albumin 2.4 3.4-5.0 gm/dl Globulin 4.5 2.5-4.0 gm/dl Albumin/Globulin Ratio 0.5 0.9-2 Microbiology Results 11/23/17 Urine Culture, Received Pending Diagnostic Interpretation: R KNEE 1 OR 2 VIEWS ROUTINE CLINICAL HISTORY: knee pain pain COMPARISON: None. DISCUSSION: The bones and joint spaces appear intact. There is no evidence of fracture, dislocation or bony disease. Prepatellar soft tissue edema IMPRESSION: Prepatellar soft tissue edema. Otherwise negative study. The above report was generated using voice recognition software. It may contain grammatical, syntax or spelling errors. Electronically signed by: Virgilio Lao M.D. 11/22/2017 12:52 PM Assessment & Plan 66-year-old male admitted for hypothermia with staple removal from scalp suture removal from right knee. He appears to have possible infection of his right knee incision, but there is no evidence of any underlying abscess at this point. Appears to be improving with antibiotics. Continue antibiotics If erythema persists, consider further imaging, possible orthopedics consult Surgery will follow peripherally, call with questions or concerns
[2017-11-24 12:13] VITALS: BP 148/76; PULSE 70; TEMP 36.6; O2SAT 96
[2017-11-24] MEDS ORDERED: AMLO-110 PO (12:19)
[2017-11-24] MEDS ORDERED: ASPEC81 PO (12:19)
[2017-11-24] MEDS ORDERED: THIA1TAB PO (12:19)
[2017-11-24] MEDS ORDERED: CEPH500C PO (12:19)
--- NOTE | 2017-11-24 12:28 | Progress Note ---
Internal Med Progress Note Date of Service: Nov 24, 2017. Provider Documentation: SUBJECTIVE: Patient denies chest pain or shortness of breath. Patient reports that he understands current health issues and discharge instructions OBJECTIVE: Exam: General- no acute distress Eyes- EOMI Neck-trachea midline, no JVD Lungs- CTABL, no wheezing Heart- Reg rate and rhythm. 2/6 systolic murmur heard best at the right sternal border Abdomen- soft, nontender, + bowel sounds Extremities- right knee with dressing, wound is clean and dry Neuro- awake and alert ASSESSMENT & PLAN: 66 year old M who is homeless and picked up by law enforcement in the snow and presented to ED for evaluation for cold exposure for rule out hypothermia, and vascular compromise of extremities due to cold exposure. Patient had treatments for rewarming as fingers appeared to be cyanotic. At this time there does not appear to be evidence for limb compromise. Patient also seen and examined for injuries secondary to mechanical falls with skin injuries received TDAP in the ED Knee and Hand X rays without findings for fractures General surgery 11/23/17 was asked to assess right knee laceration with prior sutures placed and prior head tarik; Sutures removed from knee, clean gauze dressing applied- recommend daily dressing change; [place] removed from head. Patient has been empirically on IV Vancomycin to treat possible cellulitis of the lower extremities as patient had history of trench foot in the past, blood cultures from 11/22/17 are negative and patient is to be discharged with oral antibiotics and instructions to keep the right knee clean and dry and to follow up with primary care doctor Cardiology 11/23/17 was due to nonspecific EKG changes and on Echocardiogram with findings of preserved LVEF, normal left ventricular wall motion, and severe aortic valve stenosis Patient denies chest pain. 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 We do not have neuropsychological testing available in the hospital." Discharge instructions: Patient was evaluated for cold exposure and found to have right knee laceration and severe aortic valve stenosis. Please follow up these health issues with primary care doctor Follow up appointments 11/29/2017 11:20 AM Noah Mayes MD General Internal Medicine [facility] Patient is to be discharged with medications including to prevent skin infection of right knee. Please keep right knee warm and dry Patient was able to verbalize and repeat these instructions Vital Signs: Date Time Temp Pulse Resp B/P (MAP) Pulse Ox O2 Delivery O2 Flow Rate FiO2 11/24/17 12:13 36.6 70 18 96 Room Air 11/24/17 08:00 96 Room Air 11/24/17 07:06 36.6 70 18 148/76 (100) 96 Room Air 11/24/17 00:00 96 Room Air 11/23/17 23:37 36.6 80 17 139/76 (97) 92 Room Air 11/23/17 16:45 36.8 79 16 129/73 (91) 96 Room Air 11/23/17 16:00 Room Air Lab Results: Results Past 24 Hours Test 11/23/17 21:58 11/24/17 07:03 Range/Units Urine Color YELLOW Urine Appearance CLOUDY CLEAR Urine pH 7.5 4.5-7.5 Urine Specific [place] 1.012 1.000-1.030 Urine Protein NEG NEG Urine Glucose (UA) NEG NEG Urine Ketones NEG NEG Urine Occult Blood NEG NEG Urine Nitrite NEG NEG Urine Bilirubin NEG NEG Urine Urobilinogen NEG NEG Urine Leukocyte Esterase NEG NEG Urine WBC (Auto) 0 0-5 /hpf Urine RBC (Auto) 0-4 0-4 /hpf Urine Hyaline Casts (Auto) 0 0-5 /lpf Urine Epithelial Cells (Auto) 0-5 0-5 /lpf Urine Bacteria (Auto) NEG NEG White Blood Count 7.92 4.8-10.8 K/uL Red Blood Count 3.57 4.7-6.1 M/uL Hemoglobin 11.3 14.0-18.0 g/dL Hematocrit 33.0 42-52 % Mean Corpuscular Volume 92.4 80-100 fL Mean Corpuscular Hemoglobin 31.7 25-34 pg Mean Corpuscular Hemoglobin Concent 34.2 32-36 g/dl Platelet Count 341 130-400 K/uL Mean Platelet Volume 8.8 7.4-10.4 fL Neutrophils (%) (Auto) 58.5 % Lymphocytes (%) (Auto) 26.8 % Monocytes (%) (Auto) 13.1 % Eosinophils (%) (Auto) 0.9 % Basophils (%) (Auto) 0.4 % Neutrophils # (Auto) 4.64 1.4-6.5 K/uL Lymphocytes # (Auto) 2.12 1.2-3.4 K/uL Monocytes # (Auto) 1.04 0.11-0.59 K/uL Eosinophils # (Auto) 0.07 0-0.5 K/uL Basophils # (Auto) 0.03 0-0.2 K/uL RDW Standard Deviation 42.8 36.4-46.3 fL RDW Coefficient of Variation 12.6 11.5-14.5 % Immature Granulocyte % (Auto) 0.3 % Immature Granulocyte # (Auto) 0.02 0.00-0.02 K/uL Sodium Level 135 136-145 mmol/L Potassium Level 3.7 3.5-5.1 mmol/L Chloride Level 104 98-107 mmol/L Carbon Dioxide Level 27 21-32 mmol/L Anion Gap 4.0 3-11 mmol/L Blood Urea Nitrogen 10 7-18 mg/dl Creatinine 0.65 0.60-1.40 mg/dl Est Creatinine Clear Calc Drug Dose 99.4 ml/min Estimated GFR () 118.3 Estimated GFR (Non- 102.1 BUN/Creatinine Ratio 15.6 10-20 Random Glucose 93 70-99 mg/dl Calcium Level 8.1 8.5-10.1 mg/dl Total Bilirubin 0.5 0.2-1 mg/dl Aspartate Amino Transf (AST/SGOT) 20 15-37 U/L Alanine Aminotransferase (ALT/SGPT) 19 12-78 U/L Alkaline Phosphatase 104 45-117 U/L Total Protein 6.9 6.4-8.2 gm/dl Albumin 2.4 3.4-5.0 gm/dl Globulin 4.5 2.5-4.0 gm/dl Albumin/Globulin Ratio 0.5 0.9-2 Microbiology Results 11/23/17 Urine Culture, Received Pending
--- NOTE | 2017-11-24 12:32 | Discharge Instructions ---
Discharge Instructions Date of Service Nov 24, 2017. Admission Reason for Admission: Fall, Hypothermia Discharge Discharge Diagnosis / Problem: Hypothermia/Cold exposure, fall,right knee laceration,aortic stenosis Discharge Goals Goal(s): Improve function, Increase independence Activity Recommendations Activity Limitations: per Instructions/Follow-up section . Instructions / Follow-Up Instructions / Follow-Up 66 year old M who is homeless and picked up by law enforcement in the snow and presented to ED for evaluation for cold exposure for rule out hypothermia, and vascular compromise of extremities due to cold exposure. Patient had treatments for rewarming as fingers appeared to be cyanotic. At this time there does not appear to be evidence for limb compromise. Patient also seen and examined for injuries secondary to mechanical falls with skin injuries received TDAP in the ED Knee and Hand X rays without findings for fractures General surgery 11/23/17 was asked to assess right knee laceration with prior sutures placed and prior head tarik; Sutures removed from knee, clean gauze dressing applied- recommend daily dressing change; [place] removed from head. Patient has been empirically on IV Vancomycin to treat possible cellulitis of the lower extremities as patient had history of trench foot in the past, blood cultures from 11/22/17 are negative and patient is to be discharged with oral antibiotics and instructions to keep the right knee clean and dry and to follow up with primary care doctor Cardiology 11/23/17 was due to nonspecific EKG changes and on Echocardiogram with findings of preserved LVEF, normal left ventricular wall motion, and severe aortic valve stenosis Patient denies chest pain. 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 We do not have neuropsychological testing available in the hospital." Discharge instructions: Patient was evaluated for cold exposure and found to have right knee laceration and severe aortic valve stenosis. Please follow up these health issues with primary care doctor Follow up appointments 11/29/2017 11:20 AM Noah Mayes MD General Internal Medicine [facility] Patient is to be discharged with medications including to prevent skin infection of right knee. Please keep right knee warm and dry Patient was able to verbalize and repeat these instructions Current Hospital Diet Patient's current hospital diet: AHA Diet (Heart Healthy) Discharge Diet Recommended Diet: AHA Diet (Heart Healthy) Pending Studies Studies pending at discharge: no Laboratory Results 11/24/17 07:03 Red Blood Count 3.57, Mean Corpuscular Volume 92.4, Mean Corpuscular Hemoglobin 31.7, Mean Corpuscular Hemoglobin Concent 34.2, Mean Platelet Volume 8.8, Neutrophils (%) (Auto) 58.5, Lymphocytes (%) (Auto) 26.8, Monocytes (%) (Auto) 13.1, Eosinophils (%) (Auto) 0.9, Basophils (%) (Auto) 0.4, Neutrophils # (Auto ) 4.64, Lymphocytes # (Auto) 2.12, Monocytes # (Auto) 1.04, Eosinophils # (Auto ) 0.07, Basophils # (Auto) 0.03 11/24/17 07:03 Test 11/22/17 10:03 11/22/17 10:11 11/22/17 14:23 11/22/17 17:06 Prothrombin Time 10.6 SECONDS (9.0-12.0) Prothromb Time International Ratio 1.0 (0.9-1.1) Activated Partial Thromboplast Time 28.9 SECONDS (21.0-31.0) Partial Thromboplastin Ratio 1.1 Direct Bilirubin mg/dl (0-0.2) Lipase 143 U/L (73-393) Thyroid Stimulating Hormone (TSH) 0.973 uIu/ml (0.300-4.500) Chemistry Specimen Hemolysis Bedside Hemoglobin 12.6 g/dl (14.0-18.0) Bedside Hematocrit 37 % (42-52) Bedside Sodium 136 mEq/L (135-144) Bedside Potassium 3.5 mEq/L (3.3-5.0) Bedside Chloride 94 mEq/L (101-112) Bedside Total CO2 25 mEq/l (24-31) Bedside Blood Urea Nitrogen 29 mg/dl (7-18) Bedside Creatinine 0.7 mg/dl (0.6-1.3) Bedside Glucose (other) 99 mg/dl (70-99) Bedside Ionized Calcium ([place]) 1.15 mmol/l (1.12-1.32) Ethyl Alcohol mg/dL < 3.0 mg/dl (0-3) Lactic Acid Level 0.9 mmol/L (0.4-2.0) Procalcitonin < 0.05 ng/ml (0-0.5) Test 11/23/17 06:36 11/23/17 21:58 11/24/17 07:03 Uric Acid 5.8 mg/dl (2.6-7.2) Phosphorus Level 2.3 mg/dl (2.5-4.9) Magnesium Level 2.0 mg/dl (1.8-2.4) Troponin I 0.023 ng/ml (0-0.045) Urine Color YELLOW Urine Appearance CLOUDY (CLEAR) Urine pH 7.5 (4.5-7.5) Urine Specific [place] 1.012 (1.000-1.030) Urine Protein NEG (NEG) Urine Glucose (UA) NEG (NEG) Urine Ketones NEG (NEG) Urine Occult Blood NEG (NEG) Urine Nitrite NEG (NEG) Urine Bilirubin NEG (NEG) Urine Urobilinogen NEG (NEG) Urine Leukocyte Esterase NEG (NEG) Urine WBC (Auto) 0 /hpf (0-5) Urine RBC (Auto) 0-4 /hpf (0-4) Urine Hyaline Casts (Auto) 0 /lpf (0-5) Urine Epithelial Cells (Auto) 0-5 /lpf (0-5) Urine Bacteria (Auto) NEG (NEG) White Blood Count 7.92 K/uL (4.8-10.8) Red Blood Count 3.57 M/uL (4.7-6.1) Hemoglobin 11.3 g/dL (14.0-18.0) Hematocrit 33.0 % (42-52) Mean Corpuscular Volume 92.4 fL (80-100) Mean Corpuscular Hemoglobin 31.7 pg (25-34) Mean Corpuscular Hemoglobin Concent 34.2 g/dl (32-36) Platelet Count 341 K/uL (130-400) Mean Platelet Volume 8.8 fL (7.4-10.4) Neutrophils (%) (Auto) 58.5 % Lymphocytes (%) (Auto) 26.8 % Monocytes (%) (Auto) 13.1 % Eosinophils (%) (Auto) 0.9 % Basophils (%) (Auto) 0.4 % Neutrophils # (Auto) 4.64 K/uL (1.4-6.5) Lymphocytes # (Auto) 2.12 K/uL (1.2-3.4) Monocytes # (Auto) 1.04 K/uL (0.11-0.59) Eosinophils # (Auto) 0.07 K/uL (0-0.5) Basophils # (Auto) 0.03 K/uL (0-0.2) RDW Standard Deviation 42.8 fL (36.4-46.3) RDW Coefficient of Variation 12.6 % (11.5-14.5) Immature Granulocyte % (Auto) 0.3 % Immature Granulocyte # (Auto) 0.02 K/uL (0.00-0.02) Anion Gap 4.0 mmol/L (3-11) Est Creatinine Clear Calc Drug Dose 99.4 ml/min Estimated GFR () 118.3 Estimated GFR (Non- 102.1 BUN/Creatinine Ratio 15.6 (10-20) Calcium Level 8.1 mg/dl (8.5-10.1) Total Bilirubin 0.5 mg/dl (0.2-1) Aspartate Amino Transf (AST/SGOT) 20 U/L (15-37) Alanine Aminotransferase (ALT/SGPT) 19 U/L (12-78) Alkaline Phosphatase 104 U/L (45-117) Total Protein 6.9 gm/dl (6.4-8.2) Albumin 2.4 gm/dl (3.4-5.0) Globulin 4.5 gm/dl (2.5-4.0) Albumin/Globulin Ratio 0.5 (0.9-2) Date/Time Source Procedure Growth Status 11/22/17 14:37 Blood Blood Culture - Preliminary NO GROWTH TO DATE. Resulted 11/23/17 21:58 Urine , Clean Catch Urine Culture Pending Received Medical Emergencies . Who to Call and When: Medical Emergencies: If at any time you feel your situation is an emergency, please call 911 immediately. . Non-Emergent Contact Non-Emergency issues call your: Primary Care Provider Call Non-Emergent contact if: you have any medication questions . . "Provider Documentation" section prepared by Syed Martines. . VTE Core Measure Inpt VTE Proph given/why not?: SCD's
--- NOTE | 2017-11-24 12:40 | Discharge Summary ---
Discharge Summary Date of Service Nov 24, 2017. Discharge Summary Admission Date: Nov 22, 2017 at 12:16 Discharge Date: Nov 24, 2017 Discharge Disposition: Home Principal Diagnosis: Hypothermia/Cold exposure, mechanical fall,right knee laceration, severe aortic stenosis Medication Reconciliation Continued Medications: Amlodipine (Norvasc) 5 Mg Tab 5 MG PO DAILY for 30 Days, #30 TAB 1 Refill (This prescription has been renewed) Aspirin (Aspirin EC Low Dose) 81 Mg Ectab 81 MG PO DAILY for 30 Days, #30 TAB 1 Refill (This prescription has been renewed ) Cephalexin Monohydrate (Keflex) 500 Mg Cap 500 MG PO QID for 5 Days, #24 CAP (This prescription has been renewed) Thiamine Hcl (B-1) 100 Mg Tab 100 MG PO DAILY for 30 Days, #30 TAB (This prescription has been renewed) Tolterodine Tartrate (Detrol) 1 Mg Tab 1 MG PO BID, TAB Discontinued Medications: Cephalexin Monohydrate (Keflex) 500 Mg Cap 500 MG PO QID for 3 Days, #12 CAP Sulfa/Trimethoprim (Bactrim Ds 800MG/160MG) Tab 1 TAB PO BID for 10 Days, #20 TAB Admission Information HPI (per Admitting provider): Patient is a 66 yr homeless male with PMH of HTN, Basal ganglia Infarct, Trench Foot, Alcohol and Tobacco use disorder who presents after a fall and was found outside of [facility] in snow by police and was brought to ED for further evaluation. Patient had multiple ED visits and admissions for Trench foot and cellulitis. Patient is a poor historian. He states that he skid on Ice and fell today and hurt his fingers as a result. Denies any history of head trauma, LOC, change in vision. He was found to be hypothermic and was on Bare hugger while in ED. ED staff found patient to have cyanotic finger but currently resolved. He complains of B/L knee pain but denies any pain in feet or fingers. Denies any history of chest pain, SOB, cough, dizziness, fever, nausea, vomiting, abdominal pain, diarrhea, dysuria. He has not been taking his medications since about a month and states that he could not afford them. Reports last alcohol drink was 3 days ago and had 1 beer and denies any withdrawal symptoms in the past. Physical Exam (per Admitting): General Appearance: no apparent distress, + thin, + pertinent finding ( Chronic ill appearing, frail ) Head: normocephalic, atraumatic Eyes: normal inspection, PERRL, EOMI ENT: normal ENT inspection, hearing grossly normal Neck: supple, trachea midline Respiratory/Chest: chest non-tender, lungs clear, no accessory muscle use, + decreased breath sounds Cardiovascular: regular rate, rhythm, no edema, + systolic murmur Abdomen/GI: normal bowel sounds, non tender, soft Back: normal inspection Extremities/Musculoskelatal: + pedal edema, + pertinent finding (Wounds on LUE Fingers, B/L knee erythematous, Sutures noted on Knee, non tender, Erythematous feet) Neurologic/Psych: alert, oriented x 3, + pertinent finding (Grossly no focal deficits, able to move all extremities ) Skin: normal color, + pertinent finding (Sutures on knee, changes as above) Hospital Course 66 year old M who is homeless and picked up by law enforcement in the snow and presented to ED for evaluation for cold exposure for rule out hypothermia, and vascular compromise of extremities due to cold exposure. Patient had treatments for rewarming as fingers appeared to be cyanotic. At this time there does not appear to be evidence for limb compromise. Patient also seen and examined for injuries secondary to mechanical falls with skin injuries received TDAP in the ED Knee and Hand X rays without findings for fractures General surgery 11/23/17 was asked to assess right knee laceration with prior sutures placed and prior head tarik; Sutures removed from knee, clean gauze dressing applied- recommend daily dressing change; Belt removed from head. Patient has been empirically on IV Vancomycin to treat possible cellulitis of the lower extremities as patient had history of trench foot in the past, blood cultures from 11/22/17 are negative and patient is to be discharged with oral antibiotics and instructions to keep the right knee clean and dry and to follow up with primary care doctor Cardiology 11/23/17 was due to nonspecific EKG changes and on Echocardiogram with findings of preserved LVEF, normal left ventricular wall motion, and severe aortic valve stenosis Patient denies chest pain. Patient is to follow up with primary care doctor for cardiac health maintenance Hypertension: continue Amlodipine H/O Basal ganglia Infarcts in the past: Continue Aspirin Alcohol Use disorder: Continue thiamine, advised to decrease alcohol use Tobacco use disorder: Nicotine Patch funeral planning counselor to quit smoking Psychiatry was asked to evaluate the patient on admission day 11/22/17 in regards to patient's ability to make medical decisions but inpatient psychiatry "cannot do a competency assessment, as this is a legal determination which requires the neuropsychological evaluation and then a hearing in front of the physician chief of pathology. We do not have neuropsychological testing available in the hospital." Discharge instructions: Patient was evaluated for cold exposure and found to have right knee laceration and severe aortic valve stenosis. Please follow up these health issues with primary care doctor Follow up appointments 11/29/2017 11:20 AM Noah Mayes MD General Internal Medicine [facility] Patient is to be discharged with medications including to prevent skin infection of right knee. Please keep right knee warm and dry Patient was able to verbalize and repeat these instructions Total time spent on discharge = 60 minutes This includes examination of the patient, discharge planning, medication reconciliation, and communication with other providers. Discharge Instructions see above
[2017-11-24] MEDS ORDERED: VANCOMYCIN TROUGH SCH (13:30)
--- NOTE | 2017-11-24 14:00 | Psychiatric Consultation ---
Psychiatric Consultation Date of Service: Nov 24, 2017. Identifying Data Jc Goncalves is a 66-year-old male who has no psychiatric history, is homeless, and has had recent admissions for cellulitis of the foot. He was last seen on consult service in February 2017 following a readmit for an AMA discharge. Consult is to determine current capacity to make medical decisions. Chief Complaint "I don't remember falling" History of Present Illness Mr. Goncalves states that he is happy that a passerby activated EMS following his fall. He was brought in having been found with his pants down, incontinent of feces and urine with lethargy related to hypothermia. He has been treated for knee lac and been cooperative with medical care on the floor though admittedly irritable at times. He is defensive when asked more details about his spending money on an apartment near [facility] or when questioned about his girlfriend. He denied SI/HI/calixto. He reports willingness for recommended medical treatment and had concrete but positive understanding of his heart valve disease and what would be involved for surgery. He states he wouldn't be happy to go to rehab after but would consider that "when the time comes". He was oriented to the month, year, approximate date, surroundings and had good repetition. Recall was limited after 2 min. States he hasn't been taking his BP pills due to cost. Per last contact: He states that he is originally from [facility], and came to this area 23 years ago to live with his brother in [place], but his brother 6 years ago, and he has been homeless since. He denies concerns about being homeless, stating he is aware of [facility] and other local resources, but typically opts to either stay in hotels or sleep outside. He denies having any friends locally, and says he has one friend and [facility] whom he has not been in touch with in a while. He notes he has a car which is parked and pleasant, but says he doesn't drive "because I drink". Past Psychiatric History Current OP Treatment: no current treatment Prior OP Treatment: no prior treatment Prior Psych Hospitalizations: none Access to a Gun: No Suicide Attempts: No Past Medication Trials None Additional Notes The patient denies any mental health history. Past Medical/Surgical History (1) Cellulitis of foot (2) Hypertension (3) Tobacco use disorder (4) Alcohol abuse Allergies Allergies: Coded Allergies: No Known Allergies (Unverified , 02/27/17) Home Medications Reported Home Medications Medications Dose Route/Sig Max Daily Dose Days Date Category B-1 (Thiamine Hcl) 100 Mg Tab 100 Mg PO DAILY 30 11/24/17 Rx Aspirin EC Low Dose (Aspirin) 81 Mg Ectab 81 Mg PO DAILY 30 11/24/17 Rx Norvasc (Amlodipine Besylate) 5 Mg Tab 5 Mg PO DAILY 30 11/24/17 Rx Keflex (Cephalexin Monohydrate) 500 Mg Cap 500 Mg PO QID 5 11/24/17 Rx Detrol (Tolterodine Tartrate) 1 Mg Tab 1 Mg PO BID 11/22/17 Reported Family History FH: CAD (coronary artery disease) FATHER ( of [place] age 56 ) History of Suicide: No History of Substance Abuse: No Psychiatric History: No Alcohol Use Alcohol Use In Past 12 Months: Yes (drinks 2 beers daily) Smoking Use Smoking Status: Current Every Day Smoker Substance History Denies Personal History Lives in: homeless in [facility] Childhood: Originally from [facility]. Relationship History: never Children: denies Spiritual Affiliation: denies Legal History: none Psychological Trauma History: Other (denies) Review of Systems 10 systems reviewed; positive for foot pain; others negative except as stated above labs reviewed. On MSE: oriented as above, thoughts are concrete but organized, somewhat irritable/guarded but no evidence of paranoia. He denies SI/HI/calixto and did not appear to be responding to internal stimuli. Eye contact limited. Attention fair. Patien unwilling to complete clock drawing test due to fingers being wrapped/sore. IMP: chronic homelessness and likely ongoing ETOH abuse (patient denies). Can' t exclude withdrawal or other seizure as contributing to presentation. Plan: he does appear to have difficulty caring for himself but there is no evidence that this is due to active psychosis or wish, ie he doesn't meet criteria for involuntary commitment under the mental health law. He is orientation and has capacity to consent to current procedures but there are longer term considerations with regards to him managing his own affairs. Agree with Office of Aging involvement with neuropsych testing to determine guardianship needs for longer term placement options given that it is likely that his medical condition will continue to deteriorate.
== END 2017-11-24 15:25 | disposition home or self-care (01) | DRG 923 ==
LOC: EDBD 09:14 → C.EDB 09:15 → C.MS4W 12:16 → ENRESERV 13:00
PROVIDERS: ADMIT Internal Medicine; ATTEND Hospitalist
PROC: 8E0YXY8 Suture Removal from Lower Extremity (ICD-10-PCS; principal; 2017-11-23)
PROC: 8E09XY8 Suture Removal from Head and Neck Region (ICD-10-PCS; principal; 2017-11-23)
DX: T68.XXXA Hypothermia, initial encounter (principal); T33.521A Superficial frostbite of right hand, initial encounter; T33.522A Superficial frostbite of left hand, initial encounter; S01.01XD Laceration without foreign body of scalp, subsequent encounter; S81.011D Laceration without foreign body, right knee, subsequent encounter; I10 Essential (primary) hypertension; I35.0 Nonrheumatic aortic (valve) stenosis; F17.200 Nicotine dependence, unspecified, uncomplicated; F12.10 Cannabis abuse, uncomplicated; Z82.49 Family history of ischemic heart disease and other diseases of the circulatory system; Z59.0 Homelessness; Z86.73 Personal history of transient ischemic attack (TIA), and cerebral infarction without residual deficits; F10.10 Alcohol abuse, uncomplicated; W00.9XXD Unspecified fall due to ice and snow, subsequent encounter; Y92.218 Other school as the place of occurrence of the external cause

== ENCOUNTER 2017-11-28 15:27 | Emergency (ER) | payer OTHER ==
[~2017-11-28] VITALS: Ht 175.3 cm; Wt 52.8 kg
[~2017-11-28 15:27] MED LIST changes: +AMLO-110 PO; +ASPEC81 PO; -SULF800T23 PO; +THIA1TAB PO; +TOLT1TAB17 PO
[2017-11-28 15:56] VITALS: Ht 175.3 cm; Wt 52.8 kg
--- NOTE | 2017-11-28 16:12 | EMERGENCY ROOM VISIT NOTE ---
ED Visit Note First contact with patient: 16:01 CHIEF COMPLAINT: Frostbite bilateral hands/question infection HISTORY OF PRESENT ILLNESS: This homeless 66-year-old male presents to ER stating that he wants to make sure that his fingers are not infected. The patient states that he was diagnosed with frostbite of both hands a week ago. The patient denies any increased redness of the fingers or any drainage. The patient does admit that he has feeling in all his fingers. Patient denies any fever. REVIEW OF SYSTEMS: GENERAL: 6 system review was performed and was negative unless stated otherwise in history of present illness. PMH: The patient is healthy; see chronic problem list SOCIAL HISTORY: Patient is homeless. PHYSICAL EXAM: Vital Signs: Were reviewed reviewed Nurse's notes. GENERAL: 66- year-old male appears in no acute distress. MENTAL Status: Alert and oriented 3. BILATERAL HANDS: The patient has some scabbing noted on the palmar aspect of the distal phalanges bilaterally. There is no surrounding erythema or purulent drainage. EMERGENCY DEPARTMENT COURSE: The patient was evaluated by myself and independently by Dr. Phillips who agrees with treatment plan. DIAGNOSIS: Frostbite bilateral hands/healing well. DISCHARGE INSTRUCTIONS & TREATMENT: Keep hands as warm as possible. Any further problems, return to ER. Problem List Medical Problems: (1) Alcohol abuse Status: Chronic (2) HTN (hypertension) Status: Chronic (3) Hypertension Status: Chronic (4) Tobacco use disorder Status: Chronic Surgical Problems: (1) H/O colonoscopy Status: Chronic Current/Historical Medications Scheduled Amlodipine (Norvasc), 5 MG PO DAILY Aspirin (Aspirin EC Low Dose), 81 MG PO DAILY Cephalexin Monohydrate (Keflex), 500 MG PO QID Thiamine Hcl (B-1), 100 MG PO DAILY Tolterodine Tartrate (Detrol), 1 MG PO BID Allergies Coded Allergies: No Known Allergies (Unverified , 11/28/17) Vital Signs Date Time Temp Pulse Resp B/P (MAP) Pulse Ox O2 Delivery O2 Flow Rate FiO2 11/28/17 15:56 36.9 88 18 164/90 98 Room Air Departure Information Referrals Noah Mayes MD (PCP) Patient Instructions [facility]
[2017-11-28 16:23] VITALS: BP 164/90; PULSE 88; TEMP 36.9; O2SAT 98
--- NOTE | 2017-11-28 16:32 | EMERGENCY ROOM VISIT NOTE ---
ED Visit Note First contact with patient: 16:08 The patient was seen and examined with Jaleesa Lao PA-C. I agree with the history, physical and findings. Please see the note for disposition and details.
== END 2017-11-28 16:24 | disposition home or self-care (01) ==
LOC: C.EDB 15:29 → C.EDD 16:24
DX: T33.531A Superficial frostbite of right finger(s), initial encounter (principal); T33.532A Superficial frostbite of left finger(s), initial encounter; X31.XXXA Exposure to excessive natural cold, initial encounter; Y92.89 Other specified places as the place of occurrence of the external cause; Z59.0 Homelessness; I10 Essential (primary) hypertension; Z72.0 Tobacco use; F10.10 Alcohol abuse, uncomplicated; Z79.82 Long term (current) use of aspirin; Z79.899 Other long term (current) drug therapy